=== PATIENT | female | born 1950 | race Caucasian/White ===

== ENCOUNTER 2021-08-08 14:27 | Outpatient (REF) | payer MEDICARE, SELFPAY | END 2021-08-08 14:28 | disposition home or self-care (01) | LOC: HO.HMGCLDS 14:27 | PROVIDERS: PCP Internal Medicine; Visit Provider Internal Medicine | DX: Z20.822 Contact with and (suspected) exposure to COVID-19 (principal) | CPT/HCPCS: C9803; U0003; U0005 ==

== ENCOUNTER 2022-05-09 17:25 | Outpatient (REF) | payer MEDICARE, SELFPAY ==
[2022-05-09 18:20] LABS: Influenza A PCR NEGATIVE (Negative); Influenza B PCR NEGATIVE (Negative); Resp Syncy Virus RNA Qual PCR NEGATIVE (Negative); SARS COV2 PCR INHOUSE NEGATIVE (Negative)
== END 2022-05-09 17:26 | disposition home or self-care (01) ==
LOC: HO.LNP 17:25
DX: Z20.822 Contact with and (suspected) exposure to COVID-19 (principal); J02.9 Acute pharyngitis, unspecified
CPT/HCPCS: 0241U

== ENCOUNTER 2022-05-19 15:14 | Emergency (ER) | payer MEDICARE, SELFPAY ==
[2022-05-19 16:01] VITALS: BP 108/69; PULSE 74; RESP 18; TEMP 36.7; O2SAT 98; BMI 28.3
--- NOTE | 2022-05-19 16:12 | ED.PSYCH ---
HPI - Psych General Chief Complaint: Psychiatric Symptoms Stated Complaint: Crisis Time Seen by Provider: 05/19/22 16:11 Source: patient Mode of arrival: ambulatory Limitations: no limitations History of Present Illness HPI Narrative: This is a 72-year-old female history of bipolar disorder presenting to the emergency department with anxiety, panic attacks, suicidal ideation with plan x2 weeks. Patient tells me that she started feeling this way when her medications were switched she tells me she is to be taking a medication that was too expensive therefore they put her on Seroquel and since she started taking cervical she has been having issues. Patient denies visual, auditory and tactile hallucinations. Tells me she is suicidal with plan to run into traffic. Denies homicidal ideation. Denies drugs, alcohol and tobacco. Denies any medical complaints at this time. MD complaint: suicidal ideation Onset (ago): day(s) (2) Related Data Home Medications Medication Instructions Recorded Confirmed albuterol sulfate 90 mcg/actuation 2 puff PO Q4-6H PRN 06/15/21 aerosol inhaler alendronate 70 mg tablet mg PO 06/15/21 amoxicillin 875 mg tablet 875 mg PO BID 06/15/21 aripiprazole 10 mg tablet 10 mg PO DAILY 06/15/21 atorvastatin 10 mg tablet 10 mg PO DAILY 06/15/21 azithromycin 250 mg tablet 250 mg PO DIRECTED 06/15/21 bupropion HCl 200 mg tablet,12 hr 200 mg PO QAM 06/15/21 sustained-release fluticasone furoate 100 1 inh inhalation DAILY 06/15/21 mcg/actuation blister powder for inhalation (Arnuity Ellipta) fluticasone propionate 100 0 inh inhalation 06/15/21 mcg/actuation blister powder for inhalation (Flovent Diskus) ketotifen fumarate 0.025 % (0.035 1 drp ophthalmic (eye) Q12H 06/15/21 %) eye drops lisinopril 5 mg tablet 5 mg PO DAILY 06/15/21 lorazepam 0.5 mg tablet 0.5 mg PO BID 06/15/21 omeprazole 20 mg capsule,delayed 20 mg PO DAILY 06/15/21 release primidone 50 mg tablet 50 mg PO BID 06/15/21 sertraline 100 mg tablet 200 mg PO QAM 06/15/21 trazodone 100 mg tablet 100 mg PO BEDTIME 06/15/21 Saccharomyces boulardii 250 mg 5,000 mmu cells PO DAILY 05/09/22 capsule (Digest Probiotic (S.boulardii)) ascorbic acid (vitamin C) 100 mg 100 mg PO DAILY 05/09/22 tablet cholecalciferol (vitamin D3) 50 50 mcg PO DAILY 05/09/22 mcg (2,000 unit) capsule quetiapine 50 mg tablet,extended 50 mg PO BEDTIME 05/09/22 release 24 hr Previous Rx's Medication Instructions Recorded doxycycline hyclate 100 mg capsule 100 mg PO BID 14 days #28 caps 06/15/21 amoxicillin 250 mg capsule 250 mg PO QID 7 days #28 caps 05/09/22 hydroxyzine HCl 25 mg tablet 25 mg PO BID PRN anxiety #6 tabs 05/13/22 Allergies Allergy/AdvReac Type Severity Reaction Status Date / Time [facility] Allergy Unknown Verified 05/13/22 14:57 aspirin AdvReac Mild Shortness Verified 05/13/22 14:57 of Breath Review of Systems Review of Systems: Constitutional : No Fever, No Chills ENT/Mouth : No Ear Pain, No Nasal Congestion, No sore throat Eyes: No Eye Pain, No Swelling, No Redness Cardiovascular : No Chest Pain, No SOB Respiratory : No Cough, No Sputum, No Dyspnea Gastrointestinal : No Nausea, No Vomiting, No Diarrhea, No Hematochezia, No Melena Genitourinary : No Dysuria, No Urinary Frequency, No Hematuria Musculoskeletal : No Myalgias Skin : No Skin Lesions, No rash Neuro : No Weakness, No Numbness, No Paresthesias, No Dizziness, No Headache Psych : positive Anxiety, positive Depression, positive SI, No HI All other systems reviewed and are negative Yes all other systems are reviewed and are negative [facility] Past Medical History Attestation statement: The following information was validated with the patient. Source: old records reviewed and nursing notes reviewed Social History Social History Advance Directives: No Advance Directives Information Provided: No Physical Exam Vital Signs: Vital Signs: Last Vital Signs Temp 98.0 F 05/19/22 16:01 Pulse 74 05/19/22 16:01 Resp 18 05/19/22 16:01 BP 108/69 05/19/22 16:01 Pulse Ox 98 05/19/22 16:01 O2 Del Method 05/19/22 16:01 BMI result Body Mass Index 28.3 VSS Appearance: Alert.? Oriented X3.? No acute distress.? Head: Normocephalic, atraumatic, no step-offs or deformities Eyes: Pupils equal, round and reactive to light.? ENT: Pharynx normal.? Neck: Normal inspection.? Neck supple.? CVS: Normal heart rate and rhythm.? Pulses normal.? Respiratory: No respiratory distress.? Breath sounds normal.? Abdomen: Soft and nontender.? Skin: Skin warm and dry.? Normal skin color.? Normal skin turgor.? Extremities: No lower extremity edema.? No calf ttp. 5/5 strength to bilateral upper and lower extremities Neuro: Oriented X 3.? No motor deficit.? No sensory deficit. CN 2-12 intact Course Reevaluation(s) Reevaluation #1: CBC within normal limits. Chemistry with no acute findings. UA without infection. Blood negative for salicylates, acetaminophen, ethanol. Urine toxicology positive for barbiturates. Patient is COVID negative. Patient common cooperative. At this time patient will be placed in physician observation to allow more time to be evaluated by the behavioral health team. At time observation was started patient common cooperative no acute distress. Will continue to monitor Time: 19:48 MDM - Psych MDM Narrative Medical decision making narrative: 1613 72 year old female presents w/ anxiety, panic and SI w/ plan to jump into traffic. Reports recently starting Seroquel PE benign Plan- medical clearance, evaluation by psych. Medical Records Attestation: I reviewed the patient's medical records. Lab Data Attestation: I reviewed the patient's lab results. Result diagrams: 05/19/22 17:00 05/19/22 17:00 Labs: Lab Results 05/19/22 05/19/22 05/19/22 Range/Units 17:00 17:00 17:00 WBC 5.7 (4.8-10.8) X10*3/uL RBC 4.57 (4.20-5.50) X10*6/uL Hgb 13.4 (12.0-16.0) g/dl Hct 40.2 (37.0-47.0) % MCV 88.0 (80.0-98.0) fL MCH 29.3 (27.0-33.0) pg MCHC 33.3 (31.0-35.0) g/dl RDW 12.1 (11.0-16.0) % Plt Count 178 (160-400) X10*3/uL MPV 8.9 L (9.4-12.3) fL Immature Gran % (Auto) 0.5 H (0.0-0.4) % Neut % (Auto) 69.9 (45-73) % Lymph % (Auto) 16.4 L (20-40) % [place] % (Auto) 9.9 (2-11) % Eos % (Auto) 2.4 (0-4) % Baso % (Auto) 0.9 (0-2) % Lymph # (Auto) 0.9 L (1.2-4.9) X10*3/uL [place] # (Auto) 0.6 (0.1-1.2) X10*3/uL Eos # (Auto) 0.1 (0.0-0.4) X10*3/uL Baso # (Auto) 0.1 (0.0-0.2) X10*3/uL Abs Immat Gran (auto) 0.03 (0.00-0.03) X10*3/uL Absolute Neuts (auto) 4.0 (2.0-8.3) x10*3/uL Absolute Nucleated RBC 0.000 (0.0-0.012) X10*3/uL Nucleated RBC % (auto) 0.0 (0.0-0.2) /100WBC Sodium 138 (135-145) mmol/L Potassium 4.3 (3.3-5.1) mmol/L Chloride 105 (96-108) mmol/L Carbon Dioxide 26 (22-29) mmol/L Anion Gap 11 L (12-20) BUN 12 (9-16) mg/dL Creatinine 0.85 (0.5-1.4) mg/dL Estim Creat Clear Calc 55.7 Estimated GFR > 60 Random Glucose 90 (60-115) mg/dL Calcium 9.1 (8.4-10.2) mg/dL Magnesium 1.9 (1.6-2.6) mg/dL Total Bilirubin 0.4 (0.0-1.0) mg/dL AST 15 (5-31) U/L ALT 17 (0-31) U/L Alkaline Phosphatase 72 (39-117) U/L Total Protein 6.7 (6.5-8.0) g/dL Albumin 4.6 (3.5-5.0) g/dL Urine Color Urine Appearance Urine pH (5.0-8.0) Ur Specific [place] (1.005-1.025) Urine Protein (NEG-TRACE) MG/DL Urine Glucose (UA) (NEG) MG/DL Urine Ketones (NEG) MG/DL Urine Blood (NEG) Urine Nitrite (NEG) Ur Leukocyte Esterase (NEG) Urine RBC (0) /HPF Urine WBC (0-4) /HPF Ur Squamous Epith Cells /LPF Urine Bacteria /LPF Salicylates < 5.0 L (15-30) mg/dL Urine Opiates Screen (Not Detect) Urine Fentanyl Screen (Not Detect) Acetaminophen 2 (<30) mcg/mL Ur Barbiturates Screen (Not Detect) Ur Phencyclidine Scrn (Not Detect) Ur Amphetamines Screen (Not Detect) U Benzodiazepines Scrn (Not Detect) Urine Cocaine Screen (Not Detect) U Marijuana (THC) Screen (Not Detect) Ethyl Alcohol < 10 mg/dL COVID-19 (JENNYFER) Negative (Negative) COVID-19 Clin Com See Note 05/19/22 05/19/22 Range/Units 17:34 17:34 WBC (4.8-10.8) X10*3/uL RBC (4.20-5.50) X10*6/uL Hgb (12.0-16.0) g/dl Hct (37.0-47.0) % MCV (80.0-98.0) fL MCH (27.0-33.0) pg MCHC (31.0-35.0) g/dl RDW (11.0-16.0) % Plt Count (160-400) X10*3/uL MPV (9.4-12.3) fL Immature Gran % (Auto) (0.0-0.4) % Neut % (Auto) (45-73) % Lymph % (Auto) (20-40) % [place] % (Auto) (2-11) % Eos % (Auto) (0-4) % Baso % (Auto) (0-2) % Lymph # (Auto) (1.2-4.9) X10*3/uL [place] # (Auto) (0.1-1.2) X10*3/uL Eos # (Auto) (0.0-0.4) X10*3/uL Baso # (Auto) (0.0-0.2) X10*3/uL Abs Immat Gran (auto) (0.00-0.03) X10*3/uL Absolute Neuts (auto) (2.0-8.3) x10*3/uL Absolute Nucleated RBC (0.0-0.012) X10*3/uL Nucleated RBC % (auto) (0.0-0.2) /100WBC Sodium (135-145) mmol/L Potassium (3.3-5.1) mmol/L Chloride (96-108) mmol/L Carbon Dioxide (22-29) mmol/L Anion Gap (12-20) BUN (9-16) mg/dL Creatinine (0.5-1.4) mg/dL Estim Creat Clear Calc Estimated GFR Random Glucose (60-115) mg/dL Calcium (8.4-10.2) mg/dL Magnesium (1.6-2.6) mg/dL Total Bilirubin (0.0-1.0) mg/dL AST (5-31) U/L ALT (0-31) U/L Alkaline Phosphatase (39-117) U/L Total Protein (6.5-8.0) g/dL Albumin (3.5-5.0) g/dL Urine Color YELLOW Urine Appearance CLEAR Urine pH 6.5 (5.0-8.0) Ur Specific [place] <= 1.005 (1.005-1.025) Urine Protein NEG (NEG-TRACE) MG/DL Urine Glucose (UA) NEG (NEG) MG/DL Urine Ketones NEG (NEG) MG/DL Urine Blood 1+ H (NEG) Urine Nitrite NEG (NEG) Ur Leukocyte Esterase TRACE H (NEG) Urine RBC 0-2 (0) /HPF Urine WBC 0 (0-4) /HPF Ur Squamous Epith Cells TRACE /LPF Urine Bacteria NONE /LPF Salicylates (15-30) mg/dL Urine Opiates Screen Not Detected (Not Detect) Urine Fentanyl Screen Not Detected (Not Detect) Acetaminophen (<30) mcg/mL Ur Barbiturates Screen POSITIVE H (Not Detect) Ur Phencyclidine Scrn Not Detected (Not Detect) Ur Amphetamines Screen Not Detected (Not Detect) U Benzodiazepines Scrn Not Detected (Not Detect) Urine Cocaine Screen Not Detected (Not Detect) U Marijuana (THC) Screen Not Detected (Not Detect) Ethyl Alcohol mg/dL COVID-19 (JENNYFER) (Negative) COVID-19 Clin Com Critical Care Time Critical Care Time Critical Care Time: No Discharge Plan Discharge Clinical Impression: Suicidal ideation, Depression, Acute anxiety Patient Disposition: Still a Patient Prescriptions: No Action amoxicillin 875 mg tablet 875 mg PO BID alendronate 70 mg tablet PO aripiprazole 10 mg tablet 10 mg PO DAILY azithromycin 250 mg tablet 250 mg PO DIRECTED bupropion HCl 200 mg tablet sustained-release 12 hr 200 mg PO QAM primidone 50 mg tablet 50 mg PO BID lisinopril 5 mg tablet 5 mg PO DAILY sertraline 100 mg tablet 200 mg PO QAM Arnuity Ellipta 100 mcg/actuation blister with device 1 inh inhalation DAILY Flovent Diskus 100 mcg/actuation blister with device 0 inh inhalation trazodone 100 mg tablet 100 mg PO BEDTIME omeprazole 20 mg capsule,delayed release(DR/EC) 20 mg PO DAILY atorvastatin 10 mg tablet 10 mg PO DAILY ketotifen fumarate 0.025 % (0.035 %) drops 1 drp ophthalmic (eye) Q12H albuterol sulfate 90 mcg/actuation HFA aerosol inhaler 2 puff PO Q4-6H PRN lorazepam 0.5 mg tablet 0.5 mg PO BID doxycycline hyclate 100 mg capsule 100 mg PO BID 14 Days Qty: 28 0RF quetiapine 50 mg tablet extended release 24 hr 50 mg PO BEDTIME ascorbic acid (vitamin C) 100 mg tablet 100 mg PO DAILY cholecalciferol (vitamin D3) 50 mcg (2,000 unit) capsule 50 mcg PO DAILY Saccharomyces boulardii [Digest Probiotic (S.boulardii)] 250 mg capsule 5,000 mmu cells PO DAILY amoxicillin 250 mg capsule 250 mg PO QID 7 Days Qty: 28 0RF hydroxyzine HCl 25 mg tablet 25 mg PO BID PRN (Reason: anxiety) Qty: 6 0RF
[2022-05-19 17:05] LABS: MANUAL DIFF FLAG NO
[2022-05-19 17:07] LABS: Basophils Absolute Auto 0.1 X10*3/uL (0.0-0.2); Basophils Percent Auto 0.9 % (0-2); Eosinophils Absolute Auto 0.1 X10*3/uL (0.0-0.4); Eosinophils Percent Auto 2.4 % (0-4); Hematocrit 40.2 % (37.0-47.0); Hemoglobin 13.4 g/dl (12.0-16.0); Imm Gran Abs Auto 0.03 X10*3/uL (0.00-0.03); Imm Gran Pct Auto 0.5 % (0.0-0.4); Lymphocytes Absolute Auto 0.9 X10*3/uL (1.2-4.9); Lymphocytes Percent Auto 16.4 % (20-40); Mean Corpuscular HGB Conc 33.3 g/dl (31.0-35.0); Mean Corpuscular Hemoglobin 29.3 pg (27.0-33.0); Mean Platelet Volume 8.9 fL (9.4-12.3); Monocytes Absolute Auto 0.6 X10*3/uL (0.1-1.2); Monocytes Percent Auto 9.9 % (2-11); Neutrophils Percent Auto 69.9 % (45-73); Platelet Count 178 X10*3/uL (160-400); Red Blood Count 4.57 X10*6/uL (4.20-5.50); Red Cell Distribution Width 12.1 % (11.0-16.0); White Blood Count 5.7 X10*3/uL (4.8-10.8)
[2022-05-19] MEDS: LORazepam 1 MG TABLET PO (17:12)
[2022-05-19 17:21] LABS: COVID-19 Test Negative (Negative)
[2022-05-19 17:28] LABS: Alanine Aminotransferase 17 U/L (0-31); Albumin Level 4.6 g/dL (3.5-5.0); Alkaline Phosphatase 72 U/L (39-117); Anion Gap 11 (12-20); Aspartate Amino Transferase 15 U/L (5-31); Bilirubin Total 0.4 mg/dL (0.0-1.0); Blood Urea Nitrogen 12 mg/dL (9-16); Calcium 9.1 mg/dL (8.4-10.2); Carbon Dioxide 26 mmol/L (22-29); Chloride 105 mmol/L (96-108); Creatinine Clr Calc Pharmacy 55.7; Estimated Glomerular Filt Rate > 60; Ethanol < 10 mg/dL; Glucose Random 90 mg/dL (60-115); Magnesium 1.9 mg/dL (1.6-2.6); Potassium 4.3 mmol/L (3.3-5.1); Sodium 138 mmol/L (135-145); Total Protein 6.7 g/dL (6.5-8.0)
[2022-05-19 18:04] LABS: Appearance Urine CLEAR; Color Urine YELLOW; Glucose Urine UA NEG (NEG); Leukocyte Esterase Urine TRACE (NEG); Nitrite Urine NEG (NEG); PH 6.5 (5.0-8.0); Specific Gravity - Urine <= 1.005 (1.005-1.025); UACC Culture Trigger NO; Urine Blood 1+ (NEG); Urine Ketones NEG (NEG); Urine Protein NEG (NEG-TRACE)
[2022-05-19 18:23] LABS: Acetaminophen LAB 2 mcg/mL (<30); Salicylate < 5.0 mg/dL (15-30)
[2022-05-19 18:31] LABS: RBC Urine 0-2 /HPF (0); Squamous Epithelial Cell Urine TRACE /LPF; WBC Urine 0 /HPF (0-4)
[2022-05-19 19:05] LABS: Amphetamine Screen Urine Not Detected (Not Detect); Barbiturates, Urine POSITIVE (Not Detect); Benzodiazepines Screen Urine Not Detected (Not Detect); Cannabinoid Screen Urine Not Detected (Not Detect); Cocaine Screen Urine Not Detected (Not Detect); Fentanyl, urine Not Detected (Not Detect); Opiate Screen Urine Not Detected (Not Detect); Phencyclidine Screen Urine Not Detected (Not Detect)
== END 2022-05-19 20:36 | disposition home or self-care (01) ==
PROVIDERS: Physician Assistant; Emergency Provider Emergency Medicine; PCP Internal Medicine
DX: F33.1 Major depressive disorder, recurrent, moderate (principal); R45.851 Suicidal ideations; F41.1 Generalized anxiety disorder; F43.0 Acute stress reaction; Z79.899 Other long term (current) drug therapy; Z20.822 Contact with and (suspected) exposure to COVID-19
CPT/HCPCS: 80053; 80143; 80179; 80307; 81001; 82077; 83735; 85025; 87635; 99282; 99284

== ENCOUNTER 2022-08-20 17:07 | Outpatient (REF) | payer MEDICARE, SELFPAY ==
[2022-08-20 19:17] LABS: Influenza A PCR NEGATIVE (Negative); Influenza B PCR NEGATIVE (Negative); Resp Syncy Virus RNA Qual PCR NEGATIVE (Negative); SARS COV2 PCR INHOUSE NEGATIVE (Negative)
== END 2022-08-20 17:08 | disposition home or self-care (01) ==
LOC: HO.LAB 17:07
PROVIDERS: Visit Provider Internal Medicine
DX: Z20.822 Contact with and (suspected) exposure to COVID-19 (principal); R43.9 Unspecified disturbances of smell and taste
CPT/HCPCS: 0241U

== ENCOUNTER 2023-08-29 12:07 | Outpatient (AMB) | payer MEDICARE, SELFPAY ==
[2023-08-29 12:12] VITALS: BP 102/70; PULSE 75; TEMP 36.9; O2SAT 98; BMI 28.7
--- NOTE | 2023-08-29 12:12 | AM.OFFWIN_ITS ---
Intake Vital Signs 08/29/23 12:12 Height 5 ft 2 in Weight 157 lb BMI 28.7 BP 102/70 Blood Pressure Location Lt brachial Position Sitting Pulse 75 Pulse Source Pulse Oximeter Temp 98.5 F Temp Source Oral Pulse Oximetry (%) 98 Oxygen Delivery Method Room Air Intake Visit Reasons: EP Asthma/Wheezing/Congestion Intake Note: Pt is her today c/o wheezing and chest congestion x1wk Allergies ziprasidone [From Geodon] Allergy (Verified 08/29/23 12:13) Unknown aspirin Adverse Reaction (Mild, Verified 08/29/23 12:13) Shortness of Breath HPI EP Asthma/Wheezing/Congestion HPI Details Patient is a 73-year-old female with a history of asthma, who states that she has had to use her albuterol nebulizer and inhaler more recently since getting a respiratory infection a few days ago. She tested herself for COVID with rapid test at home and was negative. She complains of shortness of breath coughing fits, chest congestion and pressure. She denies localized chest pain, weakness or dizziness, myalgias or malaise, fever chills, nausea diarrhea, sore throat, loss of sense of taste or smell, or other significant associated symptoms. Review of Systems Const All systems reviewed & are unremarkable except as noted in HPI and below Physical Exam Vital Signs: Last Vital Signs Temp 98.5 F 08/29/23 12:12 Pulse 75 08/29/23 12:12 BP 102/70 08/29/23 12:12 Pulse Ox 98 08/29/23 12:12 Oxygen Delivery Method Room Air 08/29/23 12:12 BMI result Body Mass Index 28.7 Const General: cooperative, healthy appearing, comfortable, no acute distress, alert, awake, Physically active and well groomed; No diaphoretic, intoxicated appearing, poor hygiene or tired appearing Limitations: no limitations HEENT Head: Yes normal to inspection, Yes normocephalic and Yes atraumatic Ears: hearing grossly normal bilaterally, external ears normal, TM's normal bilaterally and EAC's normal General nose exam: Normal external nose present, Normal nares present, No nasal polyps present, Normal nasal mucous membranes and turbinates present, Normal septum present and No nasal discharge present Face and sinus: Yes normal facial exam, Yes sinuses nontender and Yes face symmetric Mouth: Normal oral and palatal mucosa present, lip normal and tongue normal Throat: Yes posterior oropharynx normal, Yes abnormal tonsil (mildly erythematous bilaterally), No peritonsillar mass, No postnasal drainage, No uv ular edema and No cobblestoning Eyes General: appearance normal, both eyes and all related structures Neck Neck: Yes normal visual inspection, Yes trachea midline and Yes supple Chest Chest palpation & inspection: tenderness (Upper sternum area) Resp Effort & Inspection: normal respiratory effort, able to speak in complete sentences, no audible wheezes, Actively coughing (occasional congested) Quality: productive, no grunting, not labored, no nasal flaring, no respiratory distress, no retractions, tachypneic, no tripod positioning, no use of accessory muscles and symmetric chest movement Auscultation: clear to auscultation bilaterally, no crackles, no rales, no rhonchi, no wheezes, diminished lung sounds (mildly) bilateral and No rub present Cardio Palpation: normal PMI Rate: regular rate Rhythm: regular rhythm Heart sounds: S1 normal heart sound present and S2 normal heart sound present Skin Other: Good color, warm and dry Psych Appearance: grossly normal Mental Status: mental status grossly normal Speech and movement: Normal speech and movement present Affect: normal affect Attitude: cooperative Thought process: Normal thought process present Insight: Good insight present (Psych) Judgement: Good judgement present (Psych) Results Reviewed Results Reviewed: 12 lead EKG shows normal sinus rhythm with no ST changes but with left axis deviation. Advised that she follow-up with PCP for this, unless symptoms worsen and then she will go to the emergency department in the meantime Assessment & Plan Assessment & Plan (1) Lower respiratory infection: Code(s): J22 - Unspecified acute lower respiratory infection Plan: Patient is a 73-year-old female with apparent lower respiratory infection that is aggravating her asthma. Will treat her with a prednisone taper as well as azithromycin, especially as her chest x-ray shows some diffuse patterns specifically on the right side. Twelve lead EKG done today due to chest press ure associated with congestion, however this is mostly associated with coughing. 12 Lead is nondiagnostic for STEMI, and we discussed following up with her PCP in regards to mild left axis deviation pattern. She knows to follow up if symptoms persist or worsen, or to go to emergency department with severe symptoms. Orders: Orders XR chest 2V 08/29/23 R05.9 - Cough, unspecified SARS-CoV2/FLU/RSV 08/29/23 R05.9 - Cough, unspecified Medications: New azithromycin take 500 mg today (day 1), then 250 mg for 4 days (days 2-5) PO 6 tabs 0RF prednisone then take 2 and half tabs daily for 3 days, then take 2 tabs daily for 3 days, then take 1 and half tabs daily for 3 days, and then take 1 tab daily for 3 days 60 mg (3 x 20 mg) PO DAILY 30 tabs 0RF 3 days Coding Level of Care Code Est Pt Level 4 (28783) Diagnoses Lower respiratory infection J22
== END 2023-08-29 14:20 | disposition home or self-care (01) ==
PROVIDERS: PCP Internal Medicine; Visit Provider Physician Assistant Medical
DX: J22 Unspecified acute lower respiratory infection (principal)
CPT/HCPCS: 99214

== ENCOUNTER 2023-08-29 13:06 | Outpatient (REF) | payer MEDICARE, SELFPAY ==
--- NOTE | ~2023-08-29 | XR_ITS ---
EXAMINATION: XR CHEST CLINICAL INFORMATION: Cough COMPARISON: None available. TECHNIQUE: 2 views of the chest were obtained. FINDINGS: Severe scoliosis convex right limiting assessment. Posteriorly, there is a pleural-based density. Please see he images. This could represent a focal infiltrate or mass lesion is not excluded. Consider follow-up with CT imaging electively. XR/XR chest 2V IMPRESSION: 1. Focal pleural-based density posteriorly. Recommend follow-up with CT imaging electively. 2. Severe scoliosis limiting assessment.
== END 2023-08-29 13:07 | disposition home or self-care (01) ==
LOC: HO.HMGCX 13:06
PROVIDERS: PCP Internal Medicine; Visit Provider Physician Assistant Medical
DX: Z13.89 Encounter for screening for other disorder (principal)
CPT/HCPCS: 71046

== ENCOUNTER 2023-08-29 13:10 | Outpatient (REF) | payer MEDICARE, SELFPAY ==
[2023-08-29 14:58] LABS: Influenza A PCR NEGATIVE (Negative); Influenza B PCR NEGATIVE (Negative); Resp Syncy Virus RNA Qual PCR NEGATIVE (Negative); SARS COV2 PCR INHOUSE NEGATIVE (Negative)
== END 2023-08-29 13:11 | disposition home or self-care (01) ==
LOC: HO.LAB 13:10
PROVIDERS: Visit Provider Physician Assistant Medical
DX: Z11.52 Encounter for screening for COVID-19 (principal); Z20.822 Contact with and (suspected) exposure to COVID-19; R05.9 Cough, unspecified
CPT/HCPCS: 0241U; 71046

== ENCOUNTER 2024-04-02 10:55 | Outpatient (AMB) | payer MEDICARE, SELFPAY ==
--- NOTE | 2024-04-02 11:29 | AM.OFFWIN_ITS ---
Intake Vital Signs 04/02/24 11:31 Height 5 ft 2 in Weight 164 lb BMI 30.0 BP 118/70 Blood Pressure Location Rt brachial Position Sitting Pulse 90 Pulse Source Pulse Oximeter Temp 98.7 F Temp Source Oral Pulse Oximetry (%) 97 Oxygen Delivery Method Room Air Intake Visit Reasons: Est/ sore throat & ear aches (lobby masked) Intake Note: Patient here for sore throat and bilat ear pain that has been present for about 2-3 days. Patient Tobacco Use Status: Never used Tobacco Allergies ziprasidone [From Geodon] Allergy (Verified 04/02/24 11:45) Unknown aspirin Adverse Reaction (Mild, Verified 04/02/24 11:45) Shortness of Breath Do you need a note to return to daycare/school/sports/work: No HPI HPI Comments History of Present Illness Details Here today w/ co sore throat and bilat ear pain that started a few days ago using apap and her inhaler have seemed to help her pain Denies fever, chills, nasal drainage or pressure, cough. [facility] Social History Patient Tobacco Use Status: Never used Tobacco Review of Systems Const All systems reviewed & are unremarkable except as noted in HPI and below Physical Exam Vital Signs: Last Vital Signs Temp 98.7 F 04/02/24 11:31 Pulse 90 04/02/24 11:31 BP 118/70 04/02/24 11:31 Pulse Ox 97 04/02/24 11:31 Oxygen Delivery Method Room Air 04/02/24 11:31 BMI result Body Mass Index 30.0 Const Other: Awake alert NAD Sclera and conjunctiva clear bilat Nares patent, turbinates within normal limits, no sinus tenderness with palpation bilat TM intact + erythema and bulging w/ loss of landmarks bilat L>R, mild erythema in EAC R>L MMM, pharynx WNL RRR LS CTAB Results AMB Rapid Strep AMB Rapid Strep Negative Last Edit by ABEL Phelps on 04/02/24 11:41 Results Reviewed Results Reviewed: Laboratory Last Values Strep Scn Rapid Clinic Negative 04/02/24 11:40 Assessment & Plan Assessment & Plan (1) Otitis media, chronic, bilateral: Code(s): H66.93 - Otitis media, unspecified, bilateral Plan: . Plan . Orders: Orders AMB Rapid Strep Screen Today Z13.9 - Encounter for screening, unspecified Medications: New amoxicillin-pot clavulanate 875-125 mg 1 tab PO BID 7 days 14 tabs 0RF Patient Instructions: Take antibiotics as directed ok to use over the counter pain relievers as needed should your symptoms worsen or not improve please return to office or f/u with PCP Coding Level of Care Code Est Pt Level 3 (89813) Diagnoses Otitis media, chronic, bilateral H66.93
[2024-04-02 11:31] VITALS: BP 118/70; PULSE 90; TEMP 37.1; O2SAT 97
== END 2024-04-02 12:01 | disposition home or self-care (01) ==
PROVIDERS: PCP Internal Medicine; Visit Provider Nurse Practitioner Family
DX: H66.93 Otitis media, unspecified, bilateral (principal); J02.9 Acute pharyngitis, unspecified
CPT/HCPCS: 87880; 99213

== ENCOUNTER 2024-04-05 13:19 | Outpatient (AMB) | payer MEDICARE, SELFPAY ==
[2024-04-05 13:41] VITALS: BP 122/72; PULSE 92; TEMP 37.3; O2SAT 96
--- NOTE | 2024-04-05 13:41 | AM.OFFWIN_ITS ---
Intake Vital Signs 04/05/24 13:41 Height 5 ft 2 in Weight 74.389 kg BMI 30.0 BP 122/72 Blood Pressure Location Rt brachial Position Sitting Pulse 92 Pulse Source Pulse Oximeter Temp 99.2 F Temp Source Oral Pulse Oximetry (%) 96 Oxygen Delivery Method Room Air Intake Visit Reasons: EP Cough, mucus Intake Note: pt is here for cough and mucus Patient Tobacco Use Status: Never used Tobacco Allergies ziprasidone [From Geodon] Allergy (Verified 04/05/24 13:41) Unknown aspirin Adverse Reaction (Mild, Verified 04/05/24 13:41) Shortness of Breath Do you need a note to return to daycare/school/sports/work: No HPI EP Cough, mucus HPI Details Patient presents with 5 days of cough and increased mucus production. She was seen in this clinic by another provider 3 days ago and was treated with Augmentin for otitis media. She notes that the ear pain and sore throat is im proving but she is having nighttime coughing. She is using her regular asthma medications she denies chest pain, difficulty breathing or shortness of breath. Cough is moderately productive with clear mucus. She has not been tested for COVID or RSV. [facility] Social History Patient Tobacco Use Status: Never used Tobacco Review of Systems Const Reports as per HPI and Reports no additional complaints ENT Reports no additional complaints and Reports as per HPI Card Reports as per HPI and Reports no additional complaints Resp Reports as per HPI and Reports no additional complaints Physical Exam Const General: cooperative, comfortable and no acute distress Orientation/consciousness: patient oriented x3 HEENT Ears: external ears normal and TM's normal bilaterally General nose exam: Normal external nose present, Normal nasal mucous membranes and turbinates present and Nasal discharge present clear Face and sinus: Yes sinuses nontender Throat: Yes posterior oropharynx normal Resp Effort & Inspection: normal respiratory effort Auscultation: clear to auscultation bilaterally (Mild intermittent scattered wheeze at times) Cardio Rate: regular rate Rhythm: regular rhythm Heart sounds: S1 normal heart sound present and S2 normal heart sound present Neuro General: patient oriented x3 Assessment & Plan Assessment & Plan (1) Upper respiratory tract infection: Code(s): J06.9 - Acute upper respiratory infection, unspecified Qualifiers: URI type: unspecified viral URI Qualified Code(s): J06.9 - Acute upper respiratory infection, unspecified Plan: Will Rx a short course of low-dose prednisone. Tessalon Perles as needed for cough. Advised to continue regular asthma medications and complete antibiotics given previously as prescribed. Return to clinic if symptoms do not improve over the next 3-5 days. Will report viral swab results as available. Orders: Orders SARS-CoV2/FLU/RSV Today B34.9 - Viral infection, unspecified, J06.9 - Acute upper respiratory infection, unspecified Medications: New benzonatate 100 mg PO BID PRN 14 caps 0RF cough prednisone 20 mg PO DAILY 5 days 5 tabs 0RF Coding Level of Care Code Est Pt Level 3 (14525) Diagnoses Viral upper respiratory tract infection J06.9 URI type: unspecified viral URI
== END 2024-04-05 14:33 | disposition home or self-care (01) ==
PROVIDERS: PCP Internal Medicine; Visit Provider Physician Assistant
DX: J06.9 Acute upper respiratory infection, unspecified (principal)
CPT/HCPCS: 99213

== ENCOUNTER 2024-04-05 15:08 | Outpatient (REF) | payer MEDICARE, SELFPAY ==
[2024-04-05 19:49] LABS: Influenza A PCR NEGATIVE (Negative); Influenza B PCR NEGATIVE (Negative); Resp Syncy Virus RNA Qual PCR NEGATIVE (Negative); SARS COV2 PCR INHOUSE NEGATIVE (Negative)
== END 2024-04-05 15:09 | disposition home or self-care (01) ==
LOC: HO.LAB 15:08
PROVIDERS: Visit Provider Physician Assistant
DX: B34.9 Viral infection, unspecified (principal); J06.9 Acute upper respiratory infection, unspecified
CPT/HCPCS: 0241U

== ENCOUNTER 2024-04-09 12:23 | Outpatient (AMB) | payer MEDICARE, SELFPAY ==
--- NOTE | 2024-04-09 12:34 | AM.OFFWIN_ITS ---
Intake Vital Signs 04/09/24 12:35 Height 5 ft 2 in Weight 164 lb BMI 30.0 BP 124/70 Blood Pressure Location Rt brachial Position Sitting Pulse 77 Pulse Source Pulse Oximeter Temp 98 F Temp Source Oral Pulse Oximetry (%) 96 Oxygen Delivery Method Room Air Intake Visit Reasons: EP Sore throat, cough, Bronchitis/not better Intake Note: pt is here for sore throat, cough, and states she doesnt feel like she is getting better Patient Tobacco Use Status: Never used Tobacco Allergies ziprasidone [From Geodon] Allergy (Verified 04/09/24 12:36) Unknown aspirin Adverse Reaction (Mild, Verified 04/09/24 12:36) Shortness of Breath Do you need a note to return to daycare/school/sports/work: No HPI EP Sore throat, cough, Bronchitis/not better 2 HPI Details Patient is a 74-year-old female with a history of secondhand smoke who was recently diagnosed with COPD. She does use her maintenance medication for this, and uses her albuterol twice a day regularly, once in the morning and once at night. She reports that she has not needed to take during the day otherwise, as her symptoms have not been aggravated too much. However she is recently been dealing with respiratory symptoms for the last week. She was diagnosed with bilateral otitis media 8 days ago, and when her cough and asthma symptoms were getting aggravated, 4 days ago, she was started on a short course of prednisone and benzonatate capsules for the cough. She reports that she has been able to drain more from her ears, and this is causing a postnasal drip that is giving her a sore throat. She also feels some irritation to her bronchus area now, and even though her cough is improving with medication, she is worried about this. She denies shortness of breath, chest pain, nausea vomiting or diarrhea, fever or chills, weakness or dizziness, myalgias or malaise, or other significant associated symptoms. [facility] Social History Patient Tobacco Use Status: Never used Tobacco Review of Systems Const All systems reviewed & are unremarkable except as noted in HPI and below Physical Exam Vital Signs: Last Vital Signs Temp 98 F 04/09/24 12:35 Pulse 77 04/09/24 12:35 BP 124/70 04/09/24 12:35 Pulse Ox 96 04/09/24 12:35 Oxygen Delivery Method Room Air 04/09/24 12:35 BMI result Body Mass Index 30.0 Const General: cooperative, healthy appearing, comfortable, no acute distress, alert, awake, Physically active, anxious and well groomed; No diaphoretic, ill appearing, intoxicated appearing, poor hygiene or tired appearing Nutritional Appearance: average body habitus Limitations: no limitations HEENT Head: Yes normal to inspection, Yes normocephalic and Yes atraumatic Ears: hearing grossly normal bilaterally, external ears normal, TM's normal bilaterally and EAC's normal General nose exam: Normal external nose present, Normal nares present, Abnormal mucous membranes and turbinates present and Nasal discharge present Face and sinus: Yes normal facial exam, Yes sinuses nontender and Yes face symmetric Mouth: Normal oral and palatal mucosa present, lip normal and tongue normal Throat: Yes abnormal tonsil (mildly erythematous bilaterally), No peritonsillar mass, Yes postnasal drainage, No uvular edema and No cobblestoning Neck Neck: Yes normal visual inspection, Yes trachea midline, Yes supple and No anterior neck swelling Chest Chest palpation & inspection: normal palpation of entire chest wall Resp Effort & Inspection: normal respiratory effort, able to speak in complete sentences, normal respiratory pattern, no audible wheezes, Actively coughing (Rare), no grunting, not labored, no nasal flaring, no pursed lip breathing, no respiratory distress, no retractions, not tachypneic, no tripod positioning, no use of accessory muscles, No prolonged expiratory phase and symmetric chest movement Auscultation: clear to auscultation bilaterally, no crackles, no rales, no rhonchi, no wheezes, lung sounds not diminished and No rub present Cardio Palpation: normal PMI Rate: regular rate Rhythm: regular rhythm Heart sounds: S1 normal heart sound present and S2 normal heart sound present Skin Other: Good color, warm and dry Psych Appearance: grossly normal Mental Status: mental status grossly normal Speech and movement: Normal speech and movement present Affect: normal affect Attitude: cooperative Thought process: Normal thought process present Insight: Good insight present (Psych) Judgement: Good judgement present (Psych) Assessment & Plan Assessment & Plan (1) COPD exacerbation: Code(s): J44.1 - Chronic obstructive pulmonary disease with (acute) exacerbation Plan: Patient is a 74-year-old female with a history of secondhand smoke who was recently diagnosed with COPD. She does use her maintenance medication for this, and uses her albuterol twice a day regularly, once in the morning and once at night. She reports that she has not needed to take during the day otherwise, as her symptoms have not been aggravated too much. However she is recently been dealing with respiratory symptoms for the last week. She was diagnosed with bilateral otitis media 8 days ago, and when her cough and asthma symptoms were getting aggravated, 4 days ago, she was started on a short course of prednisone and benzonatate capsules for the cough. She reports that she has been able to drain more from her ears, and this is causing a postnasal drip that is giving her a sore throat. She also feels some irritation to her bronchus area now, and even though her cough is improving with medication, she is worried about this. I think her COPD might be getting a little aggravated from the URI. We discussed continuing the benzonatate capsules, and I will continue and taper her down from the prednisone. She was not wheezy or short of breath on exam today, and actually only coughed once. We considered chest x-ray today, but I do not think this is needed due to her stable exam, and as she reports that her mucus production is scant and clear at this time, and cough has improved. I will write her for azithromycin for a COPD flare to be safe, and she can follow up if symptoms persist or worsen. She knows to go to the emergency department with worrisome symptoms Medications: New prednisone then 2 tabs for 3 days, then 1 tab for 3 days. 30 mg (3 x 10 mg) PO DAILY 9 tabs 0RF 3 days azithromycin take 500 mg today (day 1), then 250 mg for 4 days (days 2-5) PO 6 tabs 0RF Refilled benzonatate 100 mg PO BID PRN 14 caps 0RF cough Coding Level of Care Code Est Pt Level 4 (17262) Diagnoses COPD exacerbation J44.1
[2024-04-09 12:35] VITALS: BP 124/70; PULSE 77; TEMP 36.6; O2SAT 96
== END 2024-04-09 13:22 | disposition home or self-care (01) ==
PROVIDERS: PCP Internal Medicine; Visit Provider Physician Assistant Medical
DX: J44.1 Chronic obstructive pulmonary disease with (acute) exacerbation (principal)
CPT/HCPCS: 99214

== ENCOUNTER 2024-06-04 11:36 | Emergency (ER) | payer MEDICARE, SELFPAY ==
[2024-06-04 11:40] VITALS: BP 125/73; PULSE 78; RESP 18; TEMP 36.7; O2SAT 98; BMI 28.2
--- NOTE | 2024-06-04 11:40 | ED.GENADULT ---
HPI - General Adult General Chief complaint: Nausea/Vomiting/Diarrhea Stated complaint: diarrhea x 4 5 days Time Seen by Provider: 06/04/24 11:47 Source: patient and family Mode of arrival: ambulatory Limitations: no limitations History of Present Illness ED Provider: DR. Durand HPI narrative: 74-year-old female presented for evaluation of nonbloody watery diarrhea for the past 5 days, and mild abdominal cramps, no nausea, no vomiting, no fever. Able to tolerate p.o. intake. Patient was started on Augmentin for sinusitis by her PCP 7 days ago 2 days later started to have nonbloody watery diarrhea and the rest of her symptoms. No other sick contacts, no recent travel, no acute abdominal pain now. Related Data Home Medications ?Medication ?Instructions ?Recorded ?Confirmed albuterol sulfate 90 mcg/actuation 2 puff PO Q4-6H PRN 06/15/21 aerosol inhaler alendronate 70 mg tablet mg PO 06/15/21 atorvastatin 10 mg tablet 10 mg PO DAILY 06/15/21 bupropion HCl 200 mg tablet,12 hr 200 mg PO QAM 06/15/21 sustained-release fluticasone furoate 100 1 inh inhalation DAILY 06/15/21 mcg/actuation blister powder for inhalation (Arnuity Ellipta) fluticasone propionate 100 0 inh inhalation 06/15/21 mcg/actuation blister powder for inhalation (Flovent Diskus) lisinopril 5 mg tablet 5 mg PO DAILY 06/15/21 lorazepam 0.5 mg tablet 0.5 mg PO BID 06/15/21 sertraline 100 mg tablet 200 mg PO QAM 06/15/21 trazodone 100 mg tablet 100 mg PO BEDTIME 06/15/21 Saccharomyces boulardii 250 mg 5,000 mmu cells PO DAILY 05/09/22 capsule (Digest Probiotic (S.boulardii)) cholecalciferol (vitamin D3) 50 50 mcg PO DAILY 05/09/22 mcg (2,000 unit) capsule cetirizine 10 mg tablet 10 mg PO DAILY 04/02/24 famotidine 20 mg tablet 20 mg PO BID 04/02/24 fluticasone propionate 50 spray intranasal 04/02/24 mcg/actuation nasal spray,suspension primidone 50 mg tablet 50 mg PO BID 06/01/24 Previous Rx's ?Medication ?Instructions ?Recorded aripiprazole 10 mg tablet (Abilify) 10 mg PO DAILY #14 tabs 05/19/22 prednisone 20 mg tablet 20 mg PO DAILY 5 days #5 tabs 04/05/24 azithromycin 250 mg tablet See Rx Instructions PO .COMPLEX #6 04/09/24 tabs benzonatate 100 mg capsule 100 mg PO BID PRN cough #14 caps 04/09/24 prednisone 10 mg tablet 30 mg (3 x 10 mg) PO DAILY 3 days 04/09/24 #9 tabs vancomycin 125 mg capsule 125 mg PO QID 14 days #56 caps 06/04/24 Allergies Allergy/AdvReac Type Severity Reaction Status Date / Time ziprasidone [From Geodon] Allergy Unknown Verified 06/04/24 11:42 aspirin AdvReac Mild Shortness Verified 06/04/24 11:42 of Breath Review of Systems Review of Systems: All other systems are reviewed and are negative Constitutional: Reports as per HPI and Reports no additional constitutional complaints Eyes: Reports as per HPI and Reports no additional eye complaints Reports system reviewed and no additional complaints, except as documented Cardiovascular: Reports as per HPI and Reports no additional cardiovascular complaints Respiratory: Reports as per HPI and Reports no additional respiratory complaints Gastrointestinal: Reports as per HPI and Reports no additional gastrointestinal complaints Genitourinary: Reports no additional female genitourinary complaints Musculoskeletal: Reports no additional musculoskeletal complaints Skin/Breast: Reports system reviewed and no additional complaints, except as docu Psychiatric: Reports no additional psychiatric complaints Endocrine: Reports no additional endocrine complaints Hematologic/Lymphatic: Reports no additional hematologic/lymphatic complaints Allergic/Immunologic: Reports no additional allergic/immunologic complaints Reports system reviewed and no additional complaints, except as documented and Reports Abnormal speech present REPLACED BY [facility] Social History Social History Patient Tobacco Use Status: Never used Tobacco Smoked in Last 30 Days: No Use of substances other than those prescribed or required for medical reasons: No Advance Directives: No Advance Directives Information Provided: No Do you have a plan to hurt others: No Plan Physical Exam ED Vital Signs: Vital Signs - 24 hr 06/04/24 11:40 06/04/24 13:16 06/04/24 13:18 Temperature 98.1 F Pulse Rate 78 63 70 Respiratory Rate 18 Blood Pressure 125/73 105/65 119/70 Pulse Oximetry 98 Oxygen Delivery Method Room Air 06/04/24 13:19 Temperature Pulse Rate 74 Respiratory Rate Blood Pressure 112/70 Pulse Oximetry Oxygen Delivery Method BMI result Body Mass Index 28.2 Vital signs have been reviewed and appear to be correct. Blood pressure elevated. Heart rate normal. Respiratory rate normal. Temperature normal. Oxygen saturation normal. Appearance: Alert. Oriented X3. No acute distress. Head: Normal external exam. Normocephalic. Atraumatic. No King signs noted. No raccoon eyes noted Eyes: PERRLA. EOMI. Conjunctiva and sclera normal. Eyelids normal. ENT: TM's Normal. Pharynx normal. Uvula midline. Moist mucous membranes. No trismus noted. No drooling noted. No muffled voice noted. Neck: Normal inspection. Neck supple. FROM. No adenopathy. Thyroid Normal. No meningeal signs. No neck mass noted. CVS: Normal heart rate and rhythm. Heart sound normal. No murmurs noted. Pulses normal throughout. Respiratory: No respiratory distress. Painless inspiration. Breath sounds normal. No wheezes/rales/rhonchi noted. Chest nontender. No accessory muscle usage noted or decreased air movement noted. Abdomen: Soft and nontender. Bowel sounds normal in all 4 quadrants. No distention noted. No organomegaly noted. No visible injury noted. Back: No CVA tenderness. Full range of motion noted. Skin: Skin warm and dry. Normal skin color. Normal skin turgor. No rashes/lesions/lacerations noted. Extremities: No lower extremity edema. Extremities exhibit normal range of motion. Extremities nontender. Neuro: Oriented X 3. Cranial nerve exam: II-XII are grossly intact No motor deficit. No sensory deficit. Reflexes normal. Course Course Course Narrative: RME performed by Audra Myers PA-C. Patient is a 74 year old assigned female at presenting to the emergency department with diarrhea and nausea. Patient states that 4-5 days ago she took amoxicillin which caused diarrhea and it hasn't stopped since. Patient states that she was taking the amoxicillin for an earache / sinus pain. Detailed physical exam and review of systems are deferred to the it sales executive. Labs and swabs ordered. Patient placed back in the waiting room pending room availability and results. Reevaluation(s) Reevaluation #1: VSS, not orthostatic, benign abdominal exam with no severe tenderness, rebound tenderness, or guarding. Labs are unremarkable. Will start the patient on vancomycin for treatment of C diff as clinical suspicion is high still await for serology testing to confirm the diagnosis. Will discharge on vanco. Time: 13:33 Medications Administered Discontinued Medications Generic Name Dose Route Start Last Admin Trade Name Freq PRN Reason Stop Dose Admin Vancomycin HCl 125 mg 06/04/24 12:02 06/04/24 12:14 Vancomycin Hcl 125 Mg Capsule PO 06/04/24 12:03 125 mg ONCE ONE Administration Medical Decision Making Differential Diagnosis Differential Diagnoses: The differential diagnosis associated with the presentation includes (Antibiotic induced diarrhea, C diff, colitis, sepsis, dehydration, electrolyte derangement, severe anemia.) Admission/Observation Consideration of admission/observation: Escalation of care including admission/observation considered Lab Data MDM Lab Attestation statement: I reviewed the patient's lab results. 06/04/24 11:53 06/04/24 11:53 Labs: Lab Results 06/04/24 06/04/24 Range/Units 11:50 11:53 WBC 4.5 L (4.8-10.8) X10*3/uL RBC 4.27 (4.20-5.50) X10*6/uL Hgb 13.4 (12.0-16.0) g/dl Hct 39.3 (37.0-47.0) % MCV 92.0 (80.0-98.0) fL MCH 31.4 (27.0-33.0) pg MCHC 34.1 (31.0-35.0) g/dl RDW 12.2 (11.0-16.0) % Plt Count 172 (160-400) X10*3/uL MPV 9.0 L (9.4-12.3) fL Immature Gran % (Auto) 0.2 (0.0-0.4) % Neut % (Auto) 71.2 (45-73) % Lymph % (Auto) 16.1 L (20-40) % [place] % (Auto) 8.9 (2-11) % Eos % (Auto) 2.5 (0-4) % Baso % (Auto) 1.1 (0-2) % Lymph # (Auto) 0.7 L (1.2-4.9) X10*3/uL [place] # (Auto) 0.4 (0.1-1.2) X10*3/uL Eos # (Auto) 0.1 (0.0-0.4) X10*3/uL Baso # (Auto) 0.1 (0.0-0.2) X10*3/uL Abs Immat Gran (auto) 0.01 (0.00-0.03) X10*3/uL Absolute Neuts (auto) 3.2 (2.0-8.3) x10*3/uL Absolute Nucleated RBC 0.000 (0.0-0.012) X10*3/uL Nucleated RBC % (auto) 0.0 (0.0-0.2) /100WBC Sodium 140 (135-145) mmol/L Potassium 4.0 (3.3-5.1) mmol/L Chloride 108 (96-108) mmol/L Carbon Dioxide 25 (22-29) mmol/L Anion Gap 11 L (12-20) BUN 11 (9-16) mg/dL Creatinine 0.79 (0.5-1.4) mg/dL Estim Creat Clear Calc 58.6 Estimated GFR > 60 Random Glucose 88 (60-115) mg/dL Calcium 8.9 (8.4-10.2) mg/dL Magnesium 1.9 (1.6-2.6) mg/dL Total Bilirubin 0.4 (0.0-1.0) mg/dL AST 14 (5-31) U/L ALT 14 (0-31) U/L Alkaline Phosphatase 66 (39-117) U/L Total Protein 6.4 L (6.5-8.0) g/dL Albumin 4.3 (3.5-5.0) g/dL Lipase 21 (8-78) U/L Urine Color Yellow Urine Appearance Clear Urine pH 5.5 (5.0-9.0) Ur Specific [place] <= 1.005 (1.005-1.025) Urine Protein Negative (Neg-Trace) mg/dL Urine Glucose (UA) Negative (Negative) mg/dL Urine Ketones Negative (Negative) mg/dL Urine Blood Negative (Negative) Urine Nitrite Negative (Negative) Ur Leukocyte Esterase Negative (Negative) Influenza Type A (PCR) NEGATIVE (Negative) Influenza Type B (PCR) NEGATIVE (Negative) RSV RNA Qual (PCR) NEGATIVE (Negative) SARS-CoV-2 RNA (RT-PCR) NEGATIVE (Negative) Discharge Plan Discharge Clinical Impression: Drug-induced diarrhea, C. difficile colitis Patient Disposition: Home, Self-Care Instructions: C. Diff (Clostridioides Difficile) Infection (ED) Additional Instructions: Drink plenty of fluids to avoid dehydration Prescriptions: New vancomycin 125 mg capsule 125 mg PO QID 14 Days Qty: 56 0RF No Action aripiprazole [Abilify] 10 mg tablet 10 mg PO DAILY Qty: 14 0RF alendronate 70 mg tablet PO bupropion HCl 200 mg tablet sustained-release 12 hr 200 mg PO QAM lisinopril 5 mg tablet 5 mg PO DAILY sertraline 100 mg tablet 200 mg PO QAM Arnuity Ellipta 100 mcg/actuation blister with device 1 inh inhalation DAILY Flovent Diskus 100 mcg/actuation blister with device 0 inh inhalation trazodone 100 mg tablet 100 mg PO BEDTIME atorvastatin 10 mg tablet 10 mg PO DAILY albuterol sulfate 90 mcg/actuation HFA aerosol inhaler 2 puff PO Q4-6H PRN lorazepam 0.5 mg tablet 0.5 mg PO BID primidone 50 mg tablet 50 mg PO BID Rx Instructions: 3 in am and 3 in pm cholecalciferol (vitamin D3) 50 mcg (2,000 unit) capsule 50 mcg PO DAILY Saccharomyces boulardii [Digest Probiotic (S.boulardii)] 250 mg capsule 5,000 mmu cells PO DAILY famotidine 20 mg tablet 20 mg PO BID cetirizine 10 mg tablet 10 mg PO DAILY fluticasone propionate 50 mcg/actuation spray,suspension intranasal prednisone 20 mg tablet 20 mg PO DAILY 5 Days Qty: 5 0RF benzonatate 100 mg capsule 100 mg PO BID PRN (Reason: cough) Qty: 14 0RF prednisone 10 mg tablet 30 mg PO DAILY 3 Days Qty: 9 0RF Rx Instructions: then 2 tabs for 3 days, then 1 tab for 3 days. azithromycin 250 mg tablet See Rx Instructions PO .COMPLEX Qty: 6 0RF Rx Instructions: take 500 mg today (day 1), then 250 mg for 4 days (days 2-5) PO Print Language: [place] Island[place]
[2024-06-04 11:58] LABS: MANUAL DIFF FLAG NO
[2024-06-04 12:00] LABS: Basophils Absolute Auto 0.1 X10*3/uL (0.0-0.2); Basophils Percent Auto 1.1 % (0-2); Eosinophils Absolute Auto 0.1 X10*3/uL (0.0-0.4); Eosinophils Percent Auto 2.5 % (0-4); Hematocrit 39.3 % (37.0-47.0); Hemoglobin 13.4 g/dl (12.0-16.0); Imm Gran Abs Auto 0.01 X10*3/uL (0.00-0.03); Imm Gran Pct Auto 0.2 % (0.0-0.4); Lymphocytes Absolute Auto 0.7 X10*3/uL (1.2-4.9); Lymphocytes Percent Auto 16.1 % (20-40); Mean Corpuscular HGB Conc 34.1 g/dl (31.0-35.0); Mean Corpuscular Hemoglobin 31.4 pg (27.0-33.0); Monocytes Absolute Auto 0.4 X10*3/uL (0.1-1.2); Monocytes Percent Auto 8.9 % (2-11); Neutrophils Absolute Auto 3.2 x10*3/uL (2.0-8.3); Neutrophils Percent Auto 71.2 % (45-73); Platelet Count 172 X10*3/uL (160-400); Red Blood Count 4.27 X10*6/uL (4.20-5.50); Red Cell Distribution Width 12.2 % (11.0-16.0); White Blood Count 4.5 X10*3/uL (4.8-10.8)
[2024-06-04 12:06] LABS: Appearance Urine Clear; Color Urine Yellow; Glucose Urine UA Negative (Negative); Leukocyte Esterase Urine Negative (Negative); Nitrite Urine Negative (Negative); PH 5.5 (5.0-9.0); Specific Gravity - Urine <= 1.005 (1.005-1.025); Urine Blood Negative (Negative); Urine Ketones Negative (Negative); Urine Protein Negative (Neg-Trace)
[2024-06-04] MEDS: vancomycin HCL 125 MG CAPSULE PO (12:14)
[2024-06-04 12:16] LABS: Alanine Aminotransferase 14 U/L (0-31); Albumin Level 4.3 g/dL (3.5-5.0); Alkaline Phosphatase 66 U/L (39-117); Anion Gap 11 (12-20); Aspartate Amino Transferase 14 U/L (5-31); Bilirubin Total 0.4 mg/dL (0.0-1.0); Blood Urea Nitrogen 11 mg/dL (9-16); Calcium 8.9 mg/dL (8.4-10.2); Carbon Dioxide 25 mmol/L (22-29); Chloride 108 mmol/L (96-108); Creatinine Clr Calc Pharmacy 58.6; Estimated Glomerular Filt Rate > 60; Glucose Random 88 mg/dL (60-115); Lipase 21 U/L (8-78); Magnesium 1.9 mg/dL (1.6-2.6); Sodium 140 mmol/L (135-145); Total Protein 6.4 g/dL (6.5-8.0)
[2024-06-04 12:37] LABS: Influenza A PCR NEGATIVE (Negative); Influenza B PCR NEGATIVE (Negative); Resp Syncy Virus RNA Qual PCR NEGATIVE (Negative); SARS COV2 PCR INHOUSE NEGATIVE (Negative)
[2024-06-04 13:16] VITALS: BP 105/65; PULSE 63
[2024-06-04 13:18] VITALS: BP 119/70; PULSE 70
[2024-06-04 13:19] VITALS: BP 112/70; PULSE 74
[2024-06-04 13:44] VITALS: BP 115/74; PULSE 66; RESP 18; TEMP 37.3; O2SAT 98
[2024-06-04 13:50] VITALS: BP 115/74; PULSE 66; RESP 18; TEMP 37.3; O2SAT 98
[2024-06-04 14:24] LABS: CDiff Gene PCR NEGATIVE (Negative)
== END 2024-06-04 13:50 | disposition home or self-care (01) ==
PROVIDERS: Physician Assistant Medical; Emergency Provider Emergency Medicine; PCP Internal Medicine
DX: K52.1 Toxic gastroenteritis and colitis (principal); T36.0X5A Adverse effect of penicillins, initial encounter; Y92.009 Unspecified place in unspecified non-institutional (private) residence as the place of occurrence of the external cause; A04.72 Enterocolitis due to Clostridium difficile, not specified as recurrent; Z03.818 Encounter for observation for suspected exposure to other biological agents ruled out
CPT/HCPCS: 0241U; 80053; 81003; 83690; 83735; 85025; 87493; 99283; 99284

== ENCOUNTER 2024-06-08 12:21 | Emergency (ER) | payer MEDICARE, SELFPAY ==
--- NOTE | 2024-06-08 12:22 | ED.NAVMDI ---
HPI - Nausea/Vomiting/Diarrhea General Chief complaint: Abdominal Pain Stated complaint: Diarrhea 10 days Time Seen by Provider: 06/08/24 12:44 Source: patient Mode of arrival: ambulatory Limitations: no limitations History of Present Illness ED Provider: Dr. Jon HPI Narrative: 74-year-old female past medical history significant for bipolar disorder recurrent diarrhea irritable bowel COPD still smoker presents emergency department for reassessment for C diff colitis. Patient had been started on Augmentin by her primary care doctor was feeling that it was started with diarrhea has been nonbloody at that time it did been 5 days and that was 4 days ago. She was started on vancomycin orally patient states she is still having 6 loose stools a day nonbloody nonbilious denies fever still eating and drinking normally MD elicited complaint: diarrhea Related Data Home Medications ?Medication ?Instructions ?Recorded ?Confirmed albuterol sulfate 90 mcg/actuation 2 puff PO Q4-6H PRN 06/15/21 aerosol inhaler alendronate 70 mg tablet mg PO 06/15/21 atorvastatin 10 mg tablet 10 mg PO DAILY 06/15/21 bupropion HCl 200 mg tablet,12 hr 200 mg PO QAM 06/15/21 sustained-release fluticasone furoate 100 1 inh inhalation DAILY 06/15/21 mcg/actuation blister powder for inhalation (Arnuity Ellipta) fluticasone propionate 100 0 inh inhalation 06/15/21 mcg/actuation blister powder for inhalation (Flovent Diskus) lisinopril 5 mg tablet 5 mg PO DAILY 06/15/21 lorazepam 0.5 mg tablet 0.5 mg PO BID 06/15/21 sertraline 100 mg tablet 200 mg PO QAM 06/15/21 trazodone 100 mg tablet 100 mg PO BEDTIME 06/15/21 Saccharomyces boulardii 250 mg 5,000 mmu cells PO DAILY 05/09/22 capsule (Digest Probiotic (S.boulardii)) cholecalciferol (vitamin D3) 50 50 mcg PO DAILY 05/09/22 mcg (2,000 unit) capsule cetirizine 10 mg tablet 10 mg PO DAILY 04/02/24 famotidine 20 mg tablet 20 mg PO BID 04/02/24 fluticasone propionate 50 spray intranasal 04/02/24 mcg/actuation nasal spray,suspension primidone 50 mg tablet 50 mg PO BID 04/02/24 Previous Rx's ?Medication ?Instructions ?Recorded aripiprazole 10 mg tablet (Abilify) 10 mg PO DAILY #14 tabs 05/19/22 prednisone 20 mg tablet 20 mg PO DAILY 5 days #5 tabs 04/05/24 azithromycin 250 mg tablet See Rx Instructions PO .COMPLEX #6 04/09/24 tabs benzonatate 100 mg capsule 100 mg PO BID PRN cough #14 caps 04/09/24 prednisone 10 mg tablet 30 mg (3 x 10 mg) PO DAILY 3 days 04/09/24 #9 tabs vancomycin 125 mg capsule 125 mg PO QID 14 days #56 caps 06/04/24 Allergies Allergy/AdvReac Type Severity Reaction Status Date / Time amoxicillin Allergy Unknown Verified 06/08/24 12:24 ziprasidone [From Geodon] Allergy Unknown Verified 06/08/24 12:24 aspirin AdvReac Mild Shortness Verified 06/08/24 12:24 of Breath Review of Systems Review of Systems: Review of systems: General: Patient denies any fever chills recent illness or falls Musculoskeletal: Denies back pain or body aches or other injuries HEENT: denies headache, runny nose, ear pain Respiratory: denies shortness of breath, cough Cardiovascular: no chest pain or palpitations : denies dysuria, frequency Abdomen: no nausea vomiting denies abdominal pain Extremities: no swelling, no pain Skin: no diaphoresis Yes all other systems are reviewed and are negative PMFSH Social History Social History Patient Tobacco Use Status: Never used Tobacco Advance Directives: No Advance Directives Information Provided: Yes Physical Exam Vital Signs: Vital Signs: Last Vital Signs Temp 98 F 06/08/24 12:23 Pulse 80 06/08/24 13:02 Resp 16 06/08/24 13:02 BP 133/67 06/08/24 13:02 Pulse Ox 98 06/08/24 12:23 O2 Del Method Room Air 06/08/24 12:23 BMI result Body Mass Index 29.3 General: Well-appearing well-nourished in no signs of distress HEENT: Normocephalic atraumatic Neck: No signs of JVD, no masses no tenderness or lymphadenopathy Cardiovascular: Regular rate and rhythm Respiratory: Clear to auscultation bilaterally Abdomen: Soft nontender no masses Extremities: Normal pedal pulses no signs of edema Skin: Dry warm no rashes Back: No tenderness full ROM Course Course Course Narrative: This is a Rapid Medical Exam performed in triage by Raven Zuniga PA-C. Full HPI, ROS and PE to be performed by primary ED provider. 74 year-old F w/ PMHx presenting to the ED c/o nonbloody diarrhea x 10 days, was seen in ED on 06/04 for similar sx and Rx Vanco w/o relief. Reports 4-6 episodes of diarrhea daily. +abdominal pain. denies vomiting, fever PE: abdomen soft & nontender Plan: Labs, UA stool studies Reevaluation(s) Reevaluation #1: 1304 patient's C diff is negative a repeat C diff can be sent the patient gives some of the stool culture I do not think it is warranted as she has irritable bowel syndrome she looks well has normal vitals no elevated white blood cell count I think she is safe to be discharged home. Medical Decision Making Medical Decision Making [facility] Narrative: Patient was C diff negative at her last visit this is likely inflammatory or infectious cause I will recheck labs C diff was also sent from triage I gave the patient fluids and discuss options and follow up with GI. Differential Diagnosis Differential Diagnoses: The differential diagnosis associated with the presentation includes Recurrent diarrhea dehydration electrolyte abnormality weakness Admission/Observation Consideration of admission/observation: Escalation of care including admission/observation considered Consult Healthcare Provider Management of the patient was discussed with: Hospitalist Lab Data [facility] Lab Attestation statement: I reviewed the patient's lab results. 06/08/24 12:29 06/08/24 12:29 Labs: Lab Results 06/08/24 Range/Units 12:29 WBC 5.3 (4.8-10.8) X10*3/uL RBC 4.16 L (4.20-5.50) X10*6/uL Hgb 13.0 (12.0-16.0) g/dl Hct 37.5 (37.0-47.0) % MCV 90.1 (80.0-98.0) fL MCH 31.3 (27.0-33.0) pg MCHC 34.7 (31.0-35.0) g/dl RDW 12.0 (11.0-16.0) % Plt Count 164 (160-400) X10*3/uL MPV 9.0 L (9.4-12.3) fL Immature Gran % (Auto) 0.4 (0.0-0.4) % Neut % (Auto) 72.1 (45-73) % Lymph % (Auto) 16.4 L (20-40) % [place] % (Auto) 8.7 (2-11) % Eos % (Auto) 1.5 (0-4) % Baso % (Auto) 0.9 (0-2) % Lymph # (Auto) 0.9 L (1.2-4.9) X10*3/uL [place] # (Auto) 0.5 (0.1-1.2) X10*3/uL Eos # (Auto) 0.1 (0.0-0.4) X10*3/uL Baso # (Auto) 0.1 (0.0-0.2) X10*3/uL Abs Immat Gran (auto) 0.02 (0.00-0.03) X10*3/uL Absolute Neuts (auto) 3.8 (2.0-8.3) x10*3/uL Absolute Nucleated RBC 0.000 (0.0-0.012) X10*3/uL Nucleated RBC % (auto) 0.0 (0.0-0.2) /100WBC Sodium 132 L (135-145) mmol/L Potassium 4.3 (3.3-5.1) mmol/L Chloride 102 (96-108) mmol/L Carbon Dioxide 24 (22-29) mmol/L Anion Gap 10 L (12-20) BUN 5 L (9-16) mg/dL Creatinine 0.75 (0.5-1.4) mg/dL Estim Creat Clear Calc 62.3 Estimated GFR > 60 Random Glucose 97 (60-115) mg/dL Calcium 9.0 (8.4-10.2) mg/dL Magnesium 1.7 (1.6-2.6) mg/dL Total Bilirubin 0.5 (0.0-1.0) mg/dL Direct Bilirubin 0.2 (0.0-0.5) mg/dL AST 15 (5-31) U/L ALT 11 (0-31) U/L Alkaline Phosphatase 65 (39-117) U/L Total Protein 6.3 L (6.5-8.0) g/dL Albumin 4.3 (3.5-5.0) g/dL Lipase 15 (8-78) U/L External Record Review External record reviewed: Inpatient record, Office record, Outpatient record, Prior outpatient labs and Prior outpatient radiology Discharge Plan Discharge Clinical Impression: Diarrhea Patient Disposition: Home, Self-Care Instructions: Acute Diarrhea (ED), Nutrition Tips for Relief of Diarrhea (ED) Additional Instructions: You were seen today in the emergency department for diarrhea. You had labs repeated which were all unremarkable. Please call follow up with your doctor if you have any other concerns please return to emergency department. Prescriptions: No Action aripiprazole [Abilify] 10 mg tablet 10 mg PO DAILY Qty: 14 0RF vancomycin 125 mg capsule 125 mg PO QID 14 Days Qty: 56 0RF alendronate 70 mg tablet PO bupropion HCl 200 mg tablet sustained-release 12 hr 200 mg PO QAM lisinopril 5 mg tablet 5 mg PO DAILY sertraline 100 mg tablet 200 mg PO QAM Arnuity Ellipta 100 mcg/actuation blister with device 1 inh inhalation DAILY Flovent Diskus 100 mcg/actuation blister with device 0 inh inhalation trazodone 100 mg tablet 100 mg PO BEDTIME atorvastatin 10 mg tablet 10 mg PO DAILY albuterol sulfate 90 mcg/actuation HFA aerosol inhaler 2 puff PO Q4-6H PRN lorazepam 0.5 mg tablet 0.5 mg PO BID primidone 50 mg tablet 50 mg PO BID Rx Instructions: 3 in am and 3 in pm cholecalciferol (vitamin D3) 50 mcg (2,000 unit) capsule 50 mcg PO DAILY Saccharomyces boulardii [Digest Probiotic (S.boulardii)] 250 mg capsule 5,000 mmu cells PO DAILY famotidine 20 mg tablet 20 mg PO BID cetirizine 10 mg tablet 10 mg PO DAILY fluticasone propionate 50 mcg/actuation spray,suspension intranasal prednisone 20 mg tablet 20 mg PO DAILY 5 Days Qty: 5 0RF benzonatate 100 mg capsule 100 mg PO BID PRN (Reason: cough) Qty: 14 0RF prednisone 10 mg tablet 30 mg PO DAILY 3 Days Qty: 9 0RF Rx Instructions: then 2 tabs for 3 days, then 1 tab for 3 days. azithromycin 250 mg tablet See Rx Instructions PO .COMPLEX Qty: 6 0RF Rx Instructions: take 500 mg today (day 1), then 250 mg for 4 days (days 2-5) PO Print Language: Lithuanian
[2024-06-08 12:23] VITALS: BP 125/78; PULSE 70; RESP 19; TEMP 36.6; O2SAT 98; BMI 29.3
[2024-06-08 12:33] LABS: MANUAL DIFF FLAG NO
[2024-06-08 12:34] LABS: Basophils Absolute Auto 0.1 X10*3/uL (0.0-0.2); Basophils Percent Auto 0.9 % (0-2); Eosinophils Absolute Auto 0.1 X10*3/uL (0.0-0.4); Eosinophils Percent Auto 1.5 % (0-4); Hematocrit 37.5 % (37.0-47.0); Imm Gran Abs Auto 0.02 X10*3/uL (0.00-0.03); Imm Gran Pct Auto 0.4 % (0.0-0.4); Lymphocytes Absolute Auto 0.9 X10*3/uL (1.2-4.9); Lymphocytes Percent Auto 16.4 % (20-40); Mean Corpuscular HGB Conc 34.7 g/dl (31.0-35.0); Mean Corpuscular Hemoglobin 31.3 pg (27.0-33.0); Mean Corpuscular Volume 90.1 fL (80.0-98.0); Monocytes Absolute Auto 0.5 X10*3/uL (0.1-1.2); Monocytes Percent Auto 8.7 % (2-11); Neutrophils Absolute Auto 3.8 x10*3/uL (2.0-8.3); Neutrophils Percent Auto 72.1 % (45-73); Platelet Count 164 X10*3/uL (160-400); Red Blood Count 4.16 X10*6/uL (4.20-5.50); White Blood Count 5.3 X10*3/uL (4.8-10.8)
[2024-06-08 12:54] LABS: Alanine Aminotransferase 11 U/L (0-31); Albumin Level 4.3 g/dL (3.5-5.0); Alkaline Phosphatase 65 U/L (39-117); Anion Gap 10 (12-20); Aspartate Amino Transferase 15 U/L (5-31); Bilirubin Direct 0.2 mg/dL (0.0-0.5); Bilirubin Total 0.5 mg/dL (0.0-1.0); Blood Urea Nitrogen 5 mg/dL (9-16); Carbon Dioxide 24 mmol/L (22-29); Chloride 102 mmol/L (96-108); Creatinine Clr Calc Pharmacy 62.3; Estimated Glomerular Filt Rate > 60; Glucose Random 97 mg/dL (60-115); Lipase 15 U/L (8-78); Magnesium 1.7 mg/dL (1.6-2.6); Potassium 4.3 mmol/L (3.3-5.1); Sodium 132 mmol/L (135-145); Total Protein 6.3 g/dL (6.5-8.0)
[2024-06-08 13:02] VITALS: BP 133/67; PULSE 80; RESP 16
[2024-06-08 13:14] LABS: Appearance Urine Clear; Color Urine Yellow; Glucose Urine UA Negative (Negative); Leukocyte Esterase Urine Negative (Negative); Nitrite Urine Negative (Negative); Specific Gravity - Urine <= 1.005 (1.005-1.025); Urine Blood Negative (Negative); Urine Ketones Negative (Negative); Urine Protein Negative (Neg-Trace)
--- NOTE | 2024-06-08 13:34 | PC.NURSE ---
Per Codey Jon MD, pt. is to stop taking the Vancomycin. Pt. is aware.
[2024-06-08 13:35] VITALS: BP 133/67; PULSE 80; RESP 16; TEMP 36.6; O2SAT 98
== END 2024-06-08 13:35 | disposition home or self-care (01) ==
PROVIDERS: Physician Assistant; Emergency Provider Student in an Organized Health Care Education/Training Program; PCP Internal Medicine
DX: R11.2 Nausea with vomiting, unspecified (principal); F17.210 Nicotine dependence, cigarettes, uncomplicated; R19.7 Diarrhea, unspecified; Z79.899 Other long term (current) drug therapy
CPT/HCPCS: 36415; 80048; 80076; 81003; 83690; 83735; 85025; 99283

== ENCOUNTER 2024-07-19 16:29 | Inpatient (IN) | payer MEDICARE, SELFPAY ==
[2024-07-19 16:33] VITALS: BP 167/71; PULSE 89; RESP 18; TEMP 36.8; O2SAT 100; BMI 27.8
--- NOTE | 2024-07-19 16:33 | ED_ITS ---
HPI - Weakness General Chief complaint: Psychiatric Symptoms Stated complaint: SI/Depression Time Seen by Provider: 07/19/24 17:04 Source: patient and family Mode of arrival: ambulatory Limitations: no limitations History of Present Illness ED Provider: Dr. Edwige Dong HPI Narrative: patient comes to the emergency room accompanied by family. According to the patient, for the last 3 days patient has been feeling very depressed, stating that she does not want to live anymore, no SI plan. Patient states that she has been told that she has narrowing of the esophagus and has not been taking her medications for 2-3 days. Patient denies drinking alcohol or using drugs. Patient admits that she feels very anxious. Related Data Home Medications ?Medication ?Instructions ?Recorded ?Confirmed albuterol sulfate 90 mcg/actuation 2 puff PO Q4-6H PRN Shortness Of 06/15/21 07/19/24 aerosol inhaler Breath Or Wheezing alendronate 70 mg tablet 70 mg PO DIRECTED 06/15/21 07/19/24 atorvastatin 10 mg tablet 10 mg PO DAILY 06/15/21 bupropion HCl 200 mg tablet,12 hr 200 mg PO QAM 06/15/21 sustained-release fluticasone furoate 100 1 inh inhalation DAILY 06/15/21 mcg/actuation blister powder for inhalation (Arnuity Ellipta) fluticasone propionate 100 0 inh inhalation 06/15/21 mcg/actuation blister powder for inhalation (Flovent Diskus) lisinopril 5 mg tablet 5 mg PO DAILY 06/15/21 lorazepam 0.5 mg tablet 0.5 mg PO BID 06/15/21 sertraline 100 mg tablet 200 mg PO QAM 06/15/21 trazodone 100 mg tablet 100 mg PO BEDTIME 06/15/21 Saccharomyces boulardii 250 mg 5,000 mmu cells PO DAILY 05/09/22 capsule (Digest Probiotic (S.boulardii)) cholecalciferol (vitamin D3) 50 50 mcg PO DAILY 05/09/22 mcg (2,000 unit) capsule cetirizine 10 mg tablet 10 mg PO DAILY 04/02/24 famotidine 20 mg tablet 20 mg PO BID 04/02/24 fluticasone propionate 50 spray intranasal 04/02/24 mcg/actuation nasal spray,suspension primidone 50 mg tablet 50 mg PO BID 04/02/24 Previous Rx's ?Medication ?Instructions ?Recorded aripiprazole 10 mg tablet (Abilify) 10 mg PO DAILY #14 tabs 05/19/22 prednisone 20 mg tablet 20 mg PO DAILY 5 days #5 tabs 04/05/24 azithromycin 250 mg tablet See Rx Instructions PO .COMPLEX #6 04/09/24 tabs benzonatate 100 mg capsule 100 mg PO BID PRN cough #14 caps 04/09/24 prednisone 10 mg tablet 30 mg (3 x 10 mg) PO DAILY 3 days 04/09/24 #9 tabs vancomycin 125 mg capsule 125 mg PO QID 14 days #56 caps 06/04/24 Allergies Allergy/AdvReac Type Severity Reaction Status Date / Time amoxicillin Allergy Unknown Verified 07/19/24 16:39 ziprasidone [From Geodon] Allergy Unknown Verified 07/19/24 16:39 aspirin AdvReac Mild Shortness Verified 07/19/24 16:39 of Breath Review of Systems 2 Review of Systems: Constitutional : No Weight loss, No Fever, No Chills, No Night Sweats, No Fatigue, No Malaise ENT/Mouth : No Hearing loss, No Ear Pain, No Nasal Congestion, No Sinus Pain, No Hoarseness, No sore throat, No Rhinorrhea, No Swallowing Difficulty Eyes: No Eye Pain, No Swelling, No Redness, No Foreign Body, No Discharge, No Vision Changes Cardiovascular : No Chest Pain, No SOB, No Dyspnea on Exertion, No Orthopnea, No Edema, No Palpitations Respiratory : No Cough, No Sputum, No Wheezing, No Smoke Exposure, No Dyspnea Gastrointestinal : complaining of narrowing of the esophagus causing her trouble to swallow medications, No Nausea, No Vomiting, No Diarrhea, No Constipation, No abdominal Pain, No Hematochezia, No Melena Genitourinary : no irregular bleeding, No Dysuria, No Urinary Frequency, No Hematuria, No Urinary Incontinence, No Urgency, No Flank Pain, No Urinary Flow Changes, No Hesitancy Musculoskeletal : No joint pain, No Myalgias, No Joint Swelling Skin : No Skin Lesions, No rash Neuro : No Weakness, No Numbness, No Paresthesias, No Loss of Consciousness, No Dizziness, No Headache Psych : No Anxiety/Panic, Complaining of depression, suicidal ideation with no plan, no HI Heme/Lymph: No Bruising, No Bleeding,No Lymphadenopathy Endocrine : No Polyuria, No Polydipsia, No Temperature Intolerance [facility] Past Medical History Medical History (Updated 07/19/24 @ 18:49 by Edwige Dong MD) Asthma Anxiety and depression Social History Social History Patient Tobacco Use Status: Never used Tobacco Smoked in Last 30 Days: No Use of substances other than those prescribed or required for medical reasons: No Advance Directives: No Advance Directives Information Provided: No Physical Exam 2 Vital Signs: Vital Signs: Last Vital Signs Temp 98.3 F 07/19/24 16:33 Pulse 89 07/19/24 16:33 Resp 18 07/19/24 16:33 BP 167/71 H 07/19/24 16:33 Pulse Ox 100 07/19/24 16:33 O2 Del Method Room Air 07/19/24 16:33 BMI result Body Mass Index 27.8 Const: Other: Appearance: Alert. Oriented X3. No acute distress. Eyes: Pupils equal, round and reactive to light. ENT: Pharynx normal. Neck: Normal inspection. Neck supple. No lymph nodes noted. No crepitus CVS: Normal heart rate and rhythm. Pulses normal. Normal S1 and S2 Respiratory: No respiratory distress. Breath sounds normal. No Wheezing. No rales Abdomen: Soft and nontender. No rigidity. No distention. Skin: Skin warm and dry. Normal skin color. Normal skin turgor. Extremities: No lower extremity edema. No Lacerations. No Rash Neuro: Oriented X 3. No motor deficit. No sensory deficit. Moving all extremities. No slurred speech. CN 2 through 12 grossly intact Psych: calm, cooperative, anxious, Seems to be purposely shaking upper extremities. Course Course Course Narrative: This is a Rapid Medical Examination (RME) performed by Codey Dumont PA-C in triage. Full HPI, ROS, assessment and treatment plan per primary provider in the Main ED. 74 yo female with history of bipolar disorder, asthma, COPD, resting tremor presenting to the ER from home with her for evaluation of suicidal ideation and severe depression for the last 3 days. hx dysphagia with recent barium swallow at [facility] w/ a narrowing so she reports difficulty taking her meds. She has vague SI with no plan. Plan: medical clearance and CARE Team evaluation Medical Decision Making Medical Decision Making MDM Narrative: my interpretation of labs, normal hematology, chemistry shows a sodium of 126, urinalysis negative, urine toxicology positive for barbiturates, negative for EtOH - patient takes Abilify and sertraline, may be causing hyponatremia. - Patient receiving IV magnesium which was low - I discussed the plan with the patient and her family who is at bedside. Patient will likely need to be admitted 1st to medicine and then to psychiatry, or psychiatry consult - I discussed the patient with the medicine team, patient to be admitted by the Night team - Differential Diagnosis Differential Diagnoses: The differential diagnosis associated with the presentation includes ( anxiety, depression, UTI, hyponatremia) Admission/Observation Consideration of admission/observation: Escalation of care including admission/observation considered Consult Healthcare Provider Management of the patient was discussed with: Hospitalist Lab Data [facility] Lab Attestation statement: I reviewed the patient's lab results. 07/19/24 17:21 07/19/24 17:21 Labs: Lab Results 07/19/24 07/19/24 Range/Units 17:13 17:21 WBC 5.2 (4.8-10.8) X10*3/uL RBC 4.22 (4.20-5.50) X10*6/uL Hgb 13.0 (12.0-16.0) g/dl Hct 35.9 L (37.0-47.0) % MCV 85.1 (80.0-98.0) fL MCH 30.8 (27.0-33.0) pg MCHC 36.2 H (31.0-35.0) g/dl RDW 12.0 (11.0-16.0) % Plt Count 164 (160-400) X10*3/uL MPV 9.6 (9.4-12.3) fL Immature Gran % (Auto) 0.4 (0.0-0.4) % Neut % (Auto) 67.3 (45-73) % Lymph % (Auto) 18.6 L (20-40) % [place] % (Auto) 11.3 H (2-11) % Eos % (Auto) 1.2 (0-4) % Baso % (Auto) 1.2 (0-2) % Lymph # (Auto) 1.0 L (1.2-4.9) X10*3/uL [place] # (Auto) 0.6 (0.1-1.2) X10*3/uL Eos # (Auto) 0.1 (0.0-0.4) X10*3/uL Baso # (Auto) 0.1 (0.0-0.2) X10*3/uL Abs Immat Gran (auto) 0.02 (0.00-0.03) X10*3/uL Absolute Neuts (auto) 3.5 (2.0-8.3) x10*3/uL Absolute Nucleated RBC 0.000 (0.0-0.012) X10*3/uL Nucleated RBC % (auto) 0.0 (0.0-0.2) /100WBC Sodium 126 L (135-145) mmol/L Potassium 3.3 D (3.3-5.1) mmol/L Chloride 96 (96-108) mmol/L Carbon Dioxide 16 L (22-29) mmol/L Anion Gap 17 (12-20) BUN 6 L (9-16) mg/dL Creatinine 0.77 (0.5-1.4) mg/dL Estim Creat Clear Calc 59.2 Estimated GFR > 60 Random Glucose 96 (60-115) mg/dL Calcium 9.1 (8.4-10.2) mg/dL Magnesium 1.5 L (1.6-2.6) mg/dL Total Bilirubin 0.7 (0.0-1.0) mg/dL Direct Bilirubin 0.3 (0.0-0.5) mg/dL AST 47 H (5-31) U/L ALT 28 (0-31) U/L Alkaline Phosphatase 70 (39-117) U/L Total Protein 6.4 L (6.5-8.0) g/dL Albumin 4.2 (3.5-5.0) g/dL Urine Color Yellow Urine Appearance Clear Urine pH 5.5 (5.0-9.0) Ur Specific [place] <= 1.005 (1.005-1.025) Urine Protein Negative (Neg-Trace) mg/dL Urine Glucose (UA) Negative (Negative) mg/dL Urine Ketones 40 (Negative) mg/dL Urine Blood Trace H (Negative) Urine Nitrite Negative (Negative) Ur Leukocyte Esterase Negative (Negative) Urine RBC 0-2 (0-2) /HPF Urine WBC 0-5 (0-5) /HPF Ur Squamous Epith Cells 0-2 (0-2) /HPF Urine Bacteria None Seen (None Seen) Hyaline Casts 0-2 (0-2) /LPF Urine Opiates Screen Not Detected (Not Detect) Ur Buprenorphine Scrn Not Detected (Not Detect) ng/mL Ur Oxycodone Screen Not Detected (Not Detect) ng/mL Urine Methadone Screen Not Detected (Not Detect) ng/mL Urine Fentanyl Screen Not Detected (Not Detect) Ur Barbiturates Screen POSITIVE H (Not Detect) Ur Phencyclidine Scrn Not Detected (Not Detect) Ur Amphetamines Screen Not Detected (Not Detect) U Benzodiazepines Scrn Not Detected (Not Detect) Urine Cocaine Screen Not Detected (Not Detect) U Marijuana (THC) Screen Not Detected (Not Detect) Ethyl Alcohol < 10 mg/dL Critical Care Time Critical Care Time Critical Care Time: Yes Total Critical Care Time: 60 Attestation: I have personally provided critical care time. Time includes review of lab data, radiology results, discussion with consultants, and monitoring for potential decompensation. Intervention performed as documented. Discharge Plan Discharge Clinical Impression: Acute hyponatremia, Depression with suicidal ideation Patient Disposition: Admitted As Inpatient Prescriptions: No Action aripiprazole [Abilify] 10 mg tablet 10 mg PO DAILY Qty: 14 0RF vancomycin 125 mg capsule 125 mg PO QID 14 Days Qty: 56 0RF alendronate 70 mg tablet 70 mg PO DIRECTED Rx Instructions: pt takes it on Fridays bupropion HCl 200 mg tablet sustained-release 12 hr 200 mg PO QAM lisinopril 5 mg tablet 5 mg PO DAILY sertraline 100 mg tablet 200 mg PO QAM Arnuity Ellipta 100 mcg/actuation blister with device 1 inh inhalation DAILY Flovent Diskus 100 mcg/actuation blister with device 0 inh inhalation trazodone 100 mg tablet 100 mg PO BEDTIME atorvastatin 10 mg tablet 10 mg PO DAILY albuterol sulfate 90 mcg/actuation HFA aerosol inhaler 2 puff PO Q4-6H PRN (Reason: Shortness Of Breath Or Wheezing) lorazepam 0.5 mg tablet 0.5 mg PO BID primidone 50 mg tablet 50 mg PO BID Rx Instructions: 3 in am and 3 in pm cholecalciferol (vitamin D3) 50 mcg (2,000 unit) capsule 50 mcg PO DAILY Saccharomyces boulardii [Digest Probiotic (S.boulardii)] 250 mg capsule 5,000 mmu cells PO DAILY famotidine 20 mg tablet 20 mg PO BID cetirizine 10 mg tablet 10 mg PO DAILY fluticasone propionate 50 mcg/actuation spray,suspension intranasal prednisone 20 mg tablet 20 mg PO DAILY 5 Days Qty: 5 0RF benzonatate 100 mg capsule 100 mg PO BID PRN (Reason: cough) Qty: 14 0RF prednisone 10 mg tablet 30 mg PO DAILY 3 Days Qty: 9 0RF Rx Instructions: then 2 tabs for 3 days, then 1 tab for 3 days. azithromycin 250 mg tablet See Rx Instructions PO .COMPLEX Qty: 6 0RF Rx Instructions: take 500 mg today (day 1), then 250 mg for 4 days (days 2-5) PO Interventions: [place]-Suicide Risk Severity Scale Last Done: 07/19/24 18:44 Print Language: Greek
--- NOTE | 2024-07-19 16:57 | PC.NURSE ---
pt walked to Pod after exit seeking near triage doors.
--- NOTE | 2024-07-19 17:06 | PC.NURSE ---
pt getting changed over with security, and belongings put into locker 3
[2024-07-19 17:32] LABS: MANUAL DIFF FLAG NO
[2024-07-19 17:38] LABS: Appearance Urine Clear; Color Urine Yellow; Glucose Urine UA Negative (Negative); Leukocyte Esterase Urine Negative (Negative); Nitrite Urine Negative (Negative); PH 5.5 (5.0-9.0); Specific Gravity - Urine <= 1.005 (1.005-1.025); UMIC TRIGGER UACC YES; Urine Blood Trace (Negative); Urine Ketones 40 mg/dL (Negative); Urine Protein Negative (Neg-Trace)
[2024-07-19 17:40] LABS: Bacteria Urine None Seen (None Seen); Hyaline Casts Urine 0-2 /LPF (0-2); RBC Urine 0-2 /HPF (0-2); Squamous Epithelial Cell Urine 0-2 /HPF (0-2); WBC Urine 0-5 /HPF (0-5)
[2024-07-19 17:41] LABS: Basophils Absolute Auto 0.1 X10*3/uL (0.0-0.2); Basophils Percent Auto 1.2 % (0-2); Eosinophils Absolute Auto 0.1 X10*3/uL (0.0-0.4); Eosinophils Percent Auto 1.2 % (0-4); Hematocrit 35.9 % (37.0-47.0); Imm Gran Abs Auto 0.02 X10*3/uL (0.00-0.03); Imm Gran Pct Auto 0.4 % (0.0-0.4); Lymphocytes Percent Auto 18.6 % (20-40); Mean Corpuscular HGB Conc 36.2 g/dl (31.0-35.0); Mean Corpuscular Hemoglobin 30.8 pg (27.0-33.0); Mean Corpuscular Volume 85.1 fL (80.0-98.0); Mean Platelet Volume 9.6 fL (9.4-12.3); Monocytes Absolute Auto 0.6 X10*3/uL (0.1-1.2); Monocytes Percent Auto 11.3 % (2-11); Neutrophils Absolute Auto 3.5 x10*3/uL (2.0-8.3); Neutrophils Percent Auto 67.3 % (45-73); Platelet Count 164 X10*3/uL (160-400); Red Blood Count 4.22 X10*6/uL (4.20-5.50); White Blood Count 5.2 X10*3/uL (4.8-10.8)
[2024-07-19 17:44] LABS: Amphetamine Screen Urine Not Detected (Not Detect); Barbiturates, Urine POSITIVE (Not Detect); Benzodiazepines Screen Urine Not Detected (Not Detect); Buprenorphine Scr Not Detected (Not Detect); Cannabinoid Screen Urine Not Detected (Not Detect); Cocaine Screen Urine Not Detected (Not Detect); Fentanyl, urine Not Detected (Not Detect); Methadone Screen, Urine Not Detected (Not Detect); Opiate Screen Urine Not Detected (Not Detect); Oxycodone Screen Urine Not Detected (Not Detect); Phencyclidine Screen Urine Not Detected (Not Detect)
[2024-07-19 17:50] LABS: Alanine Aminotransferase 28 U/L (0-31); Albumin Level 4.2 g/dL (3.5-5.0); Alkaline Phosphatase 70 U/L (39-117); Anion Gap 17 (12-20); Aspartate Amino Transferase 47 U/L (5-31); Bilirubin Direct 0.3 mg/dL (0.0-0.5); Bilirubin Total 0.7 mg/dL (0.0-1.0); Blood Urea Nitrogen 6 mg/dL (9-16); Calcium 9.1 mg/dL (8.4-10.2); Carbon Dioxide 16 mmol/L (22-29); Chloride 96 mmol/L (96-108); Creatinine Clr Calc Pharmacy 59.2; Estimated Glomerular Filt Rate > 60; Ethanol < 10 mg/dL; Glucose Random 96 mg/dL (60-115); Magnesium 1.5 mg/dL (1.6-2.6); Potassium 3.3 mmol/L (3.3-5.1); Sodium 126 mmol/L (135-145); Total Protein 6.4 g/dL (6.5-8.0)
--- NOTE | 2024-07-19 18:10 | PC.NURSE ---
pt is alert and oriented, skin pwd, respirations even and unlabored, pt has a very visible tremor-pt reports that this is her baseline and is seeing neurologist for this, pt is calm and cooperative, denies si/hi states feeling super depressed at this time visiting at bedside
--- NOTE | 2024-07-19 18:47 | PC.NURSE ---
care team speaking with the patient at this time
--- NOTE | 2024-07-19 19:35 | MHC.CARE ---
Patient is a 74-year-old, female who self-presented with her due to increased depression and anxiety. ?She expressed suicidal ideation with no specific plan. She stated ?I feel desperate?. She discussed not being able to swallow her medications, for about 3 days and has not eaten solid foods, due to her esophagus narrowing. She reported she has a surgery scheduled for 08/07/24 for a stet placement. She however expressed she is feeling hopeless and scared that she will not make it through surgery. CARE TEAM assessment was not completed due to patient being medically admitted. ?
--- NOTE | 2024-07-19 19:45 | PC.NURSE ---
pt moved from pod to ed16. placed on heart monitor. iv established. med late due to no iv pumps available in ED, transporter notified. 1:1 sitter.
[2024-07-19 19:48] LABS: Osmolality, Serum 260 mosm/kg (281-305)
[2024-07-19 19:54] VITALS: BP 119/63; PULSE 82; RESP 21; TEMP 36.4; O2SAT 97
[2024-07-19] MEDS: Magnesium Sulfate/D5W 1 GM/100 ML PIGGYBACK IV (19:58)
[2024-07-19 20:16] LABS: Osmolality Urine 77 mosm/kg (373-1093)
[2024-07-19 20:17] LABS: Sodium Urine Random < 20.0 mmol/L
--- NOTE | 2024-07-19 20:31 | PM.IMHP ---
History of Present Illness Date of Service: 07/19/24 Attending physician on admission: Roselyn Jimenez Chief Complaint: Swallowing difficulty Vanessa Currie is a very pleasant 74 years old woman with past medical history significant for depression on sertraline, esophageal problems and asthma presents to the emergency department complaining inability to swallow solids or the last 3 days. She feels like her pills are getting stuck in the middle of her chest. She mentioned that she follow-up with Gastroenterology at [facility], Dr. Bowling for esophageal stricture and scheduled for dilation with balloon early August. She denied nausea, vomiting or diarrhea. No fever or chills reported. Last bowel movement was this morning and was normal but small quantity. She did not report any acute cardiopulmonary or genitourinary symptoms. Denied alcohol use. In the ED, she was found to have normal vital signs. Blood workup showed normal WBC, hemoglobin and platelets. There is significant hyponatremia 126 and hypomagnesemia of 1.5.. Bicarb is 16. Serum osmolarity is 260. AST is 47, ALT, alk phos and bilirubin are normal. ED tx: MgSO4 2 g IV. Review of Systems Review of Systems: All 12 systems were reviewed and normal except as noted in HPI. [facility] Medical History (Updated 07/19/24 @ 18:49 by Edwige Dong MD) Asthma Anxiety and depression Social History Patient Tobacco Use Status: Never used Tobacco Smoked in Last 30 Days: No Use of substances other than those prescribed or required for medical reasons: No Advance Directives: No Advance Directives Information Provided: No Meds Allergies Allergy/AdvReac Type Severity Reaction Status Date / Time amoxicillin Allergy Unknown Verified 07/19/24 16:39 ziprasidone [From Geodon] Allergy Unknown Verified 07/19/24 16:39 aspirin AdvReac Mild Shortness Verified 07/19/24 16:39 of Breath Active Medications: Current Medications Lactated Ringer's (Lr) 1,000 mls @ 100 mls/hr IVCONT .Q10H [facility] Sodium Chloride (0.9 % Sodium Chloride Flush 3 Ml Syringe) 3 ml IVFLUSH QSHIFT WILLIE Home Medications ?Medication ?Instructions ?Recorded ?Confirmed ?Last Taken ?Type albuterol sulfate 90 mcg/actuation 2 puff PO Q4-6H PRN Shortness Of 08/14/21 09/17/24 Unknown History aerosol inhaler Breath Or Wheezing alendronate 70 mg tablet 70 mg PO DIRECTED 06/15/21 07/19/24 07/15/24 History atorvastatin 10 mg tablet 10 mg PO DAILY 06/15/21 Unknown History bupropion HCl 200 mg tablet,12 hr 200 mg PO QAM 06/15/21 Unknown History sustained-release fluticasone furoate 100 1 inh inhalation DAILY 06/15/21 Unknown History mcg/actuation blister powder for inhalation (Arnuity Ellipta) fluticasone propionate 100 0 inh inhalation 06/15/21 Unknown History mcg/actuation blister powder for inhalation (Flovent Diskus) lisinopril 5 mg tablet 5 mg PO DAILY 06/15/21 Unknown History lorazepam 0.5 mg tablet 0.5 mg PO BID 06/15/21 Unknown History sertraline 100 mg tablet 200 mg PO QAM 06/15/21 Unknown History trazodone 100 mg tablet 100 mg PO BEDTIME 06/15/21 Unknown History Saccharomyces boulardii 250 mg 5,000 mmu cells PO DAILY 05/09/22 Unknown History capsule (Digest Probiotic (S.boulardii)) cholecalciferol (vitamin D3) 50 50 mcg PO DAILY 05/09/22 Unknown History mcg (2,000 unit) capsule cetirizine 10 mg tablet 10 mg PO DAILY 04/02/24 Unknown History famotidine 20 mg tablet 20 mg PO BID 04/02/24 Unknown History fluticasone propionate 50 spray intranasal 04/02/24 Unknown History mcg/actuation nasal spray,suspension primidone 50 mg tablet 50 mg PO BID 04/02/24 Unknown History Physical Exam Vital Signs and Narrative: Vital Signs: Last Vital Signs Temp 97.6 F 07/19/24 19:54 Pulse 82 07/19/24 19:54 Resp 21 H 07/19/24 19:54 BP 119/63 07/19/24 19:54 Pulse Ox 97 07/19/24 19:54 O2 Del Method Room Air 07/19/24 19:54 BMI result Body Mass Index 27.8 Constitutional - Awake and Alert, No apparent distress. Pleasant. Cooperative. Looks a bit anxious. HEENT - PERRL, EOMI. No oral mucosa. Heart - S1S2, RRR Lungs - Normal lung expansion, Normal respiratory effort, No respiratory distress, CTA bilaterally Abd - NT / ND; +BS; No rebound or guarding Extremities - no calf tenderness bilaterally, no swelling Musculoskeletal - Normal inspection, normal ROM Skin - Warm/Dry Neurological - Alert & oriented x3. Normal speech. No focal weakness grossly noted. Psychological - Depressed affect Results Labs 07/19/24 17:21 07/19/24 17:21 Labs: Laboratory Results - last 24 hr 07/19/24 07/19/24 07/19/24 17:13 17:21 19:32 MCV 85.1 MCH 30.8 MCHC 36.2 H RDW 12.0 Plt Count 164 MPV 9.6 Immature Gran % (Auto) 0.4 Neut % (Auto) 67.3 Lymph % (Auto) 18.6 L [place] % (Auto) 11.3 H Eos % (Auto) 1.2 Baso % (Auto) 1.2 Lymph # (Auto) 1.0 L [place] # (Auto) 0.6 Eos # (Auto) 0.1 Baso # (Auto) 0.1 Abs Immat Gran (auto) 0.02 Absolute Neuts (auto) 3.5 Absolute Nucleated RBC 0.000 Nucleated RBC % (auto) 0.0 Anion Gap 17 Estim Creat Clear Calc 59.2 Estimated GFR > 60 Random Glucose 96 Osmolality 260 L Calcium 9.1 Magnesium 1.5 L Total Bilirubin 0.7 Direct Bilirubin 0.3 AST 47 H ALT 28 Alkaline Phosphatase 70 Total Protein 6.4 L Albumin 4.2 Urine Color Yellow Urine Appearance Clear Urine pH 5.5 Ur Specific [place] <= 1.005 Urine Protein Negative Urine Glucose (UA) Negative Urine Ketones 40 Urine Blood Trace H Urine Nitrite Negative Ur Leukocyte Esterase Negative Urine RBC 0-2 Urine WBC 0-5 Ur Squamous Epith Cells 0-2 Urine Bacteria None Seen Hyaline Casts 0-2 Urine Osmolality 77 L Ur Random Sodium < 20.0 Urine Opiates Screen Not Detected Ur Buprenorphine Scrn Not Detected Ur Oxycodone Screen Not Detected Urine Methadone Screen Not Detected Urine Fentanyl Screen Not Detected Ur Barbiturates Screen POSITIVE H Ur Phencyclidine Scrn Not Detected Ur Amphetamines Screen Not Detected U Benzodiazepines Scrn Not Detected Urine Cocaine Screen Not Detected U Marijuana (THC) Screen Not Detected Ethyl Alcohol < 10 Assessment and Plan (1) Acute hyponatremia: Status: Acute (2) Depression with suicidal ideation: Status: Acute Plan Vanessa Currie is a 74 y/o woman admitted with: Dyphagia X3 days (solids). Hx of esophageal stricture, scheduled for esophageal dilation in August [facility]. Admit to hospitalist service. NPO for now. Start IV fluids. GI consult. Will obtain medical record from [facility]. Hyponatremia likely due to PO intake. Possible SIADH due to psych meds however urine sodium is less than 20. Continue IV fluids. Monitor sodium level closely. Nephrology consult. Suicide ideation. One-to-one observation. Psychiatric consult. Depression. Medications on hold due to severe dysphagia. Asthma. Not in acute exacerbation. Bronchodilator therapy as needed DVT prophylaxis: SCDs Code status: Full Patient will need hospitalization for at least 2 midnights for dysphagia management with possible GI procedure and close monitoring of sodium level. Quality Stroke Does the patient have a stroke diagnosis?: No VTE Prior VTE?: No VTE Risk Level:: Medical - moderate - high VTE Device Contraindication: N/A - Device Ordered VTE Drug Contraindication: Treatment Not Indicated
--- NOTE | 2024-07-19 21:43 | PHA.MEDREC ---
Addendum entered by Brayden Goldsmith [facility] 07/19/24 22:06: MED REC CHECKED BY [facility] Original Note: Pharmacy Consult ? Medication Reconciliation Pharmacy has completed the medication reconciliation. Confirmed medications with patient and at bedside. Patient confirmed she is no longer taking any antibiotics or steroids and finished those more then a month ago . She confirmed her Alendronate 70mg tab once a week on Fridays and she states she took it this past Sunday 07/15. She also states she is taking Aripirazole 10mg tab twice a day even tho claims states 1 daily and she claims shes been doing it twice a day for a while. She claims she is no longer taking Cetirizine 10mg, Famotidine 20 and Primidone 50mg. She states she has not taken the Cetirizine or Famotidine in a while and Primidone her and the patient both exclaimed they did not know she was suppose to be taking it, it was prescribed recently by a neurologist here at [facility] and when I ask about it being filled for a 90 day supply since December 2023 and they have no recollection of that. She states she takes Lorazepam 0.5mg one in the morning and if she absolutely needed she will take another one at bedtime. She confirmed she took her Bupropion 200mg, Lorazepam 0.5mg and Sertraline 100mg this morning and the rest of her medications she hasnt been able to take due to her not being able to really swallow anything these past few days.
[2024-07-19 22:11] LABS: Sodium 132 mmol/L (135-145)
[2024-07-19] MEDS: Lactated Ringers 1,000 ML 100 ML IVCONT (22:35)
[2024-07-20] VITALS (12 sets, daily range): BP systolic 107–150; BP diastolic 60–87; PULSE 66–108; RESP 16–24; TEMP 36.4–36.7; O2SAT 94–99; BMI 27.0
[2024-07-20 06:05] LABS: Alanine Aminotransferase 26 U/L (0-31); Albumin Level 4.1 g/dL (3.5-5.0); Alkaline Phosphatase 65 U/L (39-117); Anion Gap 15 (12-20); Aspartate Amino Transferase 43 U/L (5-31); Bilirubin Total 0.4 mg/dL (0.0-1.0); Blood Urea Nitrogen 6 mg/dL (9-16); Calcium 9.1 mg/dL (8.4-10.2); Carbon Dioxide 20 mmol/L (22-29); Chloride 107 mmol/L (96-108); Estimated Glomerular Filt Rate > 60; Glucose Random 81 mg/dL (60-115); Potassium 3.6 mmol/L (3.3-5.1); Sodium 138 mmol/L (135-145); Total Protein 6.3 g/dL (6.5-8.0)
--- NOTE | 2024-07-20 08:22 | PM.GICN ---
History of Present Illness Data of Consult Service Date: 07/20/24 Primary Care Provider: Cathi Mendez MD HPI Reason for consult: dysphagia 74 yr old f w/ hx of asthma, depression, bipolar d/o, osteoporosis, HTN who I am seeing for assessment for dysphagia. she has noted 3 d of trouble swallowing food and tablets but ok with liquids and soft food like bananas. she also noted worsening heartburn and 10# weight loss over last week. she denies chest or abdominal pain. she has chronic diarrhea, but no blood in stool. she denies fever, no chills or cough, sputum she had hyponatremia on admission but now corrected. No FH of esophageal disease or cancer. she is on alendronate for several years and takes correctly with water and not lying down for 30 mins after ingestion. she is not on PPI, only on famotidine --she was on PPI but stopped it 6 months ago due to concerns about cancer from PPI Review of Systems Review of Systems: Constitutional : + Weight loss, No Fever, No Chills ENT/Mouth : No sore throat, No Rhinorrhea Eyes: No Swelling, No Redness Cardiovascular : No Chest Pain, No SOB, No Edema Respiratory : No Cough, No Sputum, No Wheezing Gastrointestinal : see HPI Genitourinary : NO Dysuria, No Urinary Frequency, No Hematuria, No Urgency Musculoskeletal : no joint pain, No Myalgias, No Joint Swelling Skin : No Skin Lesions, No rash Neuro : No Weakness, No Numbness, No Dizziness, No Headache Psych : No Anxiety/Panic, No Depression Heme/Lymph: No Bruising, No Lymphadenopathy Endocrine : No Polyuria, No Polydipsia All other systems reviewed and are negative. [facility] Past Medical History Medical History (Updated 07/20/24 @ 12:25 by Kimberly Charles MD) Asthma Anxiety and depression Family History Pertinent family history: no FH of esophgeal cancer Social History Social History Are you a primary career portals teacher to a significant other at home: No Do you presently have visiting nurse or other home services: No Patient Tobacco Use Status: Never used Tobacco service: No Meds Allergies Allergy/AdvReac Type Severity Reaction Status Date / Time amoxicillin Allergy Unknown Verified 07/19/24 16:39 ziprasidone [From Geodon] Allergy Unknown Verified 07/19/24 16:39 aspirin AdvReac Mild Shortness Verified 07/19/24 16:39 of Breath Active Medications: Current Medications Albuterol Sulfate (Albuterol Sulfate (0.083%) 2.5 Mg/3 Ml Vial.Neb) 2.5 mg INHALE Q3H PRN PRN Reason: Shortness of Breath/Wheezing Aripiprazole (Aripiprazole 10 Mg Tablet) 10 mg PO DAILY [facility] Bupropion HCl (Bupropion Hcl Xl 150 Mg Tab.Er.24h) 450 mg PO DAILY [facility] Lactated Ringer's (Lr) 1,000 mls @ 100 mls/hr IVCONT .Q10H [facility] Last Admin: 07/19/24 22:35 Dose: 100 mls/hr Lorazepam (Lorazepam 0.5 Mg Tablet) 0.5 mg PO BEDTIME PRN PRN Reason: Anxeity Lorazepam (Lorazepam 0.5 Mg Tablet) 0.5 mg PO DAILY [facility] Sertraline HCl (Sertraline Hcl 100 Mg Tablet) 100 mg PO DAILY [facility] Sodium Chloride (0.9 % Sodium Chloride Flush 3 Ml Syringe) 3 ml IVFLUSH QSHIFT [facility] Last Admin: 07/20/24 07:24 Dose: Not Given Trazodone HCl (Trazodone Hcl 100 Mg Tablet) 100 mg PO BEDTIME [facility] Home Medications ?Medication ?Instructions ?Recorded ?Confirmed ?Last Taken ?Type albuterol sulfate 90 mcg/actuation 2 puff PO Q4-6H PRN Shortness Of 06/15/21 07/19/24 Unknown History aerosol inhaler Breath Or Wheezing alendronate 70 mg tablet 70 mg PO FR 06/15/21 07/19/24 07/15/24 History atorvastatin 10 mg tablet 10 mg PO BEDTIME 06/15/21 07/19/24 3 Days Ago History ~07/16/24 bupropion HCl 200 mg tablet,12 hr 200 mg PO DAILY 06/15/21 07/19/24 07/19/24 History sustained-release fluticasone furoate 100 1 inh inhalation DAILY 06/15/21 07/19/24 3 Days Ago History mcg/actuation blister powder for ~07/16/24 inhalation (Arnuity Ellipta) lisinopril 5 mg tablet 5 mg PO BEDTIME 06/15/21 07/19/24 3 Days Ago History ~07/16/24 lorazepam 0.5 mg tablet 0.5 mg PO DAILY 06/15/21 07/19/24 3 Days Ago History ~07/16/24 sertraline 100 mg tablet 100 mg PO DAILY 06/15/21 07/19/24 07/19/24 History trazodone 100 mg tablet 100 mg PO BEDTIME 06/15/21 07/19/24 3 Days Ago History ~07/16/24 fluticasone propionate 50 1 spray intranasal BID PRN Nasal 04/02/24 07/19/24 Unknown History mcg/actuation nasal Congestion spray,suspension lorazepam 0.5 mg tablet 0.5 mg PO BEDTIME PRN Anxeity 07/19/24 07/19/24 3 Days Ago History ~07/16/24 Physical Exam Vital Signs: Vital Signs: Last Vital Signs Temp 97.9 F 07/20/24 06:00 Pulse 66 07/20/24 06:00 Resp 16 07/20/24 06:00 BP 142/64 H 07/20/24 06:00 Pulse Ox 98 07/20/24 06:00 O2 Del Method Room Air 07/20/24 06:00 BMI result Body Mass Index 27.8 EXAM: GENERAL: The patient is well developed and nontoxic. VITAL SIGNS:see workflow HEENT: Nonicteric sclerae, PERRLA, EOMI. Oropharynx clear. Moist mucous membranes. Conjunctivae appear well perfused. No thyroid mass. CHEST: Chest wall is nontender. HEART: Regular rate and rhythm without murmurs. LUNGS: Clear to auscultation bilaterally. ABDOMEN: Soft, positive bowel sounds, nontender, no organomegaly.no flank tenderness SKIN: No rash, no excessive bruising, petechiae, or purpura. NEUROLOGIC: Cranial nerves II-XII intact without motor/sensory deficit. Psych: normal affect Results Labs 07/19/24 17:21 07/20/24 05:02 Labs: Short CBC 07/19/24 Range/Units 17:21 WBC 5.2 (4.8-10.8) X10*3/uL Hgb 13.0 (12.0-16.0) g/dl Hct 35.9 L (37.0-47.0) % Plt Count 164 (160-400) X10*3/uL BMP 07/19/24 07/19/24 07/20/24 17:21 21:55 05:02 Sodium 126 L 132 L 138 Potassium 3.3 D 3.6 Chloride 96 107 Carbon Dioxide 16 L 20 L BUN 6 L 6 L Creatinine 0.77 0.70 Calcium 9.1 9.1 Liver Function 07/19/24 07/20/24 Range/Units 17:21 05:02 Total Bilirubin 0.7 0.4 (0.0-1.0) mg/dL Direct Bilirubin 0.3 (0.0-0.5) mg/dL AST 47 H 43 H (5-31) U/L ALT 28 26 (0-31) U/L Alkaline Phosphatase 70 65 (39-117) U/L Albumin 4.2 4.1 (3.5-5.0) g/dL Urine 07/19/24 Range/Units 17:13 Urine Color Yellow Urine Appearance Clear Urine pH 5.5 (5.0-9.0) Ur Specific [place] <= 1.005 (1.005-1.025) Urine Protein Negative (Neg-Trace) mg/dL Urine Glucose (UA) Negative (Negative) mg/dL Imaging Chest x-ray: Attestation: I personally reviewed and interpreted this imaging study as follows: (pleural thickening, scoliosis ) Assessment and Plan (1) Dysphagia: Qualifiers: Dysphagia type: other dysphagia Qualified Code(s): R13.19 - Other dysphagia Status: Acute Plan 1/ Dysphagia, ddx: schatzki ring, neoplasia, pill esophagitis, benging reflux related stricture, dysmotility, PLAN: 1/ EGD today for further assessment, with bx and balloon dilation Procedures Date of Service Date of Service: 07/20/24
[2024-07-20] MEDS: Lactated Ringers 1,000 ML 100 ML IVCONT ×3 (09:20→16:05)
--- NOTE | 2024-07-20 09:26 | PC.NURSE ---
meds on hold per diet order. will reassess after procedure which is nick for this afternoon. pt maintained NPO status. sitter at bedside. no acute issues
--- NOTE | 2024-07-20 12:08 | MHC.CM.PN ---
PT LIVES AT HOME WITH HER HAD SERVICES THRU [facility] PT WILL HAVE A RIDE HOME WHEN DCD PSYCH TO SEE PT DC PLAN PER PSYCH
--- NOTE | 2024-07-20 12:29 | P.CONAN_ITS ---
HPI - Anesthesia Eval Consult details Narrative: for EGD, dilation PMFSH Active Problems Active Problems: All Active Problems Dysphagia (Acute) Depression with suicidal ideation (Acute) Acute hyponatremia (Acute) Upper respiratory tract infection (Acute) Past Medical History Medical History (Updated 07/20/24 @ 12:25 by Kimberly Charles MD) Asthma Anxiety and depression Family History Family history of problems with anesthesia: No Surgical History History of Problems with Anesthesia: No Social History Social History Are you a primary home health care provider to a significant other at home: No Do you presently have visiting nurse or other home services: No Patient Tobacco Use Status: Never used Tobacco Smoked in Last 30 Days: No Use of substances other than those prescribed or required for medical reasons: No Have you been hit, kicked, punched, or otherwise hurt by someone within the past year? If so, by whom?: No Are you DNR?: No Advance Directives: No Advance Directives Information Provided: No Recently lost weight without trying: No service: No Meds Allergies Allergy/AdvReac Type Severity Reaction Status Date / Time amoxicillin Allergy Unknown Verified 07/19/24 16:39 ziprasidone [From Geodon] Allergy Unknown Verified 07/19/24 16:39 aspirin AdvReac Mild Shortness Verified 07/19/24 16:39 of Breath Active Medications: Current Medications Albuterol Sulfate (Albuterol Sulfate (0.083%) 2.5 Mg/3 Ml Vial.Neb) 2.5 mg INHALE Q3H PRN PRN Reason: Shortness of Breath/Wheezing Aripiprazole (Aripiprazole 10 Mg Tablet) 10 mg PO DAILY [facility] Bupropion HCl (Bupropion Hcl Xl 150 Mg Tab.Er.24h) 450 mg PO DAILY [facility] Lactated Ringer's (Lr) 1,000 mls @ 100 mls/hr IVCONT .Q10H [facility] Last Infusion: 07/20/24 11:19 Dose: 0 mls/hr Lactated Ringer's (Lr) 1,000 mls @ 100 mls/hr IVCONT .Q10H [facility] Last Admin: 07/20/24 11:47 Dose: 100 mls/hr Lorazepam (Lorazepam 0.5 Mg Tablet) 0.5 mg PO BEDTIME PRN PRN Reason: Anxeity Lorazepam (Lorazepam 0.5 Mg Tablet) 0.5 mg PO DAILY [facility] Sertraline HCl (Sertraline Hcl 100 Mg Tablet) 100 mg PO DAILY [facility] Sodium Chloride (0.9 % Sodium Chloride Flush 3 Ml Syringe) 3 ml IVFLUSH QSHIFT [facility] Last Admin: 07/20/24 07:24 Dose: Not Given Trazodone HCl (Trazodone Hcl 100 Mg Tablet) 100 mg PO BEDTIME [facility] Home Medications ?Medication ?Instructions ?Recorded ?Confirmed ?Last Taken ?Type albuterol sulfate 90 mcg/actuation 2 puff PO Q4-6H PRN Shortness Of 06/15/21 07/19/24 Unknown History aerosol inhaler Breath Or Wheezing alendronate 70 mg tablet 70 mg PO FR 06/15/21 07/19/24 07/15/24 History atorvastatin 10 mg tablet 10 mg PO BEDTIME 06/15/21 07/19/24 3 Days Ago History ~07/16/24 bupropion HCl 200 mg tablet,12 hr 200 mg PO DAILY 06/15/21 07/19/24 07/19/24 History sustained-release fluticasone furoate 100 1 inh inhalation DAILY 06/15/21 07/19/24 3 Days Ago History mcg/actuation blister powder for ~07/16/24 inhalation (Arnuity Ellipta) lisinopril 5 mg tablet 5 mg PO BEDTIME 06/15/21 07/19/24 3 Days Ago History ~07/16/24 lorazepam 0.5 mg tablet 0.5 mg PO DAILY 06/15/21 07/19/24 3 Days Ago History ~07/16/24 sertraline 100 mg tablet 100 mg PO DAILY 06/15/21 07/19/24 07/19/24 History trazodone 100 mg tablet 100 mg PO BEDTIME 06/15/21 07/19/24 3 Days Ago History ~07/16/24 fluticasone propionate 50 1 spray intranasal BID PRN Nasal 04/02/24 07/19/24 Unknown History mcg/actuation nasal Congestion spray,suspension lorazepam 0.5 mg tablet 0.5 mg PO BEDTIME PRN Anxeity 07/19/24 07/19/24 3 Days Ago History ~07/16/24 Exam Height,Weight and Vital Signs: Height 5 ft 2 in Weight 68.9 kg Last Vital Signs Temp 98.0 F 07/20/24 11:31 Pulse 89 07/20/24 11:31 Resp 16 07/20/24 11:31 BP 117/87 07/20/24 11:31 Pulse Ox 99 07/20/24 11:31 O2 Del Method Room Air 07/20/24 11:31 Pertinent Lab Results Pertinent Lab Results: Laboratory Tests 07/19/24 07/19/24 07/19/24 17:13 17:21 19:32 WBC 5.2 RBC 4.22 Hgb 13.0 Hct 35.9 L MCV 85.1 MCH 30.8 MCHC 36.2 H RDW 12.0 Plt Count 164 MPV 9.6 Immature Gran % (Auto) 0.4 Neut % (Auto) 67.3 Lymph % (Auto) 18.6 L [place] % (Auto) 11.3 H Eos % (Auto) 1.2 Baso % (Auto) 1.2 Lymph # (Auto) 1.0 L [place] # (Auto) 0.6 Eos # (Auto) 0.1 Baso # (Auto) 0.1 Abs Immat Gran (auto) 0.02 Absolute Neuts (auto) 3.5 Absolute Nucleated RBC 0.000 Nucleated RBC % (auto) 0.0 Sodium 126 L Potassium 3.3 D Chloride 96 Carbon Dioxide 16 L Anion Gap 17 BUN 6 L Creatinine 0.77 Estim Creat Clear Calc 59.2 Estimated GFR > 60 Random Glucose 96 Osmolality 260 L Calcium 9.1 Magnesium 1.5 L Total Bilirubin 0.7 Direct Bilirubin 0.3 AST 47 H ALT 28 Alkaline Phosphatase 70 Total Protein 6.4 L Albumin 4.2 Urine Color Yellow Urine Appearance Clear Urine pH 5.5 Ur Specific [place] <= 1.005 Urine Protein Negative Urine Glucose (UA) Negative Urine Ketones 40 Urine Blood Trace H Urine Nitrite Negative Ur Leukocyte Esterase Negative Urine RBC 0-2 Urine WBC 0-5 Ur Squamous Epith Cells 0-2 Urine Bacteria None Seen Hyaline Casts 0-2 Urine Osmolality 77 L Ur Random Sodium < 20.0 Urine Opiates Screen Not Detected Ur Buprenorphine Scrn Not Detected Ur Oxycodone Screen Not Detected Urine Methadone Screen Not Detected Urine Fentanyl Screen Not Detected Ur Barbiturates Screen POSITIVE H Ur Phencyclidine Scrn Not Detected Ur Amphetamines Screen Not Detected U Benzodiazepines Scrn Not Detected Urine Cocaine Screen Not Detected U Marijuana (THC) Screen Not Detected Ethyl Alcohol < 10 07/19/24 07/20/24 21:55 05:02 WBC RBC Hgb Hct MCV MCH MCHC RDW Plt Count MPV Immature Gran % (Auto) Neut % (Auto) Lymph % (Auto) [place] % (Auto) Eos % (Auto) Baso % (Auto) Lymph # (Auto) [place] # (Auto) Eos # (Auto) Baso # (Auto) Abs Immat Gran (auto) Absolute Neuts (auto) Absolute Nucleated RBC Nucleated RBC % (auto) Sodium 132 L 138 Potassium 3.6 Chloride 107 Carbon Dioxide 20 L Anion Gap 15 BUN 6 L Creatinine 0.70 Estim Creat Clear Calc 65.0 Estimated GFR > 60 Random Glucose 81 Osmolality Calcium 9.1 Magnesium 2.0 Total Bilirubin 0.4 Direct Bilirubin AST 43 H ALT 26 Alkaline Phosphatase 65 Total Protein 6.3 L Albumin 4.1 Urine Color Urine Appearance Urine pH Ur Specific [place] Urine Protein Urine Glucose (UA) Urine Ketones Urine Blood Urine Nitrite Ur Leukocyte Esterase Urine RBC Urine WBC Ur Squamous Epith Cells Urine Bacteria Hyaline Casts Urine Osmolality Ur Random Sodium Urine Opiates Screen Ur Buprenorphine Scrn Ur Oxycodone Screen Urine Methadone Screen Urine Fentanyl Screen Ur Barbiturates Screen Ur Phencyclidine Scrn Ur Amphetamines Screen U Benzodiazepines Scrn Urine Cocaine Screen U Marijuana (THC) Screen Ethyl Alcohol Airway Mallampati Class: II TM Dist: <=3cm Neck ROM: Full Loose/Missing/Broken Teeth: No Heart: ok Lungs: ok Assessment and Plan Assessment Anesthesia Assessment: Anesthesia Plan Discussed and Chart Reviewed Final Anesthetic Review Family History of Problems with Anesthesia: No History of Problems with Anesthesia: No NPO: Yes ASA Class: II Final Preanesthetic Review: No Changes in Pt Med Stat, Meds/Allgs Chart Reviewed, Consent Obtained/Reviewed and Anes Risks/Benef Reviewed Patient Risk: Intermediate Procedure Risk: Intermediate Anesthetic Plan Anesthetic Plan: Agree w/ Assess. and Plan and TIVA Disposition: Standard PACU
--- NOTE | 2024-07-20 12:29 | MHC.SHP ---
Pre-Procedural Eval Section A - 24 Hr Update-Section A only Date of Service: 07/20/24 The patient is an INPATIENT: Yes The patient has been examined within 24 hours of the surgical procedure. The History & Physical has been completed within 30 days and I have reviewed it.: Yes Section B - Complete if H&P > 30 days Chief Complaint: Dysphagia Allergies: Allergies Allergy/AdvReac Type Severity Reaction Status Date / Time amoxicillin Allergy Unknown Verified 07/19/24 16:39 ziprasidone [From Geodon] Allergy Unknown Verified 07/19/24 16:39 aspirin AdvReac Mild Shortness Verified 07/19/24 16:39 of Breath Plan Diagnosis/Plan: Unchanged I have reviewed the history and physical and performed a pertinent physical examination on my patient. No changes have occurred unless specified. Time Spent With Patient Time: Total time managing care of this patient today ____ minutes.
--- NOTE | 2024-07-20 12:59 | W.PM.OPN ---
Operative Note Operative Note Date of Service: 07/20/24 Narrative: Procedure Description: EGD Indication: dysphagia Anesthesia: MAC FLEXIBLE TRANSORAL UPPER GASTROINTESTINAL ENDOSCOPY UPPER ENDOSCOPY Consent: Indications for the procedure and potential complications of bleeding, perforation, reaction to medications and missed diagnosis were discussed with the patient and informed consent was obtained. Instrument: Olympus GIF H 190 J mid size upper endoscope Monitoring: Vital signs and clinical assessment, continuous EKG monitoring, Pulse oximetry, Carbon Dioxide monitoring and blood pressure monitoring were done throughout the procedure. Procedure: The patient was placed in the left lateral decubitis position and pre-procedure medications were administered and a bite block was placed. The endoscope was inserted into the mouth and advanced under direct vision to the third part of duodenum. A careful inspection was made as the upper endoscope was withdrawn including a retroflexed examination of the proximal stomach; Findings and interventions are described below. Findings: Larynx:normal Esophagus: GE junction at 38 cm, diaphragm hiatus at 38 cm, bogginess and swelling at GEJ with schatzki ring noted. Balloon dilation to 20 mm at LES and UES, small tear noted at GEJ. tertiary contractions noted. Stomach: patchy erythema Biopsies were obtained. Grade 2 flap valve on retroflexed examination of the cardia. there were several fundic gland polyps, some measured 10 mm and were removed with cold snare. One of them had superficial erosion with mild oozing Duodenum: bulbar duodenitis, with superficial erosion, bx taken Intervention: Biopsies as noted above, balloon dilation Impression/Findings: gastritis fundic gland polyps erosive duodenitis esophagitis schatzki ring PLAN: switch pepcid to pantoprazole 40 mg daily, if ongoing sx then manometry GERD precautions
--- NOTE | 2024-07-20 13:00 | PC.NURSE ---
this nurse took report from ICU nurse and was told this patient had left for the OR for a procedure, this nurse contacted the hub to notify them of needing a bed post op.
[2024-07-20] MEDS: Albuterol Sulfate (0.083%) 2.5 MG/3 ML VIAL.NEB INHALE (13:23)
--- NOTE | 2024-07-20 14:26 | HO.PM.IMPN ---
Subjective Subjective Date of Service: 07/20/24 Interval History: Seen post esophageal dilatation in PACU. Doing well from a procedural standpoint. When further queried expresses suicidal ideation she says is not new. Does not have a plan Review of Systems Denies chest pain Denies shortness of breath Denies nausea vomiting diarrhea Denies fever chills Physical Exam Vital Signs: Vital Signs: Last Vital Signs Temp 98.1 F 07/20/24 14:25 Pulse 96 07/20/24 14:25 Resp 16 07/20/24 14:25 BP 121/70 07/20/24 14:25 Pulse Ox 98 07/20/24 14:25 O2 Del Method Room Air 07/20/24 14:25 O2 Flow Rate 4 07/20/24 13:11 BMI result Body Mass Index 27.8 Const: Other: Awake alert oriented x3 no acute distress Resp: Other: Clear to auscultation bilaterally no rales rhonchi or wheezes Cardio: Other: No S4; positive S1-S2; no S3 murmurs rubs or gallops GI: Other: Soft nontender nondistended normoactive bowel sounds Extrem: Other: No edema bilaterally Objective Data Active Medications Albuterol Sulfate (Albuterol Sulfate (0.083%) 2.5 Mg/3 Ml Vial.Neb) 2.5 mg INHALE Q3H PRN PRN Reason: Shortness of Breath/Wheezing Last Admin: 07/20/24 13:23 Dose: 2.5 mg Documented By: RANDALL Aripiprazole (Aripiprazole 10 Mg Tablet) 10 mg PO DAILY WILLIE Bupropion HCl (Bupropion Hcl Xl 150 Mg Tab.Er.24h) 450 mg PO DAILY WILLIE Lactated Ringer's (Lr) 1,000 mls @ 100 mls/hr IVCONT .Q10H WILLIE Last Infusion: 07/20/24 11:19 Dose: 0 mls/hr Documented By: HAMMAD Lactated Ringer's (Lr) 1,000 mls @ 100 mls/hr IVCONT .Q10H WILLIE Last Admin: 07/20/24 11:47 Dose: 100 mls/hr Documented By: NICOLE Lorazepam (Lorazepam 0.5 Mg Tablet) 0.5 mg PO BEDTIME PRN PRN Reason: Anxeity Lorazepam (Lorazepam 0.5 Mg Tablet) 0.5 mg PO DAILY [facility] Naloxone HCl (Naloxone Hcl 0.4 Mg/Ml Vial) 0.04 mg IVPUSH Q5M PRN PRN Reason: Excessive sedation or RR < 8 Sertraline HCl (Sertraline Hcl 100 Mg Tablet) 100 mg PO DAILY [facility] Sodium Chloride (0.9 % Sodium Chloride Flush 3 Ml Syringe) 3 ml IVFLUSH QSHIFT [facility] Last Admin: 07/20/24 07:24 Dose: Not Given Documented By: HAMMAD Non-Admin Reason: Previously Administered Trazodone HCl (Trazodone Hcl 100 Mg Tablet) 100 mg PO BEDTIME [facility] Labs 07/19/24 17:21 07/20/24 05:02 Labs: Laboratory Results - last 24 hr 07/19/24 07/19/24 07/19/24 17:13 17:21 19:32 MCV 85.1 MCH 30.8 MCHC 36.2 H RDW 12.0 Plt Count 164 MPV 9.6 Immature Gran % (Auto) 0.4 Neut % (Auto) 67.3 Lymph % (Auto) 18.6 L Sierra % (Auto) 11.3 H Eos % (Auto) 1.2 Baso % (Auto) 1.2 Lymph # (Auto) 1.0 L Sierra # (Auto) 0.6 Eos # (Auto) 0.1 Baso # (Auto) 0.1 Abs Immat Gran (auto) 0.02 Absolute Neuts (auto) 3.5 Absolute Nucleated RBC 0.000 Nucleated RBC % (auto) 0.0 Anion Gap 17 Estim Creat Clear Calc 59.2 Estimated GFR > 60 Random Glucose 96 Osmolality 260 L Calcium 9.1 Magnesium 1.5 L Total Bilirubin 0.7 Direct Bilirubin 0.3 AST 47 H ALT 28 Alkaline Phosphatase 70 Total Protein 6.4 L Albumin 4.2 Urine Color Yellow Urine Appearance Clear Urine pH 5.5 Ur Specific Quinlan <= 1.005 Urine Protein Negative Urine Glucose (UA) Negative Urine Ketones 40 Urine Blood Trace H Urine Nitrite Negative Ur Leukocyte Esterase Negative Urine RBC 0-2 Urine WBC 0-5 Ur Squamous Epith Cells 0-2 Urine Bacteria None Seen Hyaline Casts 0-2 Urine Osmolality 77 L Ur Random Sodium < 20.0 Urine Opiates Screen Not Detected Ur Buprenorphine Scrn Not Detected Ur Oxycodone Screen Not Detected Urine Methadone Screen Not Detected Urine Fentanyl Screen Not Detected Ur Barbiturates Screen POSITIVE H Ur Phencyclidine Scrn Not Detected Ur Amphetamines Screen Not Detected U Benzodiazepines Scrn Not Detected Urine Cocaine Screen Not Detected U Marijuana (THC) Screen Not Detected Ethyl Alcohol < 10 07/20/24 05:02 MCV MCH MCHC RDW Plt Count MPV Immature Gran % (Auto) Neut % (Auto) Lymph % (Auto) Sierra % (Auto) Eos % (Auto) Baso % (Auto) Lymph # (Auto) Sierra # (Auto) Eos # (Auto) Baso # (Auto) Abs Immat Gran (auto) Absolute Neuts (auto) Absolute Nucleated RBC Nucleated RBC % (auto) Anion Gap 15 Estim Creat Clear Calc 65.0 Estimated GFR > 60 Random Glucose 81 Osmolality Calcium 9.1 Magnesium 2.0 Total Bilirubin 0.4 Direct Bilirubin AST 43 H ALT 26 Alkaline Phosphatase 65 Total Protein 6.3 L Albumin 4.1 Urine Color Urine Appearance Urine pH Ur Specific Quinlan Urine Protein Urine Glucose (UA) Urine Ketones Urine Blood Urine Nitrite Ur Leukocyte Esterase Urine RBC Urine WBC Ur Squamous Epith Cells Urine Bacteria Hyaline Casts Urine Osmolality Ur Random Sodium Urine Opiates Screen Ur Buprenorphine Scrn Ur Oxycodone Screen Urine Methadone Screen Urine Fentanyl Screen Ur Barbiturates Screen Ur Phencyclidine Scrn Ur Amphetamines Screen U Benzodiazepines Scrn Urine Cocaine Screen U Marijuana (THC) Screen Ethyl Alcohol Assessment and Plan (1) Dysphagia: Status: Acute (2) Depression with suicidal ideation: Status: Acute Plan Vanesas Currie is a 74 y/o woman admitted with dysphagia. Seen by GI and underwent balloon dilatation without issue. 1.Dysphagia -doing well post dilatation -pantoprazole 40 mg daily -full liquids advance as tolerated 2. Suicidal ideation in the backdrop of known depression -care team consult -one-to-one observation -continue all outpatient therapies 3. Hyponatremia -resolved -follow renal/divalents Full code Boots Require ongoing hospitalization pending psychiatric consultation Quality Stroke Does the patient have a stroke diagnosis?: No VTE Prior VTE?: No VTE Risk Level:: Medical - moderate - high VTE Device Contraindication: N/A - Device Ordered VTE Drug Contraindication: Treatment Not Indicated
[2024-07-20] MEDS: 0.9 % Sodium Chloride Flush 3 ML SYRINGE IVFLUSH (16:08)
--- NOTE | 2024-07-20 17:19 | P.CDIM_ITS ---
PROVIDER RESPONSE TEXT: To clarify, the appropriate diagnosis supported by the clinical indicators: Hypomagnesemia: probable QUERY TEXT: PHYSICIAN'S DOCUMENTATION REQUEST Date of Query: 07/20/2024 08:43 AM EDT Patient Name: Vanessa Currie Admit Date: 07/20/2024 Dear Guy Medina DO, A review of the medical record indicates additional documentation may be needed. Please review below and update the documentation accordingly. Clinical Indicators: LABS: magnesium 1.5 L IV Magnesium sulfate Based on the above, is there a diagnosis that correlates with these lab findings? Hypomagnesemia resolved, possible, probable etc. Labs indicate a diagnosis of (please specify) Other (explain) Clinically unable to determine (explain) Thank you, Greer Ribera, CCS, CDIS Use of terms such as suspected, likely, concern for, or probable (associated with a specific diagnosi s that is being evaluated, monitored, or treated as if it exists) are acceptable and can be coded in the inpatient se tting, when documented at the time of discharge. Please use your independent medical judgment in providing your response. THIS QUERY IS PART OF THE PERMANENT MEDICAL RECORD
--- NOTE | 2024-07-20 18:52 | MHC.CARE ---
CARE Team has determined that Pt does not meet criteria for IPLOC at this time and can discharge back to current providers when appropriate. Unit providers have been notified of disposition.
[2024-07-20] MEDS: traZODone HCL 100 MG TABLET PO (20:25)
[2024-07-20] MEDS: lisinopriL 5 MG TABLET PO (20:25)
[2024-07-20] MEDS: Atorvastatin Calcium 10 MG TABLET PO (20:25)
[2024-07-21] MEDS: LORazepam 0.5 MG TABLET PO ×2 (00:33→08:50)
[2024-07-21] MEDS: Lactated Ringers 1,000 ML 100 ML IVCONT (00:37)
[2024-07-21 01:35] LABS: Anion Gap 12 (12-20); Carbon Dioxide 22 mmol/L (22-29); Chloride 109 mmol/L (96-108); Potassium 3.4 mmol/L (3.3-5.1); Sodium 140 mmol/L (135-145)
[2024-07-21 03:16] VITALS: BP 125/63; PULSE 60; RESP 16; TEMP 36; O2SAT 99
[2024-07-21 06:15] LABS: Anion Gap 12 (12-20); Carbon Dioxide 22 mmol/L (22-29); Chloride 110 mmol/L (96-108); Potassium 3.5 mmol/L (3.3-5.1); Sodium 140 mmol/L (135-145)
[2024-07-21 07:51] VITALS: BP 151/79; PULSE 62; RESP 16; TEMP 36.8; O2SAT 98
[2024-07-21] MEDS: Sertraline HCL 100 MG TABLET PO (08:50)
[2024-07-21] MEDS: buPROPion HCl XL 150 MG TAB.ER.24H 450 MG PO (08:50)
[2024-07-21] MEDS: ARIPiprazole 10 MG TABLET PO (08:50)
--- NOTE | 2024-07-21 09:07 | MHC.CM.PN ---
Per [facility] - patient receiving MOW and transportation services.
--- NOTE | 2024-07-21 11:26 | HO.POSTANES ---
Post Anesthesia Evaluation Post Anesthesia Evaluation Date of Service: 07/20/24 Vital Signs: Vital Signs Temp Pulse Resp BP Pulse Ox O2 Del Method 07/21/24 07:51 98.2 F 62 16 151/79 H 98 Room Air 07/21/24 03:16 96.8 F 60 16 125/63 99 Room Air Anesthesia: General Mental Status: Awake Pain Control: Satisfactory Nausea/Vomiting: None Hydration: Adequate Anesthesia-Related Issues: No Anes. Related Issues
--- NOTE | 2024-07-21 11:56 | P.DS_ITS ---
DS: Providers Provider Date of Service: 07/21/24 Date of admission: 07/19/24 20:23 Date of discharge: 07/21/24 Primary care physician: Cathi Mendez MD Consults: 07/19/24 20:26 Consult to Gastroenterology Routine Consulting Provider: Kimberly Charles Reason for consultation: Dyphagia to solid over the last 3 days, hx of esophageal stricture 07/19/24 20:28 Consult to Psychiatry Routine Consulting Provider: Psych Covering Reason for consultation: Depression, suicidal thoughts Has provider been notified: No 07/19/24 21:15 Consult to Nephrology Routine Consulting Provider: [facility] Reason for consultation: Hyponatremia Has provider been notified: No 07/20/24 14:25 Consult for Sitter Routine Reason for consultation: Suicidal statements Consult to Care Team Stat Comment: Reason for consultation: Suicidal statements Attending physician on discharge: Manny Cazares Discharging clinician: Ana Cristina Barajas DS: Diagnosis Discharge Diagnosis (1) Dysphagia: Status: Acute (2) Depression with suicidal ideation: Status: Acute DS: Summary Hospital Course Hospital Course: From H&P on the day of admission Vanessa Currie is a very pleasant 74 years old woman with past medical history significant for depression on sertraline, esophageal problems and asthma presents to the emergency department complaining inability to swallow solids or the last 3 days. She feels like her pills are getting stuck in the middle of her chest. She mentioned that she follow-up with Gastroenterology at [facility], Dr. Bowling for esophageal stricture and scheduled for dilation with balloon early August. She denied nausea, vomiting or diarrhea. No fever or chills reported. Last bowel movement was this morning and was normal but small quantity. She did not report any acute cardiopulmonary or genitourinary symptoms. Denied alcohol use. In the ED, she was found to have normal vital signs. Blood workup showed normal WBC, hemoglobin and platelets. There is significant hyponatremia 126 and hypomagnesemia of 1.5.. Bicarb is 16. Serum osmolarity is 260. AST is 47, ALT, alk phos and bilirubin are normal. Dysphagia seen by GI, s/p EGD with balloon dilation. Findings of gastritis, erosive duodenitis, esophagitis, Schatzki ring status post balloon dilation. Biopsies taken. Plan to change Pepcid to pantoprazole. Was able to tolerate advancement of diet. Recommend outpatient follow up with GI. Suicidal ideation in the backdrop of known depression Initially had one-to-one observation for safety. Was continued on baseline medication. Seen by the care team and deemed not to meet criteria for inpatient psychiatric admission. On day of discharge denies suicidal ideation. Recommend outpatient follow-up with psychiatric prescriber. Hyponatremia resolved Hypomagnesemia Resolved with replacement Time Attestation Discharge Coordination Time (in mins): 35 Quality: Safe Use of Opioids Does Pt have an Active Cancer Diagnosis on the Problem List?: No Quality: Stroke Does the patient have a stroke diagnosis?: No Physical Exam Vital Signs: Vital Signs: Last Vital Signs Temp 98.2 F 07/21/24 07:51 Pulse 62 07/21/24 07:51 Resp 16 07/21/24 07:51 BP 151/79 H 07/21/24 07:51 Pulse Ox 98 07/21/24 07:51 O2 Del Method Room Air 07/21/24 07:51 O2 Flow Rate 4 07/20/24 13:11 BMI result Body Mass Index 27.0 Const: General: cooperative, comfortable, no acute distress, alert and awake Nutritional Appearance: average body habitus Orientation/consciousness: patient oriented x3 Resp: Effort & Inspection: normal respiratory effort, able to speak in complete sentences, no respiratory distress and no use of accessory muscles Cardio: Rate: regular rate GI: Inspection: No distended Palpation (GI): Soft to palpation Neuro: General: patient oriented x3, moves all extremities and CN's II-XI intact bilaterally DS: Data Data Completed and Pending Pending studies at discharge: Pending at discharge 07/20/24 12:56 Surgical [PTH] Routine Labs on day of discharge: Laboratory Results - last 24 hr 07/21/24 07/21/24 07/21/24 01:05 05:26 05:45 Hold Purple Top SEE NOTE Sodium 140 140 Potassium 3.4 3.5 Chloride 109 H 110 H Carbon Dioxide 22 22 Anion Gap 12 12 Discharge Plan Discharge Anticipated Discharge Date/Time: 07/21/24 14:40 Patient Disposition: Home, Self-Care Discharge Diagnosis: Dysphagia status post balloon dilation Referrals: Cathi Mendez MD [Primary Care Provider] - 1 Week Discharge Medications: New pantoprazole 40 mg tablet,delayed release (DR/EC) 40 mg PO DAILY 60 Days Qty: 60 0RF Continued aripiprazole [Abilify] 10 mg tablet 10 mg PO DAILY Qty: 14 0RF lorazepam 0.5 mg Tablet 0.5 mg PO BEDTIME PRN (Reason: Anxeity) alendronate 70 mg tablet 70 mg PO FR bupropion HCl 200 mg tablet sustained-release 12 hr 200 mg PO DAILY lisinopril 5 mg tablet 5 mg PO BEDTIME sertraline 100 mg tablet 100 mg PO DAILY Arnuity Ellipta 100 mcg/actuation blister with device 1 inh inhalation DAILY trazodone 100 mg tablet 100 mg PO BEDTIME atorvastatin 10 mg tablet 10 mg PO BEDTIME albuterol sulfate 90 mcg/actuation HFA aerosol inhaler 2 puff PO Q4-6H PRN (Reason: Shortness Of Breath Or Wheezing) lorazepam 0.5 mg tablet 0.5 mg PO DAILY fluticasone propionate 50 mcg/actuation spray,suspension 1 spray intranasal BID PRN (Reason: Nasal Congestion ) Discharge Orders: Discharge Order (Routine); Ordered 07/21/24 Ordered By: Ana Cristina Barajas Activity on Discharge: As tolerated Stand Alone Forms: Patient Portal Discharge page Print Language: Kiswahili Care Plan Goals: See below Health Concerns: Dysphagia - Schatzki ring status post balloon dilation. Esophagitis, duoden itis, gastritis Suicidal ideation. Resolved Low-sodium levels. Resolved Low magnesium levels. Resolved Plan of Treatment: Dysphagia improved with balloon dilation Also noted to have gastritis, duodenitis, esophagitis. Recommend to start taking pantoprazole daily as prescribed. Avoid NSAIDs, alcohol. Call to schedule follow-up appointment with your primary barrel rib matting machine operator gerd precautions: avoid foods that can worsen acid reflux such as chocolate, peppermint, fried or fatty foods, drinks that contain caffeine, or carbonated drinks (soda). Other foods include spicy foods, onions, tomatoes, and tomato- based foods. Do not have foods or drinks that can irritate your esophagus, such as citrus fruits, juices, and alcohol. see Gerd handout Call the schedule follow up appointment with your psychiatric provider Assessment: See discharge summary Patient Instructions: Gastroesophageal Reflux Disease (DC) Discharge Date/Time: 07/21/24 15:50
--- NOTE | 2024-07-21 14:38 | MHC.SL.SWA ---
Speech Pathologist Impression: Risk of Aspiration Due to: Dysphasia Diet Status: Liquid Consistency and Strategies for Safe Swallow: Liquid Intake Recommendation: Thin Liquid Intake Strategies: Small Sips Solid Food Consistency: Dietary Recommendations: Regular Additional Modifications to Solid Foods: Patient is encouraged to elect softer solids from regular menu, and to alternate liquids and solids when eating. Oral Medication Intake: Whole with Liquid Please contact the pharmacy regarding appropriate crushable or liquid drug formulations that are available whenever modified delivery is recommended. Compensatory Strategies and Precautions to be Taken for Safe Swallow: Sitting Upright (90 deg) Liquids from Cup Liquids from Straw Small Bites and Sips Alternate Liquids/Solids Supervision While Eating and Drinking for Safe Swallow: None Needed Foods to Avoid: Tough difficult to chew solids. Swallowing Recommended Treatments: Recommendation for Speech: Inpatient Speech Therapy Comment: Patient presented with oral motor function and all motoric aspects of swallow wfl. Patient continues to be mildly anxious about eating more solid foods, but reported that she had requested a tray at lunch of solids as a trial. On more solid foods, patient protectively chews her food thoroughly and endorsed using the strategy of alternating liquids and solids. Recommend UPGRADE diet to REGULAR, continue on thin liquids, pills whole with liquid. Patient planned on and is encouraged to elect softer foods from the regular menu. Recommend 1 f/u from TRAVEL AGENCY MANAGER to assure toleration of diet. ELECTRICAL MACHINE BUILDER, RD notified of recommendation by secure text, RN in person. Frequency/Duration: Date Range for Service Req: Timeline to reassess: Video Tape Duplicator Clinican/Clinical Fellow: No Supervisory Statement: I have reviewed and agree with the student/clinical fellow's documentation: N/A Speech Language Pathologist: Linda Khan M.A., CCC-TRAVEL AGENCY MANAGER
--- NOTE | 2024-07-21 15:07 | MHC.CM.PN ---
Patient medically cleared for dc home self care. at bedside to transport. RN aware.
== END 2024-07-21 15:50 | disposition home or self-care (01) | DRG 392 ==
LOC: HO.ED 18:59 → HO.EDOVER 20:39 → HO.S3 07-20 14:05
PROVIDERS: Internal Medicine Gastroenterology; Internal Medicine Nephrology; Physician Assistant; Admitting Provider Internal Medicine; Emergency Provider Emergency Medicine; PCP Internal Medicine; Visit Provider Physician Assistant Medical
PROC: 0D738ZZ Dilation of Lower Esophagus, Via Natural or Artificial Opening Endoscopic (ICD-10-PCS; principal; 2024-07-20 13:00)
DX: K22.2 Esophageal obstruction (principal); E87.1 Hypo-osmolality and hyponatremia; R45.851 Suicidal ideations; E83.42 Hypomagnesemia; K31.7 Polyp of stomach and duodenum; F32.A Depression, unspecified; K29.70 Gastritis, unspecified, without bleeding; K26.9 Duodenal ulcer, unspecified as acute or chronic, without hemorrhage or perforation; J45.909 Unspecified asthma, uncomplicated; Z91.148 Patient's other noncompliance with medication regimen for other reason; Z79.51 Long term (current) use of inhaled steroids; Z79.899 Other long term (current) drug therapy
CPT/HCPCS: 36415; 80048; 80051; 80053; 80076; 80307; 81001; 83735; 83930; 83935; 84295; 84300; 85025; 88305; 88313; 88342; 92610; 99285; C1726; J2704; J3475; J7120; S9485

== ENCOUNTER → 2024-07-19 20:23 | Outpatient (BNV) | payer MEDICARE, SELFPAY | PROVIDERS: Admitting Provider Internal Medicine; Emergency Provider Emergency Medicine; PCP Internal Medicine; Visit Provider Internal Medicine | DX: E87.1 Hypo-osmolality and hyponatremia (principal); F32.A Depression, unspecified; R45.851 Suicidal ideations | CPT/HCPCS: 99223; 99233; 99239 ==

== ENCOUNTER → 2024-07-19 20:23 | Outpatient (BNV) | payer MEDICARE, SELFPAY | PROVIDERS: Admitting Provider Internal Medicine; Emergency Provider Emergency Medicine; PCP Internal Medicine; Visit Provider Internal Medicine Gastroenterology | DX: R13.19 Other dysphagia (principal); K22.2 Esophageal obstruction; K29.70 Gastritis, unspecified, without bleeding; K29.80 Duodenitis without bleeding; K31.7 Polyp of stomach and duodenum | CPT/HCPCS: 43239; 43249; 99223 ==

== ENCOUNTER 2024-07-30 11:13 | Day surgery (SDC) | payer MEDICARE, SELFPAY ==
[2024-07-30] VITALS (7 sets, daily range): BP systolic 95–144; BP diastolic 56–96; PULSE 59–79; RESP 12–17; TEMP 35.8–37; O2SAT 97–99; BMI 27.5
--- NOTE | ~2024-07-30 | XR_ITS ---
EXAMINATION: XR CHEST CLINICAL INFORMATION: Shortness of breath COMPARISON: 08/29/2023 TECHNIQUE: 2 views of the chest were obtained. FINDINGS: Stable cardiomediastinal silhouette. No consolidation, pleural effusion or pneumothorax. Moderate scoliotic curvature in the spine. XR/XR chest 2V IMPRESSION: No acute cardiopulmonary process. Moderate scoliosis. Electronically signed by: Mayur Lazaro MD 07/30/2024 11:57 AM EDT
--- NOTE | 2024-07-30 11:16 | ECG_ITS ---
Test Reason : cp Blood Pressure : / mmHG Vent. Rate : 079 BPM Atrial Rate : 079 BPM P-R Int : 132 ms QRS Dur : 084 ms QT Int : 384 ms P-R-T Axes : 064 -33 048 degrees QTc Int : 440 ms Normal sinus rhythm Left axis deviation Nonspecific ST and T wave abnormality Abnormal ECG No previous ECGs available Referred By: Generic ED Physician Electronically Signed By:PAPI MENDES
--- NOTE | 2024-07-30 11:22 | ED.SOB ---
HPI - SOB/Dyspnea General Chief Complaint: Upper Respiratory Symptoms Stated Complaint: diff breathing chest tightness Time Seen by Provider: 07/30/24 12:50 Source: patient and family Mode of arrival: ambulatory Limitations: no limitations History of Present Illness ED Provider: Dr. Liborio Chun HPI Narrative: 74-year-old female with a history of asthma, COPD, anxiety, depressed, dysphagia with endoscopy done 07/20/2024 with the following findings: Gastritis, fundic gland polyps, erosive duodenitis, esophagitis, Schatzki's ring who presents emergency department for evaluation of difficulty swallowing, possible esophageal food bolus obstruction. The patient states that she was eating mainly soft solid foods but did have a sweet potato yesterday evening at 16:00 hours. Since then eating this week potatoes she feels like something is stuck in her stomach and she can not swallow food or liquids. She also states she has been feeling short of breath and had to use her inhaler more frequently. She denied fever, chills, vomiting. Related Data Home Medications ?Medication ?Instructions ?Recorded ?Confirmed albuterol sulfate 90 mcg/actuation 2 puff PO Q4-6H PRN Shortness Of 06/15/21 07/19/24 aerosol inhaler Breath Or Wheezing alendronate 70 mg tablet 70 mg PO FR 06/15/21 07/19/24 atorvastatin 10 mg tablet 10 mg PO BEDTIME 06/15/21 07/19/24 bupropion HCl 200 mg tablet,12 hr 200 mg PO DAILY 06/15/21 07/19/24 sustained-release fluticasone furoate 100 1 inh inhalation DAILY 06/15/21 07/19/24 mcg/actuation blister powder for inhalation (Arnuity Ellipta) lisinopril 5 mg tablet 5 mg PO BEDTIME 06/15/21 07/19/24 lorazepam 0.5 mg tablet 0.5 mg PO DAILY 06/15/21 07/19/24 sertraline 100 mg tablet 100 mg PO DAILY 06/15/21 07/19/24 trazodone 100 mg tablet 100 mg PO BEDTIME 06/15/21 07/19/24 fluticasone propionate 50 1 spray intranasal BID PRN Nasal 04/02/24 07/19/24 mcg/actuation nasal Congestion spray,suspension lorazepam 0.5 mg tablet 0.5 mg PO BEDTIME PRN Anxeity 07/19/24 07/19/24 Previous Rx's ?Medication ?Instructions ?Recorded aripiprazole 10 mg tablet (Abilify) 10 mg PO DAILY #14 tabs 05/19/22 pantoprazole 40 mg tablet,delayed 40 mg PO DAILY 60 days #60 tabs 07/21/24 release Allergies Allergy/AdvReac Type Severity Reaction Status Date / Time amoxicillin Allergy Unknown Verified 07/30/24 11:25 ziprasidone [From Geodon] Allergy Unknown Verified 07/30/24 11:25 aspirin AdvReac Mild Shortness Verified 07/30/24 11:25 of Breath PMFSH Past Medical History Medical History (Updated 07/30/24 @ 16:47 by Omar Ann MD) Asthma Anxiety and depression Social History Social History Household Members: [facility] Are you a primary child care supervisor to a significant other at home: No Do you presently have visiting nurse or other home services: No Patient Tobacco Use Status: Never used Tobacco service: No Physical Exam Vital Signs: Vital Signs: Last Vital Signs Temp 98.6 F 07/30/24 17:00 Pulse 68 07/30/24 17:00 Resp 16 07/30/24 17:00 BP 102/64 07/30/24 17:00 Pulse Ox 97 07/30/24 17:00 O2 Del Method Room Air 07/30/24 17:00 BMI result Body Mass Index 27.5 Course Course Course Narrative: This is an RME: Additional HPI, ROS, PE not included below will be deferred to primary provider. RME assessment and note performed by: Niki Da Silva PA-C This is a [id number], with a hx recent esophageal dilation performed on of depression on sertraline, esophageal problems and asthma, who presents to the ER with complaints of shortness of breath and dysphagia since last night. VSS, Lungs CTAB. Plan: Labs, EKG, CXR, viral swabs, further ER eval needed Medications Administered Discontinued Medications Generic Name Dose Route Start Last Admin Trade Name Freq PRN Reason Stop Dose Admin Glucagon 1 mg 07/30/24 15:14 07/30/24 16:12 Glucagon Hcl 1 Mg Vial IVPUSH 07/30/24 15:15 1 mg ONCE ONE Administration Sodium Chloride 1,000 mls @ 999 mls/hr 07/30/24 15:14 07/30/24 15:53 Ns IV 07/30/24 16:14 999 mls/hr .Q1H1M STA Administration Medical Decision Making Lab Data MDM Lab Attestation statement: I reviewed the patient's lab results. 07/30/24 11:42 07/30/24 11:42 Labs: Lab Results 07/30/24 Range/Units 11:42 WBC 3.7 L (4.8-10.8) X10*3/uL RBC 4.45 (4.20-5.50) X10*6/uL Hgb 13.8 (12.0-16.0) g/dl Hct 40.8 (37.0-47.0) % MCV 91.7 (80.0-98.0) fL MCH 31.0 (27.0-33.0) pg MCHC 33.8 (31.0-35.0) g/dl RDW 12.5 (11.0-16.0) % Plt Count 189 (160-400) X10*3/uL MPV 9.1 L (9.4-12.3) fL Immature Gran % (Auto) 0.3 (0.0-0.4) % Neut % (Auto) 73.0 (45-73) % Lymph % (Auto) 16.1 L (20-40) % [place] % (Auto) 8.0 (2-11) % Eos % (Auto) 1.3 (0-4) % Baso % (Auto) 1.3 (0-2) % Lymph # (Auto) 0.6 L (1.2-4.9) X10*3/uL [place] # (Auto) 0.3 (0.1-1.2) X10*3/uL Eos # (Auto) 0.1 (0.0-0.4) X10*3/uL Baso # (Auto) 0.1 (0.0-0.2) X10*3/uL Abs Immat Gran (auto) 0.01 (0.00-0.03) X10*3/uL Absolute Neuts (auto) 2.7 (2.0-8.3) x10*3/uL Absolute Nucleated RBC 0.000 (0.0-0.012) X10*3/uL Nucleated RBC % (auto) 0.0 (0.0-0.2) /100WBC PT 11.9 (10.9-12.4) SEC INR 1.0 (0.9-1.1) APTT 32.8 (26.0-36.8) SEC Sodium 145 (135-145) mmol/L Potassium 4.0 (3.3-5.1) mmol/L Chloride 112 H (96-108) mmol/L Carbon Dioxide 25 (22-29) mmol/L Anion Gap 12 (12-20) BUN 8 L (9-16) mg/dL Creatinine 0.79 (0.5-1.4) mg/dL Estim Creat Clear Calc 55.1 Estimated GFR > 60 Random Glucose 103 (60-115) mg/dL Calcium 9.8 D (8.4-10.2) mg/dL Magnesium 2.0 (1.6-2.6) mg/dL Total Bilirubin 0.4 (0.0-1.0) mg/dL Direct Bilirubin 0.2 (0.0-0.5) mg/dL AST 17 (5-31) U/L ALT 18 (0-31) U/L Alkaline Phosphatase 63 (39-117) U/L Troponin I High Sens < 2.7 (<3.5-17.0) ng/L Total Protein 6.7 (6.5-8.0) g/dL Albumin 4.4 (3.5-5.0) g/dL Independent Interpretation I performed an independent interpretation of an: Plain X-Ray Radiology Impression Discussion of test interpretation with radiology: I have reviewed the radiologist's reading. Radiologist Impression: XR chest 2V IMPRESSION: No acute cardiopulmonary process. Moderate scoliosis. Electronically signed by: Mayur Lazaro MD 07/30/2024 11:57 AM EDT RP Dictated By: Mayur Lazaro MD Discharge Plan Discharge Clinical Impression: Dysphagia Qualifiers: Dysphagia type: other dysphagia Qualified Code(s): R13.19 - Other dysphagia Patient Disposition: Home, Self-Care Discharge Date/Time: 07/30/24 17:00
[2024-07-30 11:47] LABS: MANUAL DIFF FLAG NO
--- NOTE | 2024-07-30 11:47 | MHC.EDTECH ---
patient was changed over, blood taken and send to the lab, patient rest quietly in the bed within call diop in reach.
[2024-07-30 11:49] LABS: Basophils Absolute Auto 0.1 X10*3/uL (0.0-0.2); Basophils Percent Auto 1.3 % (0-2); Eosinophils Absolute Auto 0.1 X10*3/uL (0.0-0.4); Eosinophils Percent Auto 1.3 % (0-4); Hematocrit 40.8 % (37.0-47.0); Hemoglobin 13.8 g/dl (12.0-16.0); Imm Gran Abs Auto 0.01 X10*3/uL (0.00-0.03); Imm Gran Pct Auto 0.3 % (0.0-0.4); Lymphocytes Absolute Auto 0.6 X10*3/uL (1.2-4.9); Lymphocytes Percent Auto 16.1 % (20-40); Mean Corpuscular HGB Conc 33.8 g/dl (31.0-35.0); Mean Corpuscular Volume 91.7 fL (80.0-98.0); Mean Platelet Volume 9.1 fL (9.4-12.3); Monocytes Absolute Auto 0.3 X10*3/uL (0.1-1.2); Neutrophils Absolute Auto 2.7 x10*3/uL (2.0-8.3); Platelet Count 189 X10*3/uL (160-400); Red Blood Count 4.45 X10*6/uL (4.20-5.50); Red Cell Distribution Width 12.5 % (11.0-16.0); White Blood Count 3.7 X10*3/uL (4.8-10.8)
[2024-07-30 11:55] LABS: Prothrombin Time 11.9 SEC (10.9-12.4)
[2024-07-30 11:57] LABS: Partial Thromboplastin Time 32.8 SEC (26.0-36.8)
[2024-07-30 12:05] LABS: Alanine Aminotransferase 18 U/L (0-31); Albumin Level 4.4 g/dL (3.5-5.0); Alkaline Phosphatase 63 U/L (39-117); Anion Gap 12 (12-20); Aspartate Amino Transferase 17 U/L (5-31); Bilirubin Direct 0.2 mg/dL (0.0-0.5); Bilirubin Total 0.4 mg/dL (0.0-1.0); Blood Urea Nitrogen 8 mg/dL (9-16); Calcium 9.8 mg/dL (8.4-10.2); Carbon Dioxide 25 mmol/L (22-29); Chloride 112 mmol/L (96-108); Creatinine Clr Calc Pharmacy 55.1; Estimated Glomerular Filt Rate > 60; Glucose Random 103 mg/dL (60-115); Sodium 145 mmol/L (135-145); Total Protein 6.7 g/dL (6.5-8.0)
[2024-07-30 12:14] LABS: Troponin-I High Sensitivity < 2.7 ng/L (<3.5-17.0)
--- NOTE | 2024-07-30 15:48 | P.CNGI_ITS ---
History of Present Illness Data of Consult Service Date: 07/30/24 Requesting physician: Liborio Chun Primary Care Provider: Cathi Mendez MD HPI Reason for consult: Dysphagia, food impaction 74 YF with asthma, COPD, anxiety, depression and dysphagia came to [facility] ED with inability to eat or drink since 4 pm on 07/29/24. Pt stated she had a sweet potato yesterday around 4 pm and felt something is stuck in the lower chest and has been unable to eat or drink since then. She reported she has been feeling short of breath and had to use her inhaler more frequently. She woke up at 2 am with SOB and used her inhalers. Pt was given some water in the ED and it went down without vomiting. Pt reports she noted some pain and burped after drinking the water Pt complains of intermittent dysphagia to solids and liquids for the past few months. 07/20/24 EGD was performed by Dr Charles abd showed Gastritis, fundic gland polyps, erosive duodenitis, esophagitis, Schatzki's ring Schatzki's ring was dilated with a 20 mm balloon and pt noted improvement in dysphagia after the EGD. She denied fever, chills, vomiting. Pt has asthma and COPD, she admits to snoring at night and denies a history of sleep apnea. Patient denies smoking or ETOH abuse. She denies taking NSAIDs. Pt reports nausea and vomiting after she had the EGD recently Review of Systems 2 Review of Systems: Yes all other systems are reviewed and are negative PMFSH Past Medical History Medical History (Updated 07/30/24 @ 15:58 by Omar Ann MD) Asthma Anxiety and depression Social History Social History Household Members: Spouse Housing: Condominium Are you a primary pet care technician to a significant other at home: No Do you presently have visiting nurse or other home services: No Patient Tobacco Use Status: Never used Tobacco Advance Directives: No Advance Directives Information Provided: No Do you have a plan to hurt others: No Plan service: No Meds Allergies Allergy/AdvReac Type Severity Reaction Status Date / Time amoxicillin Allergy Unknown Verified 07/30/24 11:25 ziprasidone [From Geodon] Allergy Unknown Verified 07/30/24 11:25 aspirin AdvReac Mild Shortness Verified 07/30/24 11:25 of Breath Active Medications: Current Medications Sodium Chloride (Ns) 1,000 mls @ 999 mls/hr IV .Q1H1M STA Stop: 07/30/24 16:14 Home Medications ?Medication ?Instructions ?Recorded ?Confirmed ?Last Taken ?Type albuterol sulfate 90 mcg/actuation 2 puff PO Q4-6H PRN Shortness Of 06/15/21 07/19/24 Unknown History aerosol inhaler Breath Or Wheezing alendronate 70 mg tablet 70 mg PO FR 06/15/21 07/19/24 07/15/24 History atorvastatin 10 mg tablet 10 mg PO BEDTIME 06/15/21 07/19/24 3 Days Ago History ~07/16/24 bupropion HCl 200 mg tablet,12 hr 200 mg PO DAILY 06/15/21 07/19/24 07/19/24 History sustained-release fluticasone furoate 100 1 inh inhalation DAILY 06/15/21 07/19/24 3 Days Ago History mcg/actuation blister powder for ~07/16/24 inhalation (Arnuity Ellipta) lisinopril 5 mg tablet 5 mg PO BEDTIME 06/15/21 07/19/24 3 Days Ago History ~07/16/24 lorazepam 0.5 mg tablet 0.5 mg PO DAILY 06/15/21 07/19/24 3 Days Ago History ~07/16/24 sertraline 100 mg tablet 100 mg PO DAILY 06/15/21 07/19/24 07/19/24 History trazodone 100 mg tablet 100 mg PO BEDTIME 06/15/21 07/19/24 3 Days Ago History ~07/16/24 fluticasone propionate 50 1 spray intranasal BID PRN Nasal 04/02/24 07/19/24 Unknown History mcg/actuation nasal Congestion spray,suspension lorazepam 0.5 mg tablet 0.5 mg PO BEDTIME PRN Anxeity 07/19/24 07/19/24 3 Days Ago History ~07/16/24 Physical Exam 2 Vital Signs: Vital Signs: Last Vital Signs Temp 98.3 F 07/30/24 14:35 Pulse 68 07/30/24 14:35 Resp 12 07/30/24 14:35 BP 129/74 07/30/24 14:35 Pulse Ox 98 07/30/24 14:35 O2 Del Method Room Air 07/30/24 14:35 BMI result Body Mass Index 27.5 Const: General: cooperative, comfortable, no acute distress, alert and awake Nutritional Appearance: overweight Orientation/consciousness: patient oriented x3 Limitations: no limitations HEENT: Head: Yes normal to inspection Ears: hearing grossly normal bilaterally Mouth: Normal oral and palatal mucosa present Eyes: Sclerae: sclerae normal Pupils: Equal, round and reactive pupils present Neck: Neck: Yes normal visual inspection Chest: Chest palpation & inspection: normal inspection of the chest Resp: Effort & Inspection: normal respiratory effort, able to speak in complete sentences, no respiratory distress and no use of accessory muscles A uscultation: clear to auscultation bilaterally Cardio: Palpation: normal PMI Rate: regular rate Rhythm: regular rhythm Heart sounds: S1 normal heart sound present, S2 normal heart sound present and no murmurs GI: Inspection: No distended Palpation (GI): Soft to palpation A uscultation: normal bowel sounds Rectal Exam - Female: deferred Skin: General skin exam: no rashes or lesions noted Neuro: General: patient oriented x3, moves all extremities and CN's II-XI intact bilaterally Cranial nerves: Yes Equal, round and reactive pupils present Psych: Appearance: grossly normal Mental Status: mental status grossly normal Results Labs 07/30/24 11:42 07/30/24 11:42 Labs: Short CBC 07/30/24 Range/Units 11:42 WBC 3.7 L (4.8-10.8) X10*3/uL Hgb 13.8 (12.0-16.0) g/dl Hct 40.8 (37.0-47.0) % Plt Count 189 (160-400) X10*3/uL BMP 07/30/24 11:42 Sodium 145 Potassium 4.0 Chloride 112 H Carbon Dioxide 25 BUN 8 L Creatinine 0.79 Calcium 9.8 D Liver Function 07/30/24 Range/Units 11:42 Total Bilirubin 0.4 (0.0-1.0) mg/dL Direct Bilirubin 0.2 (0.0-0.5) mg/dL AST 17 (5-31) U/L ALT 18 (0-31) U/L Alkaline Phosphatase 63 (39-117) U/L Albumin 4.4 (3.5-5.0) g/dL Assessment and Plan (1) Dysphagia: Qualifiers: Dysphagia type: other dysphagia Qualified Code(s): R13.19 - Other dysphagia Status: Acute (2) Schatzki's ring: Status: Acute Plan 74 YF with asthma, COPD, anxiety, depression and dysphagia came to [facility] ED with inability to eat or drink since 4 pm on 07/29/24. Pt stated she had a sweet potato yesterday around 4 pm and felt something is stuck in the lower chest and has been unable to eat or drink since then. She reported she has been feeling short of breath and had to use her inhaler more frequently. 07/20/24 EGD was performed by Dr Charles abd showed Gastritis, fundic gland polyps, erosive duodenitis, esophagitis, Schatzki's ring Schatzki's ring was dilated with a 20 mm balloon and pt noted improvement in dysphagia after the EGD. Pt symptoms suggest partial esophageal obstruction due to food bolus impaction RECOMMENDATIONS: 1. Proceed with urgent Upper Endoscopy today. EGD procedure and potential complications including bleeding, perforation, reaction to anesthetic and aspiration pneumonia were reviewed with the patient and her . They would like to proceed with EGD. Procedures Date of Service Date of Service: 07/30/24
[2024-07-30] MEDS: 0.9 % Sodium Chloride 1,000 ML 999 ML IV (15:53)
--- NOTE | 2024-07-30 16:06 | HO.ANESPROP2 ---
HPI - Anesthesia Eval Consult details Narrative: esophageal stricture PMFSH Active Problems Active Problems: All Active Problems Schatzki's ring (Acute) Dysphagia (Acute) Upper respiratory tract infection (Acute) Past Medical History Medical History (Updated 07/30/24 @ 15:58 by Omar Ann MD) Asthma Anxiety and depression Family History Family history of problems with anesthesia: No Surgical History History of Problems with Anesthesia: No Social History Social History Household Members: [facility] Are you a primary animal care provider to a significant other at home: No Do you presently have visiting nurse or other home services: No Patient Tobacco Use Status: Never used Tobacco Advance Directives: No Advance Directives Information Provided: No Do you have a plan to hurt others: No Plan service: No Meds Allergies Allergy/AdvReac Type Severity Reaction Status Date / Time amoxicillin Allergy Unknown Verified 07/30/24 11:25 ziprasidone [From Geodon] Allergy Unknown Verified 07/30/24 11:25 aspirin AdvReac Mild Shortness Verified 07/30/24 11:25 of Breath Active Medications: Current Medications Sodium Chloride (Ns) 1,000 mls @ 999 mls/hr IV .Q1H1M STA Stop: 07/30/24 16:14 Last Admin: 07/30/24 15:53 Dose: 999 mls/hr Home Medications ?Medication ?Instructions ?Recorded ?Confirmed ?Last Taken ?Type albuterol sulfate 90 mcg/actuation 2 puff PO Q4-6H PRN Shortness Of 06/15/21 07/19/24 Unknown History aerosol inhaler Breath Or Wheezing alendronate 70 mg tablet 70 mg PO FR 06/15/21 07/19/24 07/15/24 History atorvastatin 10 mg tablet 10 mg PO BEDTIME 06/15/21 07/19/24 3 Days Ago History ~07/16/24 bupropion HCl 200 mg tablet,12 hr 200 mg PO DAILY 06/15/21 07/19/24 07/19/24 History sustained-release fluticasone furoate 100 1 inh inhalation DAILY 06/15/21 07/19/24 3 Days Ago History mcg/actuation blister powder for ~07/16/24 inhalation (Arnuity Ellipta) lisinopril 5 mg tablet 5 mg PO BEDTIME 06/15/21 07/19/24 3 Days Ago History ~07/16/24 lorazepam 0.5 mg tablet 0.5 mg PO DAILY 06/15/21 07/19/24 3 Days Ago History ~07/16/24 sertraline 100 mg tablet 100 mg PO DAILY 06/15/21 07/19/24 07/19/24 History trazodone 100 mg tablet 100 mg PO BEDTIME 06/15/21 07/19/24 3 Days Ago History ~07/16/24 fluticasone propionate 50 1 spray intranasal BID PRN Nasal 04/02/24 07/19/24 Unknown History mcg/actuation nasal Congestion spray,suspension lorazepam 0.5 mg tablet 0.5 mg PO BEDTIME PRN Anxeity 07/19/24 07/19/24 3 Days Ago History ~07/16/24 Exam Height,Weight and Vital Signs: Height 5 ft 1 in Weight 66 kg Last Vital Signs Temp 98.3 F 07/30/24 16:00 Pulse 59 07/30/24 16:00 Resp 12 07/30/24 16:00 BP 128/96 H 07/30/24 16:00 Pulse Ox 98 07/30/24 16:00 O2 Del Method Room Air 07/30/24 16:00 Pertinent Lab Results Pertinent Lab Results: Laboratory Tests 07/30/24 11:42 WBC 3.7 L RBC 4.45 Hgb 13.8 Hct 40.8 MCV 91.7 MCH 31.0 MCHC 33.8 RDW 12.5 Plt Count 189 MPV 9.1 L Immature Gran % (Auto) 0.3 Neut % (Auto) 73.0 Lymph % (Auto) 16.1 L [place] % (Auto) 8.0 Eos % (Auto) 1.3 Baso % (Auto) 1.3 Lymph # (Auto) 0.6 L [place] # (Auto) 0.3 Eos # (Auto) 0.1 Baso # (Auto) 0.1 Abs Immat Gran (auto) 0.01 Absolute Neuts (auto) 2.7 Absolute Nucleated RBC 0.000 Nucleated RBC % (auto) 0.0 PT 11.9 INR 1.0 APTT 32.8 Sodium 145 Potassium 4.0 Chloride 112 H Carbon Dioxide 25 Anion Gap 12 BUN 8 L Creatinine 0.79 Estim Creat Clear Calc 55.1 Estimated GFR > 60 Random Glucose 103 Calcium 9.8 D Magnesium 2.0 Total Bilirubin 0.4 Direct Bilirubin 0.2 AST 17 ALT 18 Alkaline Phosphatase 63 Troponin I High Sens < 2.7 Total Protein 6.7 Albumin 4.4 Airway Mallampati Class: I TM Dist: >3cm Neck ROM: Full Loose/Missing/Broken Teeth: No Heart: RRR Lungs: CTA Assessment and Plan Assessment Anesthesia Assessment: Anesthesia Plan Discussed and Chart Reviewed Final Anesthetic Review Family History of Problems with Anesthesia: No History of Problems with Anesthesia: No NPO: Yes ASA Class: II and Emergency Final Preanesthetic Review: No Changes in Pt Med Stat, Meds/Allgs Chart Reviewed, Consent Obtained/Reviewed and Anes Risks/Benef Reviewed Patient Risk: Intermediate Procedure Risk: Low Anesthetic Plan Anesthetic Plan: MAC: Disposition: Standard PACU
[2024-07-30] MEDS: glucagon HCL 1 MG VIAL IVPUSH (16:12)
--- NOTE | 2024-07-30 16:41 | W.PM.OPN ---
Operative Note Operative Note Date of Service: 07/30/24 Narrative: FLEXIBLE TRANSORAL UPPER GASTROINTESTINAL ENDOSCOPY WITH ESOPHAGEAL BALLOON DILATION Pre-op diagnosis: Dysphagia, suspected food impaction Post-op diagnosis: Dysphagia due to esophageal motility disorder Endoscopist:? Omar Ann MD Anesthesia:?MAC UPPER ENDOSCOPY Consent: Indications for the procedure and potential complications of bleeding, perforation, reaction to medications and missed diagnosis were discussed with the patient and informed consent was obtained. Instrument: Olympus GIF H 190 mid size upper endoscope Monitoring: Vital signs and clinical assessment, continuous EKG monitoring, Pulse oximetry, Carbon Dioxide monitoring and blood pressure monitoring were done throughout the procedure. Procedure: The patient was placed in the left lateral decubitis position and pre-procedure medications were administered and a bite block was placed. The endoscope was inserted into the mouth and advanced under direct vision to the third part of duodenum. A careful inspection was made as the upper endoscope was withdrawn including a retroflexed examination of the proximal stomach; Findings and interventions are described below. Findings: Larynx: Normal Esophagus: GE junction at 35 cms. Tortuous esophagus with increased tertiary contractions without stricture or ring. No food bolus noted in the esophagus. Empiric balloon dilation was performed with a 20 mm (60 F) CRE balloon x 60 seconds Stomach: Multiple 5 to 10 mm benign appearing polyps in fundus and body of the stomach - biopsied during previous EGD. No residual food noted in the stomach. Grade 2 flap valve on retroflexed examination of the cardia. Duodenum: Not examined Impression and Post Procedure Diagnosis: Endoscopy Findings: ESOPHAGUS: GE junction at 35 cms. Tortuous esophagus with increased tertiary contractions without stricture or ring. No food bolus noted in the esophagus. Empiric balloon dilation was performed with a 20 mm (60 F) CRE balloon x 60 seconds STOMACH: Multiple gastric polyps. Plan: Pt will be discharged home. Pt was advised to chew her food well and take it with sips of fluid. If she continues to have dysphagia, she can be scheduled for a barium swallow for further evaluation Above findings were reviewed with the patient and relevant handouts were given. BIOPSIES SHOWED: A. Duodenum, biopsy: Active erosive duodenitis. B. Stomach, biopsy: Gastric body mucosa with minimal chronic inactive gastritis; negative for intestinal metaplasia and dysplasia. C. Fundic gland polyp: Fundic gland polyp with minimal chronic inactive gastritis; negative for intestinal metaplasia and dysplasia. D. Esophagogastric junction, biopsy: Squamocolumnar mucosa with mild chronic inflammation; no intestinal metaplasia seen on initial levels; negative for dysplasia. E. Esophagus, distal, biopsy: Squamous mucosa with no specific change; no columnar mucosa present. F. Esophagus, proximal, biopsy: Squamous mucosa with no specific change; no columnar mucosa present. Comment: (B and C): Immunostains for H. pylori were negative. (
--- NOTE | 2024-07-31 08:07 | HO.POSTANES ---
Post Anesthesia Evaluation Post Anesthesia Evaluation Date of Service: 07/31/24 Anesthesia: Monitored Mental Status: Awake Pain Control: Satisfactory Nausea/Vomiting: None Hydration: Adequate Anesthesia-Related Issues: No Anes. Related Issues
== END 2024-07-30 17:08 | disposition home or self-care (01) ==
LOC: HO.ED 16:47 → HO.SSS 16:51
PROVIDERS: Physician Assistant Medical; Emergency Provider Emergency Medicine Emergency Medical Services; PCP Internal Medicine; Visit Provider Internal Medicine Gastroenterology
PROC: 0DJ08ZZ Inspection of Upper Intestinal Tract, Via Natural or Artificial Opening Endoscopic (ICD-10-PCS; CPT 43235; principal; 2024-07-30 16:00)
DX: K22.2 Esophageal obstruction (principal); K22.4 Dyskinesia of esophagus; K31.7 Polyp of stomach and duodenum; R13.19 Other dysphagia; K29.70 Gastritis, unspecified, without bleeding; K26.9 Duodenal ulcer, unspecified as acute or chronic, without hemorrhage or perforation; K20.90 Esophagitis, unspecified without bleeding; R06.02 Shortness of breath; J45.909 Unspecified asthma, uncomplicated; F41.9 Anxiety disorder, unspecified; F32.A Depression, unspecified; Z79.899 Other long term (current) drug therapy; Z79.02 Long term (current) use of antithrombotics/antiplatelets
CPT/HCPCS: 43249; 36415; 71046; 80048; 80076; 83735; 84484; 85025; 85610; 85730; 93005; 96374; 99284; 99285; C1726; J1610; J2704; J3010

== ENCOUNTER → 2024-07-30 11:27 | Outpatient (BNV) | payer MEDICARE, SELFPAY | PROVIDERS: Emergency Provider Emergency Medicine Emergency Medical Services; PCP Internal Medicine; Visit Provider Internal Medicine Gastroenterology | DX: K22.2 Esophageal obstruction (principal); R13.19 Other dysphagia | CPT/HCPCS: 99231 ==

== ENCOUNTER 2024-08-16 14:19 | Outpatient (AMB) | payer MEDICARE, SELFPAY ==
--- NOTE | 2024-08-16 14:33 | AM.OFFVISNUR ---
Intake Visit Reasons: H PYLORI Allergies amoxicillin Allergy (Verified 07/30/24 11:25) Unknown ziprasidone [From Geodon] Allergy (Verified 07/30/24 11:25) Unknown aspirin Adverse Reaction (Mild, Verified 07/30/24 11:25) Shortness of Breath Nursing Note Patient presents for collection of H Pylori breath test. Patient has been fasting for 1 hour (nothing to eat, drink, no chewing gum or smoking) has not taken any antacid medication for at least 2 weeks and has no allergies to artificial sweeteners.?? Assessment & Plan Assessment & Plan (1) Upper respiratory tract infection: Code(s): J06.9 - Acute upper respiratory infection, unspecified Category: Medical Qualifiers: URI type: unspecified viral URI Qualified Code(s): J06.9 - Acute upper respiratory infection, unspecified Plan Patient presents for collection of H Pylori breath test. Patient has been fasting for 1 hour (nothing to eat, drink, no chewing gum or smoking) has not taken any antacid medication for at least 2 weeks and has no allergies to artificial sweeteners.???This test checks for an overgrowth of bacteria in your stomach. We all have bacteria but some may have more than others. It is treatable. if the test comes back negative there is nothing else to do. If the test result is positive we will treat you with 2 antibiotics and a medication to decrease the acid in your stomach (PPI) for 2 weeks. Two weeks after you have completed the treatment we will retest you to make sure the overgrowth has resolved. Orders: Orders H Pylori Breath Test Today J06.9 - Acute upper respiratory infection, unspecified Patient Instructions: Process for specimen collection and reason for testing was explained to the patient. Specimen collection. Patient instructed to take a deep breath and then exhale into the blue bag, filling it up as much as possible. Patient instructed to drink a mixture of water and the artificial sweetener with a straw. A 15 minute wait period was observed. Patient instructed to take a deep breath and then exhale into the pink bag, filling it up as much as possible.?? <del>?</del> <del>?</del> <del>?</del> <del>?</del> <del>?</del> <del>?</del> <del>?</del> <del>?</del> <del>?</del> <del>?</del> <del>?</del> <del>?</del> <del>?</del> <del>?</del> <del>?</del> <del>?</del> <del>?</del> <del>?</del> <del>?</del> <del>?</del> <del>?</del> <del>?</del> <del>?</del> <del>?</del> <del>?</del> <del>?</del> <del>?</del> <del>?</del> <del>?</del> <del>?</del> <del>?</del> <del>?</del> <del>?</del> <del>?</del> <del>?</del> <del>?</del> <del>?</del> <del>?</del> <del>?</del> <del>?</del> <del>?</del> <del>?</del> <del>?</del> <del>?</del> <del>?</del> <del>?</del> <del>?</del> <del>?</del> <del>?</del> <del>?</del> <del>?</del> <del>?</del> <del>?</del> <del>?</del> <del>?</del> <del>?</del> <del>?</del> <del>?</del> <del>?</del> <del>?</del> <del>?</del> <del>?</del> <del>?</del> <del>?</del> <del>?</del> <del>?</del> <del>?</del> <del>?</del> <del>?</del> <del>?</del> <del>?</del> <del>?</del> <del>?</del> <del>?</del> <del>?</del> <del>?</del>
== END 2024-08-16 14:50 | disposition home or self-care (01) ==
PROVIDERS: PCP Internal Medicine; Visit Provider Internal Medicine Gastroenterology
DX: J06.9 Acute upper respiratory infection, unspecified (principal)

== ENCOUNTER 2024-08-24 17:48 | Inpatient (IN) | payer MEDICARE, SELFPAY ==
--- NOTE | ~2024-08-24 | CT_ITS ---
EXAMINATION: CT HEAD WITHOUT CONTRAST CLINICAL INFORMATION: Headache. Hyponatremia. COMPARISON: None available. TECHNIQUE: Contiguous axial imaging was performed from the skull base to vertex without intravenous administration of contrast. This CT examination was performed using dose optimization techniques as appropriate, variously including the following: *Automated exposure control *Adjustment of mA and/or kV according to patient size (this includes techniques or standardized protocols for targeted exams where dose is matched to indication/reason for exam; i.e. extremities or head) *Use of iterative reconstruction technique DLP: 689 mGy-cm FINDINGS: There is mild cerebral volume loss with prominence of the lateral and the third ventricles. The cortical sulci are widened appropriately. The fourth ventricle and basal cisterns are normally outlined. There is mild bilateral periventricular and central white matter diminished attenuation. There is no acute territorial defects, hemorrhage or midline shift. The extra-axial spaces are unremarkable. Calvarium/scalp: Intact. Maxillofacial sinuses and mastoids: Clear as visualized. CT/CT head/brain wo IV con IMPRESSION: 1. No acute intracranial pathology. 2. Mild cerebral volume loss and chronic microangiopathy. Electronically signed by: Mukund Gonzáles MD 08/25/2024 01:36 AM EDT
--- NOTE | ~2024-08-24 | XR_ITS ---
EXAMINATION: XR CHEST CLINICAL INFORMATION: SOB COMPARISON: CXR on 07/30/24 TECHNIQUE: 2 views of the chest were obtained. FINDINGS: No significant abnormality is noted involving the heart, lungs, mediastinum, bony thorax or soft tissues. Chronic scoliosis. XR/XR chest 2V IMPRESSION: No acute disease. Electronically signed by: Eunice Soares MD 08/24/2024 08:05 PM EDT RP
--- NOTE | 2024-08-24 18:13 | ED.SOB ---
HPI - SOB/Dyspnea General Chief Complaint: General Medical Stated Complaint: took albutural doses too close/dizzy now Time Seen by Provider: 08/24/24 23:10 Source: patient Limitations: no limitations History of Present Illness ED Provider: Merna Larose PA-C HPI Narrative: 74-year-old female with a history of bipolar disorder, asthma, dysphagia who subsequently can only tolerate a soft diet, prior hyponatremia, presents with dizziness. Patient states she felt that she had food stuck in her esophagus, she in turn use her home albuterol 4 times to try and move the bolus along. Patient developed tremor, dizziness and felt more short of breath. Patient denies recent cough cold symptoms, or fever. Patient denies that she was wheezing prior to using the albuterol. Patient states the every day she frequently drinks a large amount of water to help her swallow her food. Related Data Home Medications ?Medication ?Instructions ?Recorded ?Confirmed albuterol sulfate 90 mcg/actuation 2 puff PO Q4-6H PRN Shortness Of 06/15/21 07/19/24 aerosol inhaler Breath Or Wheezing alendronate 70 mg tablet 70 mg PO FR 06/15/21 07/19/24 atorvastatin 10 mg tablet 10 mg PO BEDTIME 06/15/21 07/19/24 bupropion HCl 200 mg tablet,12 hr 200 mg PO DAILY 06/15/21 07/19/24 sustained-release fluticasone furoate 100 1 inh inhalation DAILY 06/15/21 07/19/24 mcg/actuation blister powder for inhalation (Arnuity Ellipta) lisinopril 5 mg tablet 5 mg PO BEDTIME 06/15/21 07/19/24 lorazepam 0.5 mg tablet 0.5 mg PO DAILY 06/15/21 07/19/24 sertraline 100 mg tablet 100 mg PO DAILY 06/15/21 07/19/24 trazodone 100 mg tablet 100 mg PO BEDTIME 06/15/21 07/19/24 fluticasone propionate 50 1 spray intranasal BID PRN Nasal 04/02/24 07/19/24 mcg/actuation nasal Congestion spray,suspension lorazepam 0.5 mg tablet 0.5 mg PO BEDTIME PRN Anxeity 07/19/24 07/19/24 Previous Rx's ?Medication ?Instructions ?Recorded aripiprazole 10 mg tablet (Abilify) 10 mg PO DAILY #14 tabs 05/19/22 pantoprazole 40 mg tablet,delayed 40 mg PO DAILY 60 days #60 tabs 07/21/24 release Allergies Allergy/AdvReac Type Severity Reaction Status Date / Time amoxicillin Allergy Unknown Verified 08/24/24 18:18 ziprasidone [From Geodon] Allergy Unknown Verified 08/24/24 18:18 aspirin AdvReac Mild Shortness Verified 08/24/24 18:18 of Breath Review of Systems Review of Systems: Yes all other systems are reviewed and are negative Constitutional: Constitutional: Denies fatigue and Denies fever(s) Cardiovascular: Cardiovascular: Denies chest pain and Denies dyspnea Respiratory: Respiratory: Denies cough, Denies dyspnea and Denies wheezing Gastrointestinal: Gastrointestinal: Denies abdominal pain, Denies nausea and Denies vomiting Endocrine: Endocrine: Denies fatigue Allergic/Immunologic: Allergic/Immunologic: Denies wheezing [facility] Past Medical History Attestation statement: The following information was validated with the patient. Medical History (Updated 08/25/24 @ 01:03 by TRICIA Webb) Asthma Anxiety and depression Social History Social History Household Members: Spouse Housing: Condominium Are you a primary rn complex care to a significant other at home: No Do you presently have visiting nurse or other home services: No Patient Tobacco Use Status: Never used Tobacco Advance Directives: No Advance Directives Information Provided: No service: No Physical Exam Vital Signs: Vital Signs: Last Vital Signs Temp 98.3 F 08/24/24 22:28 Pulse 66 08/24/24 22:28 Resp 18 08/24/24 22:28 BP 130/77 08/24/24 22:28 Pulse Ox 100 08/24/24 22:28 O2 Del Method Room Air 08/24/24 22:28 BMI result Body Mass Index 28.2 Const: Other: Alert, overall well in appearance Orientation/consciousness: patient oriented x3 Resp: Other: Lungs clear to auscultation, nonlabored respirations no wheeze Cardio: Other: Normal peripheral perfusion Skin: Other: Warm dry no rash Neuro: General: patient oriented x3, no focal motor deficits and CN's II-XI intact bilaterally Psych: Other: Cooperative, flat affect, odd demeanor Course Course Course Narrative: This is an RME: Additional HPI, ROS, PE not included below will be deferred to primary provider. RME assessment and note performed by: Niki Da Silva PA-C This is a [id number]-female, with a hx of history of asthma, COPD, anxiety, depressed, dysphagia with endoscopy done 07/20/2024 with the following findings: Gastritis, fundic gland polyps, erosive duodenitis, esophagitis, Schatzki's ring who presents emergency department with concerns for overuse of her inhaler. She states that she took 4 puff of her albuterol inhaler in 1 hour and is now feeling dizzy and short of breath. She also reports chest tightness. She has an NIH score of 0. She is not on blood thinners. Plan: EKG, chest x-ray, labs Medical Decision Making Medical Decision Making MDM Narrative: 74-year-old female with a history of bipolar disorder, asthma, dysphagia who subsequently can only tolerate a soft diet, prior hyponatremia, presents with dizziness. Patient states she felt that she had food stuck in her esophagus, she in turn use her home albuterol 4 times to try and move the bolus along. Patient developed tremor, dizziness and felt more short of breath. Patient denies recent cough cold symptoms, or fever. Patient denies that she was wheezing prior to using the albuterol. Patient states the every day she frequently drinks a large amount of water to help her swallow her food. Problem: Age, psychiatric illness, dysphagia History: Per patient and her I have considered the following differential diagnoses: Brain herniation, hyponatremia, other electrolyte abnormality, altered mental status, side-effects from beta agonist Plan: Patient is assessment began from triage, screening labs, EKG and chest x-ray were obtained. At this point, the patient has been here for 5 hours, her dizziness and tremor have resolved. In review of her labs, she is hyponatremic. It sounds as if she water loads during the day, the bupropion could be contributing to the hyponatremia as well. The feels that she is ?not herself?. She is not objectively altered for me, I will obtain a CT scan of the brain. She did endorse a headache throughout the day. We will add on serum osmol and urine osmol. We will admit. I have independently reviewed the following tests: Labs: No leukocytosis, not anemic, sodium 127, no additional electrolyte abnormality, anion gap is low at 9, serum osmolality 279 Chest x-ray: XR/XR chest 2V IMPRESSION: No acute disease. Electronically signed by: Eunice Soares MD 08/24/2024 08:05 PM EDT RP EKG: Normal sinus rhythm, rate of 63, no ischemic changes no ectopy, incomplete right bundle jose block CT brain:CT HEAD WITHOUT CONTRAST CLINICAL INFORMATION: Headache. Hyponatremia. COMPARISON: None available. TECHNIQUE: Contiguous axial imaging was performed from the skull base to vertex without intravenous administration of contrast. This CT examination was performed using dose optimization techniques as appropriate, variously including the following: *Automated exposure control *Adjustment of mA and/or kV according to patient size (this includes techniques or standardized protocols for targeted exams where dose is matched to indication/reason for exam; i.e. extremities or head) *Use of iterative reconstruction technique DLP: 689 mGy-cm FINDINGS: There is mild cerebral volume loss with prominence of the lateral and the third ventricles. The cortical sulci are widened appropriately. The fourth ventricle and basal cisterns are normally outlined. There is mild bilateral periventricular and central white matter diminished attenuation. There is no acute territorial defects, hemorrhage or midline shift. The extra-axial spaces are unremarkable. Calvarium/scalp: Intact. Maxillofacial sinuses and mastoids: Clear as visualized. CT/CT head/brain wo IV con IMPRESSION: 1. No acute intracranial pathology. 2. Mild cerebral volume loss and chronic microangiopathy. Electronically signed by: Mukund Gonzáles MD 08/25/2024 01:36 AM EDT RP Lab Data 08/24/24 18:38 08/24/24 18:38 Labs: Lab Results 08/24/24 08/25/24 08/25/24 Range/Units 18:38 00:24 00:38 WBC 4.3 L (4.8-10.8) X10*3/uL RBC 3.88 L (4.20-5.50) X10*6/uL Hgb 12.1 (12.0-16.0) g/dl Hct 33.3 L (37.0-47.0) % MCV 85.8 (80.0-98.0) fL MCH 31.2 (27.0-33.0) pg MCHC 36.3 H (31.0-35.0) g/dl RDW 12.0 (11.0-16.0) % Plt Count 144 L (160-400) X10*3/uL MPV 9.5 (9.4-12.3) fL Immature Gran % (Auto) 0.5 H (0.0-0.4) % Neut % (Auto) 71.7 (45-73) % Lymph % (Auto) 14.4 L (20-40) % [place] % (Auto) 10.6 (2-11) % Eos % (Auto) 1.9 (0-4) % Baso % (Auto) 0.9 (0-2) % Lymph # (Auto) 0.6 L (1.2-4.9) X10*3/uL [place] # (Auto) 0.5 (0.1-1.2) X10*3/uL Eos # (Auto) 0.1 (0.0-0.4) X10*3/uL Baso # (Auto) 0.0 (0.0-0.2) X10*3/uL Abs Immat Gran (auto) 0.02 (0.00-0.03) X10*3/uL Absolute Neuts (auto) 3.1 (2.0-8.3) x10*3/uL Absolute Nucleated RBC 0.000 (0.0-0.012) X10*3/uL Nucleated RBC % (auto) 0.0 (0.0-0.2) /100WBC Sodium 127 L (135-145) mmol/L Potassium 3.9 (3.3-5.1) mmol/L Chloride 98 (96-108) mmol/L Carbon Dioxide 24 (22-29) mmol/L Anion Gap 9 L (12-20) BUN 6 L (9-16) mg/dL Creatinine 0.68 (0.5-1.4) mg/dL Estim Creat Clear Calc 64.9 Estimated GFR > 60 Random Glucose 101 (60-115) mg/dL Osmolality 279 L (281-305) mosm/kg Calcium 8.7 D (8.4-10.2) mg/dL Magnesium 1.7 (1.6-2.6) mg/dL Total Bilirubin 0.4 (0.0-1.0) mg/dL Direct Bilirubin 0.2 (0.0-0.5) mg/dL AST 20 (5-31) U/L ALT 18 (0-31) U/L Alkaline Phosphatase 59 (39-117) U/L Troponin I High Sens < 2.7 (<3.5-17.0) ng/L Total Protein 5.7 L (6.5-8.0) g/dL Albumin 4.0 (3.5-5.0) g/dL Urine Osmolality 48 L (373-1093) mosm/kg Influenza Type A (PCR) NEGATIVE (Negative) Influenza Type B (PCR) NEGATIVE (Negative) RSV RNA Qual (PCR) NEGATIVE (Negative) SARS-CoV-2 RNA (RT-PCR) NEGATIVE (Negative) Discharge Plan Discharge Clinical Impression: Acute hyponatremia Patient Disposition: Admitted As Inpatient Print Language: Georgian
[2024-08-24 18:14] VITALS: BP 136/81; PULSE 66; RESP 16; TEMP 36.3; O2SAT 100; BMI 28.2
--- NOTE | 2024-08-24 18:20 | ECG_ITS ---
Test Reason : DIZZINESS Blood Pressure : / mmHG Vent. Rate : 063 BPM Atrial Rate : 063 BPM P-R Int : 164 ms QRS Dur : 094 ms QT Int : 428 ms P-R-T Axes : 076 -37 030 degrees QTc Int : 437 ms Normal sinus rhythm Left axis deviation Incomplete right bundle branch block Abnormal ECG When compared with ECG of 30-JUL-2024 11:13, No significant change was found Referred By: Niki Da Silva Electronically Signed By:Estevan Lombardo
[2024-08-24 18:45] LABS: MANUAL DIFF FLAG NO
[2024-08-24 19:03] LABS: Alanine Aminotransferase 18 U/L (0-31); Alkaline Phosphatase 59 U/L (39-117); Anion Gap 9 (12-20); Aspartate Amino Transferase 20 U/L (5-31); Bilirubin Direct 0.2 mg/dL (0.0-0.5); Bilirubin Total 0.4 mg/dL (0.0-1.0); Blood Urea Nitrogen 6 mg/dL (9-16); Calcium 8.7 mg/dL (8.4-10.2); Carbon Dioxide 24 mmol/L (22-29); Chloride 98 mmol/L (96-108); Creatinine Clr Calc Pharmacy 64.9; Estimated Glomerular Filt Rate > 60; Glucose Random 101 mg/dL (60-115); Magnesium 1.7 mg/dL (1.6-2.6); Potassium 3.9 mmol/L (3.3-5.1); Sodium 127 mmol/L (135-145); Total Protein 5.7 g/dL (6.5-8.0)
[2024-08-24 19:07] LABS: Basophils Percent Auto 0.9 % (0-2); Eosinophils Absolute Auto 0.1 X10*3/uL (0.0-0.4); Eosinophils Percent Auto 1.9 % (0-4); Hematocrit 33.3 % (37.0-47.0); Hemoglobin 12.1 g/dl (12.0-16.0); Imm Gran Abs Auto 0.02 X10*3/uL (0.00-0.03); Imm Gran Pct Auto 0.5 % (0.0-0.4); Lymphocytes Absolute Auto 0.6 X10*3/uL (1.2-4.9); Lymphocytes Percent Auto 14.4 % (20-40); Mean Corpuscular HGB Conc 36.3 g/dl (31.0-35.0); Mean Corpuscular Hemoglobin 31.2 pg (27.0-33.0); Mean Corpuscular Volume 85.8 fL (80.0-98.0); Mean Platelet Volume 9.5 fL (9.4-12.3); Monocytes Absolute Auto 0.5 X10*3/uL (0.1-1.2); Monocytes Percent Auto 10.6 % (2-11); Neutrophils Absolute Auto 3.1 x10*3/uL (2.0-8.3); Neutrophils Percent Auto 71.7 % (45-73); Platelet Count 144 X10*3/uL (160-400); Red Blood Count 3.88 X10*6/uL (4.20-5.50); White Blood Count 4.3 X10*3/uL (4.8-10.8)
[2024-08-24 19:10] LABS: Troponin-I High Sensitivity < 2.7 ng/L (<3.5-17.0)
[2024-08-24 19:28] LABS: Influenza A PCR NEGATIVE (Negative); Influenza B PCR NEGATIVE (Negative); Resp Syncy Virus RNA Qual PCR NEGATIVE (Negative); SARS COV2 PCR INHOUSE NEGATIVE (Negative)
[2024-08-24 22:28] VITALS: BP 130/77; PULSE 66; RESP 18; TEMP 36.8; O2SAT 100
--- NOTE | 2024-08-24 22:29 | MHC.EDTECH ---
This tech assumed care for patient at this time,rounding and introduced self to patient,patient is sitting on the side of stretcher,waiting to be seen. vitals taken,call diop in reach
--- NOTE | 2024-08-25 00:39 | MHC.EDTECH ---
Patient ambulated to thew bathroom with a steady gait,urine sample collected and sent to lab,belongings list completed,copy placed in chart
[2024-08-25 00:52] LABS: Osmolality, Serum 279 mosm/kg (281-305)
[2024-08-25 01:04] LABS: Osmolality Urine 48 mosm/kg (373-1093)
--- NOTE | 2024-08-25 02:23 | P.HPHOSP_ITS ---
History of Present Illness Date of Service: 08/25/24 Chief Complaint: Food getting stuck and dizziness This is a 74 female with pertinent history of mood disorder, dysphagia status post esophageal dilatation, asthma who presents to the emergency department evaluation of dysphagia and dizziness. Patient states she could not swallow on the day of presentation. She felt like food was stuck in her throat. Patient also had episode of dizziness/lightheadedness on the day of presentation. Patient tried to use her albuterol inhaler to move food down her throat. No fever, chills, chest pain, palpitations, shortness of breath, abdominal pain, changes in urinary or bowel habits. In the emergency department, sodium found to be 127 and patient was given IV fluids. Review of Systems 2 Constitutional: Constitutional: Reports fatigue ENT: Reports dysphagia Cardiovascular: Cardiovascular: Reports no additional cardiovascular complaints Respiratory: Respiratory: Reports no additional respiratory complaints Gastrointestinal: Gastrointestinal: Reports dysphagia Genitourinary: Genitourinary: Reports no additional female genitourinary complaints Endocrine: Endocrine: Reports fatigue [facility] Medical History Asthma Anxiety and depression Pertinent family history: No family history of early CAD Social History Household Members: Spouse Housing: [facility] Are you a primary healthcare customer service to a significant other at home: No Do you presently have visiting nurse or other home services: No Patient Tobacco Use Status: Never used Tobacco Advance Directives: No Advance Directives Information Provided: No service: No Meds Allergies Allergy/AdvReac Type Severity Reaction Status Date / Time amoxicillin Allergy Unknown Verified 08/24/24 18:18 ziprasidone [From Geodon] Allergy Unknown Verified 08/24/24 18:18 aspirin AdvReac Mild Shortness Verified 08/24/24 18:18 of Breath Home Medications ?Medication ?Instructions ?Recorded ?Confirmed ?Last Taken ?Type albuterol sulfate 90 mcg/actuation 2 puff PO Q4-6H PRN Shortness Of 06/15/21 07/19/24 Unknown History aerosol inhaler Breath Or Wheezing alendronate 70 mg tablet 70 mg PO FR 06/15/21 07/19/24 07/15/24 History atorvastatin 10 mg tablet 10 mg PO BEDTIME 06/15/21 07/19/24 3 Days Ago History ~07/16/24 bupropion HCl 200 mg tablet,12 hr 200 mg PO DAILY 06/15/21 07/19/24 07/19/24 History sustained-release fluticasone furoate 100 1 inh inhalation DAILY 06/15/21 07/19/24 3 Days Ago History mcg/actuation blister powder for ~07/16/24 inhalation (Arnuity Ellipta) lisinopril 5 mg tablet 5 mg PO BEDTIME 06/15/21 07/19/24 3 Days Ago History ~07/16/24 lorazepam 0.5 mg tablet 0.5 mg PO DAILY 06/15/21 07/19/24 3 Days Ago History ~07/16/24 sertraline 100 mg tablet 100 mg PO DAILY 06/15/21 07/19/24 07/19/24 History trazodone 100 mg tablet 100 mg PO BEDTIME 06/15/21 07/19/24 3 Days Ago History ~07/16/24 fluticasone propionate 50 1 spray intranasal BID PRN Nasal 04/02/24 07/19/24 Unknown History mcg/actuation nasal Congestion spray,suspension lorazepam 0.5 mg tablet 0.5 mg PO BEDTIME PRN Anxeity 07/19/24 07/19/24 3 Days Ago History ~07/16/24 Physical Exam 2 Vital Signs and Narrative: Vital Signs: Last Vital Signs Temp 98.3 F 08/24/24 22:28 Pulse 66 08/24/24 22:28 Resp 18 08/24/24 22:28 BP 130/77 08/24/24 22:28 Pulse Ox 100 08/24/24 22:28 O2 Del Method Room Air 08/24/24 22:28 BMI result Body Mass Index 28.2 Middle-aged female lying in bed in no distress Neck supple, no JVD Regular rate and rhythm, S1-S2 heard Regular breath sounds bilaterally, no wheezing or crackles appreciated Abdomen soft nontender, no guarding, no rigidity Patient is awake, alert and oriented to self, place, time and person ; no focal motor deficit Psych: Normal mood No pedal edema Results Labs 08/24/24 18:38 08/24/24 18:38 Labs: Laboratory Results - last 24 hr 10/23/24 10/24/24 10/24/24 18:38 00:24 00:38 MCV 85.8 MCH 31.2 MCHC 36.3 H RDW 12.0 Plt Count 144 L MPV 9.5 Immature Gran % (Auto) 0.5 H Neut % (Auto) 71.7 Lymph % (Auto) 14.4 L [place] % (Auto) 10.6 Eos % (Auto) 1.9 Baso % (Auto) 0.9 Lymph # (Auto) 0.6 L [place] # (Auto) 0.5 Eos # (Auto) 0.1 Baso # (Auto) 0.0 Abs Immat Gran (auto) 0.02 Absolute Neuts (auto) 3.1 Absolute Nucleated RBC 0.000 Nucleated RBC % (auto) 0.0 Anion Gap 9 L Estim Creat Clear Calc 64.9 Estimated GFR > 60 Random Glucose 101 Osmolality 279 L Calcium 8.7 D Magnesium 1.7 Total Bilirubin 0.4 Direct Bilirubin 0.2 AST 20 ALT 18 Alkaline Phosphatase 59 Troponin I High Sens < 2.7 Total Protein 5.7 L Albumin 4.0 Urine Osmolality 48 L Influenza Type A (PCR) NEGATIVE Influenza Type B (PCR) NEGATIVE RSV RNA Qual (PCR) NEGATIVE SARS-CoV-2 RNA (RT-PCR) NEGATIVE Imaging Radiologist's Impressions: Impressions Chest X-Ray 08/24/24 18:45 IMPRESSION: No acute disease. Electronically signed by: Eunice Soares MD 08/24/2024 08:[address] 08/25/24 00:12 IMPRESSION: 1. No acute intracranial pathology. 2. Mild cerebral volume loss and chronic microangiopathy. Electronically signed by: Mukund Gonzáles MD 08/25/2024 01:36 AM EDT Assessment and Plan (1) Hyponatremia: Status: Acute (2) Dysphagia: Status: Acute Plan This is a 74 female with pertinent history of mood disorder, dysphagia status post esophageal dilatation, asthma who presents to the emergency department evaluation of dysphagia and dizziness. #. Moderate Hyponatremia, symptomatic: Given IV crystalloids in the ER. Urine studies pending. Closely monitor serum sodium. Nephrology consult if sodium does not improve #. Dysphagia: Status post EGD with balloon dilatation in the past. Will keep patient NPO and reconsult Gastroenterology #. Mood disorder: Continue home mood stabilizers once able to take p.o. #. Asthma: No exacerbation during admission Med rec pending DVT prophylaxis: Lovenox Full code Quality Stroke Does the patient have a stroke diagnosis?: No VTE Prior VTE?: No VTE Risk Level:: Medical - moderate - high VTE Device Contraindication: Treatment Not Indicated VTE Drug Contraindication: N/A - Med Ordered
[2024-08-25 02:39] VITALS: BP 123/78; PULSE 61; RESP 16; TEMP 36.6; O2SAT 97
[2024-08-25] MEDS: 0.9 % Sodium Chloride 1,000 ML 999 ML IV (03:01)
[2024-08-25 03:19] LABS: Appearance Urine Clear; Color Urine Yellow; Glucose Urine UA Negative (Negative); Leukocyte Esterase Urine Negative (Negative); Nitrite Urine Negative (Negative); PH 6.5 (5.0-9.0); Specific Gravity - Urine <= 1.005 (1.005-1.025); Urine Blood Negative (Negative); Urine Ketones Negative (Negative); Urine Protein Negative (Neg-Trace)
[2024-08-25 03:21] LABS: Sodium Urine Random < 20.0 mmol/L
[2024-08-25 03:24] LABS: Bacteria Urine None Seen (None Seen); Hyaline Casts Urine 0-2 /LPF (0-2); RBC Urine 0-2 /HPF (0-2); Squamous Epithelial Cell Urine 0-2 /HPF (0-2); WBC Urine 0-5 /HPF (0-5)
[2024-08-25 03:40] VITALS: BMI 25.6
[2024-08-25 03:51] VITALS: BP 134/75; PULSE 61; RESP 18; TEMP 36.7; O2SAT 99
[2024-08-25 06:36] LABS: MANUAL DIFF FLAG NO
[2024-08-25 06:50] LABS: Eosinophils Absolute Auto 0.1 X10*3/uL (0.0-0.4); Eosinophils Percent Auto 2.7 % (0-4); Hematocrit 37.2 % (37.0-47.0); Hemoglobin 12.8 g/dl (12.0-16.0); Imm Gran Abs Auto 0.01 X10*3/uL (0.00-0.03); Imm Gran Pct Auto 0.3 % (0.0-0.4); Lymphocytes Absolute Auto 0.7 X10*3/uL (1.2-4.9); Lymphocytes Percent Auto 23.9 % (20-40); Mean Corpuscular HGB Conc 34.4 g/dl (31.0-35.0); Mean Corpuscular Hemoglobin 30.8 pg (27.0-33.0); Mean Corpuscular Volume 89.4 fL (80.0-98.0); Mean Platelet Volume 9.5 fL (9.4-12.3); Monocytes Absolute Auto 0.4 X10*3/uL (0.1-1.2); Monocytes Percent Auto 13.6 % (2-11); Neutrophils Absolute Auto 1.8 x10*3/uL (2.0-8.3); Neutrophils Percent Auto 58.5 % (45-73); Platelet Count 142 X10*3/uL (160-400); Red Blood Count 4.16 X10*6/uL (4.20-5.50); Red Cell Distribution Width 12.1 % (11.0-16.0)
[2024-08-25 07:03] LABS: Anion Gap 9 (12-20); Blood Urea Nitrogen 4 mg/dL (9-16); Calcium 9.2 mg/dL (8.4-10.2); Carbon Dioxide 26 mmol/L (22-29); Chloride 110 mmol/L (96-108); Estimated Glomerular Filt Rate > 60; Glucose Random 95 mg/dL (60-115); Potassium 4.3 mmol/L (3.3-5.1); Sodium 141 mmol/L (135-145)
[2024-08-25 07:10] VITALS: BP 143/64; PULSE 58; RESP 18; TEMP 36.4; O2SAT 97
[2024-08-25] MEDS: Dextrose 5 % 1,000 ML 100 ML IVCONT (08:11)
[2024-08-25] MEDS: 0.9 % Sodium Chloride Flush 3 ML SYRINGE IVFLUSH (08:12)
--- NOTE | 2024-08-25 08:17 | P.CNGI_ITS ---
History of Present Illness Data of Consult Service Date: 08/25/24 Requesting physician: Leandro Cervantes Primary Care Provider: Cathi Mendez MD HPI Reason for consult: dysphagia 74 YF with mood disorder, dysphagia status post esophageal dilatation, asthma came [place] [facility] on 08[place]24[place]24 with dysphagia and dizziness. Pt stated was unable to swallow on the day of presentation. She felt like food was stuck in her throat. Patient also had episode of dizziness/lightheadedness on the day of presentation. Patient tried to use her albuterol inhaler to move food down her throat. Pt denied fever, chills, chest pain, palpitations, shortness of breath, abdominal pain, changes in urinary or bowel habits. No FH of esophageal disease or cancer. she is on alendronate for several years and takes correctly with water and not lying down for 30 mins after ingestion. She is not on PPI, only on famotidine --she was on PPI but stopped it 6 months ago due to concerns about cancer from PPI PT had a similar presentation on 07/30/24. EGD showed: ESOPHAGUS: GE junction at 35 cms. Tortuous esophagus with increased tertiary contractions without stricture or ring. No food bolus noted in the esophagus. Empiric balloon dilation was performed with a 20 mm (60 F) CRE balloon x 60 seconds STOMACH: Multiple gastric polyps. Plan: Pt will be discharged home. Pt was advised to chew her food well and take it with sips of fluid. If she continues to have dysphagia, she can be scheduled for a barium swallow for further evaluation Above findings were reviewed with the patient and relevant handouts were given. BIOPSIES SHOWED: A. Duodenum, biopsy: Active erosive duodenitis. B. Stomach, biopsy: Gastric body mucosa with minimal chronic inactive gastritis; negative for intestinal metaplasia and dysplasia. C. Fundic gland polyp: Fundic gland polyp with minimal chronic inactive gastritis; negative for intestinal metaplasia and dysplasia. D. Esophagogastric junction, biopsy: Squamocolumnar mucosa with mild chronic inflammation; no intestinal metaplasia seen on initial levels; negative for dysplasia. E. Esophagus, distal, biopsy: Squamous mucosa with no specific change; no columnar mucosa present. F. Esophagus, proximal, biopsy: Squamous mucosa with no specific change; no columnar mucosa present. Comment: (B and C): Immunostains for H. pylori were negative. Review of Systems 2 Constitutional: Constitutional: Reports fatigue ENT: Reports dysphagia Cardiovascular: Cardiovascular: Reports no additional cardiovascular complaints Respiratory: Respiratory: Reports no additional respiratory complaints Gastrointestinal: Gastrointestinal: Reports dysphagia Genitourinary: Genitourinary: Reports no additional female genitourinary complaints Endocrine: Endocrine: Reports fatigue [facility] Past Medical History Medical History Asthma Anxiety and depression Social History Social History Household Members: Spouse Housing: Condominium Are you a primary child care supervisor to a significant other at home: No Do you presently have visiting nurse or other home services: No Patient Tobacco Use Status: Never used Tobacco Smoked in Last 30 Days: No Use of substances other than those prescribed or required for medical reasons: No Currently Displaying Signs/Symptoms of Drug Intoxication Withdrawal: No Have you been hit, kicked, punched, or otherwise hurt by someone within the past year? If so, by whom?: No Do you feel safe in your current relationship?: No Current Relationship Is there a partner from a previous relationship who is making you feel unsafe now?: No Are you made to feel afraid or neglected: No Advance Directives: No Advance Directives Information Provided: No Do you have a plan to hurt others: No Plan Recently lost weight without trying: Yes How much weight loss: 14-23 pounds Eating poorly because of decreased appetite: Yes Nutrition screen score: 5 Nutrition Risks: Difficulty swallowing Patient : No : No Poor oral hygiene: No service: No Meds Allergies Allergy/AdvReac Type Severity Reaction Status Date / Time amoxicillin Allergy Unknown Verified 08/24/24 18:18 ziprasidone [From Geodon] Allergy Unknown Verified 08/24/24 18:18 aspirin AdvReac Mild Shortness Verified 08/24/24 18:18 of Breath Active Medications: Current Medications Acetaminophen (Acetaminophen 325 Mg Tablet) 650 mg PO Q6H PRN PRN Reason: Pain, Mild (Pain Scale 1-3), fever or headache Calcium Carbonate (Calcium Carbonate 750 Mg Tab.Chew) 750 mg PO Q4H PRN PRN Reason: Heartburn Enoxaparin Sodium (Enoxaparin Sodium 40 Mg/0.4 Ml Syringe) 40 mg SUBCUT Q24H WILLIE Dextrose (D5w) 1,000 mls @ 100 mls/hr IVCONT .Q10H [facility] Magnesium Hydroxide (Milk Of Magnesia 30 Ml Oral.Susp) 30 ml PO DAILY PRN PRN Reason: Constipation Melatonin (Melatonin 3 Mg Tablet) 6 mg PO BEDTIME PRN PRN Reason: Insomnia Ondansetron HCl (Ondansetron Hcl 4 Mg/2 Ml Vial) 4 mg IVPUSH Q8H PRN PRN Reason: Nausea and Vomiting Sodium Chloride (0.9 % Sodium Chloride Flush 3 Ml Syringe) 3 ml IVFLUSH QSHIFT [facility] Home Medications ?Medication ?Instructions ?Recorded ?Confirmed ?Last Taken ?Type albuterol sulfate 90 mcg/actuation 2 puff PO Q4H PRN Shortness Of 06/15/21 08/25/24 Unknown History aerosol inhaler Breath Or Wheezing atorvastatin 10 mg tablet 10 mg PO BEDTIME 06/15/21 08/25/24 08/23/24 History bupropion HCl 200 mg tablet,12 hr 200 mg PO DAILY 06/15/21 08/25/24 08/24/24 History sustained-release fluticasone furoate 100 1 inh inhalation DAILY 06/15/21 08/25/24 08/24/24 History mcg/actuation blister powder for inhalation (Arnuity Ellipta) lisinopril 5 mg tablet 5 mg PO BEDTIME 06/15/21 08/25/24 08/23/24 History lorazepam 0.5 mg tablet 0.5 mg PO DAILY 06/15/21 08/25/24 08/24/24 History sertraline 100 mg tablet 100 mg PO DAILY 06/15/21 08/25/24 08/24/24 History trazodone 100 mg tablet 100 mg PO BEDTIME PRN Insomnia 06/15/21 08/25/24 3 Days Ago History ~07/16/24 fluticasone propionate 50 1 spray intranasal BID PRN Nasal 04/02/24 08/25/24 Unknown History mcg/actuation nasal Congestion spray,suspension lorazepam 0.5 mg tablet 0.5 mg PO BEDTIME PRN Anxeity 07/19/24 08/25/24 3 Days Ago History ~07/16/24 acetaminophen 325 mg tablet 650 mg PO Q6H PRN Pain 08/25/24 08/25/24 Unknown History aripiprazole 20 mg tablet 20 mg PO DAILY 08/25/24 08/25/24 08/24/24 History docusate sodium 100 mg capsule 100 mg PO DAILY 08/25/24 08/25/24 08/24/24 History pantoprazole 40 mg tablet,delayed 40 mg PO DAILY@0630 08/25/24 08/25/24 08/24/24 History release primidone 50 mg tablet 50 mg PO BID 08/25/24 08/25/24 08/24/24 History Physical Exam 2 Vital Signs: Vital Signs: Last Vital Signs Temp 97.5 F 08/25/24 07:10 Pulse 58 08/25/24 07:10 Resp 18 08/25/24 07:10 BP 143/64 H 08/25/24 07:10 Pulse Ox 97 08/25/24 07:10 O2 Del Method Room Air 08/25/24 07:10 BMI result Body Mass Index 25.6 General: AO X 3, no acute distress Resp: CTA bilateral, no accessory muscles used CVS: S1,S2,RRR GI: soft, non tender, non distended Neuro: motor grossly intact, alert Psych: appropriate affect, appropriate insight Results Labs 08/25/24 05:46 08/25/24 11:35 Labs: Short CBC 08/24/24 08/25/24 Range/Units 18:38 05:46 WBC 4.3 L 3.0 L (4.8-10.8) X10*3/uL Hgb 12.1 12.8 (12.0-16.0) g/dl Hct 33.3 L 37.2 (37.0-47.0) % Plt Count 144 L 142 L (160-400) X10*3/uL BMP 08/24/24 08/25/24 18:38 05:46 Sodium 127 L 141 Potassium 3.9 4.3 Chloride 98 110 H Carbon Dioxide 24 26 BUN 6 L 4 L Creatinine 0.68 0.74 Calcium 8.7 D 9.2 Liver Function 08/24/24 Range/Units 18:38 Total Bilirubin 0.4 (0.0-1.0) mg/dL Direct Bilirubin 0.2 (0.0-0.5) mg/dL AST 20 (5-31) U/L ALT 18 (0-31) U/L Alkaline Phosphatase 59 (39-117) U/L Albumin 4.0 (3.5-5.0) g/dL Urine 08/25/24 Range/Units 00:38 Urine Color Yellow Urine Appearance Clear Urine pH 6.5 (5.0-9.0) Ur Specific [place] <= 1.005 (1.005-1.025) Urine Protein Negative (Neg-Trace) mg/dL Urine Glucose (UA) Negative (Negative) mg/dL Assessment and Plan (1) Dysphagia: Status: Acute Plan 74 YF with mood disorder, dysphagia status post esophageal dilatation, asthma came [place] [facility] [place]24 with dysphagia and dizziness. Pt stated was unable to swallow on the day of presentation. She felt like food was stuck in her throat. Pt was able to drink sips of water without regurgitation Pt is known to me from recent ER visit on 07/30/24 with similar presentation. EGD did not reveal any food impaction. Empiric esophageal balloon dilation was performed without significant change in dysphagia symptoms. Patient was felt to have esophageal motility disorder. Patient reports she had a barium swallow at [facility] within past 3 months and records were requested and have not been received yet. RECOMMENDATIONS 1. Pt can be discharge home since she has been having PO diet without difficulty. 2. Pt would like to FU with [facility] - I will ask my MA to schedule an appointment Recommendation for Speech: Inpatient Speech Therapy Comment: Patient with dx of dysphagia due to esophageal dysmotility, had been seen by GI this a.m. as well who is familiar with patient, and recommended she start on a ground diet with thin liquids. Patient's swallow function above the level of the esophagus is WFL. Patient is well familiar with strategies to assist swallow associated with esophageal dysmotility. Recommend following GI diet rec: Ground Mechanical (NDD2), with thin liquids, pills crushed in puree. Patient is well familiar with strategies of chewing food thoroughly and alternating liquids and solids, and can be independent with her meals. DOCUMENT COORDINATOR will follow for toleration of diet, re-assess for upgrade if warranted. MD/RD notified by secure text, RN in person, DOCUMENT COORDINATOR altered white board in room with diet recs. Procedures Date of Service Date of Service: 08/25/24
[2024-08-25] MEDS: Enoxaparin Sodium 40 MG/0.4 ML SYRINGE SUBCUT (08:27)
--- NOTE | 2024-08-25 08:29 | P.PNIM_ITS ---
Subjective Subjective Date of Service: 08/25/24 Interval History: dysphagia Physical Exam 2 Vital Signs: Vital Signs: Last Vital Signs Temp 97.5 F 08/25/24 07:10 Pulse 58 08/25/24 07:10 Resp 18 08/25/24 07:10 BP 143/64 H 08/25/24 07:10 Pulse Ox 97 08/25/24 07:10 O2 Del Method Room Air 08/25/24 07:10 BMI result Body Mass Index 25.6 General: AO X 3, no acute distress Resp: CTA bilateral, no accessory muscles used CVS: S1,S2,RRR GI: soft, non tender, non distended Neuro: motor grossly intact, alert Psych: appropriate affect, appropriate insight Objective Data Active Medications Acetaminophen (Acetaminophen 325 Mg Tablet) 650 mg PO Q6H PRN PRN Reason: Pain, Mild (Pain Scale 1-3), fever or headache Calcium Carbonate (Calcium Carbonate 750 Mg Tab.Chew) 750 mg PO Q4H PRN PRN Reason: Heartburn Enoxaparin Sodium (Enoxaparin Sodium 40 Mg/0.4 Ml Syringe) 40 mg SUBCUT Q24H [facility] Dextrose (D5w) 1,000 mls @ 100 mls/hr IVCONT .Q10H [facility] Last Admin: 08/25/24 08:11 Dose: 100 mls/hr Documented By: RAFA Magnesium Hydroxide (Milk Of Magnesia 30 Ml Oral.Susp) 30 ml PO DAILY PRN PRN Reason: Constipation Melatonin (Melatonin 3 Mg Tablet) 6 mg PO BEDTIME PRN PRN Reason: Insomnia Ondansetron HCl (Ondansetron Hcl 4 Mg/2 Ml Vial) 4 mg IVPUSH Q8H PRN PRN Reason: Nausea and Vomiting Sodium Chloride (0.9 % Sodium Chloride Flush 3 Ml Syringe) 3 ml IVFLUSH QSHIFT [facility] Last Admin: 08/25/24 08:12 Dose: 3 ml Documented By: RAFA Labs 08/25/24 05:46 08/25/24 05:46 Labs: Laboratory Results - last 24 hr 08/24/24 08/25/24 08/25/24 18:38 00:24 00:38 MCV 85.8 MCH 31.2 MCHC 36.3 H RDW 12.0 Plt Count 144 L MPV 9.5 Immature Gran % (Auto) 0.5 H Neut % (Auto) 71.7 Lymph % (Auto) 14.4 L [place] % (Auto) 10.6 Eos % (Auto) 1.9 Baso % (Auto) 0.9 Lymph # (Auto) 0.6 L [place] # (Auto) 0.5 Eos # (Auto) 0.1 Baso # (Auto) 0.0 Abs Immat Gran (auto) 0.02 Absolute Neuts (auto) 3.1 Absolute Nucleated RBC 0.000 Nucleated RBC % (auto) 0.0 Anion Gap 9 L Estim Creat Clear Calc 64.9 Estimated GFR > 60 Random Glucose 101 Osmolality 279 L Calcium 8.7 D Magnesium 1.7 Total Bilirubin 0.4 Direct Bilirubin 0.2 AST 20 ALT 18 Alkaline Phosphatase 59 Troponin I High Sens < 2.7 Total Protein 5.7 L Albumin 4.0 Urine Color Yellow Urine Appearance Clear Urine pH 6.5 Ur Specific [place] <= 1.005 Urine Protein Negative Urine Glucose (UA) Negative Urine Ketones Negative Urine Blood Negative Urine Nitrite Negative Ur Leukocyte Esterase Negative Urine RBC 0-2 Urine WBC 0-5 Ur Squamous Epith Cells 0-2 Urine Bacteria None Seen Hyaline Casts 0-2 Urine Osmolality 48 L Ur Random Sodium < 20.0 Influenza Type A (PCR) NEGATIVE Influenza Type B (PCR) NEGATIVE RSV RNA Qual (PCR) NEGATIVE SARS-CoV-2 RNA (RT-PCR) NEGATIVE 08/25/24 05:46 MCV 89.4 MCH 30.8 MCHC 34.4 RDW 12.1 Plt Count 142 L MPV 9.5 Immature Gran % (Auto) 0.3 Neut % (Auto) 58.5 Lymph % (Auto) 23.9 Union % (Auto) 13.6 H Eos % (Auto) 2.7 Baso % (Auto) 1.0 Lymph # (Auto) 0.7 L [place] # (Auto) 0.4 Eos # (Auto) 0.1 Baso # (Auto) 0.0 Abs Immat Gran (auto) 0.01 Absolute Neuts (auto) 1.8 L Absolute Nucleated RBC 0.000 Nucleated RBC % (auto) 0.0 Anion Gap 9 L Estim Creat Clear Calc 57.0 Estimated GFR > 60 Random Glucose 95 Osmolality Calcium 9.2 Magnesium Total Bilirubin Direct Bilirubin AST ALT Alkaline Phosphatase Troponin I High Sens Total Protein Albumin Urine Color Urine Appearance Urine pH Ur Specific [place] Urine Protein Urine Glucose (UA) Urine Ketones Urine Blood Urine Nitrite Ur Leukocyte Esterase Urine RBC Urine WBC Ur Squamous Epith Cells Urine Bacteria Hyaline Casts Urine Osmolality Ur Random Sodium Influenza Type A (PCR) Influenza Type B (PCR) RSV RNA Qual (PCR) SARS-CoV-2 RNA (RT-PCR) Assessment and Plan (1) Dysphagia: Status: Acute Plan 74F PMH mood disorder, dysphagia status post esophageal dilatation, mild intermittent asthma who presented to the emergency department evaluation of dysphagia and dizziness. Moderate acute Hyponatremia 127 rapid correction to 141 after 1L NS, low risk for CPM given recent normal sodium 145 will start D5W to slow further correction, monitor sodium Dysphagia Status post EGD with balloon dilatation in the past NPO Gastroenterology eval Mood disorder Continue home mood stabilizers once able to take p.o. mild intermittent Asthma stable dvt prophylaixs - lovenox full code reason for continued hospitalization:dysphagia Quality Stroke Does the patient have a stroke diagnosis?: No VTE Prior VTE?: No VTE Risk Level:: Medical - moderate - high VTE Device Contraindication: Treatment Not Indicated VTE Drug Contraindication: N/A - Med Ordered
--- NOTE | 2024-08-25 09:33 | PHA.MEDREC ---
Pharmacy Consult ? Medication Reconciliation Pharmacy has completed the medication reconciliation, spoke to patient at bedside who confirmed all medications. Pt stated she was told to stop the alendronate, does not take famotidine and was unsure about pantoprazole but was picked up 07/2024 so it was left on.
--- NOTE | 2024-08-25 10:33 | MHC.SL.SWA ---
Speech Pathologist Impression: Esophageal dysmotility Risk of Aspiration Due to: None Dysphasia Diet Status: Liquid Consistency and Strategies for Safe Swallow: Liquid Intake Recommendation: Thin Liquid Intake Strategies: Unrestricted Solid Food Consistency: Dietary Recommendations: Grnd/Mech Altered (NDD2) Additional Modifications to Solid Foods: Chew food thoroughly, alternate bites of food with sips of liquid. Remain upright 30 minutes after meals. Oral Medication Intake: Crushed with Puree Please contact the pharmacy regarding appropriate crushable or liquid drug formulations that are available whenever modified delivery is recommended. Compensatory Strategies and Precautions to be Taken for Safe Swallow: Sitting Upright (90 deg) Liquids from Cup Liquids from Straw Small Bites and Sips Alternate Liquids/Solids Supervision While Eating and Drinking for Safe Swallow: None Needed Foods to Avoid: Hard, crusty or tough textures. Swallowing Recommended Treatments: Compens. Strategy Educat. Recommendation for Speech: Inpatient Speech Therapy Comment: Patient with dx of dysphagia due to esophageal dysmotility, had been seen by GI veronica a.[email or web address] as well who is familiar with patient, and recommended she start on a ground diet with thin liquids. Patient's swallow function above the level of the esophagus is WFL. Patient is well familiar with strategies to assist swallow associated with esophageal dysmotility. Recommend following GI diet rec: Ground Mechanical (NDD2), with thin liquids, pills crushed in puree. Patient is well familiar with strategies of chewing food thoroughly and alternating liquids and solids, and can be independent with her meals. RESIDENTIAL COORDINATOR will follow for toleration of diet, re-assess for upgrade if warranted. MD/RD notified by secure text, RN in person, RESIDENTIAL COORDINATOR altered white board in room with diet recs. Frequency/Duration: Date Range for Service Req: Timeline to reassess: Rn Transitional Clinican/Clinical Fellow: No Supervisory Statement: I have reviewed and agree with the student/clinical fellow's documentation: N/A Speech Language Pathologist: Linda Khan M.A., [facility]-RESIDENTIAL COORDINATOR
--- NOTE | 2024-08-25 10:34 | MHC.CM.PN ---
Addendum entered by Shruthi Gross 08/25/24 15:33: DP: PT HAS BEEN MEDICALLY CLEARED FOR DC HOME, NO SERVICES. [facility] WILL TRANSPORT Original Note: [facility] DELIVERED PT LIVES WITH [facility]. INDEPENDENT WITH MOBILITY BUT USES A SHOWER CHAIR FOR BATHING. PT IS ACTIVE WITH [facility] FOR [facility] AND [facility]. +HCP (COPY AT HOME, PT DECLINES TO DO ANOTHER ONE, WILL HAVE BRING A COPY) PCP DR. COSTA AT [place]. DP: HOME WITH RESUMPTION OF [facility] SERVICES BUT IS OPEN TO [facility] IF RECOMMENDED. [facility] WILL TRANSPORT HOME. CM WILL CONTINUE TO FOLLOW FOR ANY CHANGE TO DC PLAN.
--- NOTE | 2024-08-25 10:37 | MHC.CLN ---
RE: CONSULT PT WITH SLOW NON SIGNIFICANT WT LOSS X 1 YEAR PT COMPLAINS OF POOR PO INTAKE R/T DYSPHAGIA DIET RX: GRD M/S RECOMMEND ADDING ENSURE BID TO INCREASE KCALS SUPP TO PROVIDE 700KCALS, 40G PROTEIN MONITOR PO INTAKE CLOSELY
[2024-08-25] MEDS: LORazepam 0.5 MG TABLET PO (10:43)
[2024-08-25] MEDS: Primidone 50 MG TABLET PO (10:44)
[2024-08-25] MEDS: Sertraline HCL 100 MG TABLET PO (10:44)
[2024-08-25 12:02] LABS: Anion Gap 8 (12-20); Blood Urea Nitrogen 4 mg/dL (9-16); Calcium 9.1 mg/dL (8.4-10.2); Carbon Dioxide 28 mmol/L (22-29); Chloride 105 mmol/L (96-108); Creatinine Clr Calc Pharmacy 57.7; Estimated Glomerular Filt Rate > 60; Glucose Random 104 mg/dL (60-115); Potassium 3.7 mmol/L (3.3-5.1); Sodium 137 mmol/L (135-145)
[2024-08-25] MEDS: ARIPiprazole 20 MG TABLET PO (13:02)
--- NOTE | 2024-08-25 15:25 | P.DS_ITS ---
DS: Providers Provider Date of Service: 08/25/24 Date of admission: 08/25/24 09:00 Date of discharge: 08/25/24 Primary care physician: Cathi Mendez MD Consults: 08/25/24 02:21 Consult to Gastroenterology Routine Consulting Provider: Kimberly Charles Reason for consultation: dysphagia DS: Diagnosis Discharge Diagnosis (1) Dysphagia: Status: Acute DS: Summary Hospital Course Hospital Course: from initial hpi: 74 female with pertinent history of mood disorder, dysphagia status post esophageal dilatation, asthma who presents to the emergency department evaluation of dysphagia and dizziness. Patient states she could not swallow on the day of presentation. She felt like food was stuck in her throat. Patient also had episode of dizziness/lightheadedness on the day of presentation. Patient tried to use her albuterol inhaler to move food down her throat. No fever, chills, chest pain, palpitations, shortness of breath, abdominal pain, changes in urinary or bowel habits. In the emergency department, sodium found to be 127 and patient was given IV fluids. hospital course: Patient was admitted for acute hyponatremia of 127. She was given 1 L normal saline and sodium improved to 141, patient considered low risk for central pontine myelinolysis given recent normal sodium at 145 and lowest hyponatremia measured at 127. Was given some D5W and sodium decreased to 137. For dysphagia was seen by GI and speech therapy, put back and tolerated ground solids with thin liquids has known dysmotility and should follow up outpatient with GI. For mood disorder was continued on lorazepam, sertraline, Ativan, bupropion. For mild intermittent asthma remained stable. Patient is feeling better will be discharged home. Time Attestation Discharge Coordination Time (in mins): 33 Quality: Safe Use of Opioids Does Pt have an Active Cancer Diagnosis on the Problem List?: No Quality: Stroke Does the patient have a stroke diagnosis?: No Physical Exam Vital Signs: Vital Signs: Last Vital Signs Temp 97.5 F 08/25/24 07:10 Pulse 58 08/25/24 07:10 Resp 18 08/25/24 07:10 BP 143/64 H 08/25/24 07:10 Pulse Ox 97 08/25/24 07:10 O2 Del Method Room Air 08/25/24 07:10 BMI result Body Mass Index 25.6 General: AO X 3, no acute distress Resp: CTA bilateral, no accessory muscles used CVS: S1,S2,RRR GI: soft, non tender, non distended Neuro: motor grossly intact, alert Psych: appropriate affect, appropriate insight DS: Data Data Completed and Pending Completed studies during hospitalization [Text1]: Procedures Dilation of Lower Esophagus, Via Natural or Artificial Opening Endoscopic (07/19/24) Dilation of Upper Esophagus, Via Natural or Artificial Opening Endoscopic (07/19/24) Excision of Duodenum, Via Natural or Artificial Opening Endoscopic, Diagnostic (07/19/24) Excision of Stomach, Pylorus, Via Natural or Artificial Opening Endoscopic, Diagnostic (07/19/24) Labs on day of discharge: Laboratory Results - last 24 hr 08/24/24 08/25/24 08/25/24 18:38 00:24 00:38 WBC 4.3 L RBC 3.88 L Hgb 12.1 Hct 33.3 L MCV 85.8 MCH 31.2 MCHC 36.3 H RDW 12.0 Plt Count 144 L MPV 9.5 Immature Gran % (Auto) 0.5 H Neut % (Auto) 71.7 Lymph % (Auto) 14.4 L Bea[place] % (Auto) 10.6 Eos % (Auto) 1.9 Baso % (Auto) 0.9 Lymph # (Auto) 0.6 L [place] # (Auto) 0.5 Eos # (Auto) 0.1 Baso # (Auto) 0.0 Abs Immat Gran (auto) 0.02 Absolute Neuts (auto) 3.1 Absolute Nucleated RBC 0.000 Nucleated RBC % (auto) 0.0 Sodium 127 L Potassium 3.9 Chloride 98 Carbon Dioxide 24 Anion Gap 9 L BUN 6 L Creatinine 0.68 Estim Creat Clear Calc 64.9 Estimated GFR > 60 Random Glucose 101 Osmolality 279 L Calcium 8.7 D Magnesium 1.7 Total Bilirubin 0.4 Direct Bilirubin 0.2 AST 20 ALT 18 Alkaline Phosphatase 59 Troponin I High Sens < 2.7 Total Protein 5.7 L Albumin 4.0 Urine Color Yellow Urine Appearance Clear Urine pH 6.5 Ur Specific [place] <= 1.005 Urine Protein Negative Urine Glucose (UA) Negative Urine Ketones Negative Urine Blood Negative Urine Nitrite Negative Ur Leukocyte Esterase Negative Urine RBC 0-2 Urine WBC 0-5 Ur Squamous Epith Cells 0-2 Urine Bacteria None Seen Hyaline Casts 0-2 Urine Osmolality 48 L Ur Random Sodium < 20.0 Influenza Type A (PCR) NEGATIVE Influenza Type B (PCR) NEGATIVE RSV RNA Qual (PCR) NEGATIVE SARS-CoV-2 RNA (RT-PCR) NEGATIVE 08/25/24 08/25/24 05:46 11:35 WBC 3.0 L RBC 4.16 L Hgb 12.8 Hct 37.2 MCV 89.4 MCH 30.8 MCHC 34.4 RDW 12.1 Plt Count 142 L MPV 9.5 Immature Gran % (Auto) 0.3 Neut % (Auto) 58.5 Lymph % (Auto) 23.9 Bea[place] % (Auto) 13.6 H Eos % (Auto) 2.7 Baso % (Auto) 1.0 Lymph # (Auto) 0.7 L [place] # (Auto) 0.4 Eos # (Auto) 0.1 Baso # (Auto) 0.0 Abs Immat Gran (auto) 0.01 Absolute Neuts (auto) 1.8 L Absolute Nucleated RBC 0.000 Nucleated RBC % (auto) 0.0 Sodium 141 137 Potassium 4.3 3.7 Chloride 110 H 105 Carbon Dioxide 26 28 Anion Gap 9 L 8 L BUN 4 L 4 L Creatinine 0.74 0.73 Estim Creat Clear Calc 57.0 57.7 Estimated GFR > 60 > 60 Random Glucose 95 104 Osmolality Calcium 9.2 9.1 Magnesium Total Bilirubin Direct Bilirubin AST ALT Alkaline Phosphatase Troponin I High Sens Total Protein Albumin Urine Color Urine Appearance Urine pH Ur Specific [place] Urine Protein Urine Glucose (UA) Urine Ketones Urine Blood Urine Nitrite Ur Leukocyte Esterase Urine RBC Urine WBC Ur Squamous Epith Cells Urine Bacteria Hyaline Casts Urine Osmolality Ur Random Sodium Influenza Type A (PCR) Influenza Type B (PCR) RSV RNA Qual (PCR) SARS-CoV-2 RNA (RT-PCR) Discharge Plan Discharge Anticipated Discharge Date/Time: 08/25/24 15:24 Patient Disposition: Home, Self-Care Discharge Diagnosis: low sodium, dysphagia Referrals: Cathi Mendez MD [Primary Care Provider] - 1 Week Discharge Medications: Continued lorazepam 0.5 mg Tablet 0.5 mg PO BEDTIME PRN (Reason: Anxeity) primidone 50 mg tablet 50 mg PO BID docusate sodium 100 mg capsule 100 mg PO DAILY aripiprazole 20 mg tablet 20 mg PO DAILY pantoprazole 40 mg tablet,delayed release (DR/EC) 40 mg PO DAILY@0630 acetaminophen 325 mg Tablet 650 mg PO Q6H PRN (Reason: Pain) bupropion HCl 200 mg tablet sustained-release 12 hr 200 mg PO DAILY lisinopril 5 mg tablet 5 mg PO BEDTIME sertraline 100 mg tablet 100 mg PO DAILY Arnuity Ellipta 100 mcg/actuation blister with device 1 inh inhalation DAILY trazodone 100 mg tablet 100 mg PO BEDTIME PRN (Reason: Insomnia) atorvastatin 10 mg tablet 10 mg PO BEDTIME albuterol sulfate 90 mcg/actuation HFA aerosol inhaler 2 puff PO Q4H PRN (Reason: Shortness Of Breath Or Wheezing) lorazepam 0.5 mg tablet 0.5 mg PO DAILY fluticasone propionate 50 mcg/actuation spray,suspension 1 spray intranasal BID PRN (Reason: Nasal Congestion ) Discharge Orders: Discharge Order (Routine); Ordered 08/25/24 Ordered By: Rolo Hoyos Diet: ground solids Activity on Discharge: As tolerated Stand Alone Forms: Patient Portal Discharge page Print Language: Nepali Care Plan Goals: manage dysphagia Health Concerns: dysphagia Plan of Treatment: ground solids Assessment: see above
[2024-08-25 15:30] VITALS: BP 136/67; PULSE 73; RESP 18; TEMP 36.7; O2SAT 97
== END 2024-08-25 17:33 | disposition home or self-care (01) | DRG 641 ==
LOC: HO.ED 08-25 01:03 → HO.EDOVER 08-25 02:28 → HO.S3 08-25 02:49
PROVIDERS: Physician Assistant Medical; Admitting Provider Student in an Organized Health Care Education/Training Program; Emergency Provider Internal Medicine; PCP Internal Medicine; Visit Provider Internal Medicine
DX: E87.1 Hypo-osmolality and hyponatremia (principal); Z20.822 Contact with and (suspected) exposure to COVID-19; F31.9 Bipolar disorder, unspecified; J45.20 Mild intermittent asthma, uncomplicated; R13.10 Dysphagia, unspecified; K22.4 Dyskinesia of esophagus; Z79.51 Long term (current) use of inhaled steroids; Z79.899 Other long term (current) drug therapy
CPT/HCPCS: 0241U; 36415; 70450; 71046; 80048; 80076; 81001; 83735; 83930; 83935; 84300; 84484; 85025; 92610; 93005; 99221; 99285; J1650

== ENCOUNTER → 2024-08-24 18:20 | Outpatient (BNV) | payer MEDICARE, SELFPAY | PROVIDERS: Admitting Provider Student in an Organized Health Care Education/Training Program; Emergency Provider Internal Medicine; PCP Internal Medicine; Visit Provider Internal Medicine Cardiovascular Disease | DX: R94.31 Abnormal electrocardiogram [ECG] [EKG] (principal) | CPT/HCPCS: 93010 ==

== ENCOUNTER → 2024-08-25 02:21 | Outpatient (BNV) | payer MEDICARE, SELFPAY | PROVIDERS: Admitting Provider Student in an Organized Health Care Education/Training Program; Emergency Provider Internal Medicine; PCP Internal Medicine; Visit Provider Student in an Organized Health Care Education/Training Program | DX: E87.1 Hypo-osmolality and hyponatremia (principal); R13.10 Dysphagia, unspecified | CPT/HCPCS: 99235; 99499 ==

== ENCOUNTER → 2024-08-25 09:00 | Outpatient (BNV) | payer MEDICARE, SELFPAY | PROVIDERS: Admitting Provider Student in an Organized Health Care Education/Training Program; Emergency Provider Internal Medicine; PCP Internal Medicine; Visit Provider Internal Medicine Gastroenterology | DX: R13.10 Dysphagia, unspecified (principal) | CPT/HCPCS: 99222 ==

== ENCOUNTER 2024-10-10 13:06 | Outpatient (AMB) | payer MEDICARE, SELFPAY ==
[2024-10-10 13:27] VITALS: BP 134/78; PULSE 68; TEMP 36.9; O2SAT 97; BMI 27.3
--- NOTE | 2024-10-10 13:27 | MHC.OFFWIV ---
Intake Vital Signs 10/10/24 13:27 Height 5 ft 1 in Weight 144 lb 4 oz BMI 27.3 BP 134/78 Blood Pressure Location Rt brachial Position Sitting Pulse 68 Pulse Source Pulse Oximeter Temp 98.5 F Temp Source Oral Pulse Oximetry (%) 97 Oxygen Delivery Method Room Air Intake Visit Reasons: EP Diarrhea for 2+ weeks Intake Note: Pt is here for ongoing diarrhea for 2 weeks now. Pt mentions blood and mucus in stool. Patient Tobacco Use Status: Never used Tobacco Allergies amoxicillin Allergy (Verified 10/10/24 13:28) Unknown ziprasidone [From Geodon] Allergy (Verified 10/10/24 13:28) Unknown aspirin Adverse Reaction (Mild, Verified 10/10/24 13:28) Shortness of Breath Do you need a note to return to daycare/school/sports/work: No HPI EP Diarrhea for 2+ weeks HPI Details This note is constructed using voice recognition software. While every effort has been made to ensure accuracy, vinyl installer errors may have been included. The patient is a 74 year old female who presents to the clinic today with complaints of diarrhea for the past 2 weeks. She reports that she has a chronic history of IBS, follows a GI specialist and has an appointment coming up this Thursday. She notes that her IBS typically occurs up if she has any spicy foods, which she did so recently being to the diarrhea. She was prescribed Imodium from her primary care team, which helped the symptoms. She then had further spicy foods, and had increased diarrhea. She has since run out of the Imodium, with her last dose being this morning. She had some soft stool with water this morning. She also notes that she has a history of hemorrhoids, and has had some pink discoloration in the bowl consistent with blood, and some mucus. She denies fever, chills, nausea, vomiting. She has cramping in her abdomen, but no pain. [facility] Medical History Asthma Anxiety and depression Social History Household Members: Spouse Housing: Condominium Are you a primary direct support professional caregiver to a significant other at home: No Do you presently have visiting nurse or other home services: No Patient Tobacco Use Status: Never used Tobacco service: No Review of Systems Const All systems reviewed & are unremarkable except as noted in HPI and below Physical Exam Vital Signs: Last Vital Signs Temp 98.5 F 10/10/24 13:27 Pulse 68 10/10/24 13:27 BP 134/78 10/10/24 13:27 Pulse Ox 97 10/10/24 13:27 Oxygen Delivery Method Room Air 10/10/24 13:27 BMI result Body Mass Index 27.3 Const General: cooperative, healthy appearing, comfortable, no acute distress and well developed Orientation/consciousness: patient oriented x3 Limitations: no limitations Resp Effort & Inspection: normal respiratory effort and able to speak in complete sentences Auscultation: clear to auscultation bilaterally Cardio Rate: regular rate Rhythm: regular rhythm Heart sounds: normal S1 and S2 GI Inspection: Yes normal to inspection Palpation (GI): Soft to palpation and nontender Rectal Exam - Female: External hemorrhoid(s) present (Visible on exam with signs of excoriation) Skin General skin exam: no rashes or lesions noted Neuro General: patient oriented x3 Assessment & Plan Assessment & Plan (1) Irritable bowel syndrome with diarrhea: Code(s): K58.0 - Irritable bowel syndrome with diarrhea Plan: Refill provided today for Imodium, which she typically uses when she has symptoms. Advised avoidance of spicy foods as this is a commonly known trigger for her. Advised gentle wiping with wet wipes and dabbing with toilet paper to help with keeping the area clean and to avoid further irritation of the area. Advised patient to try preparation H for hemorrhoids. Advised patient to continue with appointment with GI as scheduled for later this week. Plan See above for full details and plan. Medications: New loperamide 2 mg PO QID PRN 20 caps 0RF loose stool Coding Level of Care Code Est Pt Level 3 (14669) Diagnoses Irritable bowel syndrome with diarrhea K58.0
== END 2024-10-10 14:20 | disposition home or self-care (01) ==
PROVIDERS: PCP Internal Medicine; Visit Provider Registered Nurse
DX: K58.0 Irritable bowel syndrome with diarrhea (principal)

== ENCOUNTER → 2024-10-10 13:06 | Outpatient (BNVA) | payer MEDICARE, SELFPAY | PROVIDERS: PCP Internal Medicine; Visit Provider Registered Nurse | DX: K58.0 Irritable bowel syndrome with diarrhea (principal) | CPT/HCPCS: 99212 ==

== ENCOUNTER 2024-10-13 19:56 | Emergency (ER) | payer MEDICARE, SELFPAY ==
[2024-10-13 20:05] VITALS: BP 124/70; PULSE 75; RESP 18; TEMP 37.1; O2SAT 98; BMI 23.2
--- NOTE | 2024-10-13 20:10 | ED_ITS ---
HPI - General Adult General Chief complaint: General Medical Stated complaint: headache dizziness nausea Time Seen by Provider: 10/13/24 23:38 Source: patient Mode of arrival: ambulatory Limitations: no limitations History of Present Illness ED Provider: HPI narrative: Patient is reporting intermittent headache/dizziness/nausea for last 3 days dizziness patient has had history of hyponatremia worried about it whether patient has hyponatremia not dizziness is getting better headache is getting better does have chronic neck pain no paresthesia no nausea no vomiting no light sensitivity patient does have history of bipolar disorder Related Data Home Medications ?Medication ?Instructions ?Recorded ?Confirmed albuterol sulfate 90 mcg/actuation 2 puff PO Q4H PRN Shortness Of 06/15/21 08/25/24 aerosol inhaler Breath Or Wheezing atorvastatin 10 mg tablet 10 mg PO BEDTIME 06/15/21 08/25/24 bupropion HCl 200 mg tablet,12 hr 200 mg PO DAILY 06/15/21 08/25/24 sustained-release fluticasone furoate 100 1 inh inhalation DAILY 06/15/21 08/25/24 mcg/actuation blister powder for inhalation (Arnuity Ellipta) lisinopril 5 mg tablet 5 mg PO BEDTIME 06/15/21 08/25/24 sertraline 100 mg tablet 100 mg PO DAILY 06/15/21 08/25/24 trazodone 100 mg tablet 100 mg PO BEDTIME PRN Insomnia 06/15/21 08/25/24 fluticasone propionate 50 1 spray intranasal BID PRN Nasal 04/02/24 08/25/24 mcg/actuation nasal Congestion spray,suspension lorazepam 0.5 mg tablet 0.5 mg PO BEDTIME PRN Anxeity 07/19/24 08/25/24 aripiprazole 20 mg tablet 20 mg PO DAILY 08/25/24 08/25/24 docusate sodium 100 mg capsule 100 mg PO DAILY 08/25/24 08/25/24 primidone 50 mg tablet 50 mg PO BID 08/25/24 08/25/24 Previous Rx's ?Medication ?Instructions ?Recorded loperamide 2 mg capsule 2 mg PO QID PRN loose stool #20 10/10/24 caps Allergies Allergy/AdvReac Type Severity Reaction Status Date / Time amoxicillin Allergy Unknown Verified 10/13/24 20:07 ziprasidone [From Geodon] Allergy Unknown Verified 10/13/24 20:07 aspirin AdvReac Mild Shortness Verified 10/13/24 20:07 of Breath Review of Systems 2 Review of Systems: Yes all other systems are reviewed and are negative [facility] Past Medical History Medical History Asthma Anxiety and depression Social History Social History Household Members: Spouse Housing: [facility] Are you a primary healthcare or medical to a significant other at home: No Do you presently have visiting nurse or other home services: No Patient Tobacco Use Status: Never used Tobacco Advance Directives: No Advance Directives Information Provided: No service: No Physical Exam ED Vital Signs: Vital Signs - 24 hr 10/13/24 20:05 10/13/24 23:52 10/14/24 00:54 Temperature 98.7 F 97.6 F 0 F L Pulse Rate 75 71 0 L Respiratory Rate 18 20 0 L Blood Pressure 124/70 130/77 0/0 L Pulse Oximetry 98 97 0 L Oxygen Delivery Method Room Air Room Air BMI result Body Mass Index 23.2 Appearance: Alert. Oriented X3. No acute distress. Eyes: No pallor or icterus ENT: Pharynx normal. Oral Mucosa moist Neck: Normal inspection. Neck supple. CVS: Normal heart rate and rhythm. Pulses normal. Respiratory: No respiratory distress. Equal air entry bilateral, no wheezing/rales/rhonchi Abdomen: Soft and nontender. Bowel sounds are present, no mass palpable, no CVA tenderness Skin: Skin warm and dry. Normal skin color. Normal skin turgor. Extremities: No lower extremity edema. No calf tenderness Neuro: Oriented X 3. No motor deficit. No sensory deficit.No cerebellar signs , cranial nerves II-XII intact Course Course Course Narrative: This is a rapid medical exam performed by Merna Larose PA-C. Patient is a 74-year-old female with a history of migraine, hypertension, hyperlipidemia, bipolar disorder who presents with a headache x3 days. Headache is overall generalized, with the associated phonophobia, dizziness and nausea vomiting. On exam, there was no nystagmus, she is neurologically intact, her gait is steady no ataxia. We will screen basic labs, I am not inclined to obtain a CT of the brain, she has been treated for migraines in the past here at [facility]. The patient is hemodynamically stable and can return to the waiting room pending full assessment. Medical Decision Making Medical Decision Making [facility] Narrative: Patient's woke in his steady gait no orthostatic hypotension headache is much better labs are stable discharge patient home Lab Data [facility] Lab Attestation statement: I reviewed the patient's lab results. 10/13/24 20:21 10/13/24 20:21 Labs: Lab Results 10/13/24 Range/Units 20:21 WBC 8.3 (4.8-10.8) X10*3/uL RBC 4.24 (4.20-5.50) X10*6/uL Hgb 13.0 (12.0-16.0) g/dl Hct 36.4 L (37.0-47.0) % MCV 85.8 (80.0-98.0) fL MCH 30.7 (27.0-33.0) pg MCHC 35.7 H (31.0-35.0) g/dl RDW 12.1 (11.0-16.0) % Plt Count 190 D (160-400) X10*3/uL MPV 9.2 L (9.4-12.3) fL Immature Gran % (Auto) 0.1 (0.0-0.4) % Neut % (Auto) 77.3 H (45-73) % Lymph % (Auto) 13.2 L (20-40) % Waller % (Auto) 7.2 (2-11) % Eos % (Auto) 1.6 (0-4) % Baso % (Auto) 0.6 (0-2) % Lymph # (Auto) 1.1 L (1.2-4.9) X10*3/uL [place] # (Auto) 0.6 (0.1-1.2) X10*3/uL Eos # (Auto) 0.1 (0.0-0.4) X10*3/uL Baso # (Auto) 0.1 (0.0-0.2) X10*3/uL Abs Immat Gran (auto) 0.01 (0.00-0.03) X10*3/uL Absolute Neuts (auto) 6.4 (2.0-8.3) x10*3/uL Absolute Nucleated RBC 0.000 (0.0-0.012) X10*3/uL Nucleated RBC % (auto) 0.0 (0.0-0.2) /100WBC Sodium 133 L (135-145) mmol/L Potassium 3.9 (3.3-5.1) mmol/L Chloride 104 (96-108) mmol/L Carbon Dioxide 22 (22-29) mmol/L Anion Gap 11 L (12-20) BUN 6 L (9-16) mg/dL Creatinine 0.80 (0.5-1.4) mg/dL Estim Creat Clear Calc 58.6 Estimated GFR > 60 Random Glucose 106 (60-115) mg/dL Calcium 9.1 (8.4-10.2) mg/dL Magnesium 1.9 (1.6-2.6) mg/dL Discharge Plan Discharge Clinical Impression: Dizziness Patient Disposition: Home, Self-Care Instructions: Dizziness (ED) Additional Instructions: Drink plenty of fluids Your sodium level is 133 which is normal Follow up with your PCP Prescriptions: No Action lorazepam 0.5 mg Tablet 0.5 mg PO BEDTIME PRN (Reason: Anxeity) primidone 50 mg tablet 50 mg PO BID docusate sodium 100 mg capsule 100 mg PO DAILY aripiprazole 20 mg tablet 20 mg PO DAILY bupropion HCl 200 mg tablet sustained-release 12 hr 200 mg PO DAILY lisinopril 5 mg tablet 5 mg PO BEDTIME sertraline 100 mg tablet 100 mg PO DAILY Arnuity Ellipta 100 mcg/actuation blister with device 1 inh inhalation DAILY trazodone 100 mg tablet 100 mg PO BEDTIME PRN (Reason: Insomnia) atorvastatin 10 mg tablet 10 mg PO BEDTIME albuterol sulfate 90 mcg/actuation HFA aerosol inhaler 2 puff PO Q4H PRN (Reason: Shortness Of Breath Or Wheezing) fluticasone propionate 50 mcg/actuation spray,suspension 1 spray intranasal BID PRN (Reason: Nasal Congestion ) loperamide 2 mg capsule 2 mg PO QID PRN (Reason: loose stool) Qty: 20 0RF Interventions: ED Discharge Assessment Last Done: 10/14/24 00:54 Discharge Date/Time: 10/14/24 00:55 Print Language: Nepali
[2024-10-13 20:26] LABS: MANUAL DIFF FLAG NO
[2024-10-13 20:31] LABS: Basophils Absolute Auto 0.1 X10*3/uL (0.0-0.2); Basophils Percent Auto 0.6 % (0-2); Eosinophils Absolute Auto 0.1 X10*3/uL (0.0-0.4); Eosinophils Percent Auto 1.6 % (0-4); Hematocrit 36.4 % (37.0-47.0); Imm Gran Abs Auto 0.01 X10*3/uL (0.00-0.03); Imm Gran Pct Auto 0.1 % (0.0-0.4); Lymphocytes Absolute Auto 1.1 X10*3/uL (1.2-4.9); Lymphocytes Percent Auto 13.2 % (20-40); Mean Corpuscular HGB Conc 35.7 g/dl (31.0-35.0); Mean Corpuscular Hemoglobin 30.7 pg (27.0-33.0); Mean Corpuscular Volume 85.8 fL (80.0-98.0); Mean Platelet Volume 9.2 fL (9.4-12.3); Monocytes Absolute Auto 0.6 X10*3/uL (0.1-1.2); Monocytes Percent Auto 7.2 % (2-11); Neutrophils Absolute Auto 6.4 x10*3/uL (2.0-8.3); Neutrophils Percent Auto 77.3 % (45-73); Platelet Count 190 X10*3/uL (160-400); Red Blood Count 4.24 X10*6/uL (4.20-5.50); Red Cell Distribution Width 12.1 % (11.0-16.0); White Blood Count 8.3 X10*3/uL (4.8-10.8)
[2024-10-13 20:40] LABS: Anion Gap 11 (12-20); Blood Urea Nitrogen 6 mg/dL (9-16); Calcium 9.1 mg/dL (8.4-10.2); Carbon Dioxide 22 mmol/L (22-29); Chloride 104 mmol/L (96-108); Creatinine Clr Calc Pharmacy 58.6; Estimated Glomerular Filt Rate > 60; Glucose Random 106 mg/dL (60-115); Magnesium 1.9 mg/dL (1.6-2.6); Potassium 3.9 mmol/L (3.3-5.1); Sodium 133 mmol/L (135-145)
[2024-10-13 23:52] VITALS: BP 130/77; PULSE 71; RESP 20; TEMP 36.4; O2SAT 97
--- NOTE | 2024-10-14 00:53 | PC.NURSE ---
pt discharge by Dr Benton prior to TW being able to assess pt
[2024-10-14 00:54] VITALS: BP 0/0; PULSE 0; RESP 0; TEMP -17.7; TEMP 0; O2SAT 0
== END 2024-10-14 00:55 | disposition home or self-care (01) ==
PROVIDERS: Physician Assistant Medical; Emergency Provider Internal Medicine; PCP Internal Medicine
DX: R42 Dizziness and giddiness (principal); J45.909 Unspecified asthma, uncomplicated; Z79.899 Other long term (current) drug therapy
CPT/HCPCS: 36415; 80048; 83735; 85025; 99283

== ENCOUNTER 2024-12-14 14:43 | Outpatient (AMB) | payer MEDICARE, SELFPAY ==
--- NOTE | 2024-12-14 14:55 | MHC.OFFWIV ---
Intake Vital Signs 12/14/24 14:56 Weight 142 lb BP 108/64 Blood Pressure Location Lt brachial Position Sitting Pulse 68 Pulse Source Pulse Oximeter Temp 97.5 F Temp Source Oral Pulse Oximetry (%) 97 Oxygen Delivery Method Room Air Intake Visit Reasons: EP headache, congestion, cough Intake Note: Patient here for congestion, runny nose, cough, headaches that started this morning. has RSV Patient Tobacco Use Status: Never used Tobacco Allergies amoxicillin Allergy (Verified 12/14/24 14:56) Unknown ziprasidone [From Geodon] Allergy (Verified 12/14/24 14:56) Unknown aspirin Adverse Reaction (Mild, Verified 12/14/24 14:56) Shortness of Breath Do you need a note to return to daycare/school/sports/work: No HPI HPI Comments History of Present Illness Details She presents to office with cold symptoms + congestion slight sore throat + exposure to RSV; has it and diagnosed yesterday No fever or chills + cough that is dry No SOB or CP currently; has asthma and copd so a little difficult but improved No OTC medicine for symptoms Good appetite and energy PFSH Medical History Asthma Anxiety and depression Social History Household Members: Spouse [facility]: [facility] Are you a primary technical healthcare consultant to a significant other at home: No Do you presently have visiting nurse or other home services: No Patient Tobacco Use Status: Never used Tobacco service: No Review of Systems Const Denies body aches, Denies chills, Denies fatigue, Denies fever(s) and Denies poor appetite ENT Denies dizziness, Denies otalgia, Reports nasal congestion and Reports sore throat Card Denies chest pain and Denies dyspnea Resp Reports cough and Denies dyspnea GI Denies abdominal pain Musc Denies myalgias Neuro Denies dizziness Endo Denies fatigue Physical Exam Vital Signs: Last Vital Signs Temp 97.5 F 12/14/24 14:56 Pulse 68 12/14/24 14:56 BP 108/64 12/14/24 14:56 Pulse Ox 97 12/14/24 14:56 Oxygen Delivery Method Room Air 12/14/24 14:56 General: Non-toxic, NAD. Speaking full sentences. Skin: Warm dry throughout Eye: EOMI HENT: Airway patent. Uvula midline. No pharyngeal erythema or edema. No RESEARCH INSTRUCTOR. Bilateral canals clear. TM non-erythematous, non-bulging. No TM perforation or hemotympanum noted. Respiratory: Faint wheeze R upper but otherwise CTA bilaterally. No rales or rhonchi Cardiac: RRR. No murmur MSK: Full ROM extremities. Neurology: Alert. No aphasia or facial droop. Gait without abnormality Psych: Good mood and affect Assessment & Plan Assessment & Plan (1) Upper respiratory tract infection: Code(s): J06.9 - Acute upper respiratory infection, unspecified Qualifiers: URI type: unspecified viral URI Qualified Code(s): J06.9 - Acute upper respiratory infection, unspecified Plan: Patient seen and evaluated. No current concern for PNA + RSV exposure and pt has procedure next week and wants to make sure she doesnt have rsv as well for it Discussed will call with results Patient gave verbal understanding and had no additional questions or concerns at time of discharge All questions answered Orders: Orders SARS-CoV2/FLU/RSV Today J06.9 - Acute upper respiratory infection, unspecified, Z20.828 - Contact with and (suspected) exposure to other viral communicable diseases Coding Level of Care Code Est Pt Level 3 (09836) Diagnoses Viral upper respiratory tract infection J06.9 URI type: unspecified viral URI
[2024-12-14 14:56] VITALS: BP 108/64; PULSE 68; TEMP 36.4; O2SAT 97
--- OUTSIDE RECORDS SUMMARY | 2024-12-14 15:57 | XMS_ITS | Clinical Summary ---
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 6 Active ARIPiprazole (ABILIFY) 20 mg tablet Take 10 mg by mouth 2 (two) times a day. 2 Active fluticasone furoate (Arnuity Ellipta) 100 mcg/actuation blister with device inhaler Inhale 1 puff by mouth 1 (one) time each day. 4 Active atorvastatin (LIPITOR) 10 mg tablet TAKE 1 TABLET BY MOUTH DAILY. 4 Active buPROPion SR (WELLBUTRIN SR) 200 mg 12 hr tablet Take 1 tablet (200 mg total) by mouth 2 (two) times a day. 8 Active calcium carbonate (CALCIUM 600 ORAL) 7 Active cholecalciferol (VITAMIN D-3) 50 mcg (2,000 unit) tablet 4 Active fluticasone propionate (FLONASE) 50 mcg/actuation nasal spray 1 spray per nostril twice per day, as needed for nasal congestion 4 Active lisinopriL (PRINIVIL,ZESTR IL) 5 mg tablet TAKE 1 TABLET BY MOUTH EVERYDAY AT BEDTIME 4 Active LORazepam (ATIVAN) 0.5 mg tablet daily. 2 Active primidone (MYSOLINE) 50 mg tablet Take 1 tablet (50 mg total) by mouth at bedtime. Active sertraline (ZOLOFT) 100 mg tablet Take 1 tablet (100 mg total) by mouth 1 (one) time each day. 1 Active traZODone (DESYREL) 100 mg tablet Take 1 tablet (100 mg total) by mouth at bedtime. 1 Active famotidine (PEPCID) 20 mg tablet Take 1 tablet (20 mg total) by mouth every 12 (twelve) hours. 4 Active pantoprazole (PROTONIX) 40 mg EC tablet Take 1 tablet (40 mg total) by mouth 2 (two) times a day. Do not crush, chew, or split. 180 each 1 4 Active Active Problems Problem Noted Date Diagnosed Date Pharyngoesophageal dysphagia 10/20/2024 Esophageal stricture 07/22/2024 Overview (08/30/2024): 07/26 schatzki ring, esophageal dilation done COPD (chronic obstructive pulmonary disease) 12/2020 Overview (08/30/2024): Mild s/p PFT 04/2021 Follows with [place] [facility] GERD (gastroesophageal reflux disease) 1 Hemorrhoids 03/29/2021 Overview (08/30/2024): Internal- colonoscopy 09/01/2006 Tubular adenoma 03/29/2021 Overview (08/30/2024): Colonoscopy 01/12/2013, also 05/24 - repeat 3 years Moderate persistent asthma 11/25/2019 Hearing loss 04/05/2019 Bipolar disorder 06/25/2018 Hypercholesterolemia 06/25/2018 Hypertension 06/25/2018 Osteoporosis 06/25/2018 Overview (08/30/2024): 10/22 T score spine -2.5 hip -2.6 Alcoholism in recovery 02/06/2017 Tremor 02/26/2015 Anxiety 02/01/2014 Insomnia 02/01/2014 Scoliosis 02/01/2014 Irritable bowel syndrome 02/05/2011 At risk for breast cancer Overview (10/21/2024): Rimaer-Keenan lifetime risk 19.6% Encounters Date Type Department Care Team Description 11/04/2024 Telephone Gastroenterology - [address] [phone] Vane Bowling MD 11/03/2024 Telephone Gastroenterology - [address] [phone] Vane Bowling MD 11/01/2024 2:19 PM EST - 11/01/2024 11:59 PM EST Hospital Encounter CT Scan [address] [phone] Diarrhea, unspecified type; Generalized abdominal cramping Discharge Disposition: Home or Self Care 10/24/2024 10:00 AM EST Consult Adult Medicine [address] [phone] Ciaran Mendez MD Preop cardiovascular exam (Primary Dx); Primary hypertension; Hypercholesterolemia; Acute UTI; Osteoporosis, unspecified osteoporosis type, unspecified pathological fracture presence; Dysuria; Moderate persistent asthma without complication; Cataract of both eyes, unspecified cataract type 10/21/2024 Telephone Gastroenterology - [address] [place] [phone] Erica Weaver MA 10/20/2024 10:40 AM EST Office Visit Gastroenterology - [address] [phone] Gin Tucker PA Dizzy (Primary Dx); Weakness; Pharyngoesophageal dysphagia; Irritable bowel syndrome with both constipation and diarrhea 10/18/2024 3:30 PM EST Office Visit Adult Medicine [address] [phone] Tami Denton PA Diarrhea, unspecified type (Primary Dx); Generalized abdominal cramping; Weight loss; Irritable bowel syndrome with diarrhea 10/12/2024 Telephone Gastroenterology - [address] [phone] Erica Weaver MA 10/05/2024 11:15 AM EST Office Visit Adult [address] [phone] Tami Denton PA Gastroenteritis (Primary Dx) 10/05/2024 Nurse Triage Adult Medicine [address] [phone] Ciaran Mendez MD Diarrhea (DIARRHEA AND MUCUS) 09/15/2024 Telephone Adult Medicine [address] [phone] Ciaran Mendez MD [facility] Follow-up from Last 3 Months Immunizations Name Administration Dates Next Due COVID-19 (Moderna/Spikevax) 12yo and older 07/16/2024 Influenza trivalent, 0.5mL ( Fluad) 65yo and older 07/16/2024,09/13/2023,08/08/2022,07/24,07/01/2019 Influenza trivalent, 0.5mL, preservative free (Fluarix; FluLaval; Fluzone) ages 6mo and older (Afluria) 3 years and older 07/15/2018,09/19/2014,08/30/2013,10/19,09/09/2011 Influenza, Unspecified 09/16/2022 Pfizer (ages 12 & older) Biv alent, COVID-19 08/10/2023,08/08/2022,02/05/2022 Pfizer SARS-CoV-2 COVID-19, mRNA, LNP-S, preservative free 07/11/2021 Pneumococcal conjugate 13 va lent (Prevnar 13, PCV13) 2mo and older 11/05/2015 Pneumococcal polysaccharide 23 valent (Pneumovax 23) 2yo and older 02/26/2022 Respiratory syncytial virus (RSV), unspecified 08/20/2023 Tdap Tetanus diptheria acell ular pertussis (Boostrix; Adacel) 7yo and older 02/20/2015 Zoster Live 01/18/2016 Zoster recombinant (Shingrix ) 19yo and older 01/25/2023,07/01/2019 Surgical History Surgery Date Site/Laterality Comments COLONOSCOPY 05/26/2018 normal colon repeat 5 years COLONOSCOPY 01/12/2013 : 8mm polyp in the cecum ESOPHAGOGASTRODUODENOSCOPY 10/23/2008 normal upper endoscopy COLONOSCOPY 09/01/2006 internal hemorrhoids to cecum COLONOSCOPY 05/28/2023 TA, repeat 3years Medical History Medical History Date Comments Alcoholism in recovery ([facility]) 02/06/2017 Anxiety 02/01/2014 Asthma 12/24/2016 Bipolar disorder ([facility]) 06/25/2018 DX:Bi polar disorder ([facility]) Hypercholesterolemia 06/25/2018 Hypertension 06/25/2018 Insomnia 02/01/2014 Irritable bowel syndrome 02/05/2011 Osteoarthrosis 12/24/2016 Osteoporosis 06/25/2018 Scoliosis 02/01/2014 Tremor 02/26/2015 Hearing loss 04/05/2019 At risk for breast cancer 04/05/2019 Valeria Hussein lifetime risk 19.6% GERD (gastroesophageal reflux disease) 03/29/2021 Tubular adenoma 03/29/2021 : Colonoscopy Hemorrhoids 03/29/2021 Internal- colono scopy 09/01/2006 Colon polyp 05/29/202305/24 CN, repeat 5 years Esophageal stricture 07/22/202407/26 eulogio macdonald ring, esophageal dilation done Family History Medical History Relation Name Comments Prostate cancer Maternal Grandfather Other: ovarian cancer Maternal Grandmother Breast cancer Mother Breast cancer Mother's side maternal Bilateral, Au nt Breast cancer Paternal Grandmother Other: afib Sister twin Relation Name Status Comments Father Maternal Grandfather Maternal Grandmother Mother Mother's side maternal Alive Paternal Grandmother Sister Social History Tobacco Use Types Packs/Day Years Used Date Smoking Tobacco: Never Smokeless Tobacco: Never Alcohol Use Standard Drinks/Week Comments Not Currently 0 (1 standard drink = 0.6 oz pur e alcohol) Comments Unknown Sex and Gender Information Value Date Recorded Sex Assigned at Not on file Legal Sex Female 12:06 AM EST Gender Identity Not on file Sexual Orientation Not on file Obstetrics History Last Filed Vital Signs Vital Sign Reading Time Taken Comments Blood Pressure 110/68 10/24/2024 10:07 AM EST Pulse 60 10/24/2024 10:07 AM EST Temperature 36.4 ??C (97.6 ??F) 10/24/2024 10:[address] Respiratory Rate 14 10/24/2024 10:07 AM EST Oxygen Saturation 99% 10/24/2024 10:07 AM EST Inhaled Oxygen Concentration - - Weight 83.9 kg (185 lb) 10/20/2024 10:49 AM EST Height 154.9 cm (5' 1 ) 10/24/2024 10:07 AM EST Body Mass Index 31.76 10/20/2024 10:49 AM EST Plan of Treatment Upcoming Encounters Date Type Department Care Team (Late st Contact Info) Description 01/12/2025 2:20 PM EDT Consult Endocrinology [address] [phone] Rebecca Ann PA [address] [place] [address] 01/18/2025 1:40 PM EDT Office Visit Gastroenterology - [address] [phone] Gin Tucker PA [address] [facility] [address] [address] 01/26/2025 3:30 PM EDT Office Visit Adult Medicine [place] - [address] [phone] Keri Larson PA [address] [place] [address] Health Maintenance Due Date Last Done Comments RSV Immunization Patients 60+ Years Old (1 - Risk 60-74 years 1-dose series) 2011 08/20/2023 Social Influencers of Health Screening 10/11/2022 Depression Screening 10/14/2024 10/14/2023 Medicare Annual Wellness Visit 10/14/2024 10/14/2023 DTaP,Tdap,and Td Vaccines (2 - Td or Tdap) 02/20/2025 02/20/2015 Falls Risk Assessment 04/13/2025 04/13/2024 Hypertension/CHF/CAD Annual BMP Blood Test 10/20/2025 10/20/2024, 07/22/2024, 07/22/2024 Breast Cancer Screening 07/29/2026 07/29/20, 07/27/2023, 07/25/2022, Additional history exists Cholesterol Screening (Lipid Panel) 10/14/2028 10/14/2023 Colorectal Cancer Screening: Colonoscopy 10/25/2029 10/25/2024, 05/28/2023 Osteoporosis Screening (Bone Density Screening) 07/29/2034 07/29/2024, 10/21/2021, 08/10/2019 Hepatitis C Screening Completed 11/26/2019 Pneumococcal Vaccine: 50+ Years Completed 02/26/2022, 11/05/2015 Zoster Vaccines Completed 01/25/2023, 06/04, 01/18/2016 RSV Immunization Patients Under 20 months Aged Out 08/20/2023 No longer eligible based on patient's age to complete this topic COVID-19 Vaccine Completed 07/16/2024, 07/2023, 08/08/2022, Additional history exists Influenza Vaccine Completed 07/16/2024, , 09/16/2022, Additional history exists HIB Vaccines Aged Out No longer eligi ble based on patient's age to complete this topic HPV Vaccines Aged Out No longer eligi ble based on patient's age to complete this topic Hepatitis A Vaccines Aged Out No long er eligible based on patient's age to complete this topic Hepatitis B Vaccines Aged Out No long er eligible based on patient's age to complete this topic IPV Vaccines Aged Out No longer eligi ble based on patient's age to complete this topic MMR Vaccines Aged Out No longer eligi ble based on patient's age to complete this topic Meningococcal ACWY Vaccine Aged Out N o longer eligible based on patient's age to complete this topic Meningococcal B Vacine Aged Out No lo nger eligible based on patient's age to complete this topic Varicella Vaccines Aged Out No longer eligible based on patient's age to complete this topic Procedures Procedure Name Priority Date/Time Associated Diagnosis Comments CT ABDOMEN PELVIS WO CONTRAST Routine 11/01/2024 2:37 PM EST Diarrhea, unspecified type Generalized abdominal cramping COLONOSCOPY Routine 10/25/2024 10:28 AM EST AVITIA URINE CULTURE TUBE Routine 10/24/2024 10:34 AM EST Dysuria URINALYSIS WITH REFLEX MICROSCOPIC AND CULTURE Routine 10/24/2024 10:34 AM EST Dysuria URINALYSIS WITH REFLEX MICROSCOPIC AND CULTURE Routine 10/24/2024 10:34 AM EST Dysuria CBC WITH AUTO DIFFERENTIAL Routine 10/20/2024 11:46 AM EST Dizzy Weakness Pharyngoesophageal dysphagia VITAMIN B12 AND FOLATE Routine 11:46 AM EST Dizzy Weakness Pharyngoesophageal dysphagia CBC AND DIFFERENTIAL Routine 10/20/2024 11:46 AM EST Dizzy Weakness Pharyngoesophageal dysphagia COMPREHENSIVE METABOLIC PANEL Routine 10/20/2024 11:46 AM EST Dizzy Weakness Pharyngoesophageal dysphagia JOSE DEXA AXIAL SKELETON Routine 07/29/2024 5:19 PM EDT JOSE SCREENING DIGITAL Routine 07/29/2024 4:29 PM EDT HM FALLS RISK ASSESSMENT Routine 04/13/2024 HM DEPRESSION SCREENING Routine 10/14/2023 LIPID PANEL Routine 10/14/2023 HEPATITIS C SCREENING Routine 11/26/2019 from Last 3 Months or Most Recently Relevant to Health Maintenance Results * CT Abdomen Pelvis wo Contrast (11/01/2024 2:37 PM EST) Anatomical Region Laterality Modality Body Computed Tomogra phy 11/01/2024 5:31 PM EST Impressions 11/01/2024 6:02 PM EST No evidence of acute abdominopelvic pathology. -------- FINAL REPORT -------- Dictated By: Sandra Hernandez Dictated Date: 11/01/2024 17:31 ET Assigned Physician: Sandra Hernandez Reviewed and Electronically Signed By: Sandra Hernandez Signed Date: 11/01/2024 18:02 ET Workstation ID: [id number] Transcribed By: Self Edit Transcribed Date: 11/01/2024 17:31 ET Narrative 11/01/2024 6:[address] ABDOMEN AND PELVIS WITHOUT CONTRAST HISTORY: Persistent diarrhea. Generalized abdominal cramping pain . PROCEDURE: Multiple axial images are obtained from the upper abdomen and pelvis. Oral contrast was administered. PRIOR STUDIES: CT chest 09/07/2023. FINDINGS: Liver: There are 2 hepatic cysts. Pancreas: Unremarkable. Kidneys: There are bilateral renal cysts.. Adrenal glands: Unremarkable. Spleen: Unremarkable Gallbladder: Unremarkable. Appendix: Not visualized. GI tract: There are diverticuli of the sigmoid colon4. Aorta: Normal in caliber. Bladder: Unremarkable. Reproductive organs: Uterus is unremarkable Abdominal wall: No there is a tiny fat-containing umbilical hernia. Lymph nodes: Unremarkable. Bones: There is moderately severe scoliosis. There is degenerative change of the spine. There is mild degenerative change of the hips. Lung bases: There is mild scarring at the right lung base. Procedure Note Sandra Hernandez MD - 11/01/2024 CT ABDOMEN AND PELVIS WITHOUT CONTRAST HISTORY: Persistent diarrhea. Generalized abdominal cramping pain . PROCEDURE: Multiple axial images are obtained from the upper abdomen andpelvis. Oral contrast was administered. PRIOR STUDIES: CT chest 09/07/2023. FINDINGS: Liver: There are 2 hepatic cysts. Pancreas: Unremarkable. Kidneys: There are bilateral renal cysts.. Adrenal glands: Unremarkable. Spleen: Unremarkable Gallbladder: Unremarkable. Appendix: Not visualized. GI tract: There are diverticuli of the sigmoid colon4. Aorta: Normal in caliber. Bladder: Unremarkable. Reproductive organs: Uterus is unremarkable Abdominal wall: No there is a tiny fat-containing umbilical hernia. Lymph nodes: Unremarkable. Bones: There is moderately severe scoliosis. There is degenerative changeof the spine. There is mild degenerative change of the hips. Lung bases: There is mild scarring at the right lung base. IMPRESSION: No evidence of acute abdominopelvic pathology. -------- FINAL REPORT -------- Dictated By: Sandra Hernandez Dictated Date: 11/01/2024 17:31 ET Assigned Physician: Sandra Hernandez Reviewed and Electronically Signed By: Sandra Hernandez Signed Date: 11/01/2024 18:02 ET Workstation ID: [id number] Transcribed By: Self Edit Transcribed Date: 11/01/2024 17:31 ET Tami CLARKE IMG CT PROCEDURES Final Result * COLONOSCOPY (10/25/2024 10:28 AM EST) Anatomical Region Laterality Modality Endoscopy Historical Provider GI~PROCEDURE ORDERABLES F inal Result * Urinalysis with reflex microscopic and culture (10/24/2024 10:34 AM EST) Specific [place] Urine 1.004 1.003 - 1.030 LAB URINALYSIS - AUTOMATED METHOD 10/24/2024 12:14 PM [facility] pH, Urine 6.5 5.0 - 8.0 pH LAB URINALYSIS - AUTOMATED METHOD 10/24/2024 12:14 PM [facility] Leukocytes, Urine Negative Negative LAB URINALYSIS - AUTOMATED METHOD 10/24/2024 12:14 PM [facility] Nitrite, Urine Negative Negative LAB URINALYSIS - AUTOMATED METHOD 10/24/2024 12:14 PM [facility] Protein, Urine Negative <=Trace mg/dL LAB URINALYSIS - AUTOMATED METHOD 10/24/2024 12:14 PM [facility] Glucose, Urine Negative Negative mg/dL LAB URINALYSIS - AUTOMATED METHOD 10/24/2024 12:14 PM [facility] Ketones, Urine Negative Negative mg/dL LAB URINALYSIS - AUTOMATED METHOD 10/24/2024 12:14 PM [facility] Urobilinogen, Urine 0.2 0.2 - 1.0 mg/dL LAB URINALYSIS - AUTOMATED METHOD 10/24/2024 12:14 PM [facility] Bilirubin, Urine Negative Negative LAB URINALYSIS - AUTOMATED METHOD 10/24/2024 12:14 PM [facility] Blood, Urine Negative Negative LAB URINALYSIS - AUTOMATED METHOD 10/24/2024 12:14 PM [facility] Urine Urine specimen obtained by clean catch procedure / Unknown Non-blood Collection / Unknown 10/24/2024 10:34 AM EST 10/24/2024 10:34 AM EST us Ciaran Mendez MD LAB URINE ORDERABLES Final Resul t Performing Organization Address City/State/[facility] Co de Phone Number [facility] [address] [place] [address], * Avitia urine culture tube (10/24/2024 10:34 AM EST) Extra Tube Hold for add-ons. 10/24/2024 12:01 PM [facility] Comment:Auto resulted. Urine Urine specimen obtained by clean catch procedure / Unknown Non-blood Collection / Unknown 10/24/2024 10:34 AM EST 10/24/2024 10:34 AM EST Ciaran Mendez MD LAB URINE ORDERABLES Final Resul t [facility] [address] [place] [address], [place] [phone] * Vitamin B12 and folate (10/20/2024 11:46 AM EST) [facility] Vitamin B-12 508 250 - 900 pcg/mL LAB CHEMISTRY METHOD 10/20/2024 1:49 PM EST [facility] Folate 13.0 2.8 - 17.0 ng/ml LAB CHEMISTRY METHOD 10/20/2024 1:49 PM EST [facility] Blood Venous blood specimen / Unknown Venipuncture / Unknown 10/20/2024 11:46 AM EST 10/20/2024 12:47 PM EST Gin CLARKE LAB BLOOD ORDERABLES Final R esult [facility] [address] [place] [address], [place] [phone] * (ABNORMAL) CBC auto differential (10/20/2024 11:46 AM EST) [facility] WBC 5.5 4.8 - 10.8 K/mcL LAB HEMETOLOGY METHOD 10/20/2024 1:10 PM EST [facility] RBC 4.40 3.80 - 4.80 M/mcL LAB HEMETOLOGY METHOD 10/20/2024 1:10 PM [facility] Hemoglobin 13.4 11.5 - 16.0 g/dL LAB HEMETOLOGY METHOD 10/20/2024 1:10 PM [facility] Hematocrit 39.4 35.0 - 47.0 % LAB HEMETOLOGY METHOD 10/20/2024 1:10 PM EST [facility] MCV 90.0 79.0 - 98.0 FL LAB HEMETOLOGY METHOD 10/20/2024 1:10 PM [facility] MCH 30.6 27.0 - 32.0 pcg LAB HEMETOLOGY METHOD 10/20/2024 1:10 PM [facility] MCHC 34.0 32.0 - 37.0 g/dL LAB HEMETOLOGY METHOD 10/20/2024 1:10 PM [facility] RDW 12.3 11.0 - 15.0 % LAB HEMETOLOGY METHOD 10/20/2024 1:10 PM [facility] Platelets 208 130 - 400 K/mcL LAB HEMETOLOGY METHOD 10/20/2024 1:10 PM [facility] MPV 9.8 7.0 - 11.0 FL LAB HEMETOLOGY METHOD 10/20/2024 1:10 PM [facility] NRBC 0.0 <1.0 % LAB HEMETOLOGY METHOD 10/20/2024 1:10 PM [facility] NRBC Absolute 0.00 <0.10 K/mcL LAB HEMETOLOGY METHOD 10/20/2024 1:10 PM [facility] Neutrophils Relative 73.7 % LAB HEMETOLOGY METHOD 10/20/2024 1:10 PM [facility] Lymphocytes Relative 16.2 % LAB HEMETOLOGY METHOD 10/20/2024 1:10 PM [facility] Monocytes Relative 8.1 % LAB HEMETOLOGY METHOD 10/20/2024 1:10 PM [facility] Eosinophils Relative 0.7 % LAB HEMETOLOGY METHOD 10/20/2024 1:10 PM [facility] Basophils Relative 1.1 % LAB HEMETOLOGY METHOD 10/20/2024 1:10 PM [facility] Immature Granulocytes Relative 0.2 % LAB HEMETOLOGY METHOD 10/20/2024 1:10 PM EST [facility] Neutrophils Absolute 4.08 1.50 - 7.00 K/mcL LAB HEMETOLOGY METHOD 10/20/2024 1:10 PM EST [facility] Lymphocytes Absolute 0.90(L) 1.00 - 5.00 K/mcL LAB HEMETOLOGY METHOD 10/20/2024 1:10 PM EST [facility] Monocytes Absolute 0.45 0.20 - 1.00 K/mcL LAB HEMETOLOGY METHOD 10/20/2024 1:10 PM EST [facility] Eosinophils Absolute 0.04 0.00 - 0.50 K/mcL LAB HEMETOLOGY METHOD 10/20/2024 1:10 PM EST [facility] Basophils Absolute 0.06 0.00 - 0.20 K/mcL LAB HEMETOLOGY METHOD 10/20/2024 1:10 PM [facility] Immature Granulocytes Absolute 0.01 0.00 - 0.03 K/mcL LAB HEMETOLOGY METHOD 10/20/2024 1:10 PM [facility] Blood Venous blood specimen / Unknown Venipuncture / Unknown 10/20/2024 11:46 AM EST 10/20/2024 12:47 PM EST Gin CLARKE LAB BLOOD ORDERABLES Final R esult [facility] [address] [place] [address], * Comprehensive metabolic panel (10/20/2024 11:46 AM EST) Sodium 136 133 - 145 mmol/L LAB CHEMISTRY METHOD 10/20/2024 1:49 PM EST [facility] Potassium 4.3 3.5 - 5.5 mmol/L LAB CHEMISTRY METHOD 10/20/2024 1:49 PM EST [facility] Chloride 104 96 - 110 mmol/L LAB CHEMISTRY METHOD 10/20/2024 1:49 PM [facility] CO2 27 21 - 32 mmol/L LAB CHEMISTRY METHOD 10/20/2024 1:49 PM [facility] Anion Gap 5 3 - 11 LAB CHEMISTRY METHOD 10/20/2024 1:49 PM [facility] Glucose 96 70 - 100 mg/dL LAB CHEMISTRY METHOD 10/20/2024 1:49 PM [facility] BUN 6 5 - 25 mg/dL LAB CHEMISTRY METHOD 10/20/2024 1:49 PM [facility] Creatinine 0.80 0.50 - 1.10 mg/dL LAB CHEMISTRY METHOD 10/20/2024 1:49 PM [facility] eGFR 78 >=60 mL/min/1. 73m2 LAB CHEMISTRY METHOD 10/20/2024 1:49 PM [facility] Comment:Calculation based on the??Chronic Kidney Disease Epidemiology Collaboration (CKD-EPI) equation refit??without adjustment for race. BUN/Creatinine Ratio 7.5 LAB CHEMISTRY METHOD 10/20/2024 1:49 PM [facility] Calcium 9.3 8.5 - 10.5 mg/dL LAB CHEMISTRY METHOD 10/20/2024 1:49 PM [facility] AST (SGOT) 18 10 - 42 unit/L LAB CHEMISTRY METHOD 10/20/2024 1:49 PM [facility] ALT (SGPT) 21 10 - 60 unit/L LAB CHEMISTRY METHOD 10/20/2024 1:49 PM [facility] Alkaline Phosphatase 77 42 - 121 unit/L LAB CHEMISTRY METHOD 10/20/2024 1:49 PM [facility] Total Protein 6.3 6.0 - 8.0 g/dL LAB CHEMISTRY METHOD 10/20/2024 1:49 PM [facility] Albumin 4.0 3.2 - 5.0 g/dL LAB CHEMISTRY METHOD 10/20/2024 1:49 PM EST [facility] Total Bilirubin 0.5 0.0 - 1.4 mg/dL LAB CHEMISTRY METHOD 10/20/2024 1:49 PM EST [facility] Blood Venous blood specimen / Unknown Venipuncture / Unknown 10/20/2024 11:46 AM EST 10/20/2024 12:47 PM EST us Gin CLARKE LAB BLOOD ORDERABLES Final R esult [facility] ([facility]) [facility] [address] [place] [address], * JOSE DEXA AXIAL SKELETON (07/29/2024 5:19 PM EDT) Anatomical Region Laterality Modality Mammography 07/29/2024 1:2 4 PM EDT Narrative 07/29/2024 5:19 PM EDT [facility] Diagnostic Imaging Department [address] [place] [address] Patient: ??VANESSA MCCARTNEY ?/Age/Sex: 1950 74 - Unit#: ??[id number] ? Location/Status: ??SPDIMAM/REG CLI ? Mnemonic/Ordering Site: ??MAMDEXAAX/SPMAM Ordering Physician: ??ADE MURRAY MD [facility] Dexa Axial Skeleton - 07/29/24 - [id number] Report Status:Signed History: Low estrogen state due to menopause. Comparison: 01/12/17 Findings: Bone densitometry is performed utilizing dual energy x-ray absorptiometry (DXA) in the Wonderloop unit. The lumbar spine and proximal femora are evaluated in the AP projection. The FRAX questionaire was completed. The results indicate osteoporosis, with a lumbar spine T-score of -4.6. The Z score is -3.0, indicating very low bone mineral density for age. There has been a small, statistically significant decrease in bone mineral density in the spine since the previous study. ??The detailed DEXA report will be mailed to the referring physician's office. DualFemur FRAX: 10-year Probability of Fracture: Major Osteoporotic 13.5 percent ??Hip 3.3 percent. IMPRESSION: Osteoporosis. [id number] Dictating Physician: ??PAM BRISENO MD Electronically Signed by: ??PAM BRISENO MD Dic Date/Time: ??07/29/241717 Sign date/Time: ??07/29/241718 Procedure Note Pam Briseno MD - 08/17/2024 [facility] Diagnostic Imaging Department [address] [place] [address] Patient: VANESSA MCCARTNEY Violeta /Age/Sex: 1950 - 74 - F Unit#: [id number] Location/Status: SPDIMAM/REG CLI Mnem[facility] Ordering Physician: ADE MURRAY MD [facility] Dexa Axial Skeleton - 07/29/24 - 9936 Report Status:Signed History: Low estrogen state due to menopause. Comparison: 01/12/17 Findings: Bone densitometry is performed utilizing dual energy x-ray absorptiometry(DXA) in the FOBOigHiptype unit. The lumbar spine and proximal femora areevaluated in the AP projection. The FRAX questionaire was completed. The results indicate osteoporosis, with a lumbar spine T-score of -4.6.The Z score is -3.0, indicating very low bone mineral density for age. There has been a small, statistically significant decrease in bonemineral density in the spine since the previous study. The detailed DEXA reportwill be mailed to the referring physician's office. DualFemur FRAX: 10-year Probability of Fracture: Major Osteoporotic 13.5 percent Hip 3.3 percent. IMPRESSION: Osteoporosis. [id number] Dictating Physician: PAM BRISENO MD Electronically Signed by: PAM BRISENO MD Dic Date/Time: 07/29/241717 Sign date/Time: 07/29/241718 us Ade Murray MD IMG BI PROCEDURES Final Resu lt * JOSE SCREENING DIGITAL (07/29/2024 4:29 PM EDT) Anatomical Region Laterality Modality Mammography 07/29/2024 1:24 PM EDT Narrative 07/29/2024 4:29 PM EDT [facility] Diagnostic Imaging Department [address] [place] [address] [id number] Patient: ??VANESSA MCCARTNEY ?/Age/Sex: 1950 - - F Unit#: ??[id number] ? Location/Status: ??SPDIMAM/REG CLI ? Mnemonic/Ordering Site: ??[facility]SC/[facility] Ordering Physician: ??CIARAN MENDEZ MD Jose Screening Digital - 07/29/24 - 1353 Report Status:Signed EXAM: Jose Screening Digital EXAM DATE AND TIME: 07/29/2024 1:53 PM HISTORY: ??Screening. Family history of breast carcinoma including mother at age 78 and maternal aunt. COMPARISON: ??07/27/23, 07/25/22, 07/22/21 and earlier studies dating back to 2015. TECHNIQUE: Bilateral digital breast tomosynthesis was performed in the CC and MLO projections. Computer aided detection with CHARMS PPEC 3D 3.1 was employed. TISSUE DENSITY: b. There are scattered areas of fibroglandular density. FINDINGS: No suspicious masses, grouped microcalcifications, or areas of architectural distortion are seen. A 6 mm circumscribed nodule with an eccentric calcification is long-term stable in the anterior right breast, considered benign, possibly a fibroadenoma. The skin and vascularity are unremarkable. IMPRESSION: Stable mammographic appearance of the breasts. ??No evidence of malignancy is seen. A negative mammogram in the presence of a clinically suspicious palpable abnormality does not preclude the possibility of malignancy or alter the indications for biopsy. BI-RADS: ??Category 2: Benign RECOMMENDATION(S): 1: Routine screening mammogram BILATERAL in 1 year. Mammogram performed at [facility] [place] [address] Dictating Physician: ??PAM BRISENO MD Electronically Signed by: ??PAM BRISENO MD Dic Date/Time: ??07/29/24 1628 Sign date/Time: ??07/29/24 1629 Procedure Note Pam Briseno MD - 08/17/2024 [facility] Diagnostic Imaging Department [address] [place] [id number] Patient: VANESSA MCCARTNEY Violeta /Age/Sex: 1950 74 - F Unit#: [id number] [facility] CLI Mnemonic/Ordering Site: [facility] Ordering Physician: CIARAN MENDEZ MD [facility] Screening Digital - 07/29/24 - 1353 Report Status:Signed EXAM: [facility] Screening Digital EXAM DATE AND TIME: 07/29/2024 1:53 PM HISTORY: Screening. Family history of breast carcinoma including motherat age 78 and maternal aunt. COMPARISON: 07/27/23, 07/25/22, 07/22/21 and earlier studies dating back [id number]. TECHNIQUE: Bilateral digital breast tomosynthesis was performed in the CCand MLO projections. Computer aided detection with CHARMS PPEC 3D 3.1was employed. TISSUE DENSITY: b. There are scattered areas of fibroglandular density. FINDINGS: No suspicious masses, grouped microcalcifications, or areas ofarchitectural distortion are seen. A 6 mm circumscribed nodule with an eccentriccalcification is long-term stable in the anterior right breast, considered benign,possibly a fibroadenoma. The skin and vascularity are unremarkable. IMPRESSION: Stable mammographic appearance of the breasts. No evidence of malignancyis seen. A negative mammogram in the presence of a clinically suspicious palpable abnormality does not preclude the possibility of malignancy or alter the indications for biopsy. BI-RADS: Category 2: Benign RECOMMENDATION(S): 1: Routine screening mammogram BILATERAL in 1 year. [facility] performed at [facility] [address] [address] Dictating Physician: PAM BRISENO MD Electronically Signed by: PAM BRISENO MD Dic Date/Time: 07/29/24 1628 Sign date/Time: 07/29/24 1629 Ciaran Mendez MD IMG BI PROCEDURES Final Result * Falls Risk Assessment (04/13/2024) [facility] Falls Risk Assessment Abstracted Result [facility] Provider HEALTH MAINTENANCE Final Result * Depression Screening (10/14/2023) Pathologist [facility] Depression Screening Abstracted Result [facility] Provider HEALTH MAINTENANCE Final Result * Lipid panel (10/14/2023) [facility] LDL/HDL Ratio 3 0 - 4 Triglycerides 120 0 - 150 mg/dL Cholesterol 151 0 - 200 mg/dL HDL 45 >=40 mg/dL LDL Cholesterol 82 0 - 100 mg/dL Blood Venous blood specimen / Unknown Result [facility] Provider LAB BLOOD ORDERABLES Elva l Result * Hepatitis C Screening (11/26/2019) Pathologist [facility] Hepatitis C Screening Abstracted Result [facility] Provider HEALTH MAINTENANCE Final Result from Last 3 Months or Most Recently Relevant to Health Maintenance [facility] Care 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
--- OUTSIDE RECORDS SUMMARY | 2024-12-14 15:57 | XMS_ITS | Encounter Summary ---
Author Organization [facility] Address [id number] [place] [phone] Care Team Providers Care Network Cabler Name Role Phone Cathi Mendez MD Primary Care Provider [phone] Encounter Details Date Type Department Care Team (Latest Contact Info) Description 09/07/2024 Lab Requisition [facility] - Main Lab [address] [facility] [place] [phone] Awilda Grande MD [address] [facility] [address] [place] [phone] Encounter for gynecological examination (general) (routine) without abnormal findings Social History Tobacco Use Types Packs/Day Years Used Date Smoking Tobacco: Never Smokeless Tobacco: Never Alcohol Use Standard Drinks/Week Comments Yes 0 (1 standard drink = 0.6 oz pur e alcohol) Comments Unknown Sex and Gender Information Value Date Recorded Sex Assigned at Not on file Legal Sex Female 12:06 AM EST Gender Identity Not on file Sexual Orientation Not on file documented as of this encounter Plan of Treatment Upcoming Encounters Date Type Department Care Team (Late st Contact Info) Description 01/12/2025 2:20 PM EDT Consult Endocrinology - [place] [address] [place] [phone] Rebecca Ann PA [address] [place], [place] 01/18/2025 1:40 PM EDT Office Visit Gastroenterology - [address] [facility] [address] [place] [address] Gin Tucker PA [address] [place] [address] 01/26/2025 3:30 PM EDT Office Visit Adult Medicine [facility] [address] [place] [phone] Keri Larson PA [address] [place] [address] documented as of this encounter Procedures Procedure Name Priority Date/Time Associated Diagnosis Comments PAP SMEAR Routine 09/06/2024 Encounter for gynecological examination (general) (routine) without abnormal findings documented in this encounter Results * Pap smear (09/06/2024) Interpretation Negative for intraepithelial lesion or malignancy 09/15/2024 10:23 AM [facility] General Categorization Negative 09/15/2024 10:23 AM [facility] Other Findings Atrophy 09/15/2024 10:23 AM [facility] Specimen Adequacy Satisfactory for evaluation, endocervical/corcoran sformation zone component present 09/15/2024 10:23 AM [facility] Pap Methodology Liquid Based Pap Test 09/15/2024 10:23 AM [facility] Disclaimer The Pap test is a screening test which carries an inherent false negative rate. These test results should be correlated with the patient's clinical findings and history. This Pap test was processed using an automated screening system. Technical cytopathology services provided by [facility], at [address] [facility], [place] [address] (CLIA # [id number]/Jodie Wheeler MD, Advertising Solicitor.) 09/15/2024 10:23 AM EST [facility] ([facility] Console Pap Interpretation Reported 09/15/2024 10:23 AM EST [facility] Brushing/Spatula Cervix uteri structure / Unknown 09/06/2024 09/07/2024 3:42 PM EST us Awilda Grande MD LAB CYTOLOGY ORDERABLES Final Result [facility] ([facility]) [facility] [address] [place] [address], documented in this encounter Visit Diagnoses Diagnosis Encounter for gynecological examination (general) (routine) without abnormal findings documented in this encounter Care Teams Network Cabler Relationship Specialty Start Date End Date Cathi Mendez MD [address] [place] [address] PCP - General Internal Medicine 09/16/21 documented as of this encounter
== END 2024-12-14 15:10 | disposition home or self-care (01) ==
PROVIDERS: PCP Internal Medicine; Visit Provider Physician Assistant
DX: J06.9 Acute upper respiratory infection, unspecified (principal)

== ENCOUNTER 2024-12-14 14:43 | Outpatient (REF) | payer MEDICARE, SELFPAY ==
[2024-12-14 18:00] LABS: Influenza A PCR NEGATIVE (Negative); Influenza B PCR NEGATIVE (Negative); Resp Syncy Virus RNA Qual PCR POSITIVE (Negative); SARS COV2 PCR INHOUSE NEGATIVE (Negative)
== END 2024-12-14 14:44 | disposition home or self-care (01) ==
LOC: HO.LNP 14:43
PROVIDERS: PCP Internal Medicine; Visit Provider Physician Assistant
DX: J06.9 Acute upper respiratory infection, unspecified (principal)
CPT/HCPCS: 0241U; 99212

== ENCOUNTER 2024-12-15 16:01 | Outpatient (AMB) | payer MEDICARE, SELFPAY ==
--- OUTSIDE RECORDS SUMMARY | 2024-12-15 16:04 | XMS_ITS | Clinical Summary ---
Author Organization [facility] [address] [facility] Address [address], [place] Phone Care Team Providers Care Dock Superintendent Name Role Phone Ciaran Mendez MD Primary Care Provider [phone] Allergies Active Allergy Reactions Criticality Noted Date Comments Amoxicillin 10/18/2024 Aspirin Shortness of breath,Wheezing High 02/20/2015 Ziprasidone Hcl 10/20/2024 Lanolin-Min Wvk-Qeglhk-Sarec Rash 05/25/2019 Ziprasidone Other 05/02/2014 Unable to [...] (08/30/2024): Mild s/p PFT 04/2021 Follows with [place] [facility] GERD (gastroesophageal reflux disease) 1 Hemorrhoids [...] At risk for breast cancer Overview (10/21/2024): [place]-Keenan lifetime risk 19.6% Encounters Date Type Department Care Team Description 12/15/2024 Nurse Triage Adult Medicine [address] [phone] Ciaran Mendez MD Cough; Nasal Congestion; Wheezing; low grade fever 11/04/2024 Telephone Gastroenterology - [address] [phone] Vane Bowling MD 11/03/2024 Telephone Gastroenterology - [address] [phone] Vane Bowling MD 11/01/2024 2:19 PM EST - 11/01/2024 11:59 PM EST Hospital Encounter CT Scan - [address] [phone] Diarrhea, unspecified type; Generalized abdominal cramping Discharge Disposition: Home or Self Care 10/24/2024 10:00 AM EST Consult Adult Medicine [address] [phone] Ciaran Mendez MD Preop cardiovascular exam (Primary Dx); Primary hypertension; Hypercholesterolemia; Acute UTI; Osteoporosis, unspecified osteoporosis type, unspecified pathological fracture presence; Dysuria; Moderate persistent asthma without complication; Cataract of both eyes, unspecified cataract type 10/21/2024 Telephone Gastroenterology - [address] [place], [place] [address] [phone] Erica Weaver [place] 10/20/2024 10:40 AM EST Office Visit Gastroenterology - [address] [phone] Gin Tucker PA Dizzy (Primary Dx); Weakness; Pharyngoesophageal dysphagia; Irritable bowel syndrome with both constipation and diarrhea 10/18/2024 3:30 PM EST Office Visit Adult Medicine [address] [phone] Tami Denton PA Diarrhea, unspecified type (Primary Dx); Generalized abdominal cramping; Weight loss; Irritable bowel syndrome with diarrhea 10/12/2024 Telephone Gastroenterology - [address] [phone] Erica Weaver [place] 10/05/2024 11:15 AM EST Office Visit Adult Medicine [address] [phone] Tami Denton PA Gastroenteritis (Primary Dx) 10/05/2024 Nurse Triage Adult Medicine [address] [phone] Ciaran Mendez MD Diarrhea (DIARRHEA AND MUCUS) 09/15/2024 Telephone Adult Medicine [address] [phone] Ciaran Mendez MD Hospital Follow-up from Last 3 Months Immunizations [...] Medical History Date Comments Alcoholism in recovery ([facility]) 02/06/2017 Anxiety 02/01/2014 Asthma 12/24/2016 Bipolar disorder ([facility]) 06/25/2018 DX:Bi polar disorder ([facility]) Hypercholesterolemia 06/25/2018 Hypertension 06/25/2018 Insomnia 02/01/2014 Irritable bowel syndrome 02/05/2011 Osteoarthrosis 12/24/2016 Osteoporosis 06/25/2018 Scoliosis 02/01/2014 Tremor 02/26/2015 Hearing loss 04/05/2019 At risk for breast cancer 04/05/2019 Valeria Hussein lifetime risk 19.6% GERD (gastroesophageal reflux disease) 03/29/2021 Tubular adenoma 03/29/2021 : Colonoscopy Hemorrhoids 03/29/2021 Internal- colono scopy 09/01/2006 Colon polyp 05/29/202305/24 CN, repeat 5 years Esophageal stricture 07/22/202407/26 eulogio ki ring, esophageal dilation done Family History Medical [...] 01/12/2025 2:20 PM EDT Consult Endocrinology - [place] [address] [place] [phone] Rebecca Ann PA [address], [place] 01/18/2025 1:40 PM EDT Office Visit Gastroenterology - 299 [address] [facility] [address] [place] [phone] Gin Tucker PA [address] [place] [address] [place] [address] 01/26/2025 3:30 PM EDT Office Visit Adult Medicine [facility] [address] [place] [phone] Keri Larson PA [address] [place] [address] Health Maintenance Due Date Last Done Comments [...] SCREENING DIGITAL Routine 07/29/2024 4:29 PM EDT FALLS RISK ASSESSMENT Routine 04/13/2024 DEPRESSION SCREENING Routine 10/14/2023 LIPID PANEL Routine [...] Signed Date: 11/01/2024 18:02 ET Workstation ID: [id number] Transcribed By: Self Edit Transcribed Date: 11/01/2024 [...] Signed Date: 11/01/2024 18:02 ET Workstation ID: [id number] Transcribed By: Self Edit Transcribed Date: 11/01/2024 17:31 ET Tami CLARKE IMG CT PROCEDURES Final Result * COLONOSCOPY (10/25/2024 10:28 AM EST) Anatomical Region Laterality Modality Endoscopy Historical Provider GI~PROCEDURE ORDERABLES F inal Result * Urinalysis with reflex microscopic and culture (10/24/2024 10:34 AM EST) Specific [place] Urine 1.004 1.003 - 1.030 LAB URINALYSIS - AUTOMATED METHOD 10/24/2024 12:14 PM EST [facility] pH, Urine 6.5 5.0 - 8.0 pH LAB URINALYSIS - AUTOMATED METHOD 10/24/2024 12:14 PM [facility] Leukocytes, Urine Negative Negative LAB URINALYSIS - AUTOMATED METHOD 10/24/2024 12:14 PM [facility] Nitrite, Urine Negative Negative LAB URINALYSIS - AUTOMATED METHOD 10/24/2024 12:14 PM [facility] Protein, Urine Negative <=Trace mg/dL LAB URINALYSIS - AUTOMATED METHOD 10/24/2024 12:14 PM [facility] Glucose, Urine Negative Negative mg/dL LAB URINALYSIS - AUTOMATED METHOD 10/24/2024 12:14 PM [facility] Ketones, Urine Negative Negative mg/dL LAB URINALYSIS - AUTOMATED METHOD 10/24/2024 12:14 PM [facility] Urobilinogen, Urine 0.2 0.2 - 1.0 mg/dL LAB URINALYSIS - AUTOMATED METHOD 10/24/2024 12:14 PM [facility] Bilirubin, Urine Negative Negative LAB URINALYSIS - AUTOMATED METHOD 10/24/2024 12:14 PM [facility] Blood, Urine Negative Negative LAB URINALYSIS - AUTOMATED METHOD 10/24/2024 12:14 PM [facility] Urine Urine specimen obtained by clean catch procedure / Unknown Non-blood Collection / Unknown 10/24/2024 10:34 AM EST 10/24/2024 10:34 AM EST us Ciaran Mendez MD LAB URINE ORDERABLES Final Resul t [facility] [address] [place] [address], * Avitia urine culture tube (10/24/2024 10:34 AM EST) Extra Tube Hold for add-ons. 10/24/2024 12:01 PM [facility] Comment:Auto resulted. Urine Urine specimen obtained by clean catch procedure / Unknown Non-blood Collection / Unknown 10/24/2024 10:34 AM EST 10/24/2024 10:34 AM EST Ciaran Mendez MD LAB URINE ORDERABLES Final Resul t Performing Organization Address [facility]/ZIP Co de Phone Number [facility] [address] [place] [address], [place] [phone] * Vitamin B12 and folate (10/20/2024 11:46 AM EST) [facility] Vitamin B-12 508 250 - 900 pcg/mL LAB CHEMISTRY METHOD 10/20/2024 1:49 PM EST [facility] Folate 13.0 2.8 - 17.0 ng/ml LAB CHEMISTRY METHOD 10/20/2024 1:49 PM EST [facility] Blood Venous blood specimen / Unknown Venipuncture / Unknown 10/20/2024 11:46 AM EST 10/20/2024 12:47 PM EST Gin CLARKE LAB BLOOD ORDERABLES Final R esult Performing Organization Address [facility]/ZIP Co de Phone Number [facility] [address] [place] [address], [place] [phone] * (ABNORMAL) CBC auto differential (10/20/2024 11:46 AM EST) [facility] WBC 5.5 4.8 - 10.8 K/mcL LAB HEMETOLOGY METHOD 10/20/2024 1:10 PM EST [facility] RBC 4.40 3.80 - 4.80 M/mcL LAB HEMETOLOGY METHOD 10/20/2024 1:10 PM EST [facility] Hemoglobin 13.4 11.5 - 16.0 g/dL LAB HEMETOLOGY METHOD 10/20/2024 1:10 PM EST [facility] Hematocrit 39.4 35.0 - 47.0 % LAB HEMETOLOGY METHOD 10/20/2024 1:10 PM [facility] MCV 90.0 79.0 - 98.0 FL LAB HEMETOLOGY METHOD 10/20/2024 1:10 PM [facility] MCH 30.6 27.0 - 32.0 pcg LAB HEMETOLOGY METHOD 10/20/2024 1:10 PM [facility] MCHC 34.0 32.0 - 37.0 g/dL LAB HEMETOLOGY METHOD 10/20/2024 1:10 PM [facility] RDW 12.3 11.0 - 15.0 % LAB HEMETOLOGY METHOD 10/20/2024 1:10 PM [facility] Platelets 208 130 - 400 K/mcL LAB HEMETOLOGY METHOD 10/20/2024 1:10 PM [facility] MPV 9.8 7.0 - 11.0 FL LAB HEMETOLOGY METHOD 10/20/2024 1:10 PM [facility] NRBC 0.0 <1.0 % LAB HEMETOLOGY METHOD 10/20/2024 1:10 PM [facility] NRBC Absolute 0.00 <0.10 K/mcL LAB HEMETOLOGY METHOD 10/20/2024 1:10 PM [facility] Neutrophils Relative 73.7 % LAB HEMETOLOGY METHOD 10/20/2024 1:10 PM [facility] Lymphocytes Relative 16.2 % LAB HEMETOLOGY METHOD 10/20/2024 1:10 PM [facility] Monocytes Relative 8.1 % LAB HEMETOLOGY METHOD 10/20/2024 1:10 PM [facility] Eosinophils Relative 0.7 % LAB HEMETOLOGY METHOD 10/20/2024 1:10 PM [facility] Basophils Relative 1.1 % LAB HEMETOLOGY METHOD 10/20/2024 1:10 PM EST [facility] Immature Granulocytes Relative 0.2 % LAB HEMETOLOGY METHOD 10/20/2024 1:10 PM [facility] Neutrophils Absolute 4.08 1.50 - 7.00 K/mcL LAB HEMETOLOGY METHOD 10/20/2024 1:10 PM EST [facility] Lymphocytes Absolute 0.90(L) 1.00 - 5.00 K/mcL LAB HEMETOLOGY METHOD 10/20/2024 1:10 PM EST [facility] Monocytes Absolute 0.45 0.20 - 1.00 K/mcL LAB HEMETOLOGY METHOD 10/20/2024 1:10 PM [facility] Eosinophils Absolute 0.04 0.00 - 0.50 K/mcL LAB HEMETOLOGY METHOD 10/20/2024 1:10 PM EST [facility] Basophils Absolute 0.06 0.00 - 0.20 K/mcL LAB HEMETOLOGY METHOD 10/20/2024 1:10 PM EST [facility] Immature Granulocytes Absolute 0.01 0.00 - 0.03 K/mcL LAB HEMETOLOGY METHOD 10/20/2024 1:10 PM [facility] Blood Venous blood specimen / Unknown Venipuncture / Unknown 10/20/2024 11:46 AM EST 10/20/2024 12:47 PM EST us Gin CLARKE LAB BLOOD ORDERABLES Final R esult [facility] [address] [place] [address], * Comprehensive metabolic panel (10/20/2024 11:46 AM EST) Sodium 136 133 - 145 mmol/L LAB CHEMISTRY METHOD 10/20/2024 1:49 PM EST [facility] Potassium 4.3 3.5 - 5.5 mmol/L LAB CHEMISTRY METHOD 10/20/2024 1:49 PM [facility] Chloride 104 96 - 110 mmol/L LAB CHEMISTRY METHOD 10/20/2024 1:49 PM [facility] CO2 27 21 - 32 mmol/L LAB CHEMISTRY METHOD 10/20/2024 1:49 PM [facility] Anion Gap 5 3 - 11 LAB CHEMISTRY METHOD 10/20/2024 1:49 PM [facility] Glucose 96 70 - 100 mg/dL LAB CHEMISTRY METHOD 10/20/2024 1:49 PM [facility] BUN 6 5 - 25 mg/dL LAB CHEMISTRY METHOD 10/20/2024 1:49 PM [facility] Creatinine 0.80 0.50 - 1.10 mg/dL LAB CHEMISTRY METHOD 10/20/2024 1:49 PM [facility] eGFR 78 >=60 mL/min/1. 73m2 LAB CHEMISTRY METHOD 10/20/2024 1:49 PM [facility] Comment:Calculation based on the??Chronic Kidney Disease Epidemiology Collaboration (CKD-EPI) equation refit??without adjustment for race. BUN/Creatinine Ratio 7.5 LAB CHEMISTRY METHOD 10/20/2024 1:49 PM [facility] Calcium 9.3 8.5 - 10.5 mg/dL LAB CHEMISTRY METHOD 10/20/2024 1:49 PM [facility] AST (SGOT) 18 10 - 42 unit/L LAB CHEMISTRY METHOD 10/20/2024 1:49 PM [facility] ALT (SGPT) 21 10 - 60 unit/L LAB CHEMISTRY METHOD 10/20/2024 1:49 PM [facility] Alkaline Phosphatase 77 42 - 121 unit/L LAB CHEMISTRY METHOD 10/20/2024 1:49 PM [facility] Total Protein 6.3 6.0 - 8.0 g/dL LAB CHEMISTRY METHOD 10/20/2024 1:49 PM EST [facility] Albumin 4.0 3.2 - 5.0 g/dL LAB CHEMISTRY METHOD 10/20/2024 1:49 PM EST [facility] Total Bilirubin 0.5 0.0 - 1.4 mg/dL LAB CHEMISTRY METHOD 10/20/2024 1:49 PM EST [facility] Blood Venous blood specimen / Unknown Venipuncture / Unknown 10/20/2024 11:46 AM EST 10/20/2024 12:47 PM EST us Gin CLARKE LAB BLOOD ORDERABLES Final R esult [facility]) [facility] [address] [place] [address], * [facility] DEXA AXIAL SKELETON (07/29/2024 5:19 PM EDT) Anatomical Region Laterality Modality Mammography 07/29/2024 1:24 PM EDT Narrative 07/29/2024 5:19 PM EDT [facility] Diagnostic Imaging Department [address] [place] [address] Patient: ??VANESSA MCCARTNEY W ?/Age/Sex: 1950 - Unit#: ??[id number] ? Location/Status: ??SPDIMAM/REG CLI ? Mnemonic/Ordering Site: ??MAMDEXAAX/SPMAM Ordering Physician: ??ADE MURRAY MD Jose Dexa Axial Skeleton - 07/29/24 - 1436 Report Status:Signed History: Low estrogen state due to menopause. Comparison: 01/12/17 Findings: Bone densitometry is performed utilizing dual energy x-ray absorptiometry (DXA) in the [employer] unit. The lumbar spine and proximal femora [...] 13.5 percent ??Hip 3.3 percent. IMPRESSION: Osteoporosis. [id number] Dictating Physician: ??PAM BRISENO MD Electronically Signed by: ??PAM BRISENO MD Dic Date/Time: ??07/29/241717 Sign date/Time: ??07/29/241718 Procedure Note Pam Briseno MD - 08/17/2024 [facility] Diagnostic Imaging Department [address] [place], [place] [id number] Patient: ESEQUIEL MCCARTNEYHRYN Violeta Silvestre./Age/Sex: 1950 - 74 - F Unit#: [id number] Location/Status: [facility] CLI Mnemonic/Ordering Site: MAMDEXAAX/SPMAM Ordering Physician: ADE MURRAY MD Jose Dexa Axial Skeleton - 07/29/24 - 1436 Report Status:Signed History: Low estrogen state due to menopause. Comparison: 01/12/17 Findings: Bone densitometry is performed utilizing dual energy x-ray absorptiometry(DXA) in the [employer] unit. The lumbar spine and proximal femora [...] 13.5 percent Hip 3.3 percent. IMPRESSION: Osteoporosis. [id number] Dictating Physician: PAM BRISENO MD Electronically Signed by: PAM BRISENO MD Dic Date/Time: 07/29/241717 Sign date/Time: 07/29/241718 us Ade Murray MD IMG BI PROCEDURES Final Resu lt * JOSE SCREENING DIGITAL (07/29/2024 4:29 PM EDT) Anatomical Region Laterality Modality Mammography 07/29/2024 1:24 PM EDT Narrative 07/29/2024 4:29 PM EDT [facility] Diagnostic Imaging Department [address] [place] [address] Patient: ??VANESSA MCCARTNEY ?/Age/Sex: 1950 - 74 - F Unit#: ??[id number] ? Location/Status: ??SPDIMAM/REG CLI ? Mnemonic/Ordering Site: ??DIGSC/SPMAM Ordering Physician: ??CIARAN MENDEZ MD [facility] Screening Digital - 07/29/24 - 1353 Report Status:Signed EXAM: [facility] Screening Digital EXAM DATE AND TIME: 07/29/2024 1:53 PM HISTORY: ??Screening. Family history of breast carcinoma including mother at age 78 and maternal aunt. COMPARISON: ??07/27/23, 07/25/22, 07/22/21 and earlier studies dating back to 2015. TECHNIQUE: Bilateral digital breast tomosynthesis was performed in the CC and MLO projections. Computer aided detection with [employer] 3D 3.1 was employed. TISSUE DENSITY: b. [...] Mammogram performed at [facility] [place] [address] Dictating Physician: ??PAM BRISENO MD Electronically Signed by: ??PAM BRISENO MD Dic Date/Time: ??07/29/241627 Sign date/Time: ??07/29/241628 Procedure Note Pam Briseno MD - 08/17/2024 [facility] Diagnostic Imaging Department [address] [place] [address] Patient: VANESSA MCCARTNEY Violeta BarbaB./Age/Sex: 1950 - 74 - F Unit#: [id number] Location/Status: [facility] CLI Mnemonic/Ordering Site: [facility] Ordering Physician: CIARAN MENDEZ MD Jose Screening Digital - 07/29/24 - 1353 Report Status:Signed EXAM: [facility] Screening Digital EXAM DATE AND TIME: 07/29/2024 1:53 PM HISTORY: Screening. Family history of breast carcinoma including motherat age 78 and maternal aunt. COMPARISON: 07/27/23, 07/25/22, 07/22/21 and earlier studies dating back [id number]. TECHNIQUE: Bilateral digital breast tomosynthesis was performed in the CCand MLO projections. Computer aided detection with [employer] 3D 3.1was employed. TISSUE DENSITY: b. There [...] Mammogram performed at [facility] [place] [address] Dictating Physician: PAM BRISENO MD Electronically Signed by: PAM BRISENO MD Dic Date/Time: 07/29/241627 Sign date/Time: 07/29/241628 Result [facility] Ciaran Mendez MD IMG BI PROCEDURES Final Result * Falls Risk Assessment (04/13/2024) [facility] Falls Risk Assessment Abstracted Result [facility] Provider HEALTH MAINTENANCE Final Result * Depression Screening (10/14/2023) Pathologist [facility] Depression Screening Abstracted Result [facility] Provider HEALTH MAINTENANCE Final Result * Lipid panel (10/14/2023) [facility] LDL/HDL Ratio 3 0 - 4 Triglycerides 120 0 - 150 mg/dL Cholesterol 151 0 - 200 mg/dL HDL 45 >=40 mg/dL LDL Cholesterol 82 0 - 100 mg/dL Blood Venous blood specimen / Unknown Result [facility] Provider LAB BLOOD ORDERABLES Elva l Result * Hepatitis C Screening (11/26/2019) Pathologist [facility] Hepatitis C Screening Abstracted Result [facility] Provider HEALTH MAINTENANCE Final Result from Last 3 Months or Most Recently Relevant to Health Maintenance Insurance MEDICARE [facility] Care Teams Dock Superintendent Relationship Specialty Start Date End Date Ciaran Mendez MD [address] [place] [address] PCP - General Internal Medicine 09/16/21
--- OUTSIDE RECORDS SUMMARY | 2024-12-15 16:04 | XMS_ITS | Encounter Summary ---
Author Organization [facility] Address [id number] [place] [phone] Care Team Providers Care Claims Counsel Name Role Phone Cathi Mendez MD Primary Care Provider [phone] Encounter Details Date Type Department Care Team (Latest Contact Info) Description 09/07/2024 Lab Requisition [facility] - Main Lab [address] [facility] [place] [phone] Awilda Grande MD 299 [facility] [address] [place] [phone] Encounter for gynecological examination (general) (routine) without [...] PM EDT Consult Endocrinology - [place] [address] [place] [address] Rebecca Ann PA [address] [place], [place] 01/18/2025 1:40 PM EDT Office Visit Gastroenterology - 299 [address] [facility] [address] [place] [address] Gin Tucker PA [address] [place] [address] [place] [address] 01/26/2025 3:30 PM EDT Office Visit Adult Medicine [facility] [address] [place] [address] Keri Larson PA [address] [place] [address] documented as of this encounter Procedures Procedure Name Priority Date/Time Associated Diagnosis Comments PAP SMEAR Routine 09/06/2024 Encounter for gynecological examination (general) (routine) without abnormal findings documented in this encounter Results * Pap smear (09/06/2024) Interpretation Negative for intraepithelial lesion or malignancy 09/15/2024 10:23 AM [facility] General Categorization Negative 09/15/2024 10:23 AM [facility] Other Findings Atrophy 09/15/2024 10:23 AM [facility] Specimen Adequacy Satisfactory for evaluation, endocervical/corcoran sformation zone component present 09/15/2024 10:23 AM [facility] Pap Methodology Liquid Based Pap Test 09/15/2024 10:23 AM [facility] Disclaimer The Pap test is a screening test which carries an inherent false negative rate. These test results should be correlated with the patient's clinical findings and history. This Pap test was processed using an automated screening system. Technical cytopathology services provided by [facility], at [address] [facility], [place] [address] (CLIA # [id number]/Jodie Wheeler MD, [employer] 09/15/2024 10:23 AM EST [facility] ([facility] Console Pap Interpretation Reported 09/15/2024 10:23 AM EST [facility] Brushing/Spatula Cervix uteri structure / Unknown 09/06/2024 09/07/2024 3:42 PM EST us Awilda Grande MD LAB CYTOLOGY ORDERABLES Final Result [facility] ([facility]) [facility] [address] [place] [address], documented in this encounter Visit Diagnoses Diagnosis Encounter for gynecological examination (general) (routine) without abnormal findings documented in this encounter Care Teams Claims Counsel Relationship Specialty Start Date End Date Cathi Mendez MD [address] [place] [address] PCP - General Internal Medicine 09/16/21 documented as of this encounter
--- OUTSIDE RECORDS SUMMARY | 2024-12-15 16:04 | XMS_ITS | Encounter Summary ---
Author Organization [facility] Address [id number] [place] [id number] Care Team Providers Care Epic Director Name Role Phone Cathi Mendez MD Primary Care Provider [phone] Reason for Visit * Reason Onset Date Comments Cough 12/15/2024 Nasal Congestion 12/15/2024 Wheezing 12/15/2024 low grade fever 12/15/2024 Encounter Details Date Type Department Care Team (Late st Contact Info) Description 12/15/2024 Nurse Triage Adult Medicine [address] [id number] Cathi Mendez MD [address], [place] Cough; Nasal Congestion; Wheezing; low grade fever Social History Tobacco Use Types Packs/Day Years [...] on file documented as of this encounter Progress Notes * Selene Underwood RN - 12/15/2024 3:27 PM EST She was instructed [place] [facility] and [place]. She is in agreement with this plan. Reason for Disposition [1] MILD difficulty breathing (e.g., minimal/no SOB at rest, SOB with walking, pulse <100) AND [2] still present when not coughing Answer Assessment - Initial Assessment Questions 1. ONSET: When did the cough begin? Pt has had a cough for 2-3 days. 2. SEVERITY: How bad is the cough today? She rates the cough as 7/10. 3. SPUTUM: Describe the color of your sputum (e.g., none, dry cough; clear, white, yellow, green) She is reporting clear sputum 4. HEMOPTYSIS: Are you coughing up any blood? If Yes, ask: How much? (e.g., flecks, streaks, tablespoons, etc.) No hemoptysis 5. DIFFICULTY BREATHING: Are you having difficulty breathing? If Yes, ask: How bad is it? (e.g., mild, moderate, severe) - MILD: No SOB at rest, mild SOB with walking, speaks normally in sentences, can lie down, no retractions, pulse < 100. - MODERATE: SOB at rest, SOB with minimal exertion and prefers to sit, cannot lie down flat, speaksin phrases, mild retractions, audible wheezing, pulse 100-120. - SEVERE: Very SOB at rest, speaks in single words, struggling to breathe, sitting hunched forward,retractions, pulse > 120. She reports slight shortness of breath with activity 6. FEVER: Do you have a fever? If Yes, ask: What is your temperature, how was it measured, and when did it start? She reports the possibility of a slight fever. She has not checked her temp as she does not have a thermometer. 7. CARDIAC HISTORY: Do you have any history of heart disease? (e.g., heart attack, congestive heart failure) No heart disease 8. LUNG HISTORY: Do you have any history of lung disease? (e.g., pulmonary embolus, asthma, emphysema) She has a history of asthma and COPD 9. PE RISK FACTORS: Do you have a history of blood clots? (or: recent major surgery, recent prolonged travel, bedridden) No PE risk factors 10. OTHER SYMPTOMS: Do you have any other symptoms? (e.g., runny nose, wheezing, chest pain) Nasal congestion, headache, sore throat 11. : Is there any chance you are ? When was your last menstrual period? No. PT is 74 12. TRAVEL: Have you traveled out of the country in the last month? (e.g., travel history, exposures) Pt's tested positive for [place] [facility] [place] 4-5 days ago. She is having similar symptoms. He wasprescribed Benadryl r/t runny nose. Protocols used: Cough - Acute [id number] * Yamilet Cheney - 12/15/2024 3:20 PM EST Patient call requires triage: Symptoms patient is presenting: Patient is calling stating she would like to get tested for RSV. PTdid note that her has it so she thinks she might have it as well. Pt is coughing, wheezing,runny nose, low grade fever How long has patient had these symptoms?: 3 days For ALL patients calling to schedule any appointment (routine, sick visit, follow up, consult, etc.) in the outpatient setting please ask the following questions: Do you have fever of higher than 101, sore throat with difficulty swallowing or severe shortness ofbreath? no If YES to any of these above symptoms, send a message to triage and do not book. Red dot. If no, an audio or video visit should be booked. Have you had close contact with someone with Coronavirus in the last 14 days? no Have you traveled abroad? no Have you traveled recently to another state outside of [place], [place], [place], [place], [place], [place], [place]? no o If yes, did you quarantine for 14 days or have a negative covid test? no If yes to any of the above, patient is not to be scheduled in office until after 14 day quarantine or negative covid test. If pain or injury related was it due to an accident at work or from a motor vehicle accident? If yes, date of accident/Injury: No If yes, gather 3rd green party insurance information Third Libertarian Information: not applicable PCP: Cathi Mendez MD Payor: MEDICARE / Plan: MEDICARE PART A & B / Product Type: Medicare / documented in this encounter Plan of Treatment Upcoming Encounters Date Type Department Care Team (Late st Contact Info) Description 01/12/2025 2:20 PM EDT Consult Endocrinology - [address] [phone] Rebecca Ann PA [address] [place] [address] 01/18/2025 1:40 PM EDT Office Visit Gastroenterology - [address] [phone] Gin Tucker PA [address] [place] [phone] 01/26/2025 3:30 PM EDT Office Visit Adult Medicine [facility] - [address] [phone] Keri Larson PA [address] [place] [address] documented as of this encounter Visit Diagnoses Not on filedocumented in this encounter Care Teams Epic Director Relationship Specialty Start Date End Date Cathi Mendez MD [address] [place] [address] PCP - General Internal Medicine 09/16/21 documented as of this encounter
[2024-12-15 16:06] VITALS: BP 110/70; PULSE 71; TEMP 36.8; O2SAT 99; BMI 22.9
--- NOTE | 2024-12-15 16:06 | AM.OFFWIN_ITS ---
Intake Vital Signs 12/15/24 16:06 Height 5 ft 6 in Weight 142 lb BMI 22.9 BP 110/70 Blood Pressure Location Lt brachial Position Sitting Pulse 71 Pulse Source Pulse Oximeter Temp 98.2 F Temp Source Oral Pulse Oximetry (%) 99 Intake Visit Reasons: EP flu symptoms worse from yesterday Intake Note: patient has RSV Patient Tobacco Use Status: Never used Tobacco Allergies amoxicillin Allergy (Verified 12/15/24 16:06) Unknown ziprasidone [From Geodon] Allergy (Verified 12/15/24 16:06) Unknown aspirin Adverse Reaction (Mild, Verified 12/15/24 16:06) Shortness of Breath Do you need a note to return to daycare/school/sports/work: No HPI HPI Comments History of Present Illness Details 74 y/o female patient who presents to [facility] walk in clinic with c/o worsening respiratory symptoms since this morning. She was seen yesterday here and diagnosed with RSV. Pt reports SOB and wheezing since half an hour ago, but has not used her rescue inhaler I feel so weak to use it . [facility] Medical History (Updated 12/15/24 @ 16:52 by Rowena Buck NP) RSV (respiratory syncytial virus infection) Wheezing on auscultation Asthma Anxiety and depression Social History Household Members: [facility] Are you a primary point of care technician to a significant other at home: No Do you presently have visiting nurse or other home services: No Patient Tobacco Use Status: Never used Tobacco service: No Review of Systems Const All systems reviewed & are unremarkable except as noted in HPI and below Physical Exam Vital Signs: Last Vital Signs Temp 98.2 F 12/15/24 16:06 Pulse 71 12/15/24 16:06 BP 110/70 12/15/24 16:06 Pulse Ox 99 12/15/24 16:06 BMI result Body Mass Index 22.9 Const General: cooperative, comfortable and no acute distress Orientation/consciousness: patient oriented x3 Resp Effort & Inspection: normal respiratory effort, able to speak in complete sentences, no audible wheezes, no cough, no nasal flaring, no pursed lip breathing, no respiratory distress, no retractions and not tachypneic Auscultation: clear to auscultation bilaterally, no crackles, no rales, no rhonchi and wheezes inspiratory wheezes, right upper and posterior Cardio Heart sounds: S1 normal heart sound present and S2 normal heart sound present Neuro General: patient oriented x3 Assessment & Plan Assessment & Plan (1) RSV (respiratory syncytial virus infection): Code(s): B33.8 - Other specified viral diseases Qualifiers: RSV infection type: acute bronchitis Qualified Code(s): J20.5 - Acute bronchitis due to respiratory syncytial virus Plan: Ordered Prednisone Acetaminophen for pain relief Rest and hydrate well with plenty of warm fluids. (2) Wheezing on auscultation: Code(s): R06.2 - Wheezing Plan: Ordered Prednisone Acetaminophen for pain relief Rest and hydrate well with plenty of warm fluids. Use rescue inhaler for SOB and wheezing. Medications: New prednisone 40 mg (2 x 20 mg) PO DAILY 5 days 10 tabs 0RF R06.2 - Wheezing, Z20.828 - Contact with and (suspected) exposure to other viral communicable diseases Coding Level of Care Code Est Pt Level 4 (55831) Diagnoses Respiratory syncytial virus (RSV) as cause of acute bronchitis J20.5 RSV infection type: acute bronchitis Wheezing on auscultation R06.2 Time Spent (min) 20
== END 2024-12-15 16:20 | disposition home or self-care (01) ==
PROVIDERS: PCP Internal Medicine; Visit Provider Nurse Practitioner Family
DX: J20.5 Acute bronchitis due to respiratory syncytial virus (principal); R06.2 Wheezing

== ENCOUNTER → 2024-12-15 16:01 | Outpatient (BNVA) | payer MEDICARE, SELFPAY | PROVIDERS: PCP Internal Medicine | DX: J20.5 Acute bronchitis due to respiratory syncytial virus (principal); R06.2 Wheezing | CPT/HCPCS: 99212 ==

== ENCOUNTER 2025-04-16 00:14 | Observation (INO) | payer MEDICARE, SELFPAY ==
[2025-04-16] VITALS (10 sets, daily range): BP systolic 123–174; BP diastolic 65–93; PULSE 51–73; RESP 14–20; TEMP 36.2; O2SAT 98–100; BMI 27.8
--- NOTE | ~2025-04-16 | XR_ITS ---
CLINICAL HISTORY: shortness of breath Chest X-ray, 1 View COMPARISON: None FINDINGS: No consolidation. Mild bibasilar atelectasis. No pleural effusion. No pneumothorax. No cardiomegaly. No acute fracture. Thoracic dextroscoliosis. IMPRESSION: No acute findings. This document has been electronically signed by: Diego García MD on 04/16/2025 04:11:15
--- NOTE | 2025-04-16 00:35 | ECG_ITS ---
Test Reason : CP Blood Pressure : */* mmHG Vent. Rate : 56 BPM Atrial Rate : 56 BPM P-R Int : 176 ms QRS Dur : 94 ms QT Int : 434 ms P-R-T Axes : 79 -25 30 degrees QTcB Int : 418 ms Sinus bradycardia with sinus arrhythmia Incomplete right bundle branch block Borderline ECG When compared with ECG of 24-Aug-2024 18:25, No significant change was found Referred By: Generic ED Physician Electronically Signed By: ANNMARIE CAMPOS MD
[2025-04-16 01:23] LABS: MANUAL DIFF FLAG NO
[2025-04-16 01:26] LABS: Basophils Absolute Auto 0.1 X10*3/uL (0.0-0.2); Basophils Percent Auto 1.2 % (0-2); Eosinophils Absolute Auto 0.1 X10*3/uL (0.0-0.4); Hematocrit 34.5 % (37.0-47.0); Hemoglobin 12.6 g/dl (12.0-16.0); Imm Gran Abs Auto 0.01 X10*3/uL (0.00-0.03); Imm Gran Pct Auto 0.2 % (0.0-0.4); Lymphocytes Percent Auto 23.5 % (20-40); Mean Corpuscular HGB Conc 36.5 g/dl (31.0-35.0); Mean Corpuscular Hemoglobin 31.1 pg (27.0-33.0); Mean Corpuscular Volume 85.2 fL (80.0-98.0); Mean Platelet Volume 8.4 fL (9.4-12.3); Monocytes Absolute Auto 0.4 X10*3/uL (0.1-1.2); Monocytes Percent Auto 9.2 % (2-11); Neutrophils Absolute Auto 2.7 x10*3/uL (2.0-8.3); Neutrophils Percent Auto 62.9 % (45-73); Platelet Count 155 X10*3/uL (160-400); Red Blood Count 4.05 X10*6/uL (4.20-5.50); White Blood Count 4.3 X10*3/uL (4.8-10.8)
[2025-04-16 01:39] LABS: Alanine Aminotransferase 15 U/L (0-31); Albumin Level 4.4 g/dL (3.5-5.0); Alkaline Phosphatase 66 U/L (39-117); Anion Gap 13 (12-20); Aspartate Amino Transferase 22 U/L (5-31); Bilirubin Total 0.4 mg/dL (0.0-1.0); Blood Urea Nitrogen 9 mg/dL (9-16); Calcium 9.3 mg/dL (8.4-10.2); Carbon Dioxide 25 mmol/L (22-29); Chloride 95 mmol/L (96-108); Creatinine Clr Calc Pharmacy 59.8; Estimated Glomerular Filt Rate > 60; Glucose Random 97 mg/dL (60-115); Potassium 4.1 mmol/L (3.3-5.1); Sodium 129 mmol/L (135-145); Total Protein 6.2 g/dL (6.5-8.0)
[2025-04-16 01:47] LABS: Troponin-I High Sensitivity < 2.7 ng/L (<3.5-17.0)
[2025-04-16 01:59] LABS: Influenza A PCR NEGATIVE (Negative); Influenza B PCR NEGATIVE (Negative); Resp Syncy Virus RNA Qual PCR NEGATIVE (Negative); SARS COV2 PCR INHOUSE NEGATIVE (Negative)
--- NOTE | 2025-04-16 02:40 | ED.DIZZY ---
HPI - Dizziness General Chief Complaint: Dizziness Stated Complaint: Diff breathe & dizzy, Albuterol, hx COPD & Asthma Time Seen by Provider: 04/16/25 01:49 Source: patient Mode of arrival: ambulatory Limitations: no limitations History of Present Illness ED Provider: Dr. Edwige Dong HPI Narrative: Patient comes to the emergency room complaining of shortness of breath, nonproductive cough. Patient states that she feels a little bit lightheaded. Patient states that she has been using her inhaler without any respiratory relief. Patient has chest pain. Related Data Home Medications ?Medication ?Instructions ?Recorded ?Confirmed albuterol sulfate 90 mcg/actuation 2 puff PO Q4H PRN Shortness Of 06/15/21 08/25/24 aerosol inhaler Breath Or Wheezing atorvastatin 10 mg tablet 10 mg PO BEDTIME 06/15/21 08/25/24 bupropion HCl 200 mg tablet,12 hr 200 mg PO DAILY 06/15/21 08/25/24 sustained-release fluticasone furoate 100 1 inh inhalation DAILY 06/15/21 08/25/24 mcg/actuation blister powder for inhalation (Arnuity Ellipta) lisinopril 5 mg tablet 5 mg PO BEDTIME 06/15/21 08/25/24 sertraline 100 mg tablet 100 mg PO DAILY 06/15/21 08/25/24 trazodone 100 mg tablet 100 mg PO BEDTIME PRN Insomnia 06/15/21 08/25/24 fluticasone propionate 50 1 spray intranasal BID PRN Nasal 04/02/24 08/25/24 mcg/actuation nasal Congestion spray,suspension lorazepam 0.5 mg tablet 0.5 mg PO BEDTIME PRN Anxeity 07/19/24 08/25/24 aripiprazole 20 mg tablet 20 mg PO DAILY 08/25/24 08/25/24 docusate sodium 100 mg capsule 100 mg PO DAILY 08/25/24 08/25/24 primidone 50 mg tablet 50 mg PO BID 08/25/24 08/25/24 pantoprazole 40 mg tablet,delayed mg PO 12/15/24 release Previous Rx's ?Medication ?Instructions ?Recorded loperamide 2 mg capsule 2 mg PO QID PRN loose stool #20 10/10/24 caps prednisone 20 mg tablet 40 mg (2 x 20 mg) PO DAILY 5 days 12/15/24 #10 tabs Allergies Allergy/AdvReac Type Severity Reaction Status Date / Time amoxicillin Allergy Unknown Verified 04/16/25 00:26 ziprasidone [From Geodon] Allergy Shortness Verified 04/16/25 00:26 of Breath aspirin AdvReac Mild Shortness Verified 04/16/25 00:26 of Breath Review of Systems Review of Systems: Constitutional : No Weight loss, No Fever, No Chills, No Night Sweats, No Fatigue, No Malaise ENT/Mouth : No Hearing loss, No Ear Pain, No Nasal Congestion, No Sinus Pain, No Hoarseness, No sore throat, No Rhinorrhea, No Swallowing Difficulty Eyes: No Eye Pain, No Swelling, No Redness, No Foreign Body, No Discharge, No Vision Changes Cardiovascular : No Chest Pain, No SOB, No Dyspnea on Exertion, No Orthopnea, No Edema, No Palpitations Respiratory : Complaining of chronic cough, wheezing, shortness of breath not relieved by home medications Gastrointestinal : No Nausea, No Vomiting, No Diarrhea, No Constipation, No abdominal Pain, No Hematochezia, No Melena Genitourinary : no irregular bleeding, No Dysuria, No Urinary Frequency, No Hematuria, No Urinary Incontinence, No Urgency, No Flank Pain, No Urinary Flow Changes, No Hesitancy Musculoskeletal : No joint pain, No Myalgias, No Joint Swelling Skin : No Skin Lesions, No rash Neuro : No Weakness, No Numbness, No Paresthesias, No Loss of Consciousness, complaining of dizziness, no headache Psych : No Anxiety/Panic, No Depression, No SI/HI/AH/VH, No Social Issues, Heme/Lymph: No Bruising, No Bleeding,No Lymphadenopathy Endocrine : No Polyuria, No Polydipsia, No Temperature Intolerance [facility] Past Medical History Medical History (Updated 04/16/25 @ 04:02 by Edwige Dong MD) Hyponatremia RSV (respiratory syncytial virus infection) Wheezing on auscultation Asthma Anxiety and depression Social History Social History Household Members: [facility] Are you a primary complex care nurse to a significant other at home: No Do you presently have visiting nurse or other home services: No Patient Tobacco Use Status: Never used Tobacco Smoked in Last 30 Days: No Use of substances other than those prescribed or required for medical reasons: No Advance Directives: No Advance Directives Information Provided: Yes Do you have a plan to hurt others: No Plan service: No Physical Exam Vital Signs: Vital Signs: Last Vital Signs Temp 97.1 F 04/16/25 00:21 Pulse 55 04/16/25 01:46 Resp 20 04/16/25 00:21 BP 127/65 04/16/25 01:46 Pulse Ox 98 04/16/25 03:03 O2 Del Method Room Air 04/16/25 00:21 BMI result Body Mass Index 27.8 Const: Other: Appearance: Alert. Oriented X3. No acute distress. Eyes: Pupils equal, round and reactive to light. ENT: Pharynx normal. Neck: Normal inspection. Neck supple. No lymph nodes noted. No crepitus CVS: Normal heart rate and rhythm. Pulses normal. Normal S1 and S2 Respiratory: No respiratory distress. Very mild occasional wheezing, very good air movement, oxygen saturation in the high 90s on room air. Abdomen: Soft and nontender. No rigidity. No distention. Skin: Skin warm and dry. Normal skin color. Normal skin turgor. Extremities: No lower extremity edema. No Lacerations. No Rash Neuro: Oriented X 3. No motor deficit. No sensory deficit. Moving all extremities. No slurred speech. CN 2 through 12 grossly intact Psych: calm, cooperative, normal affect Medical Decision Making Medical Decision Making MDM Narrative: My interpretation of labs: No significant abnormality in patient's hematology, chemistry shows a sodium of 129. No other abnormality in patient's chemistry. Normal troponin , serology negative for influenza a, influenza B, RSV and COVID My interpretation of chest x-ray: No acute abnormality. I discussed with our hospitalist Dr. Cervantes that the patient is complaining of dizziness and has a sodium of 129. A few months ago patient had a sodium of 127 had similar symptoms. We will go ahead and keep the patient for observation. Patient's oxygen saturation remains in the high 90s on room air when she walks. Patient no longer having shortness of breath. Patient agrees with plan Differential Diagnosis Differential Diagnoses: The differential diagnosis associated with the presentation includes (Hyponatremia, viral URI, vertigo) Admission/Observation Consideration of admission/observation: Escalation of care including admission/observation considered Consult Healthcare Provider Management of the patient was discussed with: Hospitalist Lab Data [facility] Lab Attestation statement: I reviewed the patient's lab results. 04/16/25 01:13 04/16/25 01:13 Labs: Lab Results 04/16/25 Range/Units 01:13 WBC 4.3 L (4.8-10.8) X10*3/uL RBC 4.05 L (4.20-5.50) X10*6/uL Hgb 12.6 (12.0-16.0) g/dl Hct 34.5 L (37.0-47.0) % MCV 85.2 (80.0-98.0) fL MCH 31.1 (27.0-33.0) pg MCHC 36.5 H (31.0-35.0) g/dl RDW 12.0 (11.0-16.0) % Plt Count 155 L (160-400) X10*3/uL MPV 8.4 L (9.4-12.3) fL Immature Gran % (Auto) 0.2 (0.0-0.4) % Neut % (Auto) 62.9 (45-73) % Lymph % (Auto) 23.5 (20-40) % [place] % (Auto) 9.2 (2-11) % Eos % (Auto) 3.0 (0-4) % Baso % (Auto) 1.2 (0-2) % Lymph # (Auto) 1.0 L (1.2-4.9) X10*3/uL [place] # (Auto) 0.4 (0.1-1.2) X10*3/uL Eos # (Auto) 0.1 (0.0-0.4) X10*3/uL Baso # (Auto) 0.1 (0.0-0.2) X10*3/uL Abs Immat Gran (auto) 0.01 (0.00-0.03) X10*3/uL Absolute Neuts (auto) 2.7 (2.0-8.3) x10*3/uL Absolute Nucleated RBC 0.000 (0.0-0.012) X10*3/uL Nucleated RBC % (auto) 0.0 (0.0-0.2) /100WBC Sodium 129 L (135-145) mmol/L Potassium 4.1 (3.3-5.1) mmol/L Chloride 95 L (96-108) mmol/L Carbon Dioxide 25 (22-29) mmol/L Anion Gap 13 (12-20) BUN 9 (9-16) mg/dL Creatinine 0.72 (0.5-1.4) mg/dL Estim Creat Clear Calc 59.8 Estimated GFR > 60 Random Glucose 97 (60-115) mg/dL Calcium 9.3 (8.4-10.2) mg/dL Total Bilirubin 0.4 (0.0-1.0) mg/dL AST 22 (5-31) U/L ALT 15 (0-31) U/L Alkaline Phosphatase 66 (39-117) U/L Troponin I High Sens < 2.7 (<3.5-17.0) ng/L Total Protein 6.2 L (6.5-8.0) g/dL Albumin 4.4 (3.5-5.0) g/dL Influenza Type A (PCR) NEGATIVE (Negative) Influenza Type B (PCR) NEGATIVE (Negative) RSV RNA Qual (PCR) NEGATIVE (Negative) SARS-CoV-2 RNA (RT-PCR) NEGATIVE (Negative) ABG Data Attestation ABG: I personally reviewed and interpreted this ABG as follows: Independent Interpretation I performed an independent interpretation of an: Plain X-Ray Critical Care Time Critical Care Time Critical Care Time: Yes Total Critical Care Time: 60 Attestation: I have personally provided critical care time. Time includes review of lab data, radiology results, discussion with consultants, and monitoring for potential decompensation. Intervention performed as documented. Discharge Plan Discharge Clinical Impression: Hyponatremia, Viral URI Patient Disposition: Admitted As Inpatient Prescriptions: No Action lorazepam 0.5 mg Tablet 0.5 mg PO BEDTIME PRN (Reason: Anxeity) primidone 50 mg tablet 50 mg PO BID docusate sodium 100 mg capsule 100 mg PO DAILY aripiprazole 20 mg tablet 20 mg PO DAILY bupropion HCl 200 mg tablet sustained-release 12 hr 200 mg PO DAILY lisinopril 5 mg tablet 5 mg PO BEDTIME sertraline 100 mg tablet 100 mg PO DAILY Arnuity Ellipta 100 mcg/actuation blister with device 1 inh inhalation DAILY trazodone 100 mg tablet 100 mg PO BEDTIME PRN (Reason: Insomnia) atorvastatin 10 mg tablet 10 mg PO BEDTIME albuterol sulfate 90 mcg/actuation HFA aerosol inhaler 2 puff PO Q4H PRN (Reason: Shortness Of Breath Or Wheezing) fluticasone propionate 50 mcg/actuation spray,suspension 1 spray intranasal BID PRN (Reason: Nasal Congestion ) loperamide 2 mg capsule 2 mg PO QID PRN (Reason: loose stool) Qty: 20 0RF pantoprazole 40 mg tablet,delayed release (DR/EC) PO prednisone 20 mg tablet 40 mg PO DAILY 5 Days Qty: 10 0RF Print Language: [place]
--- NOTE | 2025-04-16 03:03 | PC.NURSE ---
tolerated ambulating pulse ox well. SpO2 97-98%. charted in worklist. no complaints from patient of dizziness or dyspnea. MD Dong notified. pt back in bed with hisband at bedside
--- NOTE | 2025-04-16 03:45 | PM.IMHP ---
History of Present Illness Date of Service: 04/16/25 Attending physician on admission: Leandro Cervantes Chief Complaint: hyponatremia Patient is a 75-year-old female with past medical history of dry eyes, bipolar disorder, anxiety, adult onset asthma, COPD with exposure to secondhand smoke only, scoliosis, dysphagia, hyponatremia, bradycardia, hyperlipidemia, constipation, hypertension, GERD, dizziness currently on primidone presents to the emergency department with complaints of chest heaviness from suspected asthma exacerbation although chest x-ray is negative for any acute findings. Patient has had no issues with hypoxia. Patient states she has been using her albuterol rescue inhaler more often and believes it is from the smoke coming down from [place]. Patient also has duo nebs at home and has been using those and is close to running out. 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 Patient does offer that she has postnasal drip and is willing to start Claritin as she was considering starting Zyrtec in the outpatient setting. Patient being admitted though for a sodium of 129 with history of hyponatremia. Patient elaborates that about 6 months ago she was diagnosed with dysphagia and are upper scope was negative for any abnormal findings. Patient appears to drink excessive amounts of water throughout the day to include when she is eating and when she is taking her medications. This could be a contributing factor to her low sodium. In addition patient is on sertraline and Wellbutrin and these medications may also be contributing to hyponatremia. Urine studies have been ordered, along with a serum osmolality. Nephrology has been consulted. Patient does describe chronic dizziness and is following with a neurologist but is also going to be seeing a new neurologist for a 2nd opinion as the primidone is not helping her dizziness. Orthostatics have been ordered. Patient's baseline HR is bradycardic. Patient noted to be bradycardic with a sinus arrhythmia and a normal LA interval. Patient has not incomplete right bundle branch block. This is not a new finding. Patient is not on any AV sean blocking agents. Patient's magnesium is stable at 1.9. TSH is pending. BNP also pending. If abnormal an echocardiogram can be considered. Please note that patient recently started primidone due to dizziness and this can contribute to bradycardia. A phenobarbital level has been requested. Patient receives her psychiatric care through [facility]. Patient is also on lorazepam. Patient denies any significant depression anxiety symptoms. Patient also denies any suicidal ideations at this time. Review of Systems Review of Systems: Patient currently denies any chest pain, shortness of breath at rest or with exertion. Patient denies any abdominal pain but is having chronic constipation with straining. Patient denies any nausea or vomiting. Patient is also not describing any fevers or night sweats. Patient denies any recent falls with injury. Patient describes chronic dizziness and is following with a neurologist and will be seeing a new neurologist for a 2nd opinion. Patient denies any near syncopal or syncopal episodes. Yes all other systems are reviewed and are negative [facility] Medical History (Updated 04/16/25 @ 04:45 by ALIZA Godinez) Scoliosis Dysphagia Dysphagia Dry eyes Dizziness Hyperlipidemia Hyponatremia RSV (respiratory syncytial virus infection) Wheezing on auscultation Asthma Anxiety and depression Cognitive capacity: Alert and orientated x3 Functional capacity: independent ambulation Patient : No Social History Household Members: Spouse [facility] Are you a primary home care scheduler to a significant other at home: No Do you presently have visiting nurse or other home services: No Patient Tobacco Use Status: Never used Tobacco Smoked in Last 30 Days: No Use of substances other than those prescribed or required for medical reasons: No Advance Directives: No Advance Directives Information Provided: Yes Do you have a plan to hurt others: No Plan Patient : No service: No Ebola Risk: Travel/Contact With Anyone From Affected Area/s: No Has Patient Experienced Ebola Symptoms: No Meds Allergies Allergy/AdvReac Type Severity Reaction Status Date / Time amoxicillin Allergy Unknown Verified 04/16/25 00:26 ziprasidone [From Geodon] Allergy Shortness Verified 04/16/25 00:26 of Breath aspirin AdvReac Mild Shortness Verified 04/16/25 00:26 of Breath Home Medications ?Medication ?Instructions ?Recorded ?Confirmed ?Last Taken ?Type albuterol sulfate 90 mcg/actuation 2 puff PO Q4H PRN Shortness Of 06/15/21 08/25/24 Unknown History aerosol inhaler Breath Or Wheezing atorvastatin 10 mg tablet 10 mg PO BEDTIME 06/15/21 08/25/24 08/23/24 History bupropion HCl 200 mg tablet,12 hr 200 mg PO DAILY 06/15/21 08/25/24 08/24/24 History sustained-release fluticasone furoate 100 1 inh inhalation DAILY 06/15/21 08/25/24 08/24/24 History mcg/actuation blister powder for inhalation (Arnuity Ellipta) lisinopril 5 mg tablet 5 mg PO BEDTIME 06/15/21 08/25/24 08/23/24 History sertraline 100 mg tablet 100 mg PO DAILY 06/15/21 08/25/24 08/24/24 History trazodone 100 mg tablet 100 mg PO BEDTIME PRN Insomnia 06/15/21 08/25/24 3 Days Ago History ~07/16/24 fluticasone propionate 50 1 spray intranasal BID PRN Nasal 04/02/24 08/25/24 Unknown History mcg/actuation nasal Congestion spray,suspension lorazepam 0.5 mg tablet 0.5 mg PO BEDTIME PRN Anxeity 07/19/24 08/25/24 3 Days Ago History ~07/16/24 aripiprazole 20 mg tablet 20 mg PO DAILY 08/25/24 08/25/24 08/24/24 History docusate sodium 100 mg capsule 100 mg PO DAILY 08/25/24 08/25/24 08/24/24 History primidone 50 mg tablet 50 mg PO BID 08/25/24 08/25/24 08/24/24 History pantoprazole 40 mg tablet,delayed mg PO 12/15/24 Unknown History release Physical Exam Vital Signs and Narrative: Vital Signs: Last Vital Signs Temp 97.1 F 04/16/25 00:21 Pulse 55 04/16/25 01:46 Resp 20 04/16/25 00:21 BP 127/65 04/16/25 01:46 Pulse Ox 98 04/16/25 03:03 O2 Del Method Room Air 04/16/25 00:21 BMI result Body Mass Index 27.8 Alert and orientated X3, able to give good history. Neuro: CN II-X11 intact, no deficits, visual acuity intact EYES: PERRLA, EOM intact, sclerae nonicteric, conjunctiva pink ENT: hearing intact, uvula midline, lips moist, nares patent no epistaxis Cardiac: S1 S2 RRR, bradycardic 55, no murmur, no JVD, no edema in Lower ext Pulmonary: lungs clear to auscultation B Abdominal: BS active in all 4 quadrants, no guarding, tenderness, rebounding MSK: strength 5/5 upper and lower extremities : no CVA tenderness no bladder distension Extremities: no edema in lower extremities, PT and DP pulses palpable +2 Psych: mood stable, judgement and insight good Skin: Intact Results Labs 04/16/25 01:13 04/16/25 01:13 Labs: Laboratory Results - last 24 hr 04/16/25 01:13 MCV 85.2 MCH 31.1 MCHC 36.5 H RDW 12.0 Plt Count 155 L MPV 8.4 L Immature Gran % (Auto) 0.2 Neut % (Auto) 62.9 Lymph % (Auto) 23.5 [place] % (Auto) 9.2 Eos % (Auto) 3.0 Baso % (Auto) 1.2 Lymph # (Auto) 1.0 L [place] # (Auto) 0.4 Eos # (Auto) 0.1 Baso # (Auto) 0.1 Abs Immat Gran (auto) 0.01 Absolute Neuts (auto) 2.7 Absolute Nucleated RBC 0.000 Nucleated RBC % (auto) 0.0 Anion Gap 13 Estim Creat Clear Calc 59.8 Estimated GFR > 60 Random Glucose 97 Calcium 9.3 Total Bilirubin 0.4 AST 22 ALT 15 Alkaline Phosphatase 66 Troponin I High Sens < 2.7 Total Protein 6.2 L Albumin 4.4 Influenza Type A (PCR) NEGATIVE Influenza Type B (PCR) NEGATIVE RSV RNA Qual (PCR) NEGATIVE SARS-CoV-2 RNA (RT-PCR) NEGATIVE ECG Attestation: I personally reviewed and interpreted this ECG as follows: (Sinus bradycardia with normal LA interval with sinus arrhythmia) Prior ECG tracings: available for review Imaging Radiologist's Impressions: Chest x-ray FINDINGS: No consolidation. Mild bibasilar atelectasis. No pleural effusion. No pneumothorax. No cardiomegaly. No acute fracture. Thoracic dextroscoliosis. IMPRESSION: No acute findings. Assessment and Plan (1) Hyponatremia: Status: Acute Plan Patient is a 75-year-old female with past medical history of dry eyes, bipolar disorder, anxiety, adult onset asthma, COPD with exposure to secondhand smoke only, scoliosis, dysphagia, hyponatremia, bradycardia, hyperlipidemia, constipation, hypertension, GERD, dizziness currently on primidone is being admitted under observation for a hyponatremia of 129. According to patient's HPI, patient drinks copious amounts of water throughout the day due to issues with dysphagia. This may be a contributing factor to the hyponatremia. Patient is also on Wellbutrin and sertraline which can contribute to hyponatremia. Hyponatremia -Normal saline at 75 per hour ordered -Repeat BMP in the a.m. -Fluid restriction 1800 ordered, patient reports that she drinks copious amounts of water throughout the day due to chronic dysphagia -Nephrology consult as patient has had chronic issues with hyponatremia -Urine sodium, urine osmolarity and serum osmolarity ordered -Possible source are patient's SSRIs including bupropion and sertraline -BNP pending Dizziness -Orthostatics ordered -Patient recently started primidone and is seeking a 2nd opinion from another neurologist in May of 2025. Patient noted to be bradycardic since starting medication. Consider neurology consult versus advising patient to start medication noting patient's current rhythm. -Phenobarb level pending Sinus Suman with sinus arrhythmia -Based on previous admissions, bradycardia noted since starting primidone for patient's dizziness as ordered by her neurologist -Recommend holding primidone especially since patient states this does not help her dizziness in any way. Phenobarbitol level pending. -Telemetry Chronic dysphagia -ST eval pending -Puree diet requested, patient drinks copious amounts of water while eating -No evidence of aspiration -Aspiration precautions ordered -PPI also ordered Asthma/ postnasal drip -Continue duo nebs p.r.n. -Starting patient on Claritin in the a.m. -Patient follows with financial brokers and we will make an appointment in the near future for further review as patient is using her rescue inhaler more often. Patient could benefit from PFT testing and recommendation for daily treatment. Anxiety/bipolar disorder -Patient is stable on Wellbutrin and sertraline -Patient follows with [facility] -No issues with anxiety or suicidal ideations at this time. DVT prophylaxis: Lovenox PPI prophylaxis: Omeprazole Med rec pending Full code status Quality Stroke Does the patient have a stroke diagnosis?: No Reason for No Anti-thrombotic by Day Two: N/A - Med Ordered VTE Prior VTE?: No VTE Risk Level:: Medical - moderate - high VTE Device Contraindication: N/A - Device Ordered VTE Drug Contraindication: N/A - Med Ordered
[2025-04-16] MEDS: 0.9 % Sodium Chloride 1,000 ML 75 ML IVCONT (04:17)
--- NOTE | 2025-04-16 04:34 | PC.NURSE ---
this nurse observed tech and patient count $265 in turner. patient states she prefers to keep money on her person.
[2025-04-16 04:48] LABS: Osmolality Urine 88 mosm/kg (373-1093)
--- NOTE | 2025-04-16 06:04 | PC.NURSE ---
NS @ 75/hr discontinued now per Dr Cervantes
[2025-04-16] MEDS: Omeprazole 20 MG CAPSULE.DR PO (06:16)
--- NOTE | 2025-04-16 06:17 | PC.NURSE ---
tolerated omeprazole whole in applesauce then chased with thin liquids. no signs of dysphagia. call diop in reach
[2025-04-16 06:20] LABS: MANUAL DIFF FLAG NO
[2025-04-16 06:21] LABS: Eosinophils Absolute Auto 0.1 X10*3/uL (0.0-0.4); Eosinophils Percent Auto 3.6 % (0-4); Hemoglobin 12.6 g/dl (12.0-16.0); Lymphocytes Percent Auto 24.5 % (20-40); Mean Corpuscular Hemoglobin 30.9 pg (27.0-33.0); Mean Corpuscular Volume 85.8 fL (80.0-98.0); Mean Platelet Volume 8.8 fL (9.4-12.3); Monocytes Absolute Auto 0.4 X10*3/uL (0.1-1.2); Monocytes Percent Auto 9.9 % (2-11); Neutrophils Absolute Auto 2.4 x10*3/uL (2.0-8.3); Platelet Count 151 X10*3/uL (160-400); Red Blood Count 4.08 X10*6/uL (4.20-5.50); Red Cell Distribution Width 12.2 % (11.0-16.0); White Blood Count 3.9 X10*3/uL (4.8-10.8)
--- NOTE | 2025-04-16 06:30 | PC.NURSE ---
NS infused. 866 mL wasted per MD direction. 500mL NS bolus ordered by MD Cervantes
[2025-04-16] MEDS: 0.9 % Sodium Chloride 500 ML IV (06:32)
[2025-04-16 06:35] LABS: Osmolality, Serum 281 mosm/kg (281-305)
[2025-04-16 06:39] LABS: B Type Natriuretic Peptide 117 pg/mL (<100)
[2025-04-16 06:41] LABS: Anion Gap 12 (12-20); Blood Urea Nitrogen 8 mg/dL (9-16); Calcium 9.3 mg/dL (8.4-10.2); Carbon Dioxide 26 mmol/L (22-29); Chloride 104 mmol/L (96-108); Creatinine Clr Calc Pharmacy 61.5; Estimated Glomerular Filt Rate > 60; Glucose Random 92 mg/dL (60-115); Magnesium 1.9 mg/dL (1.6-2.6); Sodium 138 mmol/L (135-145)
[2025-04-16 06:56] LABS: Thyroid Stimulating Hormone 2.34 uIU/mL (0.32-4.0)
[2025-04-16] MEDS: polyethylene glycoL 3350 17 GM POWD.PACK PO (08:05)
[2025-04-16] MEDS: Enoxaparin Sodium 40 MG/0.4 ML SYRINGE SUBCUT (08:05)
[2025-04-16] MEDS: Loratadine 10 MG TABLET PO (08:05)
[2025-04-16] MEDS: 0.9 % Sodium Chloride Flush 3 ML SYRINGE IVFLUSH (08:06)
--- NOTE | 2025-04-16 08:31 | PHA.MEDREC ---
Addendum entered by Lv Flores aleah 04/16/25 09:24: MED REC REVIEWED BY [facility] Original Note: Pharmacy Consult ? Medication Reconciliation Pharmacy has completed the medication reconciliation. Spoke with patient to confirm medications. She had a list from home that we went over together. She is finishing her bottle of primidone 50 mg and is taking 4 tablets bid. She confirmed sertraline is 1 and 1/2 tabs and bupropion is once daily. She takes lorazepam bid scheduled and uses and extra tablet as needed during the day. She confirmed use of Arnuity once daily despite last fill per claims in 08/2024. She is not taking docusate, loperamide, or ketorolac eye drops at home.
[2025-04-16] MEDS: LORazepam 0.5 MG TABLET PO (09:48)
[2025-04-16] MEDS: ARIPiprazole 20 MG TABLET PO (09:48)
[2025-04-16] MEDS: Artificial Tears 15 ML DROPS 1 DROP EYE-BOTH (09:48)
--- NOTE | 2025-04-16 10:29 | PC.NURSE ---
Pt will be transitioning to the ED Overflow unit. RN to RN report completed with ORLY Guillaume. Aundrea given opportunity for questions and all questions answered to satisfaction.
--- NOTE | 2025-04-16 12:02 | P.DS_ITS ---
DS: Providers Provider Date of Service: 04/16/25 Date of admission: 04/16/25 03:38 Date of discharge: 04/16/25 Primary care physician: Cathi Mendez MD Consults: 04/16/25 03:46 Consult to Nephrology Routine Consulting Provider: [facility] Reason for consultation: hyponatremia Has provider been notified: No Attending physician on discharge: Juana Montanez Discharging clinician: Ana Cristina Barajas DS: Diagnosis Discharge Diagnosis (1) Hyponatremia: Status: Acute DS: Summary Hospital Course Hospital Course: From H&P on the day of admission Patient is a 75-year-old female with past medical history of dry eyes, bipolar disorder, anxiety, adult onset asthma, COPD with exposure to secondhand smoke only, scoliosis, dysphagia, hyponatremia, bradycardia, hyperlipidemia, constipation, hypertension, GERD, dizziness currently on primidone presents to the emergency department with complaints of chest heaviness from suspected asthma exacerbation although chest x-ray is negative for any acute findings. Patient has had no issues with hypoxia. Patient states she has been using her albuterol rescue inhaler more often and believes it is from the smoke coming down from [place]. Patient also has duo nebs at home and has been using those and is close to running out. 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 Patient does offer that she has postnasal drip and is willing to start Claritin as she was considering starting Zyrtec in the outpatient setting. Patient being admitted though for a sodium of 129 with history of hyponatremia. Patient elaborates that about 6 months ago she was diagnosed with dysphagia and are upper scope was negative for any abnormal findings. Patient appears to drink excessive amounts of water throughout the day to include when she is e ating and when she is taking her medications. This could be a contributing factor to her low sodium. In addition patient is on sertraline and Wellbutrin and these medications may also be contributing to hyponatremia. Urine studies have been ordered, along with a serum osmolality. Nephrology has been consulted. Patient does describe chronic dizziness and is following with a neurologist but is also going to be seeing a new neurologist for a 2nd opinion as the primidone is not helping her dizziness. Orthostatics have been ordered. Patient's baseline HR is bradycardic. Patient noted to be bradycardic with a sinus arrhythmia and a normal IA interval. Patient has not incomplete right bundle branch block. This is not a new finding. Patient is not on any AV sean blocking agents. Patient's magnesium is stable at 1.9. TSH is pending. BNP also pending. If abnormal an echocardiogram can be considered. Please note that patient recently started primidone due to dizziness and this can contribute to bradycardia. A phenobarbital level has been requested. Patient receives her psychiatric care through [facility]. Patient is also on lorazepam. Patient denies any significant depression anxiety symptoms. Patient also denies any suicidal ideations at this time Hyponatremia TSH 2.3. sodium improved from 129 to 138. Likely due to excessive po water intake. No adjustment to psychiatric meds at this time. Recommend outpatient repeat labs in one week. Discussed fluid restriction and changing some oral intake to protein shakes such as ensure. Dizziness Orthostatics negative. dizziness is chronic, she follow with neurology and has a follow up appointment scheduled in two weeks for a second option. she was able to ambulate independently down the hallway without difficulty. recommend outpatient follow up. Sinus Suman able to ambulate without dizziness, bradycardia does not seem to be causing symptoms of dizziness. Blood pressure stable. Phenobarbitol level low normal range. Primidone can be weaned off as outpatient if needed. Chronic dysphagia Puree diet at baseline. tolerated diet. outpatient follow up with GI as needed patient says she came to the hospital for shortness of breath which has now resolved and is requesting to be discharged home. Chest x-ray negative, no leukocytosis, no fever. Influenza a, B, RSV and COVID-19 negative. No shortness a breath at this time, no hypoxia. Time Attestation Discharge Coordination Time (in mins): 32 Quality: Safe Use of Opioids Does Pt have an Active Cancer Diagnosis on the Problem List?: No Quality: Stroke Does the patient have a stroke diagnosis?: No Physical Exam Vital Signs: Vital Signs: Last Vital Signs Temp 97.1 F 04/16/25 04:15 Pulse 73 04/16/25 04:40 Resp 17 04/16/25 04:15 BP 142/93 H 04/16/25 04:40 Pulse Ox 98 04/16/25 04:15 O2 Del Method Room Air 04/16/25 04:15 BMI result Body Mass Index 27.8 Const: General: cooperative, comfortable, no acute distress, alert and awake Nutritional Appearance: average body habitus Orientation/consciousness: patient oriented x3 Resp: Effort & Inspection: normal respiratory effort, able to speak in complete sentences, no respiratory distress and no use of accessory muscles Auscultation: clear to auscultation bilaterally Cardio: Rate: regular rate GI: Inspection: No distended Palpation (GI): Soft to palpation and nontender Neuro: General: patient oriented x3, moves all extremities and CN's II-XI intact bilaterally DS: Data Data Completed and Pending Completed studies during hospitalization [Text1]: Procedures Dilation of Lower Esophagus, Via Natural or Artificial Opening Endoscopic (07/19) Dilation of Upper Esophagus, Via Natural or Artificial Opening Endoscopic (07/19/24) Excision of Duodenum, Via Natural or Artificial Opening Endoscopic, Diagnostic (07/19/24) Excision of Stomach, Pylorus, Via Natural or Artificial Opening Endoscopic, Diagnostic (07/19/24) Labs on day of discharge: Laboratory Results - last 24 hr 04/16/25 04/16/25 04/16/25 01:13 04:22 05:58 WBC 4.3 L 3.9 L RBC 4.05 L 4.08 L Hgb 12.6 12.6 Hct 34.5 L 35.0 L MCV 85.2 85.8 MCH 31.1 30.9 MCHC 36.5 H 36.0 H RDW 12.0 12.2 Plt Count 155 L 151 L MPV 8.4 L 8.8 L Immature Gran % (Auto) 0.2 0.0 Neut % (Auto) 62.9 61.0 Lymph % (Auto) 23.5 24.5 [place] % (Auto) 9.2 9.9 Eos % (Auto) 3.0 3.6 Baso % (Auto) 1.2 1.0 Lymph # (Auto) 1.0 L 1.0 L [place] # (Auto) 0.4 0.4 Eos # (Auto) 0.1 0.1 Baso # (Auto) 0.1 0.0 Abs Immat Gran (auto) 0.01 0.00 Absolute Neuts (auto) 2.7 2.4 Absolute Nucleated RBC 0.000 0.000 Nucleated RBC % (auto) 0.0 0.0 Sodium 129 L 138 Potassium 4.1 4.0 Chloride 95 L 104 Carbon Dioxide 25 26 Anion Gap 13 12 BUN 9 8 L Creatinine 0.72 0.70 Estim Creat Clear Calc 59.8 61.5 Estimated GFR > 60 > 60 Random Glucose 97 92 Osmolality 281 Calcium 9.3 9.3 Magnesium 1.9 Total Bilirubin 0.4 AST 22 ALT 15 Alkaline Phosphatase 66 Troponin I High Sens < 2.7 B-Natriuretic Peptide Total Protein 6.2 L Albumin 4.4 TSH Urine Osmolality 88 L Ur Random Sodium 31.0 Phenobarbital Influenza Type A (PCR) NEGATIVE Influenza Type B (PCR) NEGATIVE RSV RNA Qual (PCR) NEGATIVE SARS-CoV-2 RNA (RT-PCR) NEGATIVE 04/16/25 05:58 WBC RBC Hgb Hct MCV MCH MCHC RDW Plt Count MPV Immature Gran % (Auto) Neut % (Auto) Lymph % (Auto) [place] % (Auto) Eos % (Auto) Baso % (Auto) Lymph # (Auto) [place] # (Auto) Eos # (Auto) Baso # (Auto) Abs Immat Gran (auto) Absolute Neuts (auto) Absolute Nucleated RBC Nucleated RBC % (auto) Sodium Potassium Chloride Carbon Dioxide Anion Gap BUN Creatinine Estim Creat Clear Calc Estimated GFR Random Glucose Osmolality Calcium Magnesium Cancelled Total Bilirubin AST ALT Alkaline Phosphatase Troponin I High Sens B-Natriuretic Peptide 117 H Total Protein Albumin TSH 2.34 Urine Osmolality Ur Random Sodium Phenobarbital 11.4 Influenza Type A (PCR) Influenza Type B (PCR) RSV RNA Qual (PCR) SARS-CoV-2 RNA (RT-PCR) Discharge Plan Discharge Patient Disposition: Home, Self-Care Discharge Diagnosis: hyponatremia - resolved chronic dizziness Referrals: Cathi Mendez MD [Primary Care Provider] - 1 Week Discharge Medications: Continued calcium carbonate [Calcium 600] 600 mg calcium (1,500 mg) Tablet 600 mg PO DAILY lorazepam 0.5 mg tablet 0.5 mg PO DAILY PRN (Reason: anxiety) coenzyme Q10 [Co Q-10] 100 mg Capsule 100 mg PO DAILY Systane (PF) 0.4-0.3 % Dropperette 1 drp OPHTHALMIC (EYE) BID cholecalciferol (vitamin D3) 50 mcg (2,000 unit) Tablet 50 mcg PO DAILY lorazepam 0.5 mg Tablet 0.5 mg PO BID primidone 50 mg tablet 200 mg PO BID aripiprazole 20 mg tablet 20 mg PO DAILY bupropion HCl 200 mg tablet sustained-release 12 hr 200 mg PO DAILY lisinopril 5 mg tablet 5 mg PO BEDTIME sertraline 100 mg tablet 150 mg PO DAILY Arnuity Ellipta 100 mcg/actuation blister with device 1 inh inhalation DAILY trazodone 100 mg tablet 100 mg PO BEDTIME atorvastatin 10 mg tablet 10 mg PO BEDTIME albuterol sulfate 90 mcg/actuation HFA aerosol inhaler 2 puff PO Q4-6H PRN (Reason: Shortness Of Breath Or Wheezing) fluticasone propionate 50 mcg/actuation spray,suspension 1 spray intranasal BID PRN (Reason: Nasal Congestion ) pantoprazole 40 mg tablet,delayed release (DR/EC) 40 mg PO BID Discharge Orders: Discharge Order (Routine); Ordered 04/16/25 Ordered By: Ana Cristina Barajas Activity on Discharge: As tolerated Stand Alone Forms: Patient Portal Discharge page Print Language: Cape Verdean Other Ambulatory Orders: Basic Metabolic Panel (Routine) Timeframe: 1 Week Facility: [facility] - Location: Laboratory Ordered By: Ana Cristina Barajas Care Plan Goals: see below Health Concerns: low sodium levels Plan of Treatment: reduce water intake, drink ensure- recommend no more then 2L of fluid intake daily call to schedule follow up with PCP call to schedule follow up with neurology to wean off primidone if you feel symptoms are not improving no changes made to medications repeat sodium level in one week Assessment: see discharge summary
== END 2025-04-16 12:58 | disposition home or self-care (01) ==
LOC: HO.ED 04:02 → HO.EDOVER 04:31
PROVIDERS: Nurse Practitioner Family; Admitting Provider Student in an Organized Health Care Education/Training Program; Emergency Provider Emergency Medicine; PCP Internal Medicine; Visit Provider Physician Assistant Medical
DX: J06.9 Acute upper respiratory infection, unspecified (principal); E87.1 Hypo-osmolality and hyponatremia; R07.9 Chest pain, unspecified; R05.9 Cough, unspecified; R06.02 Shortness of breath; J44.9 Chronic obstructive pulmonary disease, unspecified; M41.9 Scoliosis, unspecified; I10 Essential (primary) hypertension; K21.9 Gastro-esophageal reflux disease without esophagitis; R00.1 Bradycardia, unspecified; R13.10 Dysphagia, unspecified; Z03.818 Encounter for observation for suspected exposure to other biological agents ruled out; Z79.899 Other long term (current) drug therapy
CPT/HCPCS: 0241U; 36415; 71045; 80048; 80053; 80184; 83735; 83880; 83930; 83935; 84300; 84443; 84484; 85025; 93005; 96360; 96361; 96372; 99285; J1650

== ENCOUNTER → 2025-04-16 00:33 | Outpatient (BNV) | payer MEDICARE, SELFPAY | PROVIDERS: Admitting Provider Student in an Organized Health Care Education/Training Program; Emergency Provider Emergency Medicine; PCP Internal Medicine; Visit Provider Radiology Diagnostic Radiology | DX: R06.02 Shortness of breath (principal) | CPT/HCPCS: 71045 ==

== ENCOUNTER → 2025-04-16 00:35 | Outpatient (BNV) | payer MEDICARE, SELFPAY | PROVIDERS: Admitting Provider Student in an Organized Health Care Education/Training Program; Emergency Provider Emergency Medicine; PCP Internal Medicine; Visit Provider Internal Medicine Cardiovascular Disease | DX: I45.10 Unspecified right bundle-branch block (principal); I49.9 Cardiac arrhythmia, unspecified; R00.1 Bradycardia, unspecified | CPT/HCPCS: 93010 ==

== ENCOUNTER → 2025-04-16 03:38 | Outpatient (BNV) | payer MEDICARE, SELFPAY | PROVIDERS: Admitting Provider Student in an Organized Health Care Education/Training Program; Emergency Provider Emergency Medicine; PCP Internal Medicine; Visit Provider Nurse Practitioner Family | DX: E87.1 Hypo-osmolality and hyponatremia (principal) | CPT/HCPCS: 99223 ==

== ENCOUNTER 2025-05-02 13:46 | Outpatient (AMB) | payer MEDICARE, SELFPAY ==
--- NOTE | 2025-05-02 14:01 | A.OFFVIS_ITS ---
Vital Signs 05/02/25 14:05 Height 5 ft 1 in Weight 135 lb BMI 25.5 BP 116/72 Blood Pressure Location Rt brachial Position Sitting Pulse 73 Pulse Source Pulse Oximeter Pulse Oximetry (%) 100 Oxygen Delivery Method Room Air Intake Visit Reasons: ENP - Tremor Intake Note: Patient referred for tremor Allergies amoxicillin Allergy (Verified 05/02/25 14:05) Unknown ziprasidone (From Geodon) Allergy (Verified 05/02/25 14:05) Shortness of Breath aspirin Adverse Reaction (Mild, Verified 05/02/25 14:05) Shortness of Breath Medication List - Last Reconciled 05/02/25 by Marita Pisano MD albuterol sulfate 90 mcg/actuation 2 puffs PO Q4-6H PRN aripiprazole 20 mg PO DAILY atorvastatin 10 mg PO BEDTIME benztropine 0.5 mg PO BID bupropion HCl SR 200 mg PO DAILY calcium carbonate (Calcium 600) 600 mg PO DAILY cholecalciferol (vitamin D3) 50 mcg PO DAILY coenzyme Q10 (Co Q-10) 100 mg PO DAILY fluticasone furoate 100 mcg/actuation (Arnuity Ellipta) 1 inh inhalation DAILY fluticasone propionate 50 mcg/actuation 1 spray intranasal BID PRN lisinopril 5 mg PO BEDTIME lorazepam 0.5 mg PO BID pantoprazole 40 mg PO BID peg 400-propylene glycol (PF) 0.4-0.3 % (Systane (PF)) 1 drp ophthalmic (eye) BID primidone 200 mg PO BID sertraline 150 mg PO DAILY trazodone 100 mg PO BEDTIME HPI Comments Details: 75 Right handed female comes for evaluation of tremors.she started noticing tremors in her hands about 2 years ago. The tremors are worse in her right hand , present with rest and posture. she also noticed that her right hand fine motor coordination is slow. she has trouble writing ,trouble with dressing , showering , turning in bed using utensils. Her speech is softer , delayed slow, word finding difficulty. she denies drooling she has dysphagia - f/u [place] at [facility]. she finds it hard to turn in bed. Her walking is poor . she has had some falls recently. she has constipation - she manages with diet. she denies hallucinations, diplopia , vertigo she has h/o bipolar disorder -on abilify . she was seen by Dr. Chu and was started on Primidone but she could not tolerate higher doses. Memory- good sleep- good , no sleep talking , has snoring, bruxisn. she has tried geodon in the past. [facility] Medical History Scoliosis Dysphagia Dysphagia Dry eyes Dizziness Hyperlipidemia Hyponatremia RSV (respiratory syncytial virus infection) Wheezing on auscultation Asthma Anxiety and depression Surgical History H/O endoscopy Social History Household Members: [facility] Are you a primary career development counselor to a significant other at home: No Do you presently have visiting nurse or other home services: No Patient Tobacco Use Status: Never used Tobacco service: No Physical Exam Vital Signs: Last Vital Signs Pulse 73 05/02/25 14:05 BP 116/72 05/02/25 14:05 Pulse Ox 100 05/02/25 14:05 Oxygen Delivery Method Room Air 05/02/25 14:05 BMI result Body Mass Index 25.5 Const General: cooperative, healthy appearing and comfortable Nutritional Appearance: average body habitus Orientation/consciousness: patient oriented x3 Neuro Other: severely decreased blink and facial expression perioral contraction No dyskinesia Right UE rest tremors FFM and foot taps decreased R>L Gait- stooped no arm swing on the right Right hand rest tremors Right elbow - 1 + cog wheel rigidity speech- mild prosody Perioral movements - contraction General: patient oriented x3, moves all extremities and no focal motor deficits Cranial nerves: Yes Facial sensation intact/muscles of mastication intact, Yes Bilaterally intact EOM present, Yes Nystagmus not present, Yes Normal facial strength present and Yes Ability to bilaterally elevate shoulders present Cognition (Neuro): normal cognition Gait exam (Neuro): Normal gait present Motor exam (neuro): 5/5 motor strength present throughout Deep tendon reflexes (DTR's): Right triceps reflex intensity grade: 3+, Left triceps reflex intensity grade: 3+, Rt Biceps (C5, C6): 3+, Left biceps reflex intensity grade: 3+, Right brachioradialis reflex intensity grade: 3+, Left brachioradialis reflex intensity grade: 3+, Right patellar reflex intensity grade: 3+ and Left patellar reflex intensity grade: 3+ Coordination: [id number] test normal Assessment & Plan Assessment & Plan (1) Parkinsonism: Comment: ? idiopathic vs med induced Code(s): G20.C - Parkinsonism, unspecified Category: Medical Qualifiers: Parkinsonism type: secondary Parkinsonism Secondary Parkinsonism type: neuroleptic-induced Qualified Code(s): G21.11 - Neuroleptic induced parkinsonism; T43.505A - Adverse effect of unspecified antipsychotics and neuroleptics, initial encounter Plan I will trial her on benztropine 0.5 mg bid MRI brain to r/o structural causes KATHARINE scan for parkinsonism Continue exercise taper primidone Orders: Orders DaTscan Today G20.C - Parkinsonism, unspecified MR head/brain wo con Today G20.C - Parkinsonism, unspecified Medications: New benztropine 0.5 mg PO BID 60 tabs 5RF Coding Level of Care Code New Pt Level 4 (42239) Complex EM visit Add On G2211 Diagnoses Neuroleptic-induced parkinsonism G21.11; T43.505A Parkinsonism type: secondary Parkinsonism Secondary Parkinsonism type: neuroleptic-induced
[2025-05-02 14:05] VITALS: BP 116/72; PULSE 73; O2SAT 100; BMI 25.5
--- OUTSIDE RECORDS SUMMARY | 2025-05-02 14:55 | XMS_ITS | Encounter Summary ---
Author Organization [facility] Address [address] [place] [address] Care Team Providers Care Acid Conditioner Name Role Phone Cathi Mendez MD Primary Care Provider [phone] Encounter Details Date Type Department Care Team (Latest Contact Info) Description 09/07/2024 Lab Requisition [facility] - Main Lab [address] [facility] [place] [phone] Awilda Grande MD [address] [phone] Encounter for gynecological examination (general) (routine) without [...] Care Team (Late st Contact Info) Description 06/29/2025 2:00 PM EDT Office Visit Adult Medicine [facility] [address] [place] [address] Cathi Mendez MD [address] [place], [place] 10/18/2025 1:45 PM EST Office Visit Pulmonolgy - [place] [address] [facility] [address] [place] [phone] Osei Murray MD [address] [facility] [address] [place] [address] documented as of this encounter Procedures Procedure Name Priority Date/Time Associated Diagnosis Comments PAP SMEAR Routine 09/06/2024 Encounter for gynecological examination (general) (routine) without abnormal findings documented in this encounter Results * Pap smear (09/06/2024) Interpretation Negative for intraepithelial lesion or malignancy 09/15/2024 10:23 AM [facility] General Categorization Negative 09/15/2024 10:23 AM [facility] Other Findings Atrophy 09/15/2024 10:23 AM [facility] Specimen Adequacy Satisfactory for evaluation, endocervical/corcoran sformation zone component present 09/15/2024 10:23 AM [facility] Pap Methodology Liquid Based Pap Test 09/15/2024 10:23 AM [facility] Disclaimer The Pap test is a screening test which carries an inherent false negative rate. These test results should be correlated with the patient's clinical findings and history. This Pap test was processed using an automated screening system. Technical cytopathology services provided by [facility], at [address] [facility], [place] [address] (CLIA # [id number]/Jodie Wheeler MD, Sharepoint Admin.) 09/15/2024 10:23 AM [facility] Console Pap Interpretation Reported 09/15/2024 10:23 AM [facility] Brushing/Spatula Cervix uteri structure / Unknown 09/06/2024 09/07/2024 3:42 PM EST us Awilda Grande MD LAB CYTOLOGY ORDERABLES Final Result Performing Organization Address City/State/[facility] Co de Phone Number [facility] [address] [place] [address], documented in this encounter Visit Diagnoses Diagnosis Encounter for gynecological examination (general) (routine) without abnormal findings documented in this encounter Care Teams Acid Conditioner Relationship Specialty Start Date End Date Cathi Mendez MD [address] [place] [address] PCP - General Internal Medicine 09/16/21 documented as of this encounter
== END 2025-05-02 14:51 | disposition home or self-care (01) ==
LOC: HO.HSMS 13:47
PROVIDERS: PCP Internal Medicine; Visit Provider Psychiatry & Neurology Neurology
DX: G21.11 Neuroleptic induced parkinsonism (principal); T43.505A Adverse effect of unspecified antipsychotics and neuroleptics, initial encounter
CPT/HCPCS: 99204; G2211

== ENCOUNTER → 2025-05-02 13:46 | Outpatient (BNVA) | payer MEDICARE, SELFPAY | PROVIDERS: PCP Internal Medicine; Visit Provider Psychiatry & Neurology Neurology | DX: G21.11 Neuroleptic induced parkinsonism (principal); T43.505A Adverse effect of unspecified antipsychotics and neuroleptics, initial encounter; R13.10 Dysphagia, unspecified; F31.9 Bipolar disorder, unspecified; F31.70 Bipolar disorder, currently in remission, most recent episode unspecified; Z79.899 Other long term (current) drug therapy; Z91.81 History of falling | CPT/HCPCS: 99202 ==

== ENCOUNTER 2025-05-08 10:36 | Outpatient (AMB) | payer MEDICARE, SELFPAY ==
--- NOTE | 2025-05-08 10:43 | MHC.OFFVIS ---
Vital Signs 05/08/25 10:45 Height 5 ft 1 in Weight 134 lb 7.712 oz BMI 25.4 BP 125/77 Blood Pressure Location Lt brachial Position Sitting Pulse 75 Intake Visit Reasons: follow up routine Intake Note: Vanessa presents in the office as a routine follow up. CC: she wants to know if there is a Rx or something that she can have to get real food blends puree food products. Allergies amoxicillin Allergy (Verified 05/08/25 10:46) Unknown ziprasidone (From Geodon) Allergy (Verified 05/08/25 10:46) Shortness of Breath aspirin Adverse Reaction (Mild, Verified 05/08/25 10:46) Shortness of Breath HPI HPI follow up routine: Details: 75 yr old f here for f/u She had EGD 08/25 for possible food impaction just noted to have erosive duodenitis, fundic gland poylps and had balloon dilation Before that had had EGD 07/26 with similar findings, and also dialtion--path neg for EoE She feels the dilation helped her maybe 90% once every few weeks she will feel choking and food sticking, katie bread, occ cheese she takes pureed solids generally she takes pantoprazole twice a day and she thinks it helps she is seeing neuro for tremor and awaiting tests incl MRI etc EXAM: GENERAL: The patient is well developed and nontoxic. VITAL SIGNS:see workflow HEENT: Nonicteric sclerae, PERRLA, EOMI. Oropharynx clear. Moist mucous membranes. Conjunctivae appear well perfused. No thyroid mass. CHEST: Chest wall is nontender. HEART: Regular rate and rhythm without murmurs. LUNGS: Clear to auscultation bilaterally. ABDOMEN: Soft, positive bowel sounds, nontender, no organomegaly.no flank tenderness SKIN: No rash, no excessive bruising, petechiae, or purpura. NEUROLOGIC: Cranial nerves II-XII intact without motor/sensory deficit. tremor noted Psych: normal affect A/P: 1/ Dysphagia ? dysmotility, or underlying neuro d/o PLAN: 1/ repet ba swallow with pill 2/ manometry 3/cont with PPI for the meantime [facility] Medical History (Updated 05/08/25 @ 11:26 by Kimberly Charles MD) Parkinsonism Scoliosis Dysphagia Dysphagia Dry eyes Dizziness Hyperlipidemia Hyponatremia RSV (respiratory syncytial virus infection) Wheezing on auscultation Asthma Anxiety and depression Surgical History (Updated 05/08/25 @ 10:46 by PERRI Ellis) Hx of colonoscopy H/O endoscopy Social History Household Members: [facility] Are you a primary acute care certified nursing assistant to a significant other at home: No Do you presently have visiting nurse or other home services: No Patient Tobacco Use Status: Never used Tobacco service: No Physical Exam Vital Signs: Last Vital Signs Pulse 75 05/08/25 10:45 BP 125/77 05/08/25 10:45 BMI result Body Mass Index 25.4 Assessment & Plan Assessment & Plan (1) Dysphagia: Code(s): R13.10 - Dysphagia, unspecified Category: Medical Qualifiers: Dysphagia type: unspecified Qualified Code(s): R13.10 - Dysphagia, unspecified Plan: as above Orders: Orders FL barium swallow with air Today R13.10 - Dysphagia, unspecified Coding Level of Care Code Est Pt Level 3 (66590) Diagnoses Dysphagia, unspecified type R13.10 Dysphagia type: unspecified
[2025-05-08 10:45] VITALS: BP 125/77; PULSE 75; BMI 25.4
--- OUTSIDE RECORDS SUMMARY | 2025-05-08 11:28 | XMS_ITS | Encounter Summary ---
Author Organization [facility] Address [address] [place] [address] Care Team Providers Care Valve Fitter Name Role Phone Cathi Mendez MD Primary Care Provider [phone] Encounter Details Date Type Department Care Team (Latest Contact Info) Description 09/07/2024 Lab Requisition [facility] - Main Lab [address] [facility] [place] [phone] Awilda Grande MD [address] [phone] Encounter for gynecological examination (general) (routine) without [...] 2:00 PM EDT Office Visit Adult Medicine [facility] [address] [place] [address] Cathi Mendez MD [address] [place], [place] 10/18/2025 1:45 PM EST Office Visit Pulmonolgy - [place] [address] [facility] [address] [place] [phone] Osei Murray MD [address] [facility] [address] [place] [address] documented as of this encounter Procedures Procedure Name Priority Date/Time Associated Diagnosis Comments PAP SMEAR Routine 09/06/2024 Encounter for gynecological examination (general) (routine) without abnormal findings documented in this encounter Results * Pap smear (09/06/2024) Interpretation Negative for intraepithelial lesion or malignancy 09/15/2024 10:23 AM [facility] General Categorization Negative 09/15/2024 10:23 AM [facility] Other Findings Atrophy 09/15/2024 10:23 AM [facility] Specimen Adequacy Satisfactory for evaluation, endocervical/corcoran sformation zone component present 09/15/2024 10:23 AM [facility] Pap Methodology Liquid Based Pap Test 09/15/2024 10:23 AM [facility] Disclaimer The Pap test is a screening test which carries an inherent false negative rate. These test results should be correlated with the patient's clinical findings and history. This Pap test was processed using an automated screening system. Technical cytopathology services provided by [facility], at [address] [facility], [place] [address] (CLIA # [id number]/Jodie Wheeler MD, Electric Operator.) 09/15/2024 10:23 AM [facility] Console Pap Interpretation Reported 09/15/2024 10:23 AM [facility] Brushing/Spatula Cervix uteri structure / Unknown 09/06/2024 09/07/2024 3:42 PM EST us Awilda Grande MD LAB CYTOLOGY ORDERABLES Final Result Performing Organization Address City/State/[facility] Co de Phone Number [facility] [address] [place] [address], documented in this encounter Visit Diagnoses Diagnosis Encounter for gynecological examination (general) (routine) without abnormal findings documented in this encounter Care Teams Valve Fitter Relationship Specialty Start Date End Date Cathi Mendez MD [address] [place] [address] PCP - General Internal Medicine 09/16/21 documented as of this encounter
== END 2025-05-08 11:24 | disposition home or self-care (01) ==
LOC: HO.HGI 10:37
PROVIDERS: PCP Internal Medicine; Visit Provider Internal Medicine Gastroenterology
DX: R13.10 Dysphagia, unspecified (principal)
CPT/HCPCS: 99213

== ENCOUNTER → 2025-05-08 10:36 | Outpatient (BNVA) | payer MEDICARE, SELFPAY | PROVIDERS: PCP Internal Medicine; Visit Provider Internal Medicine Gastroenterology | DX: R13.10 Dysphagia, unspecified (principal); Z79.899 Other long term (current) drug therapy | CPT/HCPCS: 99212 ==

== ENCOUNTER 2025-05-12 17:27 | Outpatient (REF) | payer MEDICARE, SELFPAY ==
--- NOTE | ~2025-05-12 | MR_ITS ---
EXAMINATION: MR BRAIN WITHOUT CONTRAST CLINICAL INFORMATION: Parkinsonism, unspecified. COMPARISON: Correlated to CT dated August 25, 2024. TECHNIQUE: MRI of the brain was obtained using routine sequences without contrast. FINDINGS: No restricted diffusion. Prominence of the extra-axial CSF spaces cerebral sulci involving mostly the frontal parietal poles, bilaterally. There is prominence of the cerebellar folia. No acute intracranial hemorrhage, mass effect, midline shift, hydrocephalus or herniation. No signal abnormality within the substantia nigra. Sellar/suprasellar region demonstrated no signal abnormality or masses. Craniocervical junction demonstrates normal position of the cerebellar tonsils. Flow-void signal within the main cerebral vessels is normal. MR/MR head/brain wo con IMPRESSION: No acute stroke/ischemia. No acute intracranial hemorrhage. Bifrontal biparietal atrophy. Cerebellar atrophy which could be related to neurodegenerative disorder. Electronically signed by: Saroj Gu MD 05/15/2025 08:08 AM EDT
== END 2025-05-12 17:28 | disposition home or self-care (01) ==
LOC: HO.MRI 17:27
PROVIDERS: PCP Internal Medicine; Visit Provider Psychiatry & Neurology Neurology
DX: G20.C Parkinsonism, unspecified (principal)
CPT/HCPCS: 70551

== ENCOUNTER → 2025-05-12 17:27 | Outpatient (BNV) | payer MEDICARE, SELFPAY | PROVIDERS: PCP Internal Medicine; Visit Provider Radiology Diagnostic Radiology | DX: G31.9 Degenerative disease of nervous system, unspecified (principal) | CPT/HCPCS: 70551 ==

== ENCOUNTER 2025-06-14 07:51 | Outpatient (REF) | payer MEDICARE, SELFPAY ==
--- NOTE | ~2025-06-14 | FL_ITS ---
EXAMINATION: Barium swallow with air. CLINICAL INDICATION: Dysphagia. COMPARISON: None. FINDINGS: Following oral administration of thick barium and effervescent granules there is normal propagation bolus from the oral cavity through the pharynx, esophagus into stomach. There are prominent tertiary peristalsis seen in the mid and distal esophagus. On oral administration of saltine crackers coated with barium paste there is normal oral mastication with propagation of food from the pharynx, esophagus into stomach. No intrinsic obstruction extrinsic compression seen. No laryngeal penetration or aspiration seen. No retention of barium in the valleculae or piriform sinuses. On placing patient prone lying and oral administration of thin barium there is good distention of the entire esophagus without intraluminal filling defects. There are tertiary peristalsis in the mid and distal esophagus. FL/FL barium swallow with air IMPRESSION: Prominent tertiary peristalsis in mid and distal esophagus suggestive of Presbyesophagus. No esophageal obstruction or extrinsic compression seen. Fluoroscopy time: 2 minutes 52 seconds. DAP: 1343 mGy/cm. Electronically signed by: Gabriele Aviles MD 06/14/2025 09:27 AM EDT
--- OUTSIDE RECORDS SUMMARY | 2025-06-14 07:54 | XMS_ITS | Encounter Summary ---
Author Organization [facility] Address [address] [facility] [address] [place] [address] Phone Care Team Providers Care Mail Deliverer Name Role Phone Cathi Mendez MD Primary Care Provider [phone] Encounter Details Date Type Department Care Team (Late st Contact Info) Description 05/17/2022 Procedure Pass [facility], Ct Scan - [address] [address] Social History Tobacco Use Types Packs/Day Years Used Date Smoking Tobacco: Never Alcohol Use Standard Drinks/Week Comments Not Currently 0 (1 standard drink = 0.6 oz pur e alcohol) Comments Unknown Sex and Gender Information Value Date Recorded Sex Assigned at Female 05/17/2022 1:48 PM EDT Legal Sex Female 1:30 PM EDT Gender Identity Female 05/17/2022 1:48 PM EDT Sexual Orientation Choose not to disclose 2021 1:48 PM EDT documented as of this encounter Functional Status * Calculated C-SSRS Risk Score (Lifetime/Recent) Answer Date of Assessment Author No Risk Indicated 05/17/2022 1:47 PM EDT Ani Corbin, ORLY * [facility] Suicide Severity Rating Scale (Screener/Recent Self-Report) Question Answer Date of Assessment Author 1. Wish to be (Past 1 Month) No 022 1:47 PM EDT Ani Corbin, RN 2. Non-Specific Active Suici fabrice Thoughts (Past 1 Month) No 05/17/2022 1:47 PM EDT Ani Corbin, RN 6. Suicidal Behavior (Lifetime) No 1:47 PM Ani Frank RN documented as of this encounter Plan of Treatment Not on file documented as of this encounter Visit Diagnoses Not on filedocumented in this encounter Care Teams Mail Deliverer Relationship Specialty Start Date End Date Cathi Mendez MD [address] [place] [address] PCP - General Internal Medicine 05/17/22 documented as of this encounter Additional Source Comments The information contained in this document represents components of the legal health record. It is not the complete legal health record.[facility]
--- OUTSIDE RECORDS SUMMARY | 2025-06-14 07:54 | XMS_ITS | Encounter Summary ---
Author Organization [facility] Address [address] [place] [address] Care Team Providers Care Skoog Patching Machine Operator Name Role Phone Cathi Mendez MD Primary Care Provider [phone] Encounter Details Date Type Department Care Team (Latest Contact Info) Description 09/07/2024 Lab Requisition [facility] - Main Lab [address] [facility] [place] [phone] Awilda Grande MD [address] [phone] Encounter for gynecological examination (general) (routine) without [...] 2:00 PM EDT Office Visit Adult Medicine [facility] [address] [place] [address] Cathi Mendez MD [address] [place], [place] 10/18/2025 1:45 PM EST Office Visit Pulmonolgy - [place] [address] [facility] [address] [place] [phone] Osei Murray MD [address] [facility] [address] [place] [address] documented as of this encounter Procedures Procedure Name Priority Date/Time Associated Diagnosis Comments PAP SMEAR Routine 09/06/2024 Encounter for gynecological examination (general) (routine) without abnormal findings documented in this encounter Results * Pap smear (09/06/2024) Interpretation Negative for intraepithelial lesion or malignancy 09/15/2024 10:23 AM [facility] General Categorization Negative 09/15/2024 10:23 AM [facility] Other Findings Atrophy 09/15/2024 10:23 AM [facility] Specimen Adequacy Satisfactory for evaluation, endocervical/corcoran sformation zone component present 09/15/2024 10:23 AM [facility] Pap Methodology Liquid Based Pap Test 09/15/2024 10:23 AM [facility] Disclaimer The Pap test is a screening test which carries an inherent false negative rate. These test results should be correlated with the patient's clinical findings and history. This Pap test was processed using an automated screening system. Technical cytopathology services provided by [facility], at [address] [facility], [place] [address] (CLIA # [id number]/Joide Wheeler MD, Sound Installation Worker.) 09/15/2024 10:23 AM [facility] Console Pap Interpretation Reported 09/15/2024 10:23 AM [facility] Brushing/Spatula Cervix uteri structure / Unknown 09/06/2024 09/07/2024 3:42 PM EST us Awilda Grande MD LAB CYTOLOGY ORDERABLES Final Result Performing Organization Address City/State/[facility] Co de Phone Number [facility] [address] [place] [address], documented in this encounter Visit Diagnoses Diagnosis Encounter for gynecological examination (general) (routine) without abnormal findings documented in this encounter Care Teams Skoog Patching Machine Operator Relationship Specialty Start Date End Date Cathi Mendez MD [address] [place] [address] PCP - General Internal Medicine 09/16/21 documented as of this encounter
== END 2025-06-14 07:52 | disposition home or self-care (01) ==
LOC: HO.XRAY 07:51
PROVIDERS: PCP Internal Medicine; Visit Provider Internal Medicine Gastroenterology
DX: R13.10 Dysphagia, unspecified (principal)
CPT/HCPCS: 74221

== ENCOUNTER → 2025-06-14 07:52 | Outpatient (BNV) | payer MEDICARE, SELFPAY | PROVIDERS: PCP Internal Medicine; Visit Provider Radiology Diagnostic Radiology | DX: R13.10 Dysphagia, unspecified (principal) | CPT/HCPCS: 74221 ==

== ENCOUNTER 2025-09-03 17:50 | Emergency (ER) | payer MEDICARE, SELFPAY ==
--- NOTE | ~2025-09-03 | XR_ITS ---
CLINICAL HISTORY: trauma, pain Left shoulder three views Comparison: None provided Findings: Nondisplaced distal left clavicle fracture. No other acute bony abnormality. Degenerative change glenohumeral joint. Impression: Nondisplaced distal left clavicle fracture This document has been electronically signed by: Zi Archuleta MD on 09/03/2025 22:53:45
--- NOTE | ~2025-09-03 | XR_ITS ---
CLINICAL HISTORY: left chest wall pain after fall Frontal chest and left ribs two views Comparison: Same date Findings: No acute fracture or dislocation. No focal bony abnormality. Dextroscoliosis thoracic spine. Impression: No acute bony abnormality This document has been electronically signed by: Zi Archuleta MD on 09/03/2025 22:52:00
--- NOTE | ~2025-09-03 | XR_ITS ---
CLINICAL HISTORY: syncope Chest Radiograph Comparison: 04/16/2025 Findings: Prominent sized heart. Unchanged mediastinal contours. No pneumothorax. No opacity. No pleural effusion. No acute findings in the upper abdomen. No acute fracture. Moderate to severe dextrocurvature of the thoracic spine. Impression: No acute findings. This document has been electronically signed by: Michell Parikh MD on 09/03/2025 19:35:14
--- NOTE | ~2025-09-03 | CT_ITS ---
CLINICAL HISTORY: fall, head strike CT head without contrast Comparison: MR - MR HEAD/BRAIN WO CON - 05/12/25 17:[address]/SR - CT HEAD/BRAIN WO IV CON - 08/25/24 00:37 EDT Findings: No acute hemorrhage. No extra-axial fluid collection. No hydrocephalus, mass-effect or herniation. Avitia-white differentiation is maintained. White matter is within normal limits for age. No acute orbital pathology. Left superolateral orbital soft tissue swelling. No fracture. The visualized paranasal sinuses are predominantly clear. The mastoid air cells are clear. Impression: No acute intracranial findings. This document has been electronically signed by: Michell Parikh MD on 09/03/2025 19:46:26
--- NOTE | ~2025-09-03 | CT_ITS ---
CLINICAL HISTORY: fall, head strike CT cervical spine without contrast Comparison: None available Findings: Normal alignment. No fracture. No severe central spinal canal stenosis. No epidural hematoma. Normal thickness of the prevertebral soft tissues. The lung apices are clear. Impression: No acute findings. This document has been electronically signed by: Michell Parikh MD on 09/03/2025 19:44:07
[2025-09-03 18:01] VITALS: BP 128/77; BP 131/79; PULSE 59; PULSE 63; RESP 17; TEMP 36.5; O2SAT 100; O2SAT 97; BMI 27.2
--- NOTE | 2025-09-03 18:24 | ECG_ITS ---
Test Reason : SYNCOPE Blood Pressure : */* mmHG Vent. Rate : 60 BPM Atrial Rate : 60 BPM P-R Int : 168 ms QRS Dur : 94 ms QT Int : 416 ms P-R-T Axes : 51 -34 55 degrees QTcB Int : 416 ms Normal sinus rhythm Left axis deviation Incomplete right bundle branch block Abnormal ECG When compared with ECG of 16-Apr-2025 00:42, No significant change was found Referred By: Audra Myers Electronically Signed By: Estevan Lombardo
--- OUTSIDE RECORDS SUMMARY | 2025-09-03 18:44 | XMS_ITS | Clinical Summary ---
Author Organization [facility] [address] [facility] Address [address] [facility] [place] [address] Phone Care Team Providers Care Numerical Control Tool Programmer Name Role Phone Ciaran Mendez MD Primary Care Provider [phone] Allergies Active Allergy Reactions Criticality Noted Date Comments Amoxicillin 10/18/2024 Aspirin Shortness of breath,Wheezing High 02/20/2015 Ziprasidone Hcl 10/20/2024 Lanolin-Min Fdz-Hsbnir-Rfuun Rash 05/25/2019 Ziprasidone Other 05/02/2014 Unable to talk Medications albuterol HFA (PROAIR HFA ; PROVENTIL HFA ; VENTOLIN HFA) 90 mcg/actuation inhaler Inhale 2 Puffs into the lungs as needed. 07/11/20 16 Active ARIPiprazole (ABILIFY) 20 mg tablet Take 10 mg by mouth 2 (two) times a day. 08/11/20 22 Active buPROPion SR (WELLBUTRIN SR) 200 mg 12 hr tablet Take 1 tablet (200 mg total) by mouth 2 (two) times a day. 08/20/20 18 Active cholecalciferol (VITAMIN D-3) 50 mcg (2,000 unit) tablet 09/19/20 14 Active LORazepam (ATIVAN) 0.5 mg tablet daily. 09/29/20 22 Active sertraline (ZOLOFT) 100 mg tablet Take 1 tablet (100 mg total) by mouth 1 (one) time each day. 02/06/20 11 Active traZODone (DESYREL) 100 mg tablet Take 1 tablet (100 mg total) by mouth at bedtime. 02/06/20 11 Active fluticasone propionate (FLONASE) 50 mcg/actuation nasal spray ADMINISTER 1 SPRAY INTO EACH NOSTRIL 2 TIMES A DAY. 16 mL 4 04/06/20 25 Active atorvastatin (LIPITOR) 10 mg tablet Take 1 tablet (10 mg total) by mouth 1 (one) time each day. 90 tablet 1 06/29/20 25 Active lisinopriL (PRINIVIL,ZESTR IL) 5 mg tablet Take 1 tablet (5 mg total) by mouth at bedtime. 90 tablet 1 06/29/20 25 Active fluticasone furoate (Arnuity Ellipta) 100 mcg/actuation blister with device inhaler Inhale 1 puff by mouth 1 (one) time each day. 27 each 11 07/02/20 25 Active docusate sodium (COLACE) 100 mg capsuleIndicati ons:Irritable bowel syndrome, unspecified type TAKE 1 CAPSULE BY MOUTH EVERY DAY 90 capsule 3 08/11/20 25 Active pantoprazole (PROTONIX) 40 mg EC tablet TAKE 1 TABLET BY MOUTH TWICE A DAY DO NOT CRUSH, CHEW, OR SPLIT 180 tablet 08/16/20 25 Active pantoprazole (PROTONIX) 40 mg EC tablet TAKE 1 TABLET BY MOUTH TWICE A DAY DO NOT CRUSH, CHEW, OR SPLIT 180 tablet 06/13/20 25 025 Discontinued Hospital, Clinic, or Other Facility Administered Medication Ordered Dose Route Frequency Start Date End Date Status albuterol 2.5 mg /3 mL (0.083 %) nebulizer solution 2.5 mgIndications:Pulmona ry emphysema, unspecified emphysema type 2.5 mg nebu Every 6 hours PRN 04/18/2025 Active Active Problems Problem Noted Date Diagnosed Date Obesity 04/18/2025 Pharyngoesophageal dysphagia 10/20/2024 Esophageal stricture 07/22/2024 Overview (08/30/2024): 07/26 schatzki ring, esophageal dilation done COPD (chronic obstructive pu lmonary disease) ([facility] V24, [facility] V28) 04/04/2021 Overview (08/30/2024): Mild s/p PFT 04/2021 Follows with [facility] GERD (gastroesophageal reflux disease) Hemorrhoids 03/29/2021 Overview (08/30/2024): Internal- colonoscopy 09/01/2006 Tubular adenoma 03/29/2021 Overview (08/30/2024): Colonoscopy 01/12/2013, also 05/24 - repeat 3 years Moderate persistent asthma 11/25/2019 Assessment & Plan (06/29/2025 3:25 PM EDT): Hearing loss 04/05/2019 Bipolar disorder ([facility] V24, [facility] V28) 06/03 Hypercholesterolemia 06/25/2018 Assessment & Plan (06/29/2025 3:25 PM EDT): Hypertension 06/25/2018 Assessment & Plan (06/29/2025 3:25 PM EDT): Osteoporosis 06/25/2018 Overview (08/30/2024): 10/22 T score spine -2.5 hip -2.6 Assessment & Plan (06/29/2025 3:25 PM EDT): Alcoholism in recovery ([facility] V24, [facility] V28 ) 02/06/2017 Tremor 02/26/2015 Anxiety 02/01/2014 Insomnia 02/01/2014 Scoliosis 02/01/2014 Irritable bowel syndrome 02/05/2011 At risk for breast cancer Overview (10/21/2024): Cheryl lifetime risk 19.6% Encounters Date Type Department Care Team Description 06/29/2025 2:00 PM EDT Office Visit Adult Medicine [address] [address] Cairan Mendez MD Encounter for annual wellness visit (AWV) in Medicare patient (Primary Dx); Primary hypertension; Hypercholesterolemia; Moderate persistent asthma without complication; Osteoporosis without current pathological fracture, unspecified osteoporosis type 06/29/2025 Telephone Pulmonology - [address] [place] [address] Ade Murray MD from Last 3 Months Immunizations Immunization Administration Dates Next Due COVID-19 (Moderna/Spikevax) 13yo [...] Medical History Date Comments Alcoholism in recovery ([facility] V24, [facility] V28) 02/06/2017 Anxiety 02/01/2014 Asthma 12/24/2016 Bipolar disorder ([facility] V2 4, [facility] V28) 06/25/2018 Hypercholesterolemia 06/25/2018 Hypertension 06/25/2018 Insomnia 02/01/2014 Irritable bowel syndrome 02/05/2011 Osteoarthrosis 12/24/2016 Osteoporosis 06/25/2018 Scoliosis 02/01/2014 Tremor 02/26/2015 Hearing loss 04/05/2019 At risk for breast cancer 04/05/2019 RimagenevaJennifer Hussein lifetime risk 19.6% GERD (gastroesophageal reflux disease) 03/29/2021 Tubular adenoma 03/29/2021 : Colonoscopy Hemorrhoids 03/29/2021 Internal- colono scopy 09/01/2006 Colon polyp 05/29/202305/24 CN, repeat 5 years Esophageal stricture 07/22/202407/26 eulgoio ki ring, esophageal dilation done Family History [...] Packs/Day Years Used Date Smoking Tobacco: Never Passive Smoke Exposure: Never Smokeless Tobacco: Never Tobacco Cessation:Counseling Given: Not Answered Alcohol Use Standard Drinks/Week Comments Not Currently 0 (1 standard drink = 0.6 oz pur e alcohol) Housing Instability Answer Date Recorde d Are you worried that in the next 2 months you may not have stable housing? No 06/29/2025 Food Access & Nutrition Answer Date Rec orded Do you have access to a vari ety of food including fruits and vegetables? Yes 06/29/2025 Access to Healthcare Answer Date Record ed Within the last 3 months, ho w many times did you visit the emergency department for your medical care? 1 06/29/2025 Health Literacy Answer Date Recorded How often do you need to hav e someone help you when you read instructions, pamphlets, or other written material from your doctor or pharmacy? Sometimes 06/29/2025 Caregiver: How often do you need to have someone help you when you read instructions, pamphlets, or other written material from your doctor or pharmacy? Not on file 06/29/2025 Financial Risk Answer Date Recorded How hard is it for you to pa y for the very basics like food, housing, medical care, and air conditioning / heating? Not very hard 06/29/2025 Transportation Answer Date Recorded Has the lack of transportati on kept you from meetings, work, or from getting things needed for daily living? No Has the lack of transportati on kept you from medical appointments or from getting medications? No 06/29/2025 Social Isolation Answer Date Recorded How often do you feel lonely or isolated from those around you? Sometimes 06/29/2025 Food Risk Answer Date Recorded Within the past 12 months we worried whether our food would run out before we got money to buy more. Never true 06/29/2025 Within the past 12 months th e food we bought just didn't last and we didn't have money to get more. Never true 06/29/2025 Dependent Care Answer Date Recorded Do you need help finding or paying for care for your loved ones. For example, child welfare assistant or elderly care for an older adult? No 06/29/2025 Education Answer Date Recorded Do you think completing more education or training, like finishing a GED, going to college, or learning a trade, would be helpful for you? No 06/29/2025 Employment and Income Answer Date Recor ded During the last four weeks, have you been actively looking for work? No 06/29/2025 Living Situation Answer Date Recorded What is your living situation? Unrecognized valu e 06/29/2025 Comments Unknown Sex and Gender Information Value Date Recorded Sex Assigned at Not on file Legal Sex Female 12:06 AM EST Gender Identity Not on file Sexual Orientation Not on file Obstetrics History Last Filed Vital Signs Vital Sign Reading Time Taken Comments Blood Pressure 114/60 06/29/2025 1:54 PM EDT Pulse 74 06/29/2025 1:54 PM EDT Temperature 35.9 C (96.7 F) 06/29/2025 1:54 PM EDT Respiratory Rate 14 06/29/2025 1:54 PM EDT Oxygen Saturation 95% 06/29/2025 1:54 PM EDT Inhaled Oxygen Concentration - - Weight 65.1 kg (143 lb 9.6 oz) 06/29/2025 1:54 P M EDT Height 154.9 cm (5' 1 ) 06/29/2025 1:54 PM EDT Body Mass Index 27.13 06/29/2025 1:54 PM EDT Plan of Treatment Upcoming Encounters Date Type Department Care Team (Late st Contact Info) Description 10/18/2025 1:45 PM EST Office Visit Pulmonology - [place] [address] [place] [phone] Ade Murray MD [address] [place] [address] 01/08/2026 2:30 PM EDT Office Visit Adult Medicine [facility] [address] [place], [place] [phone] Keri Larson PA [address] [place], [place] Health Maintenance Due Date Last Done Comments Hepatitis A Vaccines (1 of 2 - Risk 2-dose series) 1970 RSV Immunization Adult Patients (1 - Risk 50-74 years 1-dose series) 2001 08/20/2023 DTaP,Tdap,and Td Vaccines (2 - Td or Tdap) 02/20/2025 02/20/2015 COVID-19 Vaccine ( season) 2025 07/16/2024, 08/10/2023, 08/08/2022, Additional history exists Influenza Vaccine (#1) 2025 , 09/13/2023, 09/16/2022, Additional history exists Hypertension/CHF/CAD Annual BMP Blood Test 04/21/2026 04/21/2025, 02/21/2025, 02/06/2025, Additional history exists Falls Risk Assessment 06/29/2026 06/29/2025 , 06/29/2025, 04/13/2024 Medicare Annual Wellness Visit 06/29/2026 06/29/2025 Social Influencers of Health Screening 06/29/2026 06/29/2025 Breast Cancer Screening 07/29/2026 07/29/20 24, 07/27/2023, 07/25/2022, Additional history exists Colorectal Cancer Screening: Colonoscopy 10/25/2029 10/25/2024, 05/28/2023 Cholesterol Screening (Lipid Panel) 02/21/2030 02/21/2025, 10/14/2023 Osteoporosis Screening (Bone Density Screening) 07/29/2034 07/29/2024, 10/21/2021, 08/10/2019 Hepatitis C Screening Completed 11/26/2019 Pneumococcal Vaccine: 50+ Years Completed 02/26/2022, 11/05/2015 Zoster Vaccines Completed 01/25/2023, 06/04, 01/18/2016 RSV Immunization Patients Under 20 months Aged Out 08/20/2023 No longer eligible based on patient's age to complete this topic Depression Screening Completed 06/29/2025, 10/14/20 HIB Vaccines Aged Out No longer eligi [...] age to complete this topic Meningococcal B Vaccine Aged Out No l onger eligible based on patient's age to complete this topic Varicella Vaccines Aged Out No longer eligible based on patient's age to complete this topic Procedures Procedure Name Priority Date/Time Associated Diagnosis Comments BASIC METABOLIC PANEL Routine 04/21/2025 9:58 AM EDT Hyponatremia LIPID PANEL WITH REFLEX TO DIRECT LDL Routine 02/21/2025 9:53 AM EDT Drug therapy COLONOSCOPY Routine 10/25/2024 10:28 AM EST JOSE DEXA AXIAL SKELETON Routine 07/29/2024 5:19 PM EDT JOSE SCREENING DIGITAL Routine 07/29/2024 4:29 PM EDT FALLS RISK ASSESSMENT Routine 04/13/2024 DEPRESSION SCREENING Routine 10/14/2023 HEPATITIS C SCREENING Routine 11/26/2019 from Last 3 Months or Most Recently Relevant to Health Maintenance Results * Basic metabolic panel (04/21/2025 9:58 AM EDT) [facility] Sodium 139 133 - 145 mmol/L LAB CHEMISTRY METHOD 04/21/2025 1:25 PM [facility] Potassium 3.8 3.5 - 5.5 mmol/L LAB CHEMISTRY METHOD 04/21/2025 1:25 PM [facility] Chloride 102 96 - 110 mmol/L LAB CHEMISTRY METHOD 04/21/2025 1:25 PM [facility] CO2 30 21 - 32 mmol/L LAB CHEMISTRY METHOD 04/21/2025 1:25 PM [facility] Anion Gap 7 3 - 11 LAB CHEMISTRY METHOD 04/21/2025 1:25 PM [facility] Glucose 77 70 - 100 mg/dL LAB CHEMISTRY METHOD 04/21/2025 1:25 PM [facility] BUN 11 5 - 25 mg/dL LAB CHEMISTRY METHOD 04/21/2025 1:25 PM [facility] Creatinine 0.77 0.50 - 1.10 mg/dL LAB CHEMISTRY METHOD 04/21/2025 1:25 PM [facility] eGFR 81 >=60 mL/min/1. 73m2 LAB CHEMISTRY METHOD 04/21/2025 1:25 PM [facility] Comment:Calculation based on the Chronic Kidney Disease Epidemiology Collaboration (CKD-EPI) equation refit without adjustment for race. BUN/Creatinine Ratio 14.3 LAB CHEMISTRY METHOD 04/21/2025 1:25 PM [facility] Calcium 9.0 8.5 - 10.5 mg/dL LAB CHEMISTRY METHOD 04/21/2025 1:25 PM EDT [facility] Blood Venous blood specimen / Unknown Venipuncture / Unknown 04/21/2025 9:58 AM EDT 04/21/2025 9:58 AM EDT us Ciaran Mendez MD LAB BLOOD ORDERABLES Final Resul t [facility] [address] [place] [address], [place] [phone] * Lipid panel with reflex to direct LDL (02/21/2025 9:53 AM EDT) Cholesterol 164 0 - 200 mg/dL LAB CHEMISTRY METHOD 02/21/2025 2:35 PM EDT [facility] Triglycerides 76 0 - 150 mg/dL LAB CHEMISTRY METHOD 02/21/2025 2:35 PM EDT [facility] HDL 56 >=40 mg/dL LAB CHEMISTRY METHOD 02/21/2025 2:35 PM EDT [facility] LDL Calculated 93 0 - 100 mg/dL LAB CHEMISTRY METHOD 02/21/2025 2:35 PM EDT [facility] VLDL Cholesterol Ceferino 15.2 mg/dL LAB CHEMISTRY METHOD 02/21/2025 2:35 PM EDT [facility] Non HDL Chol. (LDL+VLDL) 108 <145 mg/dL LAB CHEMISTRY METHOD 02/21/2025 2:35 PM EDT [facility] Chol/HDL Ratio 2.9 0.0 - 4.4 LAB CHEMISTRY METHOD 02/21/2025 2:35 PM EDT [facility] Blood Venous blood specimen / Unknown Venipuncture / Unknown 02/21/2025 9:53 AM EDT 02/21/2025 9:53 AM EDT us Natasha Choudhury [employer] LAB BLOOD ORDERABLES Final Re sult [facility] [address] [place] [address], * COLONOSCOPY (10/25/2024 10:28 AM EST) Anatomical Region Laterality Modality Endoscopy Historical Provider GI~PROCEDURE ORDERABLES F inal Result * JOSE DEXA AXIAL SKELETON (07/29/2024 5:19 PM EDT) Anatomical Region Laterality Modality Mammography 07/29/2024 1:24 PM EDT Narrative 07/29/2024 5:19 PM EDT [facility] Diagnostic Imaging Department [address] [place] [address] Patient: VANESSA MCCARTNEY Violeta /Age/Sex: 1950 - 74 - F Unit#: [id number] Location/Status: SPDIMAM/REG CLI Mnemonic/Ordering Site: MAMDEXAAX/SPMAM Ordering Physician: ADE MURRAY MD Jose Dexa Axial Skeleton - 07/29/24 - 5418 Report Status:Signed History: Low estrogen state due to menopause. Comparison: 01/12/17 Findings: Bone densitometry is performed utilizing dual energy x-ray absorptiometry (DXA) in the [employer] unit. The lumbar spine and proximal femora [...] since the previous study. The detailed DEXA report will be mailed to the referring physician's office. [employer]em[employer] FRAX: 10-year Probability of Fracture: Major Osteoporotic 13.5 percent Hip 3.3 percent. IMPRESSION: Osteoporosis. [id number] Dictating Physician: PAM BRISENO MD Electronically Signed by: PAM BRISENO MD Dic Date/Time: 07/29/241717 Sign date/Time: 07/29/241718 Procedure Note Pam Briseno MD - 08/17/2024 [facility] Diagnostic Imaging Department [address] [place] [address] Patient: VANESSA MCCARTNEY Violeta De Jesus/Age/Sex: 1950 - 74 - F Unit#: [id number] Location/Status: [facility] CLI Mnemonic[facility] Ordering Physician: ADE MURRAY MD Jose Dexa Axial Skeleton - 07/29/24 - 0726 Report Status:Signed History: Low estrogen state due to menopause. Comparison: 01/12/17 Findings: Bone densitometry is performed utilizing dual energy x-ray absorptiometry(DXA) in the [employer] unit. The lumbar spine and proximal femora [...] 13.5 percent Hip 3.3 percent. IMPRESSION: Osteoporosis. [id number] Dictating Physician: PAM BRISENO MD Electronically Signed by: PAM BRISENO MD Dic Date/Time: 07/29/241717 Sign date/Time: 07/29/241718 us Ade Murray MD IMG BI PROCEDURES Final Resu lt * JOSE SCREENING DIGITAL (07/29/2024 4:29 PM EDT) Anatomical Region Laterality Modality Mammography 07/29/2024 1:24 PM EDT Narrative 07/29/2024 4:29 PM EDT [facility] Diagnostic Imaging Department [address] [place] [address] Patient: VANESSA MCCARTNEY Violeta /Age/Sex: 1950 - 74 - F Unit#: [id number] Location/Status: SPDIMAM/REG CLI Mnemonic/Ordering Site: [facility] Ordering Physician: CIARAN MENDEZ MD [facility] Screening Digital - 07/29/24 - 1353 Report Status:Signed EXAM: [facility] Screening Digital EXAM DATE AND TIME: 07/29/2024 1:53 PM HISTORY: Screening. Family history of breast carcinoma including mother at age 78 and maternal aunt. COMPARISON: 07/27/23, 07/25/22, 07/22/21 and earlier studies dating back to 2014. TECHNIQUE: Bilateral digital breast tomosynthesis was performed in the CC and MLO projections. Computer aided detection with [employer] 3D 3.1 was employed. TISSUE DENSITY: b. [...] appearance of the breasts. No evidence of malignancy is seen. A negative mammogram in the presence of a clinically suspicious palpable abnormality does not preclude the possibility of malignancy or alter the indications for biopsy. BI-RADS: Category 2: Benign RECOMMENDATION(S): 1: Routine screening mammogram BILATERAL in 1 year. [facility] performed at [facility] [address] [place] [address] Dictating Physician: PAM BRISENO MD Electronically Signed by: PAM BRISENO MD Dic Date/Time: 07/29/241627 Sign date/Time: 07/29/24 162 Procedure Note Pam Briseno MD - 08/17/2024 [facility] Diagnostic Imaging Department [address] [place] [address] Patient: VANESSA MCCARTNEY/Age/Sex: 1950 - 74 - F Unit#: [id number] Location/Status: SPDIMAM/REG CLI Mnemonic/Ordering Site: [facility] Ordering Physician: CIARAN MENDEZ MD [facility] Screening Digital - 07/29/24 - 1353 Report Status:Signed EXAM: [facility] Screening Digital EXAM DATE AND TIME: 07/29/2024 1:53 PM HISTORY: Screening. Family history of breast carcinoma including motherat age 78 and maternal aunt. COMPARISON: 07/27/23, 07/25/22, 07/22/21 and earlier studies dating back es5022. TECHNIQUE: Bilateral digital breast tomosynthesis was performed in the CCand MLO projections. Computer aided detection with [employer] 3D 3.1was employed. TISSUE DENSITY: b. There [...] Mammogram performed at [facility] [place] [address] Dictating Physician: PAM BRISENO MD Electronically Signed by: PAM BRISENO MD Dic Date/Time: 07/29/241627 Sign date/Time: 07/29/241628 Ciaran Mendez MD IMG BI PROCEDURES Final Result * Hm Falls Risk Assessment (04/13/2024) Falls Risk Assessment Abstracted Historical Provider HEALTH MAINTENANCE Final Result * Depression Screening (10/14/2023) HM Depression Screening Abstracted Historical Provider HEALTH MAINTENANCE Final Result * Hepatitis C Screening (11/26/2019) Hepatitis C Screening Abstracted Historical Provider HEALTH MAINTENANCE Final Result from Last 3 Months or Most Recently Relevant to Health [place] [address] MEDICARE [facility] Care Teams Numerical Control Tool Programmer Relationship Specialty Start Date End Date Ciaran Mendez MD [address] [place] [address] PCP - General Internal Medicine 09/16/21
--- OUTSIDE RECORDS SUMMARY | 2025-09-03 18:44 | XMS_ITS | Encounter Summary ---
Author Organization [facility] Address [address] [place] [phone] Phone Care Team Providers Care Instant Potato Processor Name Role Phone Cathi Mendez MD Primary Care Provider [phone] Encounter Details Date Type Department Care Team (Late st Contact Info) Description 05/17/2022 Procedure Pass [facility], Ct Scan - [address] [address] Social History Tobacco Use Types Packs/Day Years [...] 1:47 PM EDT Ani Corbin, ORLY * Lawrence Suicide Severity Rating Scale (Screener/Recent Self-Report) Question [...] on filedocumented in this encounter Care Teams Instant Potato Processor Relationship Specialty Start Date End Date Cathi Mendez MD [address] [place] [address] PCP - General Internal Medicine 05/17/22 documented as of this encounter Additional Source Comments The information contained in this document represents components of the legal health record. It is not the complete legal health record.[facility]
--- OUTSIDE RECORDS SUMMARY | 2025-09-03 18:44 | XMS_ITS | Clinical Summary ---
Author Organization [facility] Address [address] [address] Phone Care Team Providers Care Acid Plant Helper Name Role Phone Cathi Mendez MD Primary Care Provider [phone] Allergies Active Allergy Reactions Criticality Noted Date Comments Ziprasidone Hcl 05/17/2022 Medications alendronate (FOSAMAX) 70 MG tablet Take 70 mg by mouth every 7 days. Take in the morning with a full glass of water, on an empty stomach, and do not take anything else by mouth or lie down for the next 30 min. Active atorvastatin (LIPITOR) 10 MG tablet Take 10 mg by mouth daily. Active buPROPion (WELLBUTRIN SR) 200 MG SR 12 hr tablet Take 200 mg by mouth daily. Active Ca cit-D3-mag#11-z bje-jttd-bkb-zakiya r (CALTRATE 600+D) 600 mg calcium- 800 unit-50 mg Tab Take 1 tablet by mouth daily. Active fluticasone propionate (FLOVENT HFA) 110 mcg/actuation inhaler Inhale 1 puff into the lungs 2 (two) times a day. Active lisinopril (PRINIVIL,ZESTR IL) 5 MG tablet Take 5 mg by mouth daily. Active omeprazole (PRILOSEC) 20 mg TbEC Take 20 mg by mouth daily before breakfast. Active primidone (MYSOLINE) 50 MG tablet Take 50 mg by mouth 2 (two) times a day. Active Saccharomyces boulardii (FLORASTOR) 250 mg capsule Take 250 mg by mouth 2 (two) times a day. Active sertraline (ZOLOFT) 100 MG tablet Take 200 mg by mouth daily. Active traZODone (DESYREL) 100 MG tablet Take 100 mg by mouth nightly at bedtime. Active albuterol 90 mcg/actuation inhaler Inhale 2 puffs into the lungs every 6 (six) hours as needed for wheezing. Active ascorbic acid, vitamin C, (VITAMIN C) 100 MG tablet Take 100 mg by mouth daily. Active QUEtiapine (SEROQUEL XR) 50 mg Tb24 Take 50 mg by mouth nightly at bedtime. Active hydrOXYzine (ATARAX) 25 MG tablet Take 25 mg by mouth 2 (two) times a day as needed for anxiety. Active LORazepam (ATIVAN) 1 MG tablet Take 0.5 tablets (0.5 mg total) by mouth 2 (two) times a day as needed for anxiety. 5 tablet 05/17/2022 Active Social History Tobacco Use Types Packs/Day Years Used Date Smoking Tobacco: Never Alcohol Use Standard Drinks/Week Comments Not Currently 0 (1 standard drink = 0.6 oz pur e alcohol) Education Answer Date Recorded Are you interested in more education? Not on yessi e 02/28/2023 Are you concerned about learning? Not on file 02/28/2023 No 02/28/2023 No 02/28/2023 Digital Access Answer Date Recorded No 03/31/2023 No 03/31/2023 Reliable internet access at home? Not on file 03/31/2023 Device with a working camera? Not on file Comments Unknown Sex and Gender Information Value Date Recorded Sex Assigned at Female 05/17/2022 1:48 PM EDT Legal Sex Female 1:30 PM EDT Gender Identity Female 05/17/2022 1:48 PM EDT Sexual Orientation Choose not to disclose 2021 1:48 PM EDT Last Filed Vital Signs Vital Sign Reading Time Taken Comments Blood Pressure 140/79 05/17/2022 1:46 PM EDT Pulse 72 05/17/2022 1:46 PM EDT Temperature 36.6 C (97.9 F) 05/17/2022 1:46 PM EDT Respiratory Rate 18 05/17/2022 1:46 PM EDT Oxygen Saturation 100% 05/17/2022 1:46 PM EDT Inhaled Oxygen Concentration - - Weight 70.3 kg (155 lb) 05/17/2022 1:46 PM EDT Height 157.5 cm (5' 2 ) 05/17/2022 1:46 PM EDT Body Mass Index 28.35 05/17/2022 1:46 PM EDT Plan of Treatment Not on file Medical Devices Not on file Insurance MEDICARE PART A & B [employer] MEDEX SUPPLEMENT MEDICARE PART A & B [employer] CROSS MEDEX SUPPLEMENT MEDICARE PART A & B [employer] CROSS MEDEX SUPPLEMENT MEDICARE PART A & B [employer] MEDEX SUPPLEMENT MEDICARE PART A & B [employer] MEDEX SUPPLEMENT MEDICARE PART A & B [employer] MEDEX SUPPLEMENT Member Subscriber Plan / Payer ( fective 2013-Present) Name:Vanessa Currie Relation to Subscriber:Self Name:Vanessa Currie Payer ID:[id number] ([facility]) Type:Indemnity Address: [facility] [id number] [place] [address] MEDICARE PART A & B [employer] MEDEX SUPPLEMENT MEDICARE PART A & B [employer] MEDEX SUPPLEMENT MEDICARE PART A & B [employer] CROSS MEDEX SUPPLEMENT Care Teams Acid Plant Helper Relationship Specialty Start Date End Date Cathi Mendez MD [address] [place] [address] PCP - General Internal Medicine 05/17/22 Additional Source Comments The information contained in this document represents components of the legal health record. It is not the complete legal health record.[facility]
--- OUTSIDE RECORDS SUMMARY | 2025-09-03 18:44 | XMS_ITS | Encounter Summary ---
Author Organization [facility] Address [address] [place] [address] Care Team Providers Care Baker Name Role Phone Cathi Mendez MD Primary Care Provider [phone] Encounter Details Date Type Department Care Team (Latest Contact Info) Description 09/07/2024 Lab Requisition [facility] Lab [address] [facility] [place] [phone] Awilda Grande MD [address] [facility] [address] [place] [phone] Encounter for gynecological examination (general) (routine) without [...] 1:45 PM EST Office Visit Pulmonology - [place] [address] [facility] [address] [place] [phone] Osei Murray MD [address] [place] [address] 01/08/2026 2:30 PM EDT Office Visit Adult Medicine [facility] [address] [place], [place] [phone] Keri Larson PA [address] [place], [place] documented as of this encounter Procedures Procedure Name Priority Date/Time Associated Diagnosis Comments PAP SMEAR Routine 09/06/2024 Encounter for gynecological examination (general) (routine) without abnormal findings documented in this encounter Results * Pap smear (09/06/2024) Interpretation Negative for intraepithelial lesion or malignancy 09/15/2024 10:23 AM [facility] General Categorization Negative 09/15/2024 10:23 AM [facility] Other Findings Atrophy 09/15/2024 10:23 AM [facility] Specimen Adequacy Satisfactory for evaluation, endocervical/corcoran sformation zone component present 09/15/2024 10:23 AM [facility] Pap Methodology Liquid Based Pap Test 09/15/2024 10:23 AM [facility] Disclaimer The Pap test is a screening test which carries an inherent false negative rate. These test results should be correlated with the patient's clinical findings and history. This Pap test was processed using an automated screening system. Technical cytopathology services provided by [facility], at [address] [place] [address], [place] [address] (CLIA # [id number]/Jodie Wheeler MD, National Investigative Producer.) 09/15/2024 10:23 AM [facility] Console Pap Interpretation Reported 09/15/2024 10:23 AM [facility] Brushing/Spatula Cervix uteri structure / Unknown 09/06/2024 09/07/2024 3:42 PM EST us Awilda Grande MD LAB CYTOLOGY ORDERABLES Final Result [facility] [address] [place] [address], documented in this encounter Visit Diagnoses Diagnosis Encounter for gynecological examination (general) (routine) without abnormal findings documented in this encounter Care Teams Baker Relationship Specialty Start Date End Date Cathi Mendez MD [address] [place] [address] PCP - General Internal Medicine 09/16/21 documented as of this encounter
[2025-09-03 18:51] LABS: MANUAL DIFF FLAG NO
[2025-09-03 18:58] LABS: Hematocrit 39.7 % (37.0-47.0); Hemoglobin 13.4 g/dl (12.0-16.0); Imm Gran Abs Auto 0.18 X10*3/uL (0.00-0.03); Imm Gran Pct Auto 1.4 % (0.0-0.4); Lymphocytes Absolute Auto 0.7 X10*3/uL (1.2-4.9); Mean Corpuscular HGB Conc 33.8 g/dl (31.0-35.0); Mean Corpuscular Hemoglobin 30.9 pg (27.0-33.0); Mean Corpuscular Volume 91.5 fL (80.0-98.0); NRBC Abs Auto 0.000 X10*3/uL (0.0-0.012); NRBC Pct Auto 0.0 /100WBC (0.0-0.2); Platelet Count 142 X10*3/uL (160-400); Red Blood Count 4.34 X10*6/uL (4.20-5.50); White Blood Count 13.2 X10*3/uL (4.8-10.8)
[2025-09-03 19:25] LABS: Alanine Aminotransferase 39 U/L (0-31); Albumin Level 4.5 g/dL (3.5-5.0); Alkaline Phosphatase 89 U/L (39-117); Anion Gap 13 (12-20); Aspartate Amino Transferase 40 U/L (5-31); Blood Urea Nitrogen 16 mg/dL (9-16); Calcium 9.2 mg/dL (8.4-10.2); Carbon Dioxide 28 mmol/L (22-29); Chloride 102 mmol/L (96-108); Creatinine Clr Calc Pharmacy 47.4; Estimated Glomerular Filt Rate > 60; Potassium 4.7 mmol/L (3.3-5.1); Sodium 138 mmol/L (135-145); Total Protein 6.6 g/dL (6.5-8.0)
[2025-09-03 19:32] LABS: NT Pro B Type Natriuretic Pept 120.5 pg/mL (<300)
[2025-09-03 19:33] LABS: Troponin-I High Sensitivity < 2.7 ng/L (<3.5-17.0)
--- NOTE | 2025-09-03 19:51 | ED.GENADULT ---
HPI - General Adult General Chief complaint: Fall Stated complaint: syncope in bathroom w/ head strike Time Seen by Provider: 09/03/25 19:51 History of Present Illness ED Provider: Rebecca MOON narrative: The patient is a 75-year-old woman who lives at home with her . She had an episode of collapse or fainting today in her bathroom after using the toilet. She says that she urinated and then stood up and went to the sink to wash her hands. While she was standing at the sink washing her hands she felt lightheaded and fell. She hit her head on the ground. She believes that she had loss of consciousness. She seems to remember the episode however. She is not on anticoagulation. Her thought that perhaps she had low blood sugar and he gave her some Glucerna to drink. He also called an ambulance. She was given a cervical collar and brought to the hospital. Here in the emergency room the patient has complained of some nausea that she attributes to the Glucerna being too rich. Here in the emergency department the patient is complaining of pain in the region of her left shoulder and on the left side of her ribcage. She does not have any significant headache although she hit her head. She does not have severe neck pain. She denies abdominal pain. She denies injuries to her legs. Related Data Home Medications ?Medication ?Instructions ?Recorded ?Confirmed albuterol sulfate 90 mcg/actuation 2 puff PO Q4-6H PRN Shortness Of 06/15/21 05/02/25 aerosol inhaler Breath Or Wheezing atorvastatin 10 mg tablet 10 mg PO BEDTIME 06/15/21 05/02/25 bupropion HCl 200 mg tablet,12 hr 200 mg PO DAILY 06/15/21 05/02/25 sustained-release fluticasone furoate 100 1 inh inhalation DAILY 06/15/21 05/02/25 mcg/actuation blister powder for inhalation (Arnuity Ellipta) lisinopril 5 mg tablet 5 mg PO BEDTIME 06/15/21 05/02/25 sertraline 100 mg tablet 150 mg PO DAILY 06/15/21 05/02/25 trazodone 100 mg tablet 100 mg PO BEDTIME Insomnia 06/15/21 05/02/25 fluticasone propionate 50 1 spray intranasal BID PRN Nasal 04/02/24 05/02/25 mcg/actuation nasal Congestion spray,suspension lorazepam 0.5 mg tablet 0.5 mg PO BID Anxeity 07/19/24 05/02/25 aripiprazole 20 mg tablet 20 mg PO DAILY 08/25/24 05/02/25 pantoprazole 40 mg tablet,delayed 40 mg PO BID 12/15/24 05/02/25 release calcium carbonate (Calcium 600) 600 mg PO DAILY 04/16/25 05/02/25 cholecalciferol (vitamin D3) 50 50 mcg PO DAILY 04/16/25 05/02/25 mcg (2,000 unit) tablet coenzyme Q10 100 mg capsule (Co 100 mg PO DAILY 04/16/25 05/02/25 Q-10) peg 400-propylene glycol (PF) 0.4 1 drp ophthalmic (eye) BID 04/16/25 05/02/25 %-0.3 % eye drops in a dropperette (Systane (PF)) primidone 250 mg tablet 250 mg PO BID 05/08/25 Previous Rx's ?Medication ?Instructions ?Recorded benztropine 0.5 mg tablet 0.5 mg PO BID #60 tabs 05/02/25 Allergies Allergy/AdvReac Type Severity Reaction Status Date / Time amoxicillin Allergy Unknown Verified 09/03/25 18:03 ziprasidone (From Geodon) Allergy Shortness Verified 09/03/25 18:03 of Breath aspirin AdvReac Mild Shortness Verified 09/03/25 18:03 of Breath Review of Systems Review of Systems: Yes all other systems are reviewed and are negative PMFSH Past Medical History Medical History (Updated 09/03/25 @ 23:28 by Sly Fernandez MD) Parkinsonism Scoliosis Dysphagia Dysphagia Dry eyes Dizziness Hyperlipidemia Hyponatremia RSV (respiratory syncytial virus infection) Wheezing on auscultation Asthma Anxiety and depression Surgical History (Updated 05/08/25 @ 10:46 by PERRI Ellis) Hx of colonoscopy H/O endoscopy Social History Social History Household Members: Spouse Housing: Condominium Are you a primary furnace caretaker to a significant other at home: No Do you presently have visiting nurse or other home services: No Patient Tobacco Use Status: Never used Tobacco Smoked in Last 30 Days: No Use of substances other than those prescribed or required for medical reasons: No Advance Directives: No Advance Directives Information Provided: Yes Do you have a plan to hurt others: No Plan service: No Physical Exam ED Vital Signs: Vital Signs - 24 hr 09/03/25 18:01 09/03/25 18:01 09/03/25 18:01 Temperature 97.7 F 97.7 F 97.7 F Pulse Rate 59 59 59 Respiratory Rate 17 17 17 Blood Pressure 131/79 131/79 131/79 Pulse Oximetry 97 97 97 Oxygen Delivery Method Room Air Room Air 09/03/25 19:59 09/03/25 23:53 Temperature 97.7 F 97.7 F Pulse Rate 61 61 Respiratory Rate 12 12 Blood Pressure 124/62 124/62 Pulse Oximetry 96 96 Oxygen Delivery Method Room Air Room Air BMI result Body Mass Index 27.2 Const Other: The patient is a somewhat chronically ill-appearing 75-year-old who was awake and alert. She was in a cervical collar when I 1st encountered her. She did not appear in respiratory distress or overt pain. She was complaining of nausea initially. No obvious signs of injury were apparent. HENMT Other: No obvious signs of trauma to the head or the face. No raccoon eyes. No sullivan sign. The face is symmetrical. Tongue is midline. Eyes Other: Pupils are round equal, conjunctivae are clear, extraocular movements intact. No ocular, orbital, or periorbital signs of trauma. Neck Other: mild diffuse paraspinous tenderness. No focal midline tenderness. No JVD. Chest Other: There is left-sided chest wall tenderness without crepitus or subcutaneous emphysema. Resp Effort & Inspection: normal respiratory effort Auscultation: clear to auscultation bilaterally Cardio Rate: regular rate Rhythm: regular rhythm Heart sounds: S1 normal heart sound present and S2 normal heart sound present GI Other: The abdomen is soft and nontender Back/Spine/Pelvis Other: There is tenderness to the left posterior chest wall. No midline vertebral tenderness. Skin Other: skin is intact. No obvious bruising. Neuro Other: The patient is awake and alert, oriented and appropriate. GCS is 15. cranial nerves 2-12 are intact. She has intact strength and sensation in her extremities. No focal neurological deficit appreciated. Extrem Other: Patient has tenderness in the region of the left shoulder primarily near the left AC joint. No gross deformity. The extremities are otherwise uninjured and without signs of trauma. No peripheral edema. Medications Administered Discontinued Medications Generic Name Dose Route Start Last Admin Trade Name Irene PRN Reason Stop Dose Admin Acetaminophen 975 mg 09/03/25 20:18 09/03/25 20:28 Acetaminophen 325 Mg Tablet PO 09/03/25 20:19 975 mg ONCE ONE Administration Sodium Chloride 1,000 mls @ 999 mls/hr 09/03/25 20:00 09/03/25 21:49 Ns IV 09/03/25 21:00 Infused .Q1H1M WILLIE Infusion Sodium Chloride 1,000 mls @ 999 mls/hr 09/03/25 20:30 09/03/25 20:53 Ns IV 09/03/25 21:30 Not Given .Q1H1M WILLIE Ondansetron HCl 4 mg 09/03/25 19:56 09/03/25 20:05 Ondansetron Hcl 4 Mg/2 Ml Vial IVPUSH 09/03/25 19:57 4 mg ONCE ONE Administration Medical Decision Making Medical Decision Making [facility] Narrative: patient is a 75-year-old woman who sustained a syncopal or near syncopal episode in her bathroom this evening. She says that she was standing at the sink washing her hands after urinating when she felt lightheaded and fell to the ground. She landed primarily on her left side and injured her left shoulder and her left chest. She also thinks that she hit her head. She states that she passed out but she also seems to have a fairly good recall of the episode and seems to remember falling. She is certainly able to say that she had a prodrome of feeling lightheaded before going down. There did not seem to be any antecedent headache or chest pain or shortness of breath. Her called 911. He gave her some Glucerna before paramedics arrived. She had a CT of the head and CT of the cervical spine ordered prior to my evaluation. These examinations are unremarkable. Her EKG shows normal sinus rhythm at 60 beats per minute. I think the EKG is fairly similar to her most recent EKG. She is not describing any anginal symptoms. She has some left-sided chest pain that seems to be clearly left-sided chest wall pain. Here in the emergency room she looks to be a a frail and somewhat chronically ill 75-year-old. She was tender in the region of the left shoulder. She had a chest x-ray as part of her initial workup prior to my evaluation. On the chest x-ray the distal clavicle on the left side was visible showing a probable fracture. We obtained a formal shoulder x-ray that confirmed a not significantly displaced left distal clavicle fracture. left-sided rib x-rays do not show any obvious fractures. The patient was given ondansetron for some nausea. This seemed to help. Her left arm was placed in a sling to address her left clavicle fracture. She was given IV acetaminophen for pain with improvement. She believes that she has had an adverse reaction to nonsteroidal anti-inflammatories in the past although she could not tell me what she might have experienced because she said she could not remember but she says she has not used ibuprofen for decades and does not wish to take any tonight. She was able to ambulate reasonably well without assistance. She says that she has a cane at home that she sometimes uses. I think she may be discharged with her . She is encouraged to use the cane while she is injured. She was advised that she might be more sore tomorrow. She does not wish to have any other medications other than acetaminophen. I explained to the patient that I believe that her syncope was likely a post micturitionall syncopal episode given that she had a prodrome of lightheadedness and given that she does not really seem to have fully lost consciousness during the episode and that she did not have any associated concerning symptoms such as chest pain or headache or shortness of breath. The patient should follow up with Orthopedics regarding her clavicle fracture and with her primary care doctor for re-evaluation regarding the near syncopal episode. She should return if she feels significantly worse at any time. Lab Data 09/03/25 18:47 09/03/25 18:47 Labs: Lab Results 09/03/25 09/03/25 Range/Units 18:47 18:48 WBC 13.2 H (4.8-10.8) X10*3/uL RBC 4.34 (4.20-5.50) X10*6/uL Hgb 13.4 (12.0-16.0) g/dl Hct 39.7 (37.0-47.0) % MCV 91.5 (80.0-98.0) fL MCH 30.9 (27.0-33.0) pg MCHC 33.8 (31.0-35.0) g/dl RDW 11.9 (11.0-16.0) % Plt Count 142 L (160-400) X10*3/uL MPV 9.1 L (9.4-12.3) fL Immature Gran % (Auto) 1.4 H (0.0-0.4) % Neut % (Auto) 87.2 H (45-73) % Lymph % (Auto) 5.1 L (20-40) % [place] % (Auto) 5.2 (2-11) % Eos % (Auto) 0.8 (0-4) % Baso % (Auto) 0.3 (0-2) % Lymph # (Auto) 0.7 L (1.2-4.9) X10*3/uL [place] # (Auto) 0.7 (0.1-1.2) X10*3/uL Eos # (Auto) 0.1 (0.0-0.4) X10*3/uL Baso # (Auto) 0.0 (0.0-0.2) X10*3/uL Abs Immat Gran (auto) 0.18 H (0.00-0.03) X10*3/uL Absolute Neuts (auto) 11.5 H (2.0-8.3) x10*3/uL Absolute Nucleated RBC 0.000 (0.0-0.012) X10*3/uL Nucleated RBC % (auto) 0.0 (0.0-0.2) /100WBC Sodium 138 (135-145) mmol/L Potassium 4.7 (3.3-5.1) mmol/L Chloride 102 (96-108) mmol/L Carbon Dioxide 28 (22-29) mmol/L Anion Gap 13 (12-20) BUN 16 (9-16) mg/dL Creatinine 0.90 (0.5-1.4) mg/dL Estim Creat Clear Calc 47.4 Estimated GFR > 60 Random Glucose 111 (60-115) mg/dL Calcium 9.2 (8.4-10.2) mg/dL Total Bilirubin 0.3 (0.0-1.0) mg/dL AST 40 H (5-31) U/L ALT 39 H (0-31) U/L Alkaline Phosphatase 89 (39-117) U/L Troponin I High Sens < 2.7 (<3.5-17.0) ng/L NT-Pro-B Natriuret Pep 120.5 (<300) pg/mL Total Protein 6.6 (6.5-8.0) g/dL Albumin 4.5 (3.5-5.0) g/dL Independent Interpretation I performed an independent interpretation of an: EKG Interpretation: EKG at 18:34 showed normal sinus rhythm at 60 beats per minute. EKG is quite similar to her most previous EKG. No definite acute ischemic changes. No significant interval abnormalities. The Discharge Plan Discharge Clinical Impression: Syncope, Closed fracture of left clavicle, Chest wall contusion Patient Disposition: Home, Self-Care Instructions: Clavicle Fracture (ED), Syncope (ED) Additional Instructions: You has a fainting spell today that I think was probably the result of using the bathroom. I think you had a case of what is technically known as ?micturition syncope. ? When you fell you seemed to have broken your left collar bone. You were therefore given a sling to help support your left arm. We do not see any broken ribs on the left side of your chest. I think you have bruised your left ribs. Please use acetaminophen (Tylenol) as needed for pain. Please be aware that you may be more sore tomorrow than you are right now. That is very common after an injury like this. If you have a cane I think I would recommend using a cane with your right hand for the next few days until you are feeling better. Please contact the orthopedic office for follow up regarding your clavicle fracture. Please contact your regular primary care doctor to discuss the fainting episode. Return to the emergency room if significantly worse Prescriptions: No Action calcium carbonate [Calcium 600] 600 mg calcium (1,500 mg) Tablet 600 mg PO DAILY coenzyme Q10 [Co Q-10] 100 mg Capsule 100 mg PO DAILY Systane (PF) 0.4-0.3 % Dropperette 1 drp OPHTHALMIC (EYE) BID cholecalciferol (vitamin D3) 50 mcg (2,000 unit) Tablet 50 mcg PO DAILY lorazepam 0.5 mg Tablet 0.5 mg PO BID aripiprazole 20 mg tablet 20 mg PO DAILY bupropion HCl 200 mg tablet sustained-release 12 hr 200 mg PO DAILY lisinopril 5 mg tablet 5 mg PO BEDTIME sertraline 100 mg tablet 150 mg PO DAILY Arnuity Ellipta 100 mcg/actuation blister with device 1 inh inhalation DAILY trazodone 100 mg tablet 100 mg PO BEDTIME atorvastatin 10 mg tablet 10 mg PO BEDTIME albuterol sulfate 90 mcg/actuation HFA aerosol inhaler 2 puff PO Q4-6H PRN (Reason: Shortness Of Breath Or Wheezing) fluticasone propionate 50 mcg/actuation spray,suspension 1 spray intranasal BID PRN (Reason: Nasal Congestion ) pantoprazole 40 mg tablet,delayed release (DR/EC) 40 mg PO BID benztropine 0.5 mg tablet 0.5 mg PO BID Qty: 60 5RF primidone 250 mg tablet 250 mg PO BID Referrals: [facility] [place] [facility] [Provider Group] Cathi Mendez MD [Primary Care Provider, Internal Medicine] Interventions: ED Discharge Assessment Last Done: 09/03/25 23:53 Discharge Date/Time: 09/04/25 00:06 Print Language: Croatian
[2025-09-03 19:59] VITALS: BP 124/62; PULSE 61; RESP 12; TEMP 36.5; O2SAT 96
--- NOTE | 2025-09-03 20:53 | PC.NURSE ---
per mD do not give extra liter bolus
[2025-09-03 23:53] VITALS: BP 124/62; PULSE 61; RESP 12; TEMP 36.5; O2SAT 96
== END 2025-09-04 00:06 | disposition home or self-care (01) ==
PROVIDERS: Physician Assistant Medical; Emergency Provider Emergency Medicine; PCP Internal Medicine
DX: S42.002A Fracture of unspecified part of left clavicle, initial encounter for closed fracture (principal); S20.212A Contusion of left front wall of thorax, initial encounter; M25.512 Pain in left shoulder; R11.0 Nausea; R55 Syncope and collapse; R07.89 Other chest pain; R51.9 Headache, unspecified; I45.10 Unspecified right bundle-branch block; R06.02 Shortness of breath; W01.10XA Fall on same level from slipping, tripping and stumbling with subsequent striking against unspecified object, initial encounter; Z91.81 History of falling; Y93.9 Activity, unspecified; Y92.002 Bathroom of unspecified non-institutional (private) residence as the place of occurrence of the external cause; Y99.8 Other external cause status; Z79.899 Other long term (current) drug therapy
CPT/HCPCS: 36415; 70450; 71045; 71100; 72125; 73030; 80053; 83880; 84484; 85025; 93005; 99285; J2405

== ENCOUNTER → 2025-09-03 18:24 | Outpatient (BNV) | payer MEDICARE, SELFPAY | PROVIDERS: Emergency Provider Emergency Medicine; PCP Internal Medicine; Visit Provider Internal Medicine Cardiovascular Disease | DX: I45.10 Unspecified right bundle-branch block (principal) | CPT/HCPCS: 93010 ==

== ENCOUNTER → 2025-09-03 18:24 | Outpatient (BNV) | payer MEDICARE, SELFPAY | PROVIDERS: Emergency Provider Emergency Medicine; PCP Internal Medicine; Visit Provider Radiology Diagnostic Radiology | DX: S09.90XA Unspecified injury of head, initial encounter (principal); R07.89 Other chest pain; S42.035A Nondisplaced fracture of lateral end of left clavicle, initial encounter for closed fracture; R55 Syncope and collapse; W18.39XA Other fall on same level, initial encounter | CPT/HCPCS: 70450; 71045; 72125 ==

== ENCOUNTER 2025-09-04 13:41 | Emergency (ER) | payer MEDICARE, SELFPAY ==
--- NOTE | ~2025-09-04 | CT_ITS ---
EXAMINATION: CT HEAD WITHOUT CONTRAST CLINICAL INFORMATION: Increasing altered mental status COMPARISON: CT head 09/03/2025 TECHNIQUE: Contiguous axial imaging was performed from the skull base to vertex without intravenous administration of contrast. This CT examination was performed using dose optimization techniques as appropriate, variously including the following: *Automated exposure control *Adjustment of mA and/or kV according to patient size (this includes techniques or standardized protocols for targeted exams where dose is matched to indication/reason for exam; i.e. extremities or head) *Use of iterative reconstruction technique FINDINGS: There is no evidence of acute intracranial hemorrhage or edematous large vessel territorial infarction. No abnormal mass effect or midline shift is seen. [place] to white matter differentiation is grossly preserved. No abnormal extra-axial fluid collections are identified. Commensurate prominence of the ventricles and sulci is compatible with generalized parenchymal volume loss. There is minimal periventricular and subcortical white matter hypoattenuation, most likely representing microangiopathic disease. No acute calvarial fracture.. Paranasal sinuses and mastoid air cells are well-aerated. CT/CT head/brain wo IV con IMPRESSION: No CT evidence of acute intracranial hemorrhage or edematous territorial infarction. Cause the patient's symptoms has not been determined by CT. CTA or MRI evaluation as clinically indicated. Electronically signed by: Blaise Martinez MD 09/04/2025 03:58 PM EST
[2025-09-04 13:52] VITALS: BP 108/59; PULSE 69; RESP 20; TEMP 36.8; O2SAT 96; BMI 27.4
[2025-09-04 14:02] VITALS: BP 108/59; PULSE 69; RESP 20; TEMP 36.8; O2SAT 96
--- NOTE | 2025-09-04 14:33 | ECG_ITS ---
Test Reason : syncope Blood Pressure : */* mmHG Vent. Rate : 75 BPM Atrial Rate : 75 BPM P-R Int : 174 ms QRS Dur : 86 ms QT Int : 390 ms P-R-T Axes : 74 -42 56 degrees QTcB Int : 435 ms Normal sinus rhythm Left axis deviation Abnormal ECG When compared with ECG of 03-Sep-2025 18:34, No significant change was found Referred By: Svitlana Veloz Electronically Signed By: Estevan Lombardo
--- NOTE | 2025-09-04 15:00 | ED.AMS ---
HPI - Altered Mental Status General Chief Complaint: General Medical Stated Complaint: ams Time Seen by Provider: 09/04/25 14:05 Source: patient, family and old records reviewed Mode of arrival: ambulatory Limitations: altered mental status History of Present Illness ED Provider: MICHELLE MOON narrative: 75-year-old female with a past medical history of ? possible Parkinson disease, dysphagia, hyperlipidemia, asthma, anxiety and depression, she was just seen yesterday presenting at 19:00 after a syncopal episode in her bathroom (after urinating) she had a prodrome her workup including a CT head and C-spine were negative for trauma her EKG was normal she did fall during the episode and ended up with a left clavicular fracture in a sling. She was not discharged with any medications she was referred to take Tylenol she returns back with her family after going to urgent care as her IV was still in place. Her family notes since she last left ear she has seemed more confused. She states she feels not like herself and feels like she is having a harder time getting her words out. She notes the Tylenol is not helping her clavicular pain. She has no numbness or weakness she reports a posterior headache since her fall. She denies any cough or urinary symptoms MD complaint: altered mental status and confusion Onset (ago): day(s) (1) Timing confirmed by: spouse Severity: mild Consistency of symptoms: waxing and waning Context: other (Is currently being worked up for possible Parkinson's) Associated symptoms: malaise Related Data Home Medications ?Medication ?Instructions ?Recorded ?Confirmed albuterol sulfate 90 mcg/actuation 2 puff PO Q4-6H PRN Shortness Of 06/15/21 05/02/25 aerosol inhaler Breath Or Wheezing atorvastatin 10 mg tablet 10 mg PO BEDTIME 06/15/21 05/02/25 bupropion HCl 200 mg tablet,12 hr 200 mg PO DAILY 06/15/21 05/02/25 sustained-release fluticasone furoate 100 1 inh inhalation DAILY 06/15/21 05/02/25 mcg/actuation blister powder for inhalation (Arnuity Ellipta) lisinopril 5 mg tablet 5 mg PO BEDTIME 06/15/21 05/02/25 sertraline 100 mg tablet 150 mg PO DAILY 06/15/21 05/02/25 trazodone 100 mg tablet 100 mg PO BEDTIME Insomnia 06/15/21 05/02/25 fluticasone propionate 50 1 spray intranasal BID PRN Nasal 04/02/24 05/02/25 mcg/actuation nasal Congestion spray,suspension lorazepam 0.5 mg tablet 0.5 mg PO BID Anxeity 07/19/24 05/02/25 aripiprazole 20 mg tablet 20 mg PO DAILY 08/25/24 05/02/25 pantoprazole 40 mg tablet,delayed 40 mg PO BID 12/15/24 05/02/25 release calcium carbonate (Calcium 600) 600 mg PO DAILY 04/16/25 05/02/25 cholecalciferol (vitamin D3) 50 50 mcg PO DAILY 04/16/25 05/02/25 mcg (2,000 unit) tablet coenzyme Q10 100 mg capsule (Co 100 mg PO DAILY 04/16/25 05/02/25 Q-10) peg 400-propylene glycol (PF) 0.4 1 drp ophthalmic (eye) BID 04/16/25 05/02/25 %-0.3 % eye drops in a dropperette (Systane (PF)) primidone 250 mg tablet 250 mg PO BID 05/08/25 Previous Rx's ?Medication ?Instructions ?Recorded benztropine 0.5 mg tablet 0.5 mg PO BID #60 tabs 05/02/25 acetaminophen 500 mg capsule 1,000 mg (2 x 500 mg) PO Q6H PRN 09/04/25 pain 5 days #20 caps ibuprofen 200 mg tablet 400 mg (2 x 200 mg) PO Q6H PRN 09/04/25 pain 5 days #20 tabs oxycodone 5 mg tablet 5 mg PO Q6H PRN pain #10 tabs 09/04/25 Allergies Allergy/AdvReac Type Severity Reaction Status Date / Time amoxicillin Allergy Unknown Verified 09/04/25 13:53 ziprasidone (From Geodon) Allergy Shortness Verified 09/04/25 13:53 of Breath aspirin AdvReac Mild Shortness Verified 09/04/25 13:53 of Breath Review of Systems Review of Systems: Constitutional : No Fever, No Chills, No Fatigue ENT/Mouth : No sore throat, No Rhinorrhea Eyes: No Eye Pain, No Swelling, No Redness Cardiovascular : No Chest Pain, No SOB, No Dyspnea on Exertion Respiratory : No Cough, No Sputum Gastrointestinal : No Nausea, No Vomiting, No Diarrhea, No abdominal Pain Genitourinary : No Dysuria, No Urinary Frequency, No Hematuria, Musculoskeletal : No joint pain, No Myalgias, No Joint Swelling Skin : No Skin Lesions, No rash Neuro : No Weakness, No Numbness, No Dizziness, positive Headache All other systems reviewed and are negative PMFSH Past Medical History Attestation statement: The following information was validated with the patient. Source: old records reviewed Medical History Parkinsonism Scoliosis Dysphagia Dysphagia Dry eyes Dizziness Hyperlipidemia Hyponatremia RSV (respiratory syncytial virus infection) Wheezing on auscultation Asthma Anxiety and depression Surgical History Hx of colonoscopy H/O endoscopy Social History Social History Household Members: Spouse [facility] Are you a primary healthcare administration internship to a significant other at home: No Do you presently have visiting nurse or other home services: No Patient Tobacco Use Status: Never used Tobacco Advance Directives: Yes Advance Directives Information Provided: Yes Advance Directives on File: No service: No Physical Exam ED Vital Signs: Vital Signs - 24 hr 09/04/25 13:52 09/04/25 14:02 09/04/25 16:23 Temperature 98.3 F 98.3 F Pulse Rate 69 69 61 Respiratory Rate 20 20 20 Blood Pressure 108/59 L 108/59 L 108/53 L Pulse Oximetry 96 96 95 Oxygen Delivery Method Room Air Room Air Room Air BMI result Body Mass Index 27.4 Appearance: Alert. Oriented X3. No acute distress. She does have some stuttering speech Eyes: Pupils equal, round and reactive to light. ENT: Pharynx normal. No hemotympanum, no sullivan sign, no raccoon sign Neck: Normal inspection. Neck supple. CVS: Normal heart rate and rhythm. Pulses normal. Respiratory: No respiratory distress. Breath sounds normal. Abdomen: Soft and nontender. Skin: Skin warm and dry. Normal skin color. Normal skin turgor. Extremities: No lower extremity edema. No calf ttp Neuro: Oriented X 3. No motor deficit. No sensory deficit. 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 Aguayo 16:24 Reevaluation(s) Reevaluation #1: 5:10 PM 09/04/2025 (Dr. Edd Aguayo): I, Dr. Aguayo have take over the care of this patient, I reviewed pertinent blood work and imaging, re-evaluated the patient when appropriate. Patient re-evaluated, she is alert oriented, she is a good historian, there was no indication that she has altered, there was no facial trauma, no head trauma, she had negative CT, blood work reassuring, ammonia is pending at the time of our interaction but she is not someone I would suspect has elevated ammonia or liver disease, and her LFTs are unremarkable, urinalysis without infection, her is at bedside, she has a clavicular fracture, states she is safe at home, we will prescribe some pain medication she on discharge Medications Administered Discontinued Medications Generic Name Dose Route Start Last Admin Trade Name Freq PRN Reason Stop Dose Admin Oxycodone HCl 5 mg 09/04/25 15:53 09/04/25 16:27 Oxycodone Hcl Immed Release 5 Mg Tablet PO 09/04/25 15:54 5 mg ONCE ONE Administration Medical Decision Making Medical Decision Making [facility] Narrative: 75-year-old female with a past medical history of Parkinson disease, dysphagia, hyperlipidemia, asthma, anxiety and depression here with complaint of increased confusion status post fall and hitting head last night, she has no neuro deficits, I am going to obtain a workup including repeat labs, VBG, ammonia, urine. I will also repeat her head CT in case there is any signs of delayed traumatic injury. I am going to trial her on oxycodone given her clavicle fracture. Differential Diagnosis Differential Diagnoses: The differential diagnosis associated with the presentation includes Delayed head injury, metabolic derangement, urinary pathology, Admission/Observation Consideration of admission/observation: Escalation of care including admission/observation considered Lab Data MDM Lab Attestation statement: I reviewed the patient's lab results. 09/04/25 15:11 09/04/25 15:11 Labs: Lab Results 09/04/25 09/04/25 09/04/25 Range/Units 15:11 15:14 15:22 WBC 7.5 (4.8-10.8) X10*3/uL RBC 3.97 L (4.20-5.50) X10*6/uL Hgb 12.2 (12.0-16.0) g/dl Hct 37.0 (37.0-47.0) % MCV 93.2 (80.0-98.0) fL MCH 30.7 (27.0-33.0) pg MCHC 33.0 (31.0-35.0) g/dl RDW 12.3 (11.0-16.0) % Plt Count 124 L (160-400) X10*3/uL MPV 9.2 L (9.4-12.3) fL Immature Gran % (Auto) 0.3 (0.0-0.4) % Neut % (Auto) 84.6 H (45-73) % Lymph % (Auto) 5.6 L (20-40) % [place] % (Auto) 8.7 (2-11) % Eos % (Auto) 0.5 (0-4) % Baso % (Auto) 0.3 (0-2) % Lymph # (Auto) 0.4 L (1.2-4.9) X10*3/uL [place] # (Auto) 0.7 (0.1-1.2) X10*3/uL Eos # (Auto) 0.0 (0.0-0.4) X10*3/uL Baso # (Auto) 0.0 (0.0-0.2) X10*3/uL Abs Immat Gran (auto) 0.02 (0.00-0.03) X10*3/uL Absolute Neuts (auto) 6.4 (2.0-8.3) x10*3/uL Absolute Nucleated RBC 0.000 (0.0-0.012) X10*3/uL Nucleated RBC % (auto) 0.0 (0.0-0.2) /100WBC VBG pH 7.43 (7.32-7.43) VBG pCO2 41 mmHg VBG pO2 37 mmHg VBG HCO3 28 H (22-26) mmol/L VBG O2 Saturation 65.0 % VBG Base Excess 4.0 mmol/L Sodium 137 (135-145) mmol/L Potassium 3.8 (3.3-5.1) mmol/L Chloride 105 (96-108) mmol/L Carbon Dioxide 27 (22-29) mmol/L Anion Gap 9 L (12-20) BUN 14 (9-16) mg/dL Creatinine 0.76 (0.5-1.4) mg/dL Estim Creat Clear Calc 56.4 Estimated GFR > 60 Random Glucose 120 H (60-115) mg/dL Lactic Acid 1.1 (0.5-2.0) mmol/L Calcium 8.9 (8.4-10.2) mg/dL Magnesium 2.0 (1.6-2.6) mg/dL Total Bilirubin 0.8 (0.0-1.0) mg/dL Direct Bilirubin 0.2 (0.0-0.5) mg/dL AST 29 (5-31) U/L ALT 32 H (0-31) U/L Alkaline Phosphatase 65 (39-117) U/L Total Creatine Kinase 171 H (26-140) U/L C-Reactive Protein 5.96 H (< or = 0.50) mg/dL Total Protein 6.0 L (6.5-8.0) g/dL Albumin 4.1 (3.5-5.0) g/dL Lipase 15 (8-78) U/L Procalcitonin 0.23 ng/mL TSH 1.21 (0.32-4.0) uIU/mL Urine Color Urine Appearance Urine pH (5.0-9.0) Ur Specific [place] (1.005-1.025) Urine Protein (Neg-Trace) mg/dL Urine Glucose (UA) (Negative) mg/dL Urine Ketones (Negative) mg/dL Urine Blood (Negative) Urine Nitrite (Negative) Ur Leukocyte Esterase (Negative) Urine RBC (0-2) /HPF Urine WBC (0-5) /HPF Ur Squamous Epith Cells (0-2) /HPF Urine Bacteria (None Seen) Hyaline Casts (0-2) /LPF Urine Opiates Screen (Not Detect) Ur Buprenorphine Scrn (Not Detect) ng/mL Ur Oxycodone Screen (Not Detect) ng/mL Urine Methadone Screen (Not Detect) ng/mL Urine Fentanyl Screen (Not Detect) Ur Barbiturates Screen (Not Detect) Ur Phencyclidine Scrn (Not Detect) Ur Amphetamines Screen (Not Detect) U Benzodiazepines Scrn (Not Detect) Urine Cocaine Screen (Not Detect) U Marijuana (THC) Screen (Not Detect) Ethyl Alcohol < 10 mg/dL 09/04/25 Range/Units 16:22 WBC (4.8-10.8) X10*3/uL RBC (4.20-5.50) X10*6/uL Hgb (12.0-16.0) g/dl Hct (37.0-47.0) % MCV (80.0-98.0) fL MCH (27.0-33.0) pg MCHC (31.0-35.0) g/dl RDW (11.0-16.0) % Plt Count (160-400) X10*3/uL MPV (9.4-12.3) fL Immature Gran % (Auto) (0.0-0.4) % Neut % (Auto) (45-73) % Lymph % (Auto) (20-40) % [place] % (Auto) (2-11) % Eos % (Auto) (0-4) % Baso % (Auto) (0-2) % Lymph # (Auto) (1.2-4.9) X10*3/uL [place] # (Auto) (0.1-1.2) X10*3/uL Eos # (Auto) (0.0-0.4) X10*3/uL Baso # (Auto) (0.0-0.2) X10*3/uL Abs Immat Gran (auto) (0.00-0.03) X10*3/uL Absolute Neuts (auto) (2.0-8.3) x10*3/uL Absolute Nucleated RBC (0.0-0.012) X10*3/uL Nucleated RBC % (auto) (0.0-0.2) /100WBC VBG pH (7.32-7.43) VBG pCO2 mmHg VBG pO2 mmHg VBG HCO3 (22-26) mmol/L VBG O2 Saturation % VBG Base Excess mmol/L Sodium (135-145) mmol/L Potassium (3.3-5.1) mmol/L Chloride (96-108) mmol/L Carbon Dioxide (22-29) mmol/L Anion Gap (12-20) BUN (9-16) mg/dL Creatinine (0.5-1.4) mg/dL Estim Creat Clear Calc Estimated GFR Random Glucose (60-115) mg/dL Lactic Acid (0.5-2.0) mmol/L Calcium (8.4-10.2) mg/dL Magnesium (1.6-2.6) mg/dL Total Bilirubin (0.0-1.0) mg/dL Direct Bilirubin (0.0-0.5) mg/dL AST (5-31) U/L ALT (0-31) U/L Alkaline Phosphatase (39-117) U/L Total Creatine Kinase (26-140) U/L C-Reactive Protein (< or = 0.50) mg/dL Total Protein (6.5-8.0) g/dL Albumin (3.5-5.0) g/dL Lipase (8-78) U/L Procalcitonin ng/mL TSH (0.32-4.0) uIU/mL Urine Color Yellow Urine Appearance Clear Urine pH 6.5 (5.0-9.0) Ur Specific [place] 1.010 (1.005-1.025) Urine Protein Negative (Neg-Trace) mg/dL Urine Glucose (UA) Negative (Negative) mg/dL Urine Ketones Negative (Negative) mg/dL Urine Blood Negative (Negative) Urine Nitrite Negative (Negative) Ur Leukocyte Esterase Trace H (Negative) Urine RBC 0-2 (0-2) /HPF Urine WBC 0-5 (0-5) /HPF Ur Squamous Epith Cells 0-2 (0-2) /HPF Urine Bacteria None Seen (None Seen) Hyaline Casts 0-2 (0-2) /LPF Urine Opiates Screen Not Detected (Not Detect) Ur Buprenorphine Scrn Not Detected (Not Detect) ng/mL Ur Oxycodone Screen Not Detected (Not Detect) ng/mL Urine Methadone Screen Not Detected (Not Detect) ng/mL Urine Fentanyl Screen Not Detected (Not Detect) Ur Barbiturates Screen Not Detected (Not Detect) Ur Phencyclidine Scrn Not Detected (Not Detect) Ur Amphetamines Screen Not Detected (Not Detect) U Benzodiazepines Scrn Not Detected (Not Detect) Urine Cocaine Screen Not Detected (Not Detect) U Marijuana (THC) Screen Not Detected (Not Detect) Ethyl Alcohol mg/dL Independent Interpretation I performed an independent interpretation of an: EKG and CT Scan (No new trauma) Interpretation: Rate: 75 Rhythm: Normal sinus rhythm [place]: Left axis Normal P waves. Normal JANUARY. Normal QRS complex. ST T wave : Flat T-waves in 1 and aVL, no ST elevation qTC: 435 prior studies: No ischemia The study has been interpreted contemporaneously by me. . Radiology Impression Discussion of test interpretation with radiology: I have reviewed the radiologist's reading. Independent Historian Clinical information obtained from an independent historian. History obtained from or confirmed by: Spouse External Record Review External record reviewed: Outpatient record Discharge Plan Discharge Clinical Impression: Closed fracture of left clavicle Qualifiers: Encounter type: subsequent encounter Clavicle location: lateral end Fracture alignment: nondisplaced Fracture healing: with routine healing Qualified Code(s): S42.035D - Nondisplaced fracture of lateral end of left clavicle, subsequent encounter for fracture with routine healing Instructions: Clavicle Fracture (ED) Additional Instructions: Big bag of ice to that shoulder every day for 20 minutes you can do twice daily once in the morning once before bedtime, keep arm in the sling, sleeping in the upright position, I recommend Tylenol 975 mg every 6 hours around the clock, ibuprofen 400 mg every 6 hours for additional pain control, use oxycodone if the ice, Tylenol and ibuprofen is not helping, oxycodone can make you sedated and so make sure you are not using more that I am prescribing and do not mix with alcohol and marijuana, pain should continue to improve in the next 1-2 weeks, your workup today included urinalysis, cat scan blood work has been reassuring And I see that you take lorazepam, did not take oxycodone and lorazepam at the same time space them at least 2 hours apart Prescriptions: New acetaminophen 500 mg capsule 1,000 mg PO Q6H PRN (Reason: pain) 5 Days Qty: 20 0RF oxycodone 5 mg tablet 5 mg PO Q6H PRN (Reason: pain) Qty: 10 0RF Rx Instructions: Partial Fill upon patient request. ibuprofen 200 mg tablet 400 mg PO Q6H PRN (Reason: pain) 5 Days Qty: 20 0RF No Action calcium carbonate [Calcium 600] 600 mg calcium (1,500 mg) Tablet 600 mg PO DAILY coenzyme Q10 [Co Q-10] 100 mg Capsule 100 mg PO DAILY Systane (PF) 0.4-0.3 % Dropperette 1 drp OPHTHALMIC (EYE) BID cholecalciferol (vitamin D3) 50 mcg (2,000 unit) Tablet 50 mcg PO DAILY lorazepam 0.5 mg Tablet 0.5 mg PO BID aripiprazole 20 mg tablet 20 mg PO DAILY bupropion HCl 200 mg tablet sustained-release 12 hr 200 mg PO DAILY lisinopril 5 mg tablet 5 mg PO BEDTIME sertraline 100 mg tablet 150 mg PO DAILY Arnuity Ellipta 100 mcg/actuation blister with device 1 inh inhalation DAILY trazodone 100 mg tablet 100 mg PO BEDTIME atorvastatin 10 mg tablet 10 mg PO BEDTIME albuterol sulfate 90 mcg/actuation HFA aerosol inhaler 2 puff PO Q4-6H PRN (Reason: Shortness Of Breath Or Wheezing) fluticasone propionate 50 mcg/actuation spray,suspension 1 spray intranasal BID PRN (Reason: Nasal Congestion ) pantoprazole 40 mg tablet,delayed release (DR/EC) 40 mg PO BID benztropine 0.5 mg tablet 0.5 mg PO BID Qty: 60 5RF primidone 250 mg tablet 250 mg PO BID Referrals: Cathi Mendez MD [Primary Care Provider, Internal Medicine] - 1 week Print Language: Libyan
[2025-09-04 15:20] LABS: MANUAL DIFF FLAG NO
[2025-09-04 15:22] LABS: Hemoglobin 12.2 g/dl (12.0-16.0); NRBC Abs Auto 0.000 X10*3/uL (0.0-0.012); NRBC Pct Auto 0.0 /100WBC (0.0-0.2); PLT CLUMP 1; SCAN SMEAR FLAG 1
[2025-09-04 15:24] LABS: Hematocrit 37.0 % (37.0-47.0); Imm Gran Abs Auto 0.02 X10*3/uL (0.00-0.03); Imm Gran Pct Auto 0.3 % (0.0-0.4); Lymphocytes Absolute Auto 0.4 X10*3/uL (1.2-4.9); Mean Corpuscular HGB Conc 33.0 g/dl (31.0-35.0); Mean Corpuscular Hemoglobin 30.7 pg (27.0-33.0); Mean Corpuscular Volume 93.2 fL (80.0-98.0); Red Blood Count 3.97 X10*6/uL (4.20-5.50)
[2025-09-04 15:26] LABS: Platelet Count 124 X10*3/uL (160-400); White Blood Count 7.5 X10*3/uL (4.8-10.8)
[2025-09-04 15:29] LABS: Venous Blood Gas Refer to POC result
[2025-09-04 15:29] LABS: VBG HCO3 28 mmol/L (22-26); VBG O2 % Saturation 65.0 %
[2025-09-04 15:39] LABS: Alanine Aminotransferase 32 U/L (0-31); Albumin Level 4.1 g/dL (3.5-5.0); Alkaline Phosphatase 65 U/L (39-117); Anion Gap 9 (12-20); Aspartate Amino Transferase 29 U/L (5-31); Blood Urea Nitrogen 14 mg/dL (9-16); Calcium 8.9 mg/dL (8.4-10.2); Carbon Dioxide 27 mmol/L (22-29); Chloride 105 mmol/L (96-108); Creatinine Clr Calc Pharmacy 56.4; Estimated Glomerular Filt Rate > 60; Lipase 15 U/L (8-78); Magnesium 2.0 mg/dL (1.6-2.6); Potassium 3.8 mmol/L (3.3-5.1); Sodium 137 mmol/L (135-145); Total Protein 6.0 g/dL (6.5-8.0)
[2025-09-04 16:23] VITALS: BP 108/53; PULSE 61; RESP 20; O2SAT 95
[2025-09-04] MEDS: oxyCODONE HCl Immed Release 5 MG TABLET PO (16:27)
[2025-09-04 16:34] LABS: Appearance Urine Clear; Glucose Urine UA Negative (Negative); PH 6.5 (5.0-9.0); Specific Gravity - Urine 1.010 (1.005-1.025); UMIC TRIGGER UACC YES
[2025-09-04 16:43] LABS: Cannabinoid Screen Urine Not Detected (Not Detect)
[2025-09-04 17:05] LABS: Procalcitonin 0.23 ng/mL
--- NOTE | 2025-09-04 17:46 | PC.NURSE ---
Ammonia level re-collected and sent to lab for analysis. Results pending.
[2025-09-04 17:55] LABS: Ammonia 18 umol/L (13-55)
[2025-09-04 18:26] VITALS: BP 111/61; PULSE 70; RESP 18; O2SAT 92
[2025-09-04 19:00] VITALS: BP 111/61; PULSE 70; RESP 18; TEMP 36.3; O2SAT 92
== END 2025-09-04 19:00 | disposition home or self-care (01) ==
PROVIDERS: Emergency Medicine; Emergency Provider Emergency Medicine; PCP Internal Medicine
DX: S42.035D Nondisplaced fracture of lateral end of left clavicle, subsequent encounter for fracture with routine healing (principal); J45.909 Unspecified asthma, uncomplicated; X58.XXXA Exposure to other specified factors, initial encounter; Y93.89 Activity, other specified; Y92.89 Other specified places as the place of occurrence of the external cause; Y99.8 Other external cause status; Z79.899 Other long term (current) drug therapy
CPT/HCPCS: 36415; 70450; 80048; 80076; 80307; 81001; 82140; 82550; 82803; 83605; 83690; 83735; 84145; 84443; 85025; 86140; 87040; 93005; 99284

== ENCOUNTER → 2025-09-04 14:33 | Outpatient (BNV) | payer MEDICARE, SELFPAY | PROVIDERS: Emergency Provider Emergency Medicine; PCP Internal Medicine; Visit Provider Internal Medicine Cardiovascular Disease | DX: R94.31 Abnormal electrocardiogram [ECG] [EKG] (principal); R55 Syncope and collapse | CPT/HCPCS: 93010 ==

== ENCOUNTER → 2025-09-04 14:34 | Outpatient (BNV) | payer MEDICARE, SELFPAY | PROVIDERS: Emergency Provider Emergency Medicine; PCP Internal Medicine; Visit Provider Radiology Diagnostic Ultrasound | DX: R41.82 Altered mental status, unspecified (principal) | CPT/HCPCS: 70450 ==

== ENCOUNTER 2025-09-21 09:23 | Outpatient (REF) | payer MEDICARE, SELFPAY ==
--- NOTE | ~2025-09-21 | XR_ITS ---
EXAMINATION: XR CLAVICLE, LEFT CLINICAL INFORMATION: M89.8X1 - Other specified disorders of bone, shoulder COMPARISON: September 03, 2025 TECHNIQUE: PA and the tangential views of the left clavicle. FINDINGS: There is a 4 mm gap between the fragments at the distal clavicle. There is a 4 mm acromioclavicular joint space. No periosteal bone reaction or callus formation or osseous bridging. Severe scoliosis, cervical thoracic no fully included in the [id number].. 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 Electronically signed by: Saroj Gu MD 09/21/2025 02:26 PM [facility] COSTELLO
--- OUTSIDE RECORDS SUMMARY | 2025-09-22 09:48 | XMS_ITS | Clinical Summary ---
Author Organization [facility] Address [address] [address] Phone Care Team Providers Care Rubbing Bed Operator Name Role Phone Cathi Mendez MD Primary Care Provider [phone] Allergies Active Allergy Reactions Criticality Noted Date [...] mg by mouth daily. Active Ca cit-D3-mag#11-z veb-vqmm-ugj-zakiya r (CALTRATE 600+D) 600 mg calcium- 800 [...] file Insurance MEDICARE PART A & B [employer] MEDEX SUPPLEMENT MEDICARE PART A & B [place] [employer] MEDEX SUPPLEMENT MEDICARE PART A & B [place] [employer] MEDEX SUPPLEMENT MEDICARE PART A & B Jimmy Fairly MEDEX SUPPLEMENT MEDICARE PART A & B Jimmy Fairly MEDEX SUPPLEMENT MEDICARE PART A & B Jimmy Fairly MEDEX SUPPLEMENT MEDICARE PART A & B Jimmy Fairly MEDEX SUPPLEMENT MEDICARE PART A & B [employer] MEDEX SUPPLEMENT MEDICARE PART A & B [employer]OSS MEDEX SUPPLEMENT Care Teams Rubbing Bed Operator Relationship Specialty Start Date End Date Cathi Mendez MD [address] [place] [address] PCP - General Internal Medicine 05/17/22 Additional Source Comments The information contained in this document represents components of the legal health record. It is not the complete legal health record.[facility]
--- OUTSIDE RECORDS SUMMARY | 2025-09-22 09:48 | XMS_ITS | Encounter Summary ---
Author Organization [facility] Address [address] [place] [address] Care Team Providers Care End Packer Name Role Phone Cathi Mendez MD Primary Care Provider [phone] Encounter Details Date Type Department Care Team (Latest Contact Info) Description 09/07/2024 Lab Requisition [facility] - Main Lab [address] [facility] [place] [phone] Awilda Grande MD 299 [facility] [address] [place] [phone] Encounter for gynecological examination (general) (routine) without [...] 1:45 PM EST Office Visit Pulmonology - [place] [address] [facility] [address] [place] [phone] Osei Murray MD [address] [place] [address] 01/08/2026 2:30 PM EDT Office Visit Adult Medicine [facility] [address] [place], [place] [phone] Keri Larson PA [address] [place], [place] documented as of this encounter Procedures [...] screening system. Technical cytopathology services provided by [facility], at [address] [place] [address], [place] [address] (CLIA # [id number]/Jodie Wheeler MD, Supply Aide.) 09/15/2024 10:23 AM [facility] Console Pap Interpretation Reported 09/15/2024 10:23 AM [facility] Brushing/Spatula Cervix uteri structure / Unknown 09/06/2024 09/07/2024 3:42 PM EST us Awilda Grande MD LAB CYTOLOGY ORDERABLES Final Result [facility] [address] [place] [address], documented in this encounter Visit Diagnoses Diagnosis Encounter for gynecological examination (general) (routine) without abnormal findings documented in this encounter Care Teams End Packer Relationship Specialty Start Date End Date Cathi Mendez MD [address] [place] [address] PCP - General Internal Medicine 09/16/21 documented as of this encounter
--- OUTSIDE RECORDS SUMMARY | 2025-09-22 09:48 | XMS_ITS | Encounter Summary ---
Author Organization [facility] Address 399 [facility] [address] [place] [phone] Phone Care Team Providers Care Book Reviewer Name Role Phone Cathi Mendez MD Primary Care Provider [phone] Encounter Details Date Type Department Care Team (Late st Contact Info) Description 05/17/2022 Procedure Pass [facility], Ct Scan - [address] [address] Social History Tobacco Use Types Packs/Day Years [...] 1:47 PM EDT Ani Corbin, ORLY * [place]win Suicide Severity Rating Scale (Screener/Recent Self-Report) Question [...] on filedocumented in this encounter Care Teams Book Reviewer Relationship Specialty Start Date End Date Cathi Mendez MD [address] [place] [address] PCP - General Internal Medicine 05/17/22 documented as of this encounter Additional Source Comments The information contained in this document represents components of the legal health record. It is not the complete legal health record.[facility]
--- OUTSIDE RECORDS SUMMARY | 2025-09-22 09:49 | XMS_ITS | Clinical Summary ---
Author Organization [facility] 444 [facility] Address 444 [facility] [place] [address] Phone Care Team Providers Care Crutching Contractor Name Role Phone Ciaran Mendez MD Primary Care Provider [phone] Allergies Active Allergy Reactions Criticality Noted Date Comments Amoxicillin 10/18/2024 Aspirin Shortness of breath,Wheezing High 02/20/2015 Ziprasidone Hcl 10/20/2024 Lanolin-Min Aow-Oihblm-Fenhp Rash 05/25/2019 Ziprasidone Other 05/02/2014 Unable to [...] done COPD (chronic obstructive pu lmonary disease) ([facility] V24, [facility] V28) 04/04/2021 Overview (08/30/2024): Mild s/p PFT 04/2021 Follows with [facility] GERD (gastroesophageal reflux disease) Hemorrhoids 03/29/2021 Overview (08/30/2024): Internal- colonoscopy 09/01/2006 Tubular adenoma 03/29/2021 Overview (08/30/2024): Colonoscopy 01/12/2013, also 05/24 - repeat 3 years Moderate persistent asthma 11/25/2019 Assessment & Plan (06/29/2025 3:25 PM EDT): Hearing loss 04/05/2019 Bipolar disorder ([facility] V24, [facility] V28) 06/03 Hypercholesterolemia 06/25/2018 Assessment & Plan (06/29/2025 3:25 PM EDT): Hypertension 06/25/2018 Assessment & Plan (06/29/2025 3:25 PM EDT): Osteoporosis 06/25/2018 Overview (08/30/2024): 10/22 T score spine -2.5 hip -2.6 Assessment & Plan (06/29/2025 3:25 PM EDT): Alcoholism in recovery ([facility] V24, [facility] V28 ) 02/06/2017 Tremor 02/26/2015 Anxiety 02/01/2014 Insomnia 02/01/2014 Scoliosis 02/01/2014 Irritable bowel syndrome 02/05/2011 At risk for breast cancer Overview (10/21/2024): Rimaer-Keenan lifetime risk 19.6% Encounters Date Type Department Care Team Description 06/29/2025 2:00 PM EDT Office Visit Adult Medicine [address] [phone] Ciaran Mendez MD Encounter for annual wellness visit (AWV) in Medicare patient (Primary Dx); Primary hypertension; Hypercholesterolemia; Moderate persistent asthma without complication; Osteoporosis without current pathological fracture, unspecified osteoporosis type 06/29/2025 Telephone Pulmonology [address] [place] [address] Ade Murray MD from Last [...] Medical History Date Comments Alcoholism in recovery ([facility] V24, [facility] V28) 02/06/2017 Anxiety 02/01/2014 Asthma 12/24/2016 Bipolar disorder ([facility] V2 4, [facility] V28) 06/25/2018 Hypercholesterolemia 06/25/2018 Hypertension [...] for your loved ones. For example, child care lead teacher or elderly care for an older adult? [...] 1:45 PM EST Office Visit Pulmonology - [place] [address] [facility] [address] [place] [phone] Ade Murray MD [address] [place] [address] 01/08/2026 2:30 PM EDT Office Visit Adult Medicine [facility] [address] [place], [place] [phone] Keri Larson PA [address] [place], [place] Health Maintenance Due Date Last Done [...] mmol/L LAB CHEMISTRY METHOD 04/21/2025 1:25 PM [facility] Potassium 3.8 3.5 - 5.5 mmol/L LAB CHEMISTRY METHOD 04/21/2025 1:25 PM [facility] Chloride 102 96 - 110 mmol/L LAB CHEMISTRY METHOD 04/21/2025 1:25 PM [facility] CO2 30 21 - 32 mmol/L LAB CHEMISTRY METHOD 04/21/2025 1:25 PM [facility] Anion Gap 7 3 - 11 LAB CHEMISTRY METHOD 04/21/2025 1:25 PM [facility] Glucose 77 70 - 100 mg/dL LAB CHEMISTRY METHOD 04/21/2025 1:25 PM [facility] BUN 11 5 - 25 mg/dL LAB CHEMISTRY METHOD 04/21/2025 1:25 PM [facility] Creatinine 0.77 0.50 - 1.10 mg/dL LAB CHEMISTRY METHOD 04/21/2025 1:25 PM [facility] eGFR 81 >=60 mL/min/1. 73m2 LAB CHEMISTRY METHOD 04/21/2025 1:25 PM [facility] Comment:Calculation based on the Chronic Kidney Disease Epidemiology Collaboration (CKD-EPI) equation refit without adjustment for race. BUN/Creatinine Ratio 14.3 LAB CHEMISTRY METHOD 04/21/2025 1:25 PM [facility] Calcium 9.0 8.5 - 10.5 mg/dL LAB CHEMISTRY METHOD 04/21/2025 1:25 PM [facility] Blood Venous blood specimen / Unknown Venipuncture / Unknown 04/21/2025 9:58 AM EDT 04/21/2025 9:58 AM EDT us Ciaran Mendez MD LAB BLOOD ORDERABLES Final Resul t Performing Organization Address City/[facility]/ZIP Co de Phone Number [facility] [address] [place] [address], [place] [phone] * Lipid panel with reflex to direct LDL (02/21/2025 9:53 AM EDT) Cholesterol 164 0 - 200 mg/dL LAB CHEMISTRY METHOD 02/21/2025 2:35 PM EDT [facility] Triglycerides 76 0 - 150 mg/dL LAB CHEMISTRY METHOD 02/21/2025 2:35 PM EDT [facility] HDL 56 >=40 mg/dL LAB CHEMISTRY METHOD 02/21/2025 2:35 PM EDT [facility] LDL Calculated 93 0 - 100 mg/dL LAB CHEMISTRY METHOD 02/21/2025 2:35 PM EDT [facility] VLDL Cholesterol Ceferino 15.2 mg/dL LAB CHEMISTRY METHOD 02/21/2025 2:35 PM EDT [facility] Non HDL Chol. (LDL+VLDL) 108 <145 mg/dL LAB CHEMISTRY METHOD 02/21/2025 2:35 PM EDT [facility] Chol/HDL Ratio 2.9 0.0 - 4.4 LAB CHEMISTRY METHOD 02/21/2025 2:35 PM EDT [facility] Blood Venous blood specimen / Unknown Venipuncture / Unknown 02/21/2025 9:53 AM EDT 02/21/2025 9:53 AM EDT us Natasha Choudhury NP LAB BLOOD ORDERABLES Final Re sult Performing Organization Address City/[facility]/ZIP Co de Phone Number [facility] [address] [place] [address], * COLONOSCOPY (10/25/2024 10:28 AM EST) Anatomical Region Laterality Modality Endoscopy us Historical Provider MD ADAME~PROCEDURE ORDERABLES F inal Result * JOSE DEXA AXIAL SKELETON (07/29/2024 5:19 PM EDT) Anatomical Region Laterality Modality Mammography 07/29/2024 1:24 PM EDT Narrative 07/29/2024 5:19 PM EDT [facility] Diagnostic Imaging Department [address] [place] [address] Patient: VANESSA MCCARTNEY Violeta /Age/Sex: 1950 - 74 - F Unit#: [id number] Location/Status: SPDIMAM/REG CLI Mnemonic/Ordering Site: MAMDEXAAX/SPMAM Ordering Physician: ADE MURRAY MD [facility] [place]a Axial Skeleton - 07/29/24 - 1436 Report Status:Signed History: Low estrogen state due to menopause. Comparison: 01/12/17 Findings: Bone densitometry is performed utilizing dual energy x-ray absorptiometry (DXA) in the SecureNet unit. The lumbar spine and proximal femora [...] 13.5 percent Hip 3.3 percent. IMPRESSION: Osteoporosis. [id number] Dictating Physician: PAM BRISENO MD Electronically Signed by: PAM BRISENO MD Dic Date/Time: 07/29/241717 Sign date/Time: 07/29/241718 Procedure Note Pam Briseno MD - 08/17/2024 [facility] Diagnostic Imaging Department [address] [place] [address] Patient: VANESSA MCCARTNEY Violeta BarbaB./Age/Sex: 1950 - 74 - F Unit#: [id number] Location/Status: [facility] Mnemonic[facility] Ordering Physician: ADE MURRAY MD Jose Dexa Axial Skeleton - 07/29/24 - 1117 Report Status:Signed History: Low estrogen state due to menopause. Comparison: 01/12/17 Findings: Bone densitometry is performed utilizing dual energy x-ray absorptiometry(DXA) in the [employer] unit. The lumbar spine and proximal femora [...] 13.5 percent Hip 3.3 percent. IMPRESSION: Osteoporosis. [id number] Dictating Physician: PAM BRISENO MD Electronically Signed by: PAM BRISENO MD Dic Date/Time: 07/29/241717 Sign date/Time: 07/29/241718 us Ade Murray MD IMG BI PROCEDURES Final Resu lt * JOSE SCREENING DIGITAL (07/29/2024 4:29 PM EDT) Anatomical Region Laterality Modality Mammography 07/29/2024 1:24 PM EDT Narrative 07/29/2024 4:29 PM EDT [facility] Diagnostic Imaging Department [address] [place] [address] Patient: VANESSA MCCARTNEY Violeta /Age/Sex: 1950 - 74 - F Unit#: [id number] Location/Status: [facility]/REG CLI Mnemonic/Ordering Site: [facility] Ordering Physician: CIARAN MENDEZ MD [...] and MLO projections. Computer aided detection with DiversityDoctor 3D 3.1 was employed. TISSUE DENSITY: b. [...] Mammogram performed at [facility] [address] [place] [address] Dictating Physician: PAM BRISENO MD Electronically Signed by: PAM BRISENO MD Dic Date/Time: 07/29/24 1628 Sign date/Time: 07/29/24 1629 Procedure Note Pam Briseno MD - 08/17/2024 [facility] Diagnostic Imaging Department [address] [place] [address] Patient: VANESSA MCCARTNEY Violeta BarbaB./Age/Sex: 1950 - 74 - F Unit#: [id number] [facility]ing Site[facility] Ordering Physician: CIARAN MENDEZ MD Jose Screening Digital - 07/29/24 - 1353 Report Status:Signed EXAM: [facility] [place] Digital EXAM DATE AND TIME: 07/29/2024 1:53 PM HISTORY: Screening. Family history of breast carcinoma including motherat age 78 and maternal aunt. COMPARISON: 07/27/23, 07/25/22, 07/22/21 and earlier studies dating back [id number]. TECHNIQUE: Bilateral digital breast tomosynthesis was performed in the CCand MLO projections. Computer aided detection with D[employer]Doctor 3D 3.1was employed. TISSUE DENSITY: b. There [...] Mammogram performed at [facility] [place] [address] Dictating Physician: PAM BRISENO MD Electronically Signed [...] to Health [place] [phone] MEDICARE [facility] Care Teams Crutching Contractor Relationship Specialty Start Date End Date Ciaran Mendez MD [address] [place] [address] PCP - General Internal Medicine 09/16/21
== END 2025-09-21 09:24 | disposition home or self-care (01) ==
LOC: HO.HOSX 09:23
PROVIDERS: Visit Provider Physician Assistant
DX: S42.035D Nondisplaced fracture of lateral end of left clavicle, subsequent encounter for fracture with routine healing (principal); M89.8X1 Other specified disorders of bone, shoulder; S42.002D Fracture of unspecified part of left clavicle, subsequent encounter for fracture with routine healing; W18.30XD Fall on same level, unspecified, subsequent encounter
CPT/HCPCS: 73000; 99212

== ENCOUNTER 2025-09-21 14:06 | Outpatient (AMB) | payer MEDICARE, SELFPAY ==
--- NOTE | 2025-09-21 14:16 | A.OFFVIS_ITS ---
Intake Visit Reasons: 2 weeks clavicle fx ( non op ) Intake Note: Vanessa is a 75 year old female right hand dominant who presents today as a ER/Fracture follow up 2 weeks clavicle fx ( non op ). Patient is status post fall, hitting her head at home. At today's visit she states that the left shoulder is having a sharp pain that is radiating into her left elbow. Patient noted that for the past week she feels that her left fingers are having a numbness/tingling sensation. Patient reports that she stopped wearing her sling that the ER provided due to it getting in the way of her daily activities. Allergies amoxicillin Allergy (Verified 09/04/25 13:53) Unknown ziprasidone (From Geodon) Allergy (Verified 09/04/25 13:53) Shortness of Breath aspirin Adverse Reaction (Mild, Verified 09/04/25 13:53) Shortness of Breath Medication List - Last Reconciled 09/21/25 by Chau Nieves PA-C acetaminophen 1,000 mg (2 x 500 mg) PO Q6H PRN 5 days albuterol sulfate 90 mcg/actuation 2 puffs PO Q4-6H PRN aripiprazole 20 mg PO DAILY atorvastatin 10 mg PO BEDTIME benztropine 0.5 mg PO BID bupropion HCl SR 200 mg PO DAILY calcium carbonate (Calcium 600) 600 mg PO DAILY cholecalciferol (vitamin D3) 50 mcg PO DAILY coenzyme Q10 (Co Q-10) 100 mg PO DAILY fluticasone furoate 100 mcg/actuation (Arnuity Ellipta) 1 inh inhalation DAILY fluticasone propionate 50 mcg/actuation 1 spray intranasal BID PRN ibuprofen 400 mg (2 x 200 mg) PO Q6H PRN 5 days lisinopril 5 mg PO BEDTIME lorazepam 0.5 mg PO BID oxycodone 5 mg PO Q6H PRN pantoprazole 40 mg PO BID peg 400-propylene glycol (PF) 0.4-0.3 % (Systane (PF)) 1 drp ophthalmic (eye) BID primidone 250 mg PO BID sertraline 150 mg PO DAILY trazodone 100 mg PO BEDTIME HPI HPI 2 weeks clavicle fx ( non op ): Details: 75-year-old female presents to the office today for an injury she sustained to her left clavicle on 09/03/2025. She was using the bathroom when she went to stand up and felt lightheaded and fell. She was seen in the emergency department where x-rays of the left shoulder were obtained which showed a minimally displaced distal clavicle fracture. She was placed in a sling and referred to our office for ortho eval. [facility] Medical History (Updated 09/21/25 @ 14:29 by Chau Nieves PA-C) Closed fracture of left clavicle Parkinsonism Scoliosis Dysphagia Dysphagia Dry eyes Dizziness Hyperlipidemia Hyponatremia RSV (respiratory syncytial virus infection) Wheezing on auscultation Asthma Anxiety and depression Surgical History Hx of colonoscopy H/O endoscopy Social History Household Members: Spouse [facility] Are you a primary care specialist to a significant other at home: No Do you presently have visiting nurse or other home services: No Patient Tobacco Use Status: Never used Tobacco service: No Review of Systems Const All systems reviewed & are unremarkable except as noted in HPI and below Physical Exam Const General: cooperative and no acute distress Orientation/consciousness: patient oriented x3 Resp Effort & Inspection: normal respiratory effort and able to speak in complete sentences Cardio Peripheral pulses: Peripheral pulses 2+ throughout Neuro General: patient oriented x3 Extrem Other: Clavicle No tenting. No skin breakdown. There is mild tenderness over the fracture site. Neurovascularly intact. Office Procedures AMB Fracture Care Fracture Billing Code: Fracture Billing Code Results Reviewed Results Reviewed: X-rays of the left clavicle obtained in the office today and reviewed by me show nondisplaced distal clavicle fracture Assessment & Plan Assessment & Plan (1) Closed fracture of left clavicle: Code(s): S42.002A - Fracture of unspecified part of left clavicle, initial encounter for closed fracture Category: Medical Qualifiers: Clavicle location: lateral end Encounter type: subsequent encounter Fracture alignment: nondisplaced Fracture healing: with routine healing Qualified Code(s): S42.035D - Nondisplaced fracture of lateral end of left clavicle, subsequent encounter for fracture with routine healing Plan: I discussed with the patient the extent of her injury. I explained this is nonoperative given there is no displacement. I encouraged her to resume most normal activities but not to exceed positions above shoulder height. No lifting above shoulder height. I stressed the importance of working on good posture. She will see me back in 6-8 weeks with repeat x-rays, sooner if needed. Orders: Orders XR clavicle LT Today M89.8X1 - Other specified disorders of bone, shoulder Coding Level of Care Code Complex visit Add On G2211 Diagnoses Closed fracture of left clavicle S42.035D Clavicle location: lateral end Encounter type: subsequent encounter Fracture alignment: nondisplaced Fracture healing: with routine healing CPT Codes Fracture Care - Fracture Billing Code: Fracture Billing Code ([id number])
--- OUTSIDE RECORDS SUMMARY | 2025-09-21 19:32 | XMS_ITS | Encounter Summary ---
Author Organization [facility] Address [address] [facility] [address] [place] [address] Phone Care Team Providers Care Pipe Foreman Name Role Phone Cathi Mendez MD Primary Care Provider [phone] Encounter Details Date Type Department Care Team (Late st Contact Info) Description 05/17/2022 Procedure Pass [facility], Ct Scan - [address] [address] Social History Tobacco Use Types Packs/Day Years [...] 1:47 PM EDT Ani Corbin, ORLY * [facility] Suicide Severity Rating Scale (Screener/Recent Self-Report) Question [...] on filedocumented in this encounter Care Teams Pipe Foreman Relationship Specialty Start Date End Date Cathi Mendez MD [address] [place] [address] PCP - General Internal Medicine 05/17/22 documented as of this encounter Additional Source Comments The information contained in this document represents components of the legal health record. It is not the complete legal health record.[facility]
--- OUTSIDE RECORDS SUMMARY | 2025-09-21 19:32 | XMS_ITS | Clinical Summary ---
Author Organization [facility] [address] [facility] Address [address] [facility] [place] [address] Phone Care Team Providers Care Business Information Analyst Name Role Phone Ciaran Mendez MD Primary Care Provider Allergies Active Allergy Reactions Criticality Noted Date Comments Amoxicillin 10/18/2024 Aspirin Shortness of breath,Wheezing High 02/20/2015 Ziprasidone Hcl 10/20/2024 Lanolin-Min Pgp-Jeigtj-Gfuyi Rash 05/25/2019 Ziprasidone Other 05/02/2014 Unable to talk Medications albuterol HFA (PROAIR HFA ; PROVENTIL HFA ; VENTOLIN HFA) 90 mcg/actuation inhaler Inhale 2 Puffs into the lungs as needed. 6 Active ARIPiprazole (ABILIFY) 20 mg tablet Take 10 mg by mouth 2 (two) times a day. 2 Active buPROPion SR (WELLBUTRIN SR) 200 mg 12 hr tablet Take 1 tablet (200 mg total) by mouth 2 (two) times a day. 8 Active cholecalciferol (VITAMIN D-3) 50 mcg (2,000 unit) tablet 4 Active LORazepam (ATIVAN) 0.5 mg tablet daily. 2 Active sertraline (ZOLOFT) 100 mg tablet Take 1 tablet (100 mg total) by mouth 1 (one) time each day. 1 Active traZODone (DESYREL) 100 mg tablet Take 1 tablet (100 mg total) by mouth at bedtime. 1 Active fluticasone propionate (FLONASE) 50 mcg/actuation nasal spray ADMINISTER 1 SPRAY INTO EACH NOSTRIL 2 TIMES A DAY. 16 mL 4 5 Active atorvastatin (LIPITOR) 10 mg tablet Take 1 tablet (10 mg total) by mouth 1 (one) time each day. 90 tablet 1 5 Active lisinopriL (PRINIVIL,ZESTRI L) 5 mg tablet Take 1 tablet (5 mg total) by mouth at bedtime. 90 tablet 1 5 Active fluticasone furoate (Arnuity Ellipta) 100 mcg/actuation blister with device inhaler Inhale 1 puff by mouth 1 (one) time each day. 27 each 11 5 Active docusate sodium (COLACE) 100 mg capsuleIndicatio ns:Irritable bowel syndrome, unspecified type TAKE 1 CAPSULE BY MOUTH EVERY DAY 90 capsule 3 5 Active pantoprazole (PROTONIX) 40 mg EC tablet TAKE 1 TABLET BY MOUTH TWICE A DAY DO NOT CRUSH, CHEW, OR SPLIT 180 tablet 5 Active Hospital, Clinic, or Other Facility Administered Medication [...] done COPD (chronic obstructive pu lmonary disease) ([facility] V24, [facility] V28) 04/04/2021 Overview (08/30/2024): Mild s/p PFT 04/2021 Follows with [facility] GERD (gastroesophageal reflux disease) Hemorrhoids 03/29/2021 Overview (08/30/2024): Internal- colonoscopy 09/01/2006 Tubular adenoma 03/29/2021 Overview (08/30/2024): Colonoscopy 01/12/2013, also 05/24 - repeat 3 years Moderate persistent asthma 11/25/2019 Assessment & Plan (06/29/2025 3:25 PM EDT): Hearing loss 04/05/2019 Bipolar disorder ([facility] V24, [facility] V28) 06/03 Hypercholesterolemia 06/25/2018 Assessment & Plan (06/29/2025 3:25 PM EDT): Hypertension 06/25/2018 Assessment & Plan (06/29/2025 3:25 PM EDT): Osteoporosis 06/25/2018 Overview (08/30/2024): 10/22 T score spine -2.5 hip -2.6 Assessment & Plan (06/29/2025 3:25 PM EDT): Alcoholism in recovery ([facility] V24, [facility] V28 ) 02/06/2017 Tremor 02/26/2015 Anxiety 02/01/2014 Insomnia 02/01/2014 Scoliosis 02/01/2014 Irritable bowel syndrome 02/05/2011 At risk for breast cancer Overview (10/21/2024): Rimaer-Keenan lifetime risk 19.6% Encounters Date Type Department Care Team Description 06/29/2025 2:00 PM EDT Office Visit Adult Medicine [address] [address] Ciaran Mendez MD Encounter for annual wellness visit (AWV) in Medicare patient (Primary Dx); Primary hypertension; Hypercholesterolemia; Moderate persistent asthma without complication; Osteoporosis without current pathological fracture, unspecified osteoporosis type 06/29/2025 Telephone Pulmonology [address] [place] [address] Ade Murray MD from Last [...] Medical History Date Comments Alcoholism in recovery ([facility] V24, [facility] V28) 02/06/2017 Anxiety 02/01/2014 Asthma 12/24/2016 Bipolar disorder ([facility] V2 4, [facility] V28) 06/25/2018 Hypercholesterolemia 06/25/2018 Hypertension 06/25/2018 Insomnia [...] care for your loved ones. For example, healthcare recruiter or elderly care for an older adult? [...] 1:45 PM EST Office Visit Pulmonology - [place] [address] [facility] [address] [place] [phone] Ade Murray MD [address] [place] [address] 01/08/2026 2:30 PM EDT Office Visit Adult Medicine [facility] [address] [place], [place] [phone] Keri Larson PA [address] [place], [place] Health Maintenance Due Date Last Done [...] Basic metabolic panel (04/21/2025 9:58 AM EDT) Sodium 139 133 - 145 mmol/L LAB CHEMISTRY METHOD 04/21/2025 1:25 PM [facility] Potassium 3.8 3.5 - 5.5 mmol/L LAB CHEMISTRY METHOD 04/21/2025 1:25 PM [facility] Chloride 102 96 - 110 mmol/L LAB CHEMISTRY METHOD 04/21/2025 1:25 PM [facility] CO2 30 21 - 32 mmol/L LAB CHEMISTRY METHOD 04/21/2025 1:25 PM [facility] Anion Gap 7 3 - 11 LAB CHEMISTRY METHOD 04/21/2025 1:25 PM [facility] Glucose 77 70 - 100 mg/dL LAB CHEMISTRY METHOD 04/21/2025 1:25 PM [facility] BUN 11 5 - 25 mg/dL LAB CHEMISTRY METHOD 04/21/2025 1:25 PM [facility] Creatinine 0.77 0.50 - 1.10 mg/dL LAB CHEMISTRY METHOD 04/21/2025 1:25 PM [facility] eGFR 81 >=60 mL/min/1. 73m2 LAB CHEMISTRY METHOD 04/21/2025 1:25 PM [facility] Comment:Calculation based on the Chronic Kidney Disease Epidemiology Collaboration (CKD-EPI) equation refit without adjustment for race. BUN/Creatinine Ratio 14.3 LAB CHEMISTRY METHOD 04/21/2025 1:25 PM [facility] Calcium 9.0 8.5 - 10.5 mg/dL LAB CHEMISTRY METHOD 04/21/2025 1:25 PM [facility] Blood Venous blood specimen / Unknown Venipuncture / Unknown 04/21/2025 9:58 AM EDT 04/21/2025 9:58 AM EDT us Ciaran Mendez MD LAB BLOOD ORDERABLES Final Resul t Performing Organization Address City/[facility]/ZIP Co de Phone Number [facility] [address] [place] [address], [place] [phone] * Lipid panel with reflex to direct LDL (02/21/2025 9:53 AM EDT) Cholesterol 164 0 - 200 mg/dL LAB CHEMISTRY METHOD 02/21/2025 2:35 PM EDT [facility] Triglycerides 76 0 - 150 mg/dL LAB CHEMISTRY METHOD 02/21/2025 2:35 PM EDT [facility] HDL 56 >=40 mg/dL LAB CHEMISTRY METHOD 02/21/2025 2:35 PM EDT [facility] LDL Calculated 93 0 - 100 mg/dL LAB CHEMISTRY METHOD 02/21/2025 2:35 PM EDT [facility] VLDL Cholesterol Ceferino 15.2 mg/dL LAB CHEMISTRY METHOD 02/21/2025 2:35 PM EDT [facility] Non HDL Chol. (LDL+VLDL) 108 <145 mg/dL LAB CHEMISTRY METHOD 02/21/2025 2:35 PM EDT [facility] Chol/HDL Ratio 2.9 0.0 - 4.4 LAB CHEMISTRY METHOD 02/21/2025 2:35 PM EDT [facility] Blood Venous blood specimen / Unknown Venipuncture / Unknown 02/21/2025 9:53 AM EDT 02/21/2025 9:53 AM EDT us Natasha Choudhury NP LAB BLOOD ORDERABLES Final Re sult Performing Organization Address City/[facility]/ZIP Co de Phone Number [facility] [address] [place] [address], * COLONOSCOPY (10/25/2024 10:28 AM EST) Anatomical Region Laterality Modality Endoscopy us Historical Provider MD ADAME~PROCEDURE ORDERABLES F inal Result * JOSE DEXA AXIAL SKELETON (07/29/2024 5:19 PM EDT) Anatomical Region Laterality Modality Mammography 07/29/2024 1:24 PM EDT Narrative 07/29/2024 5:19 PM EDT [facility] Diagnostic Imaging Department [address] [place] [address] Patient: VANESSA MCCARTNEY Violeta /Age/Sex: 1950 - 74 - F Unit#: [id number] Location/Status: SPDIMAM/REG CLI Mnemonic/Ordering Site: MAMDEXAAX/SPMAM Ordering Physician: ADE MURRAY MD [facility] Dexa Axial Skeleton - 07/29/24 - 1436 Report Status:Signed History: Low estrogen state due to menopause. Comparison: 01/12/17 Findings: Bone densitometry is performed utilizing dual energy x-ray absorptiometry (DXA) in the [employer] unit. The lumbar spine and proximal femora [...] 13.5 percent Hip 3.3 percent. IMPRESSION: Osteoporosis. [id number] Dictating Physician: PAM BRISENO MD Electronically Signed by: PAM BRISENO MD Dic Date/Time: 07/29/241717 Sign date/Time: 07/29/241718 Procedure Note Pam Briseno MD - 08/17/2024 [facility] Diagnostic Imaging Department [address] [place] [address] Patient: VANESSA MCCARTNEY Violeta BarbaB./Age/Sex: 1950 - 74 - F Unit#: [id number] Location/Status: [facility]emonic[facility] Ordering Physician: ADE MURRAY MD Jose Dexa Axial Skeleton - 07/29/24 - 4490 Report Status:Signed History: Low estrogen state due to menopause. Comparison: 01/12/17 Findings: Bone densitometry is performed utilizing dual energy x-ray absorptiometry(DXA) in the [employer] unit. The lumbar spine and proximal femora [...] 13.5 percent Hip 3.3 percent. IMPRESSION: Osteoporosis. [id number] Dictating Physician: PAM BRISENO MD Electronically Signed by: PAM BRISENO MD Dic Date/Time: 07/29/241717 Sign date/Time: 07/29/241718 us Ade Murray MD IMG BI PROCEDURES Final Resu lt * JOSE SCREENING DIGITAL (07/29/2024 4:29 PM EDT) Anatomical Region Laterality Modality Mammography 07/29/2024 1:24 PM EDT Narrative 07/29/2024 4:29 PM EDT [facility] Diagnostic Imaging Department [address] [place] [address] Patient: VANESSA MCCARTNEY Violeta /Age/Sex: 1950 - 74 - F Unit#: [id number] Location/Status: [facility]/REG CLI Mnemonic/Ordering Site: [facility] Ordering Physician: CIARAN MENDEZ MD Jose Screening [...] and MLO projections. Computer aided detection with [employer] 3D 3.1 was employed. TISSUE DENSITY: b. [...] Mammogram performed at [facility] [address] [place] [address] Dictating Physician: PAM BRISENO MD Electronically Signed by: PAM BRISENO MD Dic Date/Time: 07/29/24 1628 Sign date/Time: 07/29/24 1629 Procedure Note Pam Briseno MD - 08/17/2024 [facility] Diagnostic Imaging Department [address] [place] [address] Patient: VANESSA MCCARTNEY Violeta BarbaB./Age/Sex: 1950 - 74 - F Unit#: [id number] Location/Status: [facility] Mnemonic/Ordering Site: [facility] Ordering Physician: CIARAN MENDEZ MD Jose Screening Digital - 07/29/24 - 1353 Report Status:Signed EXAM: [facility] Screening Digital EXAM DATE AND TIME: 07/29/2024 1:53 PM HISTORY: Screening. Family history of breast carcinoma including motherat age 78 and maternal aunt. COMPARISON: 07/27/23, 07/25/22, 07/22/21 and earlier studies dating back [id number]. TECHNIQUE: Bilateral digital breast tomosynthesis was performed in the [employer] MLO projections. Computer aided detection with [employer] 3D 3.1was employed. TISSUE DENSITY: b. There [...] Mammogram performed at [facility] [place] [address] Dictating Physician: PAM BRISENO MD Electronically Signed by: PAM BRISENO MD Dic Date/Time: 07/29/24 1628 Sign date/Time: 07/29/24 1629 us Ciaran Mendez MD IMG BI PROCEDURES Final Result * Hm Falls Risk Assessment (04/13/2024) Falls Risk Assessment Abstracted us Historical Provider HEALTH MAINTENANCE Final Result * Depression Screening (10/14/2023) Depression Screening Abstracted Historical Provider HEALTH MAINTENANCE Final Result * Hepatitis C Screening (11/26/2019) Hepatitis C Screening Abstracted Historical Provider HEALTH MAINTENANCE Final Result from Last 3 Months or Most Recently Relevant to Health [place] [id number] MEDICARE [facility] Care Teams Business Information Analyst Relationship Specialty Start Date End Date Ciaran Mendez MD [address] [place] [address] PCP - General Internal Medicine 09/16/21
--- OUTSIDE RECORDS SUMMARY | 2025-09-21 19:32 | XMS_ITS | Encounter Summary ---
Author Organization [facility] Address [address] [place] [address] Care Team Providers Care Nurse College Name Role Phone Cathi Mendez MD Primary Care Provider [phone] Encounter Details Date Type Department Care Team (Latest Contact Info) Description 09/07/2024 Lab Requisition [facility] - Main Lab [address] [facility] [place] [phone] Awilda Grande MD [address] [facility] [address] [place] [phone] Encounter for gynecological examination (general) (routine) without [...] 1:45 PM EST Office Visit Pulmonology - [place] [address] [facility] [address] [place] [phone] Osei Murray MD [address] [place] [address] 01/08/2026 2:30 PM EDT Office Visit Adult Medicine [facility] [address] [place], [place] [phone] Keri Larson PA [address] [place], [place] documented as of this encounter Procedures Procedure Name Priority Date/Time Associated Diagnosis Comments PAP SMEAR Routine 09/06/2024 Encounter for gynecological examination (general) (routine) without abnormal findings documented in this encounter Results * Pap smear (09/06/2024) Interpretation Negative for intraepithelial lesion or malignancy 09/15/2024 10:23 AM [facility] General Categorization Negative 09/15/2024 10:23 AM [facility] Other Findings Atrophy 09/15/2024 10:23 AM [facility] Specimen Adequacy Satisfactory for evaluation, endocervical/corcoran sformation zone component present 09/15/2024 10:23 AM [facility] Pap Methodology Liquid Based Pap Test 09/15/2024 10:23 AM [facility] Disclaimer The Pap test is a screening test which carries an inherent false negative rate. These test results should be correlated with the patient's clinical findings and history. This Pap test was processed using an automated screening system. Technical cytopathology services provided by [facility], at [address] [place] [address], [place] [address] (CLIA # [id number]/Jodie Wheeler MD, Visual Coordinator.) 09/15/2024 10:23 AM [facility] Console Pap Interpretation Reported 09/15/2024 10:23 AM [facility] Brushing/Spatula Cervix uteri structure / Unknown 09/06/2024 09/07/2024 3:42 PM EST us Awilda Grande MD LAB CYTOLOGY ORDERABLES Final Result [facility] [address] [place] [address], documented in this encounter Visit Diagnoses Diagnosis Encounter for gynecological examination (general) (routine) without abnormal findings documented in this encounter Care Teams Nurse College Relationship Specialty Start Date End Date Cathi Mendez MD [address] [place] [address] PCP - General Internal Medicine 09/16/21 documented as of this encounter
--- OUTSIDE RECORDS SUMMARY | 2025-09-21 19:32 | XMS_ITS | Clinical Summary ---
Author Organization [facility] Address [address] [address] Phone Care Team Providers Care Herbicide Service Sales Representative Name Role Phone Cathi Mendez MD Primary Care Provider [phone] Allergies Active Allergy Reactions Criticality Noted Date [...] mg by mouth daily. Active Ca cit-D3-mag#11-z [id number]-tfm-zakiya r (CALTRATE 600+D) 600 mg calcium- 800 [...] file Insurance MEDICARE PART A & B [place] MEDEX SUPPLEMENT MEDICARE PART A & B [place] MEDEX SUPPLEMENT MEDICARE PART A & B [place] MEDEX SUPPLEMENT MEDICARE PART A & B [place] SUPP[place] MEDICARE PART A & B [place] [employer] SUPPLE[place] MEDICARE PART A & B Member Subscriber Plan / Payer ( fective 2013-Present) Name:Vanessa Currie Member ID:[id number] Relation to Subscriber:Self Name:Vanessa Currie Subscriber ID:[id number] Payer ID:[id number] Group ID:Not on file Type:Medicare Address: [facility] [address] [place] [phone] [place] MED[employer] SUPPLEMENT MEDICARE PART A & B [place] SUPPLEMENT MEDICARE PART A & B [place] MEDEX SUPPLEMENT MEDICARE PART A & B [place] MEDEX SUPPLEMENT Care Teams Herbicide Service Sales Representative Relationship Specialty Start Date End Date Cathi Mendez MD [address] [place] [address] PCP - General Internal Medicine 05/17/22 Additional Source Comments The information contained in this document represents components of the legal health record. It is not the complete legal health record.[facility]
== END 2025-09-21 14:33 | disposition home or self-care (01) ==
LOC: HO.HOS 14:07
PROVIDERS: PCP Internal Medicine; Visit Provider Physician Assistant
DX: S42.035D Nondisplaced fracture of lateral end of left clavicle, subsequent encounter for fracture with routine healing (principal)
CPT/HCPCS: 99213

== ENCOUNTER → 2025-09-21 14:09 | Outpatient (BNV) | payer MEDICARE, SELFPAY | PROVIDERS: Visit Provider Radiology Diagnostic Radiology | DX: M89.8X1 Other specified disorders of bone, shoulder (principal) | CPT/HCPCS: 73000 ==